=== PATIENT | female | born 1950 | race Caucasian/White ===

== ENCOUNTER 2016-10-24 20:20 | Inpatient (IN) | payer OTHER, MEDICARE ==
[~2016-10-24] VITALS: Ht 170.2 cm; Wt 69.1 kg
[~2016-10-24 20:20] MED LIST: ALPR.25 PO; DEPA500T3 PO; KEPP10002 PO; TOPA25TA8 PO
[2016-10-24 20:27] VITALS: BP 148/88; PULSE 76; RESP 16; TEMP 97.7; O2SAT 97
[2016-10-24 20:37] VITALS: BP 148/88; PULSE 76; RESP 16; TEMP 97.7; O2SAT 97
[2016-10-24] MEDS ORDERED: levETIRAcetam 1000 MG INJ 100 ML IV ONE (20:45)
[2016-10-24] MEDS ORDERED: SODIUM CHLORIDE 0.9% FLUSH 5 ML FLUSH IVF PRN (20:45)
[2016-10-24 20:54] LABS: AUTOMATED NEUTROPHIL # 4.9 TH/MM3 (1.8-7.7); BASOPHIL # 0.1 TH/MM3 (0-0.2); EOSINOPHIL % 0.1 % (0.0-4.0); HEMATOCRIT 47.7 % (35.0-46.0); HEMO FLAGS DIFF FINAL; LYMPH % 8.8 % (9.0-44.0); LYMPHOCYTE # 0.5 TH/MM3 (1.0-4.8); MEAN CELL VOLUME 91.3 FL (80.0-100.0); MEAN CORPUSCULAR HEMOGLOBIN 29.8 PG (27.0-34.0); MEAN CORPUSCULAR HGB CONC 32.7 % (32.0-36.0); MONO % 3.7 % (0.0-8.0); NEUT % 86.4 % (16.0-70.0); PLATELET COUNT 177 TH/MM3 (150-450); RED BLOOD COUNT 5.23 MIL/MM3 (4.00-5.30); RED CELL DISTRIBUTION WIDTH 13.5 % (11.6-17.2); WHITE BLOOD COUNT 5.7 TH/MM3 (4.0-11.0)
--- NOTE | 2016-10-24 20:56 | PD ---
HPI Chief Complaint: Seizure Time Seen by Provider: 20:30 Travel History International Travel<30 days: No Contact w/Intl Traveler<30days: No Traveled to known affect area: No History of Present Illness HPI 66-year-old female with history of seizure disorder, medication noncompliance, brought in by ambulance from home after being found with altered mental status and possibly postictal. Upon arrival to the emergency department, the patient is postictal and is not providing any history. I was able to contact the patient's Sami Bartholomew who is a sample wrapper and is currently out of town. He tells me that the patient is not compliant with the Depakote that she has been prescribed because she does not like the way makes her feel. She has been on several antiepileptics in the past and seems to tolerate Keppra and Tegretol. The patient has been here several times this year with similar presentation. I personally evaluated the patient on 07/21/16 and admitted her for status epilepticus. The patient's states that he calls her throughout the day. This morning and this afternoon she was normal with normal conversations. At around 7:00 PM when he called the home she did not answer, so he called a neighbor to check on her. She was found to be postictal on a recliner. PFSH Past Medical History Hx Anticoagulant Therapy: No Arthritis: No Blood Disorders: No Anxiety: Yes Depression: Yes Heart Rhythm Problems: No Cancer: No Cardiovascular Problems: Yes (HTN; ARRHYTHMIA) High Cholesterol: No Chemotherapy: No Chest Pain: No Congestive Heart Failure: No Cerebrovascular Accident: No Diabetes: No Diminished Hearing: No Endocrine: No Gastrointestinal Disorders: No Genitourinary: No Headaches: Yes Hepatitis: No Hiatal Hernia: No Hypertension: No Immune Disorder: No Implanted Vascular Access Dvce: No Medical other: Yes (SEIZURES, UNKNOWN REASON) Musculoskeletal: Yes (UNSTEADY GAIT) Neurologic: Yes ([place]) Psychiatric: Yes Reproductive: Yes (FIBROID TUMORS) Respiratory: No Immunizations Current: Yes Migraines: No Radiation Therapy: No Seizures: Yes (FROM THE AGE OF 19) Thyroid Disease: No Tetanus Vaccination: < 5 Years Influenza Vaccination: Yes PNEUMOCCOCAL Vaccine (Year): 2 ?: Not Menopausal: Yes : 2 : 2 Dilation and Curettage (D&C): Yes Past Surgical History Abdominal Surgery: No AICD: No Arteriovenous Shunt: No Cardiac Surgery: No Ear Surgery: No Endocrine Surgery: No Eye Surgery: No Genitourinary Surgery: No Gynecologic Surgery: Yes (D&C) Hysterectomy: No Insulin Pump: No Joint Replacement: No Neurologic Surgery: No Oral Surgery: No Pacemaker: No Thoracic Surgery: No Other Surgery: Yes Social History Alcohol Use: No (Quit per ) Tobacco Use: Yes (Occ. per ,most info recalled) Substance Use: No Allergies-Medications (Allergen,Severity, Reaction): Coded Allergies: Fosphenytoin (Verified Allergy, Severe, Rash, 10/24/16) Reported Meds & Prescriptions Reported Meds & Active Scripts Active Xanax (Alprazolam) 0.25 Mg Tab 0.25 Mg PO BID PRN Topamax (Topiramate) 25 Mg Tab 50 Mg PO Q12HR Reported Keppra (Levetiracetam) 1,000 Mg Tab 1,250 Mg PO BID Depakote ER (Divalproex Sodium) 500 Mg Ang 500 Mg PO BID Review of Systems ROS Limitations: Clinical Condition Physical Exam Narrative GENERAL: Well-developed, well-nourished, awake, no acute distress. SKIN: Warm and dry. No rash. No lacerations, abrasions, or ecchymosis. HEAD: Atraumatic. Normocephalic. EYES: Pupils equal, round, 3 mm, reactive to light. No scleral icterus. No injection or drainage. ENT: Mucous membranes pink and moist. NECK: Trachea midline. No JVD. CARDIOVASCULAR: Regular rate and rhythm. RESPIRATORY: No accessory muscle use. Clear to auscultation. Breath sounds equal bilaterally. GASTROINTESTINAL: Abdomen soft, non-tender, nondistended. MUSCULOSKELETAL: No obvious deformities. No clubbing. No cyanosis. No edema. NEUROLOGICAL: Awake and alert. No obvious cranial nerve deficits. Motor grossly within normal limits. Normal speech. No focal deficits. Follows commands. PSYCHIATRIC: Appropriate mood and affect; insight and judgment normal. Data Data Last Documented VS Vital Signs Date Time Temp Pulse Resp B/P Pulse Ox O2 Delivery O2 Flow Rate FiO2 10/24/16 21:37 73 18 113/66 97 Room Air 10/24/16 20:37 97.7 Orders Complete Blood Count With Diff (10/24/16 20:34) Valproic Acid (Depakene) (10/24/16 20:34) Drug Screen, Random Urine (10/24/16 20:34) Ecg Monitoring (10/24/16 20:34) Iv Access Insert/Monitor (10/24/16 20:34) Oximetry (10/24/16 20:34) Comprehensive Metabolic Panel (10/24/16 20:34) Sodium Chloride 0.9% Flush (Ns Flush) (10/24/16 20:45) Urinalysis - C+S If Indicated (10/24/16 20:34) Levetiracetam 1000 Mg Inj (Keppra 1000 M (10/24/16 20:45) Place In Observation (10/24/16 ) Vital Signs (Adult) Q4H (10/24/16 21:45) Activity Oob With Assistance (10/24/16 21:45) ^ Forest Economist / Telemetry .CONTINUOUS (10/24/16 21:45) Intake + Output JAIDEN.QSHIFT (10/24/16 21:45) Diet Regular Basic (10/25/16 Breakfast) Sodium Chlor 0.9% 1000 Ml Inj (Ns 1000 M (10/24/16 21:45) Sodium Chloride 0.9% Flush (Ns Flush) (10/24/16 21:45) Sodium Chloride 0.9% Flush (Ns Flush) (10/25/16 09:00) Ondansetron Inj (Zofran Inj) (10/24/16 21:45) Bisacodyl Supp (Dulcolax Supp) (10/24/16 21:45) Comprehensive Metabolic Panel (10/25/16 06:00) Complete Blood Count With Diff (10/25/16 06:00) Scd Bilateral/Knee High JAIDEN.BID (10/24/16 21:45) Artis Bilateral/Knee High JAIDEN.QSHIFT (10/24/16 21:45) Acetaminophen (Tylenol) (10/24/16 21:45) ^ Seizure Precautions (10/24/16 21:45) Alprazolam (Xanax) (10/24/16 21:45) Divalproex Er (Depakote Er) (10/25/16 09:00) Levetiracetam (Keppra) (10/25/16 09:00) Topiramate (Topamax) (10/25/16 09:00) Labs Laboratory Tests Test 10/24/16 20:44 White Blood Count 5.7 TH/MM3 Red Blood Count 5.23 MIL/MM3 Hemoglobin 15.6 GM/DL Hematocrit 47.7 % Mean Corpuscular Volume 91.3 FL Mean Corpuscular Hemoglobin 29.8 PG Mean Corpuscular Hemoglobin 32.7 % Concent Red Cell Distribution Width 13.5 % Platelet Count 177 TH/MM3 Mean Platelet Volume 7.8 FL Neutrophils (%) (Auto) 86.4 % Lymphocytes (%) (Auto) 8.8 % Monocytes (%) (Auto) 3.7 % Eosinophils (%) (Auto) 0.1 % Basophils (%) (Auto) 1.0 % Neutrophils # (Auto) 4.9 TH/MM3 Lymphocytes # (Auto) 0.5 TH/MM3 Monocytes # (Auto) 0.2 TH/MM3 Eosinophils # (Auto) 0.0 TH/MM3 Basophils # (Auto) 0.1 TH/MM3 CBC Comment DIFF FINAL Differential Comment Sodium Level 142 MEQ/L Potassium Level 3.9 MEQ/L Chloride Level 105 MEQ/L Carbon Dioxide Level 24.1 MEQ/L Anion Gap 13 MEQ/L Blood Urea Nitrogen 8 MG/DL Creatinine 0.79 MG/DL Estimat Glomerular Filtration 73 ML/MIN Rate Random Glucose 129 MG/DL Calcium Level 9.1 MG/DL Total Bilirubin 0.3 MG/DL Aspartate Amino Transf 7 U/L (AST/SGOT) Alanine Aminotransferase 15 U/L (ALT/SGPT) Alkaline Phosphatase 101 U/L Total Protein 7.4 GM/DL Albumin 3.8 GM/DL [facility] Medical Decision Making Medical Screen Exam Complete: Yes Emergency Medical Condition: Yes Medical Record Reviewed: Yes Differential Diagnosis Breakthrough seizure, medication noncompliance, postictal, intracranial abnormality Narrative Course Upon arrival to the emergency department patient was confused and seemed postictal. About 30 minutes after arrival to the patient is more awake. She is oriented to person and place. She admits to not taking her seizure medications. She was given a loading dose of Keppra by me. 9:29 PM: I was called to the bedside because the patient was having a generalized seizure. Seizure broke on its own after about 30 seconds. Patient was postictal after seizure. The patient did not return to her baseline mental status before the seizure occurred. Because of this she is technically an status epilepticus. She will be admitted for further treatment and evaluation. CBC shows WBC 5.7, hemoglobin 15.6, hematocrit 47.7, platelets 177 CMP is essentially unremarkable. Case discussed with hospitalist Dr. Tristan who will admit the patient to her service. Diagnosis Primary Impression: Recurrent seizures Additional Impression: Noncompliance with medications Admitting Information Admitting Physician Requests: Observation Wong Abernathy MD Oct 24, 2016 20:56
[2016-10-24 21:05] LABS: CHLORIDE 105 MEQ/L (98-107); POTASSIUM 3.9 MEQ/L (3.5-5.1); SODIUM (NA) 142 MEQ/L (136-145)
[2016-10-24 21:09] LABS: ANION GAP 13 MEQ/L (5-15); BICARBONATE 24.1 MEQ/L (21.0-32.0); BLOOD UREA NITROGEN 8 MG/DL (7-18)
[2016-10-24 21:12] LABS: ALT (GPT) 15 U/L (10-53); AST (GOT) 7 U/L (15-37); GLOMERULAR FILTRATION RATE 73 ML/MIN (>89)
[2016-10-24 21:13] LABS: TOTAL BILIRUBIN ADULT 0.3 MG/DL (0.2-1.0)
[2016-10-24 21:14] LABS: ALKALINE PHOSPHATASE 101 U/L (45-117)
[2016-10-24 21:37] VITALS: BP 113/66; PULSE 73; RESP 18; O2SAT 97
[2016-10-24] MEDS ORDERED: BISACODYL 10 MG SUPP PR PRN (21:45)
[2016-10-24] MEDS ORDERED: ONDANSETRON HCL 4 MG/2 ML VIAL IVP PRN (21:45)
[2016-10-24] MEDS ORDERED: ALPRAZolam 0.25 MG TAB PO PRN (21:45)
[2016-10-24] MEDS ORDERED: SODIUM CHLORIDE 0.9% FLUSH 5 ML FLUSH FLUSH PRN (21:45)
[2016-10-24] MEDS: SODIUM CHLOR 0.9% 1000 ML INJ 1,000 ML IV SCH (21:54)
[2016-10-24 21:59] VITALS: BP 134/88; PULSE 77; RESP 17; O2SAT 97
[2016-10-24 22:45] VITALS: BP 147/90; PULSE 79; RESP 16; O2SAT 96
[2016-10-25] VITALS (14 sets, daily range): BP systolic 109–153; BP diastolic 76–95; PULSE 68–117; RESP 12–19; TEMP 97.2–98.3; O2SAT 94–99
[2016-10-25] MEDS ORDERED: LORazepam 2 MG/ML VIAL IV PUSH PRN (05:45)
[2016-10-25 07:49] LABS: AUTOMATED NEUTROPHIL # 5.8 TH/MM3 (1.8-7.7); BASOPHIL % 0.3 % (0.0-2.0); EOSINOPHIL % 0.3 % (0.0-4.0); HEMATOCRIT 50.2 % (35.0-46.0); HEMO FLAGS DIFF FINAL; LYMPHOCYTE # 0.8 TH/MM3 (1.0-4.8); MEAN CELL VOLUME 91.6 FL (80.0-100.0); MEAN CORPUSCULAR HEMOGLOBIN 29.4 PG (27.0-34.0); MEAN CORPUSCULAR HGB CONC 32.1 % (32.0-36.0); MONO % 6.2 % (0.0-8.0); NEUT % 82.2 % (16.0-70.0); PLATELET COUNT 207 TH/MM3 (150-450); RED BLOOD COUNT 5.48 MIL/MM3 (4.00-5.30); RED CELL DISTRIBUTION WIDTH 13.7 % (11.6-17.2); WHITE BLOOD COUNT 6.9 TH/MM3 (4.0-11.0)
[2016-10-25] MEDS: SODIUM CHLOR 0.9% 1000 ML INJ 1,000 ML IV SCH ×2 (08:02→15:34)
[2016-10-25 08:10] LABS: CHLORIDE 107 MEQ/L (98-107); POTASSIUM 4.4 MEQ/L (3.5-5.1); SODIUM (NA) 142 MEQ/L (136-145)
[2016-10-25 08:17] LABS: ANION GAP 9 MEQ/L (5-15); BICARBONATE 26.1 MEQ/L (21.0-32.0); BLOOD UREA NITROGEN 9 MG/DL (7-18)
[2016-10-25 08:20] LABS: ALT (GPT) 15 U/L (10-53); AST (GOT) 9 U/L (15-37)
[2016-10-25 08:21] LABS: GLOMERULAR FILTRATION RATE 87 ML/MIN (>89)
[2016-10-25 08:22] LABS: TOTAL BILIRUBIN ADULT 0.5 MG/DL (0.2-1.0)
[2016-10-25 08:23] LABS: ALKALINE PHOSPHATASE 103 U/L (45-117)
[2016-10-25] MEDS ORDERED: levETIRAcetam 500 MG TAB PO SCH (09:00)
[2016-10-25] MEDS: levETIRAcetam 250 MG TAB PO SCH ×2 (09:00→20:24)
[2016-10-25] MEDS ORDERED: DIVALPROEX SODIUM E.R. 500 MG TAB PO SCH (09:00)
[2016-10-25] MEDS: SODIUM CHLORIDE 0.9% FLUSH 5 ML FLUSH FLUSH SCH ×2 (09:00→20:24)
[2016-10-25] MEDS: TOPIRAMATE 25 MG TAB PO SCH ×2 (09:00→21:24)
[2016-10-25] MEDS: levETIRAcetam 500 MG TAB PO SCH ×2 (09:36→20:24)
--- NOTE | 2016-10-25 13:10 | HHI.HP ---
cc: Chidi Slater MD [facility] Service [facility] Primary Care Physician Chidi Slater MD Admission Diagnosis recurrent seizures, medication non-compliance Diagnoses: (1) Encephalopathy (2) Recurrent seizures (3) Noncompliance with medications Chief Complaint: Seizure Travel History International Travel<30 Days: No Contact w/Intl Traveler <30 Da: No Traveled to Known Affected Are: No History of Present Illness The patient is a 66-year-old female with history of seizure disorder and medication noncompliance. She was found to have altered mental status, possibly postictal state. She was brought to the emergency department by ambulance. She is nonverbal. She is able to answer questions by nodding. She denies any complaints other than the seizures. She did have another witnessed seizure this morning and was given Ativan. She has been refusing some of her antiepileptic medications. Further information is gathered from review of the electronic medical record. Review of Systems ROS Limitations: Altered Mental Status Constitutional: DENIES: Fever, Chills, Night Sweats Eyes: DENIES: Blurred vision, Vision loss Ears, nose, mouth, throat: DENIES: Hearing loss Respiratory: DENIES: Cough, Wheezing, Sputum production, Shortness of breath Cardiovascular: DENIES: Chest pain, Palpitations, Dyspnea on Exertion, Lower Extremity Edema Gastrointestinal: DENIES: Abdominal pain, Constipation, Diarrhea, Nausea, Vomiting Genitourinary: DENIES: Urinary frequency, Urinary incontinence, Urgency, Hematuria, Dysuria, Nocturia Musculoskeletal: DENIES: Joint pain, Muscle aches Integumentary: DENIES: Pruritus, Rash Hematologic/lymphatic: DENIES: Bruising Neurologic: COMPLAINS OF: Seizures, DENIES: Headache, Localized weakness, Paresthesias Past Family Social History Past Medical History Seizure disorder Hypertension Anxiety/depression Past Surgical History D&C Reported Medications Xanax (Alprazolam) 0.25 Mg Tab 0.25 Mg PO BID PRN Topamax (Topiramate) 25 Mg Tab 50 Mg PO Q12HR Keppra (Levetiracetam) 1,000 Mg Tab 1,250 Mg PO BID Depakote ER (Divalproex Sodium) 500 Mg Ang 500 Mg PO BID Allergies: Coded Allergies: Fosphenytoin (Verified Allergy, Severe, Rash, 10/24/16) Family History Unobtainable Social History Per review of the electronic record, smokes cigarettes occasionally. No longer uses alcohol. Denies illicit drug use. Physical Exam Vital Signs Vital Signs Date Time Temp Pulse Resp B/P Pulse Ox O2 Delivery O2 Flow Rate FiO2 10/25/16 08:00 97.6 75 18 146/89 99 10/25/16 08:00 82 10/25/16 04:00 97.2 76 16 142/90 96 10/25/16 00:51 75 10/25/16 00:30 98.1 74 16 148/95 99 10/25/16 00:00 82 16 126/94 96 Room Air 10/24/16 22:45 79 16 147/90 96 Room Air 10/24/16 21:59 77 17 134/88 97 Room Air 10/24/16 21:37 73 18 113/66 97 Room Air 10/24/16 20:37 97.7 76 16 148/88 97 Room Air 10/24/16 20:27 97.7 76 16 148/88 97 Room Air 10/24/16 20:27 16 97 Room Air Physical Exam GENERAL: Well-nourished, well-developed female in no acute distress. Nonverbal. HEENT: Normocephalic, atraumatic. Pupils equal, round and reactive. Extraocular movements intact. No scleral icterus. No injection or drainage. Oropharynx is clear. Mucous membranes are moist. CARDIOVASCULAR: Regular rate and rhythm without murmurs, gallops, or rubs. RESPIRATORY: Clear to auscultation. No wheezes, rales, or rhonchi. Breathing is non-labored. GASTROINTESTINAL: Abdomen soft, non-tender, nondistended. EXTREMITIES: No lower extremity edema. No calf tenderness. PSYCH: Alert, nonverbal, answers questions by nodding. NEURO: Cranial nerves II through XII are grossly intact. Audio Operator strength is 5/5 bilaterally. Laboratory Laboratory Tests Test 10/24/16 10/25/16 20:44 07:03 White Blood Count 5.7 6.9 Red Blood Count 5.23 5.48 Hemoglobin 15.6 16.1 Hematocrit 47.7 50.2 Mean Corpuscular Volume 91.3 91.6 Mean Corpuscular Hemoglobin 29.8 29.4 Mean Corpuscular Hemoglobin 32.7 32.1 Concent Red Cell Distribution Width 13.5 13.7 Platelet Count 177 207 Mean Platelet Volume 7.8 8.4 Neutrophils (%) (Auto) 86.4 82.2 Lymphocytes (%) (Auto) 8.8 11.0 Monocytes (%) (Auto) 3.7 6.2 Eosinophils (%) (Auto) 0.1 0.3 Basophils (%) (Auto) 1.0 0.3 Neutrophils # (Auto) 4.9 5.8 Lymphocytes # (Auto) 0.5 0.8 Monocytes # (Auto) 0.2 0.4 Eosinophils # (Auto) 0.0 0.0 Basophils # (Auto) 0.1 0.0 CBC Comment DIFF FINAL DIFF FINAL Differential Comment Sodium Level 142 142 Potassium Level 3.9 4.4 Chloride Level 105 107 Carbon Dioxide Level 24.1 26.1 Anion Gap 13 9 Blood Urea Nitrogen 8 9 Creatinine 0.79 0.68 Estimat Glomerular Filtration 73 87 Rate Random Glucose 129 109 Calcium Level 9.1 9.0 Total Bilirubin 0.3 0.5 Aspartate Amino Transf 7 9 (AST/SGOT) Alanine Aminotransferase 15 15 (ALT/SGPT) Alkaline Phosphatase 101 103 Total Protein 7.4 7.4 Albumin 3.8 3.8 Valproic Acid (Depakene) Level LESS THAN 3 Result Diagram: 10/25/1603 10/25/16 0703 Assessment and Plan Assessment and Plan 1. Seizure disorder: Patient has had recurrent seizures. She apparently is noncompliant with her antiepileptic medication. Will admit to ICU for close monitoring. Ativan as needed for seizures. Seizure precautions. Consult neurology. 2. Encephalopathy: Likely secondary to seizure disorder. Patient is currently nonverbal, but is more alert now. Monitor mental status. 3. DVT prophylaxis: Krystyna, CALIXTO lopez. Jaydon Liriano MD Oct 25, 2016 13:09
--- NOTE | 2016-10-25 14:45 | RADHPO ---
EXAM DATE/TIME: 10/25/2016 14:25 [place] COMPARISON: CT BRAIN W/O CONTRAST, September 27, 2016, 10:58. INDICATIONS : Evaluate for encephalopathy. RADIATION DOSE: 60.32 CTDIvol (mGy) MEDICAL HISTORY : Hypertension. SURGICAL HISTORY : None. ENCOUNTER: Initial ACUITY: 1 day PAIN SCALE: Non-responsive LOCATION: Bilateral head TECHNIQUE: Multiple contiguous axial images were obtained of the head. Using automated exposure control and adj ustment of the mA and/or kV according to patient size, radiation dose was kept as low as reasonably a chievable to obtain optimal diagnostic quality images. FINDINGS: Air-fluid level in the left sinus. No fractures. No signs of acute infarct, intracranial hemorrhage, or mass. There is cerebellar atrophy again seen. CONCLUSION: 1. Stable appearance of the brain. 2. Left sphenoid sinus air-fluid level. Felton Simon MD on October 25, 2016 at 14:43 Board Certified Radiologist. This report was verified electronically.
--- NOTE | 2016-10-25 16:44 | MB ---
cc: MOLINA SANCHEZ MD DATE OF CONSULTATION: 10/25/2016. REASON FOR CONSULTATION: Breakthrough seizure and encephalopathy. HISTORY OF PRESENT ILLNESS: A 66-year-old female with past medical history of seizure disorder and seizure medication noncompliance well-known to this service. She has frequently visited the emergency room for breakthrough seizures and traumatic multiple falls and traumatic head injury. The patient states that she only takes Keppra one dose per day and according to the medical record on previous encounter with her personally, she was on Keppra and Lamictal and oxcarbazepine; however, she adamantly states that she only takes one pill of Keppra and she is not sure of the strength of this Keppra dose. The patient was brought into the emergency department by the ambulance where she was nonverbal, confused and she did have another witnessed seizure in the hospital for which she was given Ativan and she is refusing other seizure medication. Of note, according to the previous medical record, the patient was diagnosed with seizure when she was 22 years old and she denies any history of childhood seizures, febrile convulsions, meningitis, significant head trauma, TIA or stroke. She has always been noncompliant with medications. REVIEW OF SYSTEMS: A twelve-point review of systems was negative except as stated in the history of present illness. PAST MEDICAL HISTORY: 1. Seizure disorder. 2. Hypertension. 3. Anxiety / depression. PAST SURGICAL HISTORY: D&C. MEDICATIONS: 1. Xanax. 2. Topamax 0.25 at 50. 3. Keppra 1000 morning and 1250 at night. 4. Depakote ER 500 twice daily. ALLERGIES: FOSPHENYTOIN - SEVERE RASH. FAMILY HISTORY: Noncontributory. SOCIAL HISTORY: She smokes cigarettes occasionally. She no longer drinks alcohol. Denies illicit drug abuse. PHYSICAL EXAMINATION: GENERAL: The patient is awake, alert, looks lethargic and not in distress. HEAD, EYES, EARS, NOSE, THROAT: Normocephalic and atraumatic. Intact vision. CARDIOVASCULAR: Regular rate and rhythm. No murmurs. RESPIRATORY: Clear to auscultation. No wheezes. EXTREMITIES: Moving all extremities without cyanosis or edema. NEUROLOGICAL EXAMINATION: Awake, alert and oriented to person and place, not to time. She is mildly slurring her speech. Lethargic. Intact speech content. Mild dysarthria. Left facial weakness, questionable remote. Moves all extremities. Unable to accurately assess the muscle strength due to the lack of cooperation of the patient but grossly it is intact 5-/5 throughout. Intact cerebellar function with just fine action tremor in both hands. Reflexes 2+ bilateral symmetrical. Sensation is intact throughout. Gait and stance deferred at this time. LABORATORY DATA: White blood cells 6.9, hemoglobin 16.1, MCV 91.6, platelet count 207,000. Sodium 142, potassium 4.4, chloride level 107, carbon dioxide 26.1, anion gap 9, BUN 9, creatinine 0.68, random glucose 109, total bilirubin 0.5, calcium 9, AST 9, ALT 15, alkaline phosphatase 103, total protein 7.4, albumin 3.8. Valproic acid was reported as less than three. DIAGNOSTIC IMPRESSION: Breakthrough seizure with history of chronic seizure disorder. The most likely etiology is non-adherence and noncompliance to the medication. PLAN: 1. Neuro checks q. 4 hourly. 2. Keppra 1 gram twice daily and if she refuses to take oral then will switch to intravenous. 3. Head CT scan without contrast. 4. Seizure precautions. 5. DVT prophylaxis. 6. GI prophylaxis. Thank you for the opportunity to participate in the care of your patient. MD MOISES Weber/SHAYY /2:05 PM /4:31 PM KALINA
[2016-10-25] MEDS ORDERED: DILTIAZEM HCL 25 MG/5 ML VIAL IVP ONE (19:15)
[2016-10-25 19:19] LABS: BLOOD, URINE NEG (NEG); GLUCOSE,URINE NEG (NEG); KETONE, URINE TRACE mg/dL (NEG); NITRITE,URINE NEG (NEG)
--- NOTE | 2016-10-25 19:19 | HHI.PR ---
Addendum to Inpatient Note Additional Information Called by ICU nurse. Patient showing a-fib with rate in 120s on telemetry. Patient is asymptomatic. No chest pain, dyspnea. EKG shows rate 130bpm with ST depression in V3, V4. I called Dr. Telles, cardiology, and he reviewed the EKG. Recommended ischemic workup with serial cardiac enzymes and EKGs. Will transfer to main hospital if troponin elevation. Start Cardizem drip for a-fib with RVR. Jaydon Liriano MD Oct 25, 2016 19:19
[2016-10-25 19:27] LABS: COMMENT (UR) CULT NOT INDICATED; CULTURE IF INDICATED CULT NOT INDICATED; RBC, URINE 0-2 /hpf (0-3); SQUAMOUS EPITHELIAL CELL URINE 0-5 /hpf (0-5); URINE COLOR STRAW (YELLW/STRAW); WBC, URINE 0-2 /hpf (0-5)
[2016-10-25 19:37] LABS: AMPHETAMINE, URINE NEG (NEG); BARBITURATES, URINE NEG (NEG)
[2016-10-25] MEDS ORDERED: DILTIAZEM INJ 100 MG in SODIUM CHLORIDE 0.9% INJ 100 ML IV SCH (19:37)
[2016-10-25 19:55] LABS: COCAINE, URINE NEG (NEG)
[2016-10-25 20:02] LABS: CREATINE KINASE 40 U/L (26-192)
[2016-10-25] MEDS: DIVALPROEX SODIUM E.R. 250 MG TAB PO SCH (20:24)
[2016-10-25] MEDS: ACETAMINOPHEN 325 MG TAB PO PRN (20:25)
[2016-10-25] MEDS ORDERED: CHLORHEXIDINE GLUCONATE 2 % 1 PACK (2 CLOTHS)(extra cloths) TOP PRN (21:00)
[2016-10-26] VITALS (28 sets, daily range): BP systolic 93–150; BP diastolic 55–103; PULSE 62–84; RESP 12–24; TEMP 97.2–98.2; O2SAT 93–96
[2016-10-26] MEDS: SODIUM CHLOR 0.9% 1000 ML INJ 1,000 ML IV SCH ×4 (00:34→20:00)
[2016-10-26] MEDS: ACETAMINOPHEN 325 MG TAB PO PRN ×2 (01:32→19:59)
[2016-10-26 02:13] LABS: CREATINE KINASE 35 U/L (26-192)
[2016-10-26] MEDS: CHLORHEXIDINE GLUCONATE 2 % 1 PACK (2 CLOTHS)(taper/protocol) TOP SCH (04:00)
[2016-10-26 07:59] LABS: CREATINE KINASE 33 U/L (26-192)
[2016-10-26] MEDS: levETIRAcetam 500 MG TAB PO SCH ×2 (08:32→19:59)
[2016-10-26] MEDS: levETIRAcetam 250 MG TAB PO SCH ×2 (08:32→19:58)
[2016-10-26] MEDS: SODIUM CHLORIDE 0.9% FLUSH 5 ML FLUSH FLUSH SCH ×2 (08:38→20:00)
[2016-10-26] MEDS: DIVALPROEX SODIUM E.R. 250 MG TAB PO SCH ×2 (09:00→20:00)
[2016-10-26] MEDS: TOPIRAMATE 25 MG TAB PO SCH ×2 (09:00→19:58)
--- NOTE | 2016-10-26 09:58 | HHI.PR ---
Subjective Remarks Follow up seizures, a-fib. The patient states that she feels better today. She is verbal. Does report some lower abdominal pain, but states that it has been there "for years". Reports paresthesias and pain in both feet. Objective Vitals Vital Signs Date Time Temp Pulse Resp B/P Pulse Ox O2 Delivery O2 Flow Rate FiO2 10/26/16 06:00 62 10/26/16 04:00 97.2 64 19 104/63 95 10/26/16 04:00 64 10/26/16 03:00 70 18 93/72 93 10/26/16 03:00 62 10/26/16 02:00 66 10/26/16 02:00 66 18 102/74 94 10/26/16 01:00 70 16 111/77 95 10/26/16 01:00 70 10/26/16 00:00 97.9 66 18 107/70 94 10/26/16 00:00 66 10/25/16 23:00 72 19 122/76 94 10/25/16 23:00 72 10/25/16 22:00 80 10/25/16 22:00 80 17 114/83 94 10/25/16 21:00 82 10/25/16 21:00 82 14 117/84 95 10/25/16 20:00 97.5 104 12 134/87 95 10/25/16 20:00 104 10/25/16 19:00 109/83 10/25/16 19:00 108 10/25/16 18:00 117 10/25/16 16:00 70 10/25/16 16:00 68 16 150/88 96 10/25/16 15:00 82 10/25/16 14:55 98.3 82 12 153/86 97 I/O 10/25/16 10/25/16 10/25/16 10/26/16 10/26/16 10/26/16 07:00 15:00 23:00 07:00 15:00 23:00 Intake Total 820 ml 968 ml 872 ml Output Total 450 ml Balance 820 ml 968 ml 422 ml Intake Oral 180 ml 120 ml IV Total 820 ml 788 ml 752 ml Output Urine Total 450 ml # Voids 2 1 # Bowel Movements 0 Result Diagram: 10/25/16 0703 10/25/16 0703 Imaging Last Impressions Head CT 10/25/16 0000 Signed Impressions: Service Date/Time: Tuesday, October 25, 2016 14:25 - CONCLUSION: 1. Stable appearance of the brain. 2. Left sphenoid sinus air-fluid level. Felton Simon MD Objective Remarks General: No acute distress. Heart: Regular rate and rhythm. No murmur. Lungs: Clear to auscultation bilaterally. No wheezes, rales, or rhonchi. Breathing is nonlabored. Abdomen: Soft, nontender, nondistended. Extremities: No lower extremity edema. Psych: Alert, answers questions appropriately. Urinary Catheter: No Vascular Central Line Catheter: No A/P Problem List: (1) Encephalopathy ICD Code: G93.40 Status: Acute (2) Recurrent seizures ICD Code: G40.909 Status: Chronic (3) Noncompliance with medications ICD Code: Z91.14 Status: Chronic (4) Atrial fibrillation with RVR ICD Code: I48.91 Status: Acute Assessment and Plan 1. Seizure disorder: Patient has had recurrent seizures. She apparently is noncompliant with her antiepileptic medication. Continue monitoring in ICU. Ativan as needed for seizures. Seizure precautions. Appreciate neurology recommendations. 2. Encephalopathy: Likely secondary to seizure disorder. Improving. Monitor mental status. 3. DVT prophylaxis: CALIXTO [place]. 4. Atrial fibrillation with RVR: Patient was placed on Cardizem drip last night. Rate is now controlled. Appreciate cardiology recommendations. Will discontinue Cardizem drip. Start digoxin rather than calcium channel marilia due to low blood pressure. Jaydon Liriano MD Oct 26, 2016 09:58
[2016-10-26] MEDS: DIGOXIN 0.125 MG TAB PO SCH (10:00)
--- NOTE | 2016-10-26 10:34 | MB ---
cc: GEOFF FINNEGAN DATE OF CONSULTATION: 10/26/2016 INDICATION Abnormal electrocardiogram, atrial fibrillation. HISTORY OF PRESENT ILLNESS 66-year-old female with prior history of seizure disorder and noncompliance with medications, who was brought in for breakthrough seizures and traumatic multiple falls with head injury. She was on Keppra and Lamictal. She was diagnosed with seizures at a young age. Does not have any history of any major cardiac issues. She was noted to have atrial fibrillation. She developed rapid ventricular rate with some associated mild ST depression on electrocardiogram, although she is asymptomatic. We were consulted for further recommendations. PAST MEDICAL HISTORY 1. Seizure. 2. Hypertension. 3. Anxiety. MEDICATIONS 1. Xanax. 2. Topamax. 3. Keppra. 4. Depakote. ALLERGIES FOSPHENYTOIN. FAMILY HISTORY Family history is noncontributory. SOCIAL HISTORY Occasional smoking. No alcohol or drug use. REVIEW OF SYSTEMS 12-point review of systems was performed and negative unless otherwise noted in the history of present illness. PHYSICAL EXAMINATION VITAL SIGNS: Temperature 97, pulse 64, blood pressure is 104/63 mmHg. GENERAL: Alert, no acute distress. HEENT: Exam shows pupils reactive to light and accommodation. Extraocular movements are intact. NECK: No elevation in jugular venous distension. No thyromegaly or lymphadenopathy. No carotid bruits. LUNGS: Clear to auscultation bilaterally. CARDIOVASCULAR: Irregular, irregular rhythm without murmurs, rubs or gallops. ABDOMEN: Nontender, nondistended. Good bowel sounds. No hepatosplenomegaly. EXTREMITIES: No clubbing, cyanosis or edema. Good peripheral pulses. Cranial nerves intact. Motor and sensory grossly intact. LABORATORY DATA WBC 6.9, hemoglobin 16.1, platelet counts 207, sodium 142, potassium 4.4, BUN is 9, creatinine 0.68, troponin negative. ASSESSMENT 1. Abnormal electrocardiogram, atrial fibrillation, hypertension. PLAN The patient is relatively asymptomatic. I suspect that her electrocardiogram with ST depression may have been rate related. She is now well rate controlled and slightly hypotensive on low dose Cardizem drip. Will discontinue Cardizem drip. Given her hypotension, will start her on low dose of digoxin instead of calcium channel marilia. She is not a good anticoagulation candidate, although her CHADS vasc score is relatively low. Will start her on aspirin 325 mg a day. For the abnormal electrocardiogram will get a Lexiscan. 2-D echocardiogram is pending. If both are unremarkable, no further workup is necessary. MD NITESH Mims/ALBA /9:55 AM /10:18 AM
[2016-10-26] MEDS ORDERED: REGADENOSON INJ 0.4 MG/5 ML SYR IV ONE (12:16)
--- NOTE | 2016-10-26 13:35 | EKG ---
Date Performed: 10/25/2016 Time Performed: 18:23:50 PTAGE: 66 years EKG: Atrial fibrillation with rapid ventricular response. Extensive ST-T changes may be due to m yocardial ischemia Abnormal ECG Compared to PREVIOUS TRACING , the atrial fibrillation with rapid ventriuclar response is new. The di ffuse ST-T wave changes are new. Clinical correlation will be important. PREVIOUS TRACIN09/15/2016 15.28 DOCTOR: Tessa Tinajero Interpretating Date/Time 10/26/2016 13:31:24
--- NOTE | 2016-10-26 13:37 | EKG ---
Date Performed: 10/26/2016 Time Performed: 01:17:06 PTAGE: 66 years EKG: Atrial fibrillation with slow ventricular response Possible inferior infarct - age undeterm ined Ant/septal and lateral ST-T changes are nonspecific Abnormal ECG Compared to PREVIOUS TRACING , the atrial fibrillation ventricular rate is now controlled. There has been a significant overall improvement in the nonspecific ST-T wave changes which are now largely res olved. Clinical correlation remains important. PREVIOUS TRACIN10/25/2016 18.23 DOCTOR: Tessa Tinajero Interpretating Date/Time 10/26/2016 13:32:20
--- NOTE | 2016-10-26 13:54 | RADHPO ---
EXAM DATE/TIME: 10/26/2016 12:39 [facility] COMPARISON: No previous studies available for comparison. INDICATIONS : Seizure disorder. Atrial fibrillation. DOSE: 25.8 mCi Tc99m Myoview at stress. 8.4 mCi Tc99m Myoview at rest. 0.4 mg Lexiscan STRESS SYMPTOMS: Cough and stomach pain. EJECTION FRACTION: > 70% MEDICAL HISTORY : Hypertension. SURGICAL HISTORY : D&C. ENCOUNTER: Initial ACUITY: 1 day PAIN SCALE: 0/10 LOCATION: chest TECHNIQUE: The patient underwent pharmacologic stress with infusion of prescribed dose. Continuous ECG tracing was monitored during stress. Gated SPECT imaging was performed after stress and conventional SPECT i maging was performed at rest. The examination was performed on a SPECT/CT scanner, both attenuation and non-corrected datasets were reviewed. FINDINGS: DISTRIBUTION: The maximum perfused segment at stress is in the anterolateral wall. PERFUSION STUDY: There is a questionable small reversible perfusion defect of mild severity at the mid inferior wall l evel. GATED STUDY: There is intact wall motion and thickening without hypokinetic or dyskinetic segments. CONCLUSION: 1. Questionable small reversible perfusion defect mid inferior wall. 2. Normal ejection fraction. RISK CATEGORY: Low (<1% Annual Mortality Rate) Felton Simon MD on October 26, 2016 at 13:50 Board Certified Radiologist. This report was verified electronically.
[2016-10-26] MEDS: ASPIRIN EC 325 MG TABEC PO SCH (14:27)
[2016-10-27] VITALS (24 sets, daily range): BP systolic 133–163; BP diastolic 78–99; PULSE 60–86; RESP 13–26; TEMP 97.9–98.3; O2SAT 94–96
[2016-10-27] MEDS: CHLORHEXIDINE GLUCONATE 2 % 1 PACK (2 CLOTHS)(taper/protocol) TOP SCH (04:00)
[2016-10-27] MEDS: SODIUM CHLOR 0.9% 1000 ML INJ 1,000 ML IV SCH (06:29)
[2016-10-27] MEDS: DIGOXIN 0.125 MG TAB PO SCH (08:44)
[2016-10-27] MEDS: SODIUM CHLORIDE 0.9% FLUSH 5 ML FLUSH FLUSH SCH ×2 (08:44→20:34)
[2016-10-27] MEDS: TOPIRAMATE 25 MG TAB PO SCH ×2 (08:45→20:34)
[2016-10-27] MEDS: DIVALPROEX SODIUM E.R. 250 MG TAB PO SCH ×2 (08:45→20:32)
[2016-10-27] MEDS: levETIRAcetam 250 MG TAB PO SCH ×2 (08:45→20:32)
[2016-10-27] MEDS: levETIRAcetam 500 MG TAB PO SCH ×2 (08:45→20:32)
[2016-10-27] MEDS: ASPIRIN EC 325 MG TABEC PO SCH (08:45)
--- NOTE | 2016-10-27 14:26 | HHI.PR ---
Subjective Remarks Late entry. Patient seen at 11:30 AM. Patient denies complaints. She is unable to tell me who her primary care physician is only stating that it used to be Dr. Slater. The patient is alert and oriented 3 however has poor insight into her health and is making bizarre statements such as "this hospital try to inject Depakote and my head." She is able to tell me that Dr. Castellano as her neurologist. She states her is a truckload checker and is currently in [place] but will be returning home in a few days. When I ask her for permission to talk with her regarding her healthcare she is hesitant and states "don't put me in a [facility]." However she does reluctantly give me permission to talk with her . Objective Vitals Vital Signs Date Time Temp Pulse Resp B/P Pulse Ox O2 Delivery O2 Flow Rate FiO2 10/27/16 13:00 84 26 158/89 10/27/16 12:00 98.2 76 17 150/90 10/27/16 12:00 76 10/27/16 12:00 76 17 150/90 10/27/16 11:03 76 26 145/89 10/27/16 11:00 78 10/27/16 10:00 86 10/27/16 09:00 82 10/27/16 08:06 98.1 68 16 156/84 10/27/16 08:00 70 10/27/16 07:00 64 10/27/16 07:00 64 13 142/89 10/27/16 06:00 74 10/27/16 06:00 74 24 140/88 10/27/16 05:00 60 19 140/81 10/27/16 04:00 62 10/27/16 04:00 97.9 62 19 141/85 95 10/27/16 03:00 64 16 136/84 10/27/16 02:00 60 10/27/16 02:00 60 19 135/82 10/27/16 01:00 64 17 133/83 10/27/16 00:00 64 10/27/16 00:00 98.3 64 14 138/78 94 10/26/16 23:00 66 16 126/77 95 10/26/16 22:00 72 17 119/70 10/26/16 22:00 72 10/26/16 21:00 68 10/26/16 21:00 68 14 121/75 10/26/16 20:00 78 10/26/16 20:00 97.9 78 21 150/103 96 10/26/16 19:00 74 12 119/85 10/26/16 18:00 74 10/26/16 17:00 78 17 105/82 10/26/16 17:00 78 10/26/16 16:50 76 10/26/16 16:00 80 10/26/16 16:00 98.2 80 16 117/77 10/26/16 15:50 80 10/26/16 15:00 82 22 125/82 10/26/16 15:00 82 10/26/16 14:50 84 I/O 10/26/16 10/26/16 10/26/16 10/27/16 10/27/16 10/27/16 07:00 15:00 23:00 07:00 15:00 23:00 Intake Total 872 ml 840 ml 742 ml 960 ml Output Total 450 ml 1200 ml 1 ml Balance 422 ml -360 ml 742 ml 959 ml Intake Oral 120 ml 240 ml 120 ml 60 ml IV Total 752 ml 600 ml 622 ml 900 ml Output Urine Total 450 ml 1200 ml Stool Total 1 ml # Voids 0 1 1 Result Diagram: 10/25/1670210/25/16702 Objective Remarks GENERAL: Well-nourished, well-developed lean female patient. SKIN: Warm and dry. HEAD: Normocephalic. EYES: No scleral icterus. No injection or drainage. NECK: Supple, trachea midline. No JVD or lymphadenopathy. CARDIOVASCULAR: Regular rate and rhythm without murmurs, gallops, or rubs. RESPIRATORY: Breath sounds equal bilaterally. No accessory muscle use. GASTROINTESTINAL: Abdomen soft, non-tender, nondistended. EXTREMITIES: No cyanosis, or edema. NEUROLOGICAL: Awake, alert, and oriented x 3. Non-focal. However she has poor insight and mental concentration and thought organization seems to be impaired. A/P Problem List: (1) Encephalopathy ICD Code: G93.40 Status: Acute (2) Recurrent seizures ICD Code: G40.909 Status: Chronic (3) Noncompliance with medications ICD Code: Z91.14 Status: Chronic (4) Atrial fibrillation with RVR ICD Code: I48.91 Status: Acute Assessment and Plan 1. Seizure disorder: Patient has had recurrent seizures. She apparently is noncompliant with her antiepileptic medication. Cont pablo chapman. Appreciate neurology recommendations. 2. Encephalopathy: Likely secondary to seizure disorder. Improving. Monitor mental status. Will need to discuss with baseline mental status. Psych history? 3. DVT prophylaxis: Krystyna, CALIXTO lopez. 4. Atrial fibrillation with RVR:s/p Cardizem drip. Rate is now controlled. Appreciate cardiology recommendations. Cont digoxin, ASA. Stephanie Hicks MD Oct 27, 2016 14:26
--- NOTE | 2016-10-27 15:13 | EC ---
Study Study Date:10/27/2016 STUDY CONCLUSIONS SUMMARY LEFT VENTRICLE: The cavity size was normal. Wall thickness was normal. Systolic function was normal. The estimated ejection fraction was in the range of 55% to 60%. Wall motion was normal; there were no regional wall motion abnormalities. If LV function is below 40, please consider prescribing an ACEI or ARB or document rationale for non-use. PROCEDURE DATA STUDY STATUS: Elective. Procedure: Transthoracic echocardiography. Image quality was suboptimal. Scanning was performed from the parasternal, apical, and subcostal acoustic windows. Study completion: The patient tolerated the procedure well. Transthoracic echocardiography. M-mode, complete 2D, complete spectral Doppler, and color Doppler. Patient status: Inpatient. CARDIAC ANATOMY LEFT VENTRICLE: The cavity size was normal. Wall thickness was normal. Systolic function was normal. The estimated ejection fraction was in the range of 55% to 60%. Wall motion was normal; there were no regional wall motion abnormalities. AORTIC VALVE: Trileaflet; normal thickness leaflets. Doppler: Transvalvular velocity was within the normal range. There was no stenosis. No regurgitation. AORTA: Aortic root: The aortic root was normal in size. MITRAL VALVE: Structurally normal valve. Doppler: Transvalvular velocity was within the normal range. There was no evidence for stenosis. Trace to mild regurgitation. LEFT ATRIUM: The atrium was normal in size. RIGHT VENTRICLE: The cavity size was normal. Wall thickness was normal. PULMONIC VALVE: Doppler: Transvalvular velocity was within the normal range. There was no evidence for stenosis. No regurgitation. TRICUSPID VALVE: Structurally normal valve. Doppler: Transvalvular velocity was within the normal range. Trace to mild regurgitation. PULMONARY ARTERY: The main pulmonary artery was normal-sized. Systolic pressure was within the normal range. RIGHT ATRIUM: The atrium was normal in size. PERICARDIUM: There was no pericardial effusion. SYSTEMIC VEINS: Inferior vena cava: The vessel was normal in size. BASIC MEASUREMENTS ADULT NORMAL Left ventricle LV internal dimension, ED, chordal level, *31.7 mm 43-52 PLAX LV internal dimension, ES, chordal level, *22.3 mm 23-38 PLAX Fractional shortening, chordal level, PLAX 30 % >29 Right ventricle RV internal dimension, ED, PLAX *18.2 mm 19-38 DOPPLER MEASUREMENTS ADULT NORMAL Mitral valve Peak E-wave velocity 60.2 cm/s Peak A-wave velocity 71.6 cm/s Peak E/A ratio 0.8 LEGEND: Mean values are shown as u=mean value. Asterisk (*) george values outside specified normal range. Prepared and signed by Saud Telles [id number]
--- NOTE | 2016-10-27 18:21 | EKG ---
Date Performed: 10/26/2016 Time Performed: 07:22:10 PTAGE: 66 years EKG: Atrial fibrillation. Inferior and anterior ST-T changes are nonspecific Low QRS voltages in precordial leads Since previous tracing, no significant change noted Abnormal ECG PREVIOUS TRACING : 10/26/2016 01.17 DOCTOR: Lenka Jones Interpretating Date/Time 10/27/2016 18:19:30
[2016-10-28] VITALS (12 sets, daily range): BP systolic 119–159; BP diastolic 79–98; PULSE 58–76; RESP 12–29; TEMP 97.3–98.7; O2SAT 93–97
[2016-10-28] MEDS: CHLORHEXIDINE GLUCONATE 2 % 1 PACK (2 CLOTHS)(taper/protocol) TOP SCH (02:55)
[2016-10-28] MEDS: SODIUM CHLOR 0.9% 1000 ML INJ 1,000 ML IV SCH ×2 (02:55→15:45)
[2016-10-28] MEDS: DIGOXIN 0.125 MG TAB PO SCH (08:15)
[2016-10-28] MEDS: DIVALPROEX SODIUM E.R. 250 MG TAB PO SCH ×2 (08:16→21:08)
[2016-10-28] MEDS: ASPIRIN EC 325 MG TABEC PO SCH (08:16)
[2016-10-28] MEDS: TOPIRAMATE 25 MG TAB PO SCH ×2 (08:16→21:11)
[2016-10-28] MEDS: levETIRAcetam 500 MG TAB PO SCH ×2 (08:16→21:10)
[2016-10-28] MEDS: levETIRAcetam 250 MG TAB PO SCH ×2 (08:16→21:11)
[2016-10-28] MEDS: SODIUM CHLORIDE 0.9% FLUSH 5 ML FLUSH FLUSH SCH ×2 (08:16→21:08)
--- NOTE | 2016-10-28 12:27 | HHI.FF ---
Face to Face Verification Diagnosis: (1) Atrial fibrillation (2) Seizure (3) Noncompliance with medications (4) Cognitive impairment Physical Therapy Order: Evaluate and Treat Speech Therapy Order: To Improve: Speech and communication skills, Cognitive skills Home Health Nursing Order: Medical education Medication education-adverse effect Nursing assessment with vital signs I have seen patient Nette Bartholomew on 10/28/16. My clinical findings support the need for the requested home health care services because: Med compliance is questionable Limited ability to care for self Need for psychosocial assistance Impaired cognition/judgement I certify that my clinical findings support that this patient is homebound because: Unsteady gait/balance Need for psychosocial assistance Stephanie Hicks MD Oct 28, 2016 12:27
[2016-10-28] MEDS ORDERED: ALPR.25 PO (12:29)
[2016-10-28] MEDS ORDERED: DEPA500T3 PO (12:29)
[2016-10-28] MEDS ORDERED: DIGO0.12 PO (12:29)
[2016-10-28] MEDS ORDERED: KEPP10002 PO (12:29)
[2016-10-28] MEDS ORDERED: TOPA25TA8 PO (12:29)
[2016-10-28] MEDS ORDERED: ASPI81TA11 PO (12:29)
--- NOTE | 2016-10-28 15:46 | HHI.PR ---
Subjective Remarks Patient remains seizure free however continues to have delusions. Her nurse Estela patient's called up to state that the patient does not take her medications and is convinced that he is trying to divorce her although they have been for 45 years and he has no intention of pursuing a divorce. The patient today tells me that she has been taking her medications. However she firmly believes that her is trying to divorce her. She tells me that "we have both signed papers." The patient appears confused at times. She refuses to consider going to snf facility. The patient denies that she has not been taking her medications and states that her is verbally abusing her by claiming that she does not take her medications. I reminded the patient yesterday that she told me that someone had injected Depakote into her head. The patient's response to that was "I only said that because I had just had a seizure." Objective Vitals Vital Signs Date Time Temp Pulse Resp B/P Pulse Ox O2 Delivery O2 Flow Rate FiO2 10/28/16 14:00 66 10/28/16 14:00 66 10/28/16 12:00 98.2 70 19 119/86 96 10/28/16 12:00 70 10/28/16 12:00 98.3 73 20 130/89 97 10/28/16 10:00 66 12 137/90 10/28/16 10:00 66 10/28/16 09:00 66 26 157/98 10/28/16 08:00 98.7 72 15 155/89 10/28/16 08:00 72 10/28/16 06:00 58 10/28/16 04:00 97.5 58 14 139/87 96 10/28/16 04:00 58 10/28/16 02:00 60 10/28/16 00:00 60 10/28/16 00:00 97.3 60 19 146/79 93 10/27/16 22:00 64 10/27/16 20:00 97.9 68 16 146/89 96 10/27/16 20:00 70 10/27/16 19:00 78 22 163/96 10/27/16 18:00 70 18 145/98 10/27/16 18:00 70 10/27/16 17:00 72 19 140/81 10/27/16 16:00 98.2 72 18 140/81 10/27/16 16:00 72 I/O 10/27/16 10/27/16 10/27/16 10/28/16 10/28/16 10/28/16 07:00 15:00 23:00 07:00 15:00 23:00 Intake Total 960 ml 2134 ml 1113 ml Output Total 1 ml 2100 ml 1300 ml 1350 ml Balance 959 ml 34 ml -187 ml -1350 ml Intake Oral 60 ml 680 ml 360 ml IV Total 900 ml 1454 ml 753 ml Output Urine Total 2100 ml 1300 ml 1350 ml Stool Total 1 ml # Voids 1 # Bowel Movements 1 0 0 Result Diagram: 10/25/1670210/25/16 07 Objective Remarks GENERAL: Well-nourished, well-developed lean female patient. SKIN: Warm and dry. HEAD: Normocephalic. EYES: No scleral icterus. No injection or drainage. NECK: Supple, trachea midline. No JVD or lymphadenopathy. CARDIOVASCULAR: Regular rate and rhythm without murmurs, gallops, or rubs. RESPIRATORY: Breath sounds equal bilaterally. No accessory muscle use. GASTROINTESTINAL: Abdomen soft, non-tender, nondistended. EXTREMITIES: No cyanosis, or edema. NEUROLOGICAL: Awake, alert, and oriented x 3. Non-focal. However she has poor insight and mental concentration and thought organization seems to be impaired. A/P Problem List: (1) Encephalopathy ICD Code: G93.40 Status: Acute (2) Recurrent seizures ICD Code: G40.909 Status: Chronic (3) Noncompliance with medications ICD Code: Z91.14 Status: Chronic (4) Atrial fibrillation with RVR ICD Code: I48.91 Status: Acute (5) Delusions ICD Code: F22 Status: Acute Assessment and Plan 1. Seizure disorder: Patient has had recurrent seizures. She apparently is noncompliant with her antiepileptic medication. Cont pablo chapman Topamax. Appreciate neurology recommendations. 2. Post ictal Encephalopathy: Appears resolved and she is alert and oriented 3. However she has delusions. See below. 3. Delusions and paranoia. The patient believes that her is trying to divorce her and is quite paranoid and insisted she needs to go home so that she can take care of arrangements for the divorce. Apparently according to the and they have been for 45 years and this is not true. The patient also accuses the hospital of injecting Depakote into her head. I tried to discuss with patient that I am concerned if she goes home she will not take her medications and will have another seizure however the patient appears to have poor insight into her disease. I do not think she has capacity to make her own medical decisions at this time and she is also not complying with a reasonable discharge plan that would ensure that she remains compliant. I will therefore initiate a certificate of involuntary examination and will consult psychiatry for a second opinion on her. I tried to call her today but he did not answer. Apparently according to the nurse he did call earlier this morning but he is a facility worker and is currently out of town. He is often out of town. 3. DVT prophylaxis: SYLVIAs, CALIXTO lopez. 4. Atrial fibrillation with RVR:s/p Cardizem drip. Rate is now controlled. Appreciate cardiology recommendations. Cont digoxin, ASA. Discharge Planning Patient is medically stable for discharge at this time. However due to the delusions and history of noncompliance she cannot be discharged home at this time. I have initiated an involuntary examination and have consulted psychiatry. Stephanie Hicks MD Oct 28, 2016 15:46
[2016-10-29] VITALS: BP 156/87; PULSE 52; RESP 15; TEMP 98.4; O2SAT 96
[2016-10-29] MEDS: CHLORHEXIDINE GLUCONATE 2 % 1 PACK (2 CLOTHS)(taper/protocol) TOP SCH (00:25)
[2016-10-29 08:00] VITALS: BP 146/80; PULSE 60; PULSE 68; RESP 13; TEMP 97.7; O2SAT 97
[2016-10-29] MEDS: levETIRAcetam 500 MG TAB PO SCH (08:58)
[2016-10-29] MEDS: TOPIRAMATE 25 MG TAB PO SCH (08:58)
[2016-10-29] MEDS: DIGOXIN 0.125 MG TAB PO SCH (08:58)
[2016-10-29] MEDS: DIVALPROEX SODIUM E.R. 250 MG TAB PO SCH (08:59)
[2016-10-29] MEDS: levETIRAcetam 250 MG TAB PO SCH (08:59)
[2016-10-29] MEDS: ASPIRIN EC 325 MG TABEC PO SCH (08:59)
[2016-10-29] MEDS: SODIUM CHLORIDE 0.9% FLUSH 5 ML FLUSH FLUSH SCH (09:00)
[2016-10-29] MEDS ORDERED: CITALOPRAM HYDROBROMIDE 20 MG TAB PO ONE ×2 (11:30→13:15)
[2016-10-29 12:00] VITALS: BP 137/88; PULSE 58; PULSE 65; RESP 22; TEMP 97.8
[2016-10-29] MEDS ORDERED: QUEtiapine FUMARATE 25 MG TAB PO SCH (12:00)
--- NOTE | 2016-10-29 12:10 | PD.CONS ---
Provisional Diagnosis Admission Date Oct 25, 2016 at 11:42 [place]. 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 fib, seizures. Patient was hospitalized for acute seizure episodes, consulted to psychiatry due to paranoia, patient was Agarwal acted due to disorganized behavior and wanted to leave the hospital AMA. As per Dr. Garcia note: "The patient believes that her is trying to divorce her and is quite paranoid and insisted she needs to go home so that she can take care of arrangements for the divorce. Apparently according to the and they have been for 45 years and this is not true. The patient also accuses the hospital of injecting Depakote into her head. I tried to discuss with patient that I am concerned if she goes home she will not take her medications and will have another seizure however the patient appears to have poor insight into her disease. I do not think she has capacity to make her own medical decisions at this time and she is also not complying with a reasonable discharge plan that would ensure that she remains compliant. I will therefore initiate a certificate of involuntary examination and will consult psychiatry for a second opinion on her. I tried to call her today but he did not answer. Apparently according to the nurse he did call earlier this morning but he is a kennel worker and is currently out of town". Chart was reviewed, case was discussed with nurse in charge, no collateral information available at this time, patient was seen and evaluated at bedside in the ICU in [place]. On psychiatric evaluation patient was superficially cooperative, guarded, oppositional, she is states "I know what you are, you are trying to be must , you are not my ". After redirection and presentation of our service, she says that she does not psychiatrist, but later on she states "my mind is always too busy, full of thought, thoughts that I cannot control". Patient says that she is in the hospital "because something is going on in my heart I think". She describes her mood as sad, she says that she is usually depressed, crying very often, "because my family doesn't love me anymore, my is always away", she says that she also is sleeping very poorly "thinking and thinking". She denies suicidal thoughts, and homicidal ideation.. She denies visual and auditory hallucination. However, she says that "all these machines around can be connected to my brain, but that you know better than me, I know that you know what I think". Patient is disoriented in time and place, she knows that she is in [facility], she knows exactly the date, but is unable to verbalize the reason of her hospitalization, and she stated people here in this place are against her, and keep watching her at night. During significant evaluation patient and several occasions becomes disorganized, with loosening of association, frequent thought derailment, but she is easily redirectable. On Mini-Mental state, she is scored 24/30. In clock draw test, patient was unable to point the numbers in the right side, and unable to draw the time. During the evaluation also insisted in him being discharged, but she was unable to articulate a rational choice or a logical reason for disposition. She denies the use of alcohol, and illicit drugs. Review of Systems Constitutional: DENIES: Diaphoretic episodes, Fatigue, Fever, Weight gain, Weight loss, Chills, Dizziness, Change in appetite, Night Sweats Endocrine: DENIES: Abnorml menstrual pattern, Heat/cold intolerance, Polydipsia , Polyuria, Polyphagia Eyes: DENIES: Blurred vision, Diplopia, Eye inflammation, Eye pain, Vision loss , Photosensitivity, Double Vision Cardiovascular: DENIES: Chest pain, Palpitations, Syncope, Dyspnea on Exertion , PND, Lower Extremity Edema, Orthopnea, Claudication Gastrointestinal: DENIES: Abdominal pain, Black stools, Bloody stools, Constipation, Diarrhea, Nausea, Vomiting, Difficulty Swallowing, Anorexia Genitourinary: DENIES: Abnormal vaginal bleeding, Dysmenorrhea, Dyspareunia, Sexual dysfunction, Urinary frequency, Urinary incontinence, Urgency, Hematuria , Dysuria, Nocturia, Vaginal discharge Musculoskeletal: DENIES: Joint pain, Muscle aches, Stiffness, Joint Swelling, Back pain, Neck pain Integumentary: DENIES: Abnormal pigmentation, Pruritus, Rash, Nail changes, Breast masses, Breast skin changes, Nipple discharge Hematologic/lymphatic: DENIES: Bruising, Lymphadenopathy Immunologic/allergic: DENIES: Eczema, Urticaria Neurologic: COMPLAINS OF: Seizures Psychiatric: COMPLAINS OF: Confusion, Delusions Past Family Social History Coded Allergies: Fosphenytoin (Verified Allergy, Severe, Rash, 10/24/16) Active Scripts Alprazolam (Xanax)0.25 Mg Tab0.25 Mg PO BID PRN (ANXIETY) #20 TAB Prov:Stephanie Hicks MD 10/28/16 Topiramate (Topamax)25 Mg Tab50 Mg PO Q12HR #60 TAB Prov:Jose Rafael Coleman MD 09/18/16 Reported Medications Levetiracetam (Keppra)1,000 Mg Tab1,250 Mg PO BID #60 TAB Ref 0 09/15/16 Divalproex ER (Depakote ER)500 Mg Zceds779 Mg PO BID #30 TAB Ref 0 09/15/16 Discontinued Scripts Alprazolam (Xanax)0.25 Mg Tab0.25 Mg PO BID PRN (ANXIETY) #10 TAB Prov:Jose Rafael Coleman MD 09/18/16 Current Medications Medications (Trade) Dose Ordered Sig/Mag Route Start Time Stop Time Status Last Admin (NS Flush) 2 ml UNSCH PRN FLUSH 10/24/16 21:45 (NS Flush) 2 ml BID FLUSH 10/25/16 09:00 10/29/16 09:00 (Zofran Inj) 4 mg Q6H PRN IVP 10/24/16 21:45 (Dulcolax Supp) 10 mg DAILY PRN VA 10/24/16 21:45 (Tylenol) 650 mg Q6H PRN PO 10/24/16 21:45 10/26/16 19:59 (Xanax) 0.25 mg BID PRN PO 10/24/16 21:45 10/26/16 01:32 (Topamax) 50 mg Q12HR PO 10/25/16 09:00 10/29/16 08:58 (Keppra) 250 mg BID PO 10/25/16 09:00 10/29/16 08:59 (Keppra) 1,000 mg BID PO 10/25/16 09:00 10/29/16 08:58 (Ativan Inj) 1 mg Q5M PRN IV PUSH 10/25/16 05:45 10/25/16 08:02 (Depakote Er) 500 mg BID PO 10/25/16 21:00 10/29/16 08:59 Miscellaneous Information Patient in critical care unit? Ass... [id number] XX 10/25/16 21:00 10/25/16 21:00 (Chlorhexidine 2% Cloth) 3 pack DAILY@04 TOP 10/26/16 04:00 10/30/16 04:01 10/28/16 02:55 (Chlorhexidine 2% Cloth) 3 pack UNSCH PRN TOP 10/25/16 21:00 10/30/16 20:45 (Ecotrin Ec) 325 mg DAILY PO 10/26/16 10:00 10/29/16 08:59 (Lanoxin) 0.125 mg DAILY PO 10/26/16 10:00 10/29/16 08:58 (SEROquel) 25 mg BID@09,12 PO 10/29/16 12:00 UNV (Aricept) 5 mg DAILY PO 10/30/16 09:00 UNV (CeleXA) 10 mg ONCE ONCE PO 10/29/16 11:30 10/29/16 11:31 UNV Social History Patient was born and raised in [place] She lives in [place] which her , Her is frequently away because he is a winch truck operator She has no kids 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, Her highest level of education is some college credits Physical Exam Vital Signs Vital Signs Date Time Temp Pulse Resp B/P Pulse Ox O2 Delivery O2 Flow Rate FiO2 10/29/16 00:00 98.4 52 15 156/87 96 I/O 10/28/16 10/28/16 10/29/16 08:00 16:00 00:00 Intake Total 1113 ml 930 ml 420 ml Output Total 1300 ml 2350 ml 0 ml Balance -187 ml -1420 ml 420 ml Mental Status Examination Appearance woman, age appearing, good hygiene, [facility], irritable, superficially cooperative, guarded paranoid Speech: Rapid, Slow Orientation: x3 Memory: Impaired (describe) Thought Process: Loose Association, Tangential Thought Content: Bizarre thinking, Paranoid Attention and Concentration: Abnormal Suicidal Ideation: No Previous Suicide Attempts: No Homicidal Ideation: No Insight: Poor Affect: Irritable Mood: Angry Motor Activity: Normal gait Assessment & Plan Problem List: (1) Dementia with psychosis Assessment & Plan: 66-year-old woman, without any previous psychiatric history, no previous suicide attempts, no previous psychotropics, medical history of A. fib, seizures. On psychiatric evaluation patient presents with marked paranoia, delusions of persecution, disorganized thought, capgras delusion, thought controlling. She also reports sad mood, insomnia, poor appetite, good level of concentration , frequent crying spells. On cognition testing patient seems to be is confused at times, with conserved orientation, attentions and level of consciousness, but significant impairment in recent and immediate recall, working memory, concentration, executive function and abstraction. Her mini mental states was 23/30 at this time. As per testimonial family members these memory problems and paranoia have been going on for some months now. This presentation is consistent with dementia/major neurocognitive disorder, unknown etiology, with psychotic features, but more longitudinal and neuropsychological test are crucial in order to define the diagnosis. Another less probable possibilities are late onset psychosis, post ictal psychosis, medication induced psychosis, Keppra is well-known to induce and exacerbate psychosis. Due to the level of psychosis and the danger that the patient might represents to herself and others she needs psychiatric admission for stabilization after she is medically clear. She could be a good candidate for the med/psychiatric if she may continue his medical care. But if the patient is fully medically clear she can be transferred to the [facility] psychiatric unit. Seroquel 25 mg twice a day will be started for psychosis, Aricept 5 mg will be started to prolong dementia decline. Support, motivation and psychoeducation provided Consult appreciated. ICD Code: F03.91 Assessment & Plan Estimated LOS: Mikal Bae MD Oct 29, 2016 12:10
--- NOTE | 2016-10-29 12:46 | HHI.DS ---
Discharge Summary Admission Date Oct 25, 2016 at 11:42 Discharge Date: Oct 29, 2016 Admitting Diagnosis recurrent seizures, medication non-compliance (1) Encephalopathy ICD Code: G93.40 (2) Recurrent seizures ICD Code: G40.909 (3) Noncompliance with medications ICD Code: Z91.14 (4) Atrial fibrillation with RVR ICD Code: I48.91 (5) Delusions ICD Code: F22 Procedures None Brief History - From Admission The patient is a 66-year-old female with history of seizure disorder and medication noncompliance. She was found to have altered mental status, possibly postictal state. She was brought to the emergency department by ambulance. She is nonverbal. She is able to answer questions by nodding. She denies any complaints other than the seizures. She did have another witnessed seizure this morning and was given Ativan. She has been refusing some of her antiepileptic medications. Further information is gathered from review of the electronic medical record. CBC/BMP: 10/25/16 0703 10/25/16 0703 Imaging Last Impressions Myocardial Perfusion Scan Nuc Med 10/26/16 0000 Signed Impressions: Service Date/Time: Wednesday, October 26, 2016 12:39 - CONCLUSION: 1. Questionable small reversible perfusion defect mid inferior wall. 2. Normal ejection fraction. RISK CATEGORY: Low (<1%% Annual Mortality Rate) Felton Simon MD Head CT 10/25/16 0000 Signed Impressions: Service Date/Time: Tuesday, October 25, 2016 14:25 - CONCLUSION: 1. Stable appearance of the brain. 2. Left sphenoid sinus air-fluid level. Felton Simon MD PE at Discharge GENERAL: Well-nourished, well-developed lean female patient. SKIN: Warm and dry. HEAD: Normocephalic. EYES: No scleral icterus. No injection or drainage. NECK: Supple, trachea midline. No JVD or lymphadenopathy. CARDIOVASCULAR: Regular rate and rhythm without murmurs, gallops, or rubs. RESPIRATORY: Breath sounds equal bilaterally. No accessory muscle use. GASTROINTESTINAL: Abdomen soft, non-tender, nondistended. EXTREMITIES: No cyanosis, or edema. NEUROLOGICAL: Awake, alert, and oriented x 3. Non-focal. However she has poor insight and mental concentration and thought organization seems to be impaired. Hospital Course The patient was admitted. Neurology was consulted and she was placed back on her antiepileptics with no further seizures. The patient then developed atrial fibrillation with rapid ventricular rate. Cardiology was consulted. She was placed on digoxin. She converted to normal sinus rhythm. Aspirin was recommended. Stress test showed a questionable small reversible defect in mid inferior wall - I discussed with cardiology Dr. Telles, no further workup needed at this time per cardiology. While hospitalized, the patient was noted to have delusions and was paranoid regarding her claiming that her was trying to divorce her. This is not factual. The patient also accused the hospital trying to inject Depakote into her head. Psychiatry was consulted. She is at this time medically cleared and has been accepted to inpatient psychiatry for further evaluation. Of note the patient has a long history of medication noncompliance with frequent hospitalizations for this. Her travels recently for work and is unable to care for her. Additionally because of her delusions and paranoia towards him she's very suspicious of him. I did update her via phone today who is in agreement with the above plan. The patient is under Agarwal act and will be discharged to psychiatry today. Pt Condition on Discharge: Stable Discharge Disposition: Disc to Psych Care Fac Discharge Time: > 30 minutes Discharge Instructions DIET: Follow Instructions for: As Tolerated, No Restrictions Activities you can perform: Regular-No Restrictions New Medications: Aspirin DR (Aspirin EC) 81 Mg Tabdr 81 MG PO DAILY prevent stroke #30 Ref 0 TAB Digoxin (Digoxin) 0.125 Mg Tab 0.125 MG PO DAILY control heart rate #30 TAB Continued Medications: Alprazolam (Xanax) 0.25 Mg Tab 0.25 MG PO BID PRN ANXIETY #20 TAB (This prescription has been renewed) Divalproex ER (Depakote ER) 500 Mg Ang 500 MG PO BID Control Seizures #60 Ref 0 TAB (This prescription has been renewed ) Levetiracetam (Keppra) 1,000 Mg Tab 1250 MG PO BID Control Seizures #60 Ref 0 TAB (This prescription has been renewed) Topiramate (Topamax) 25 Mg Tab 50 MG PO Q12HR Control Seizures #60 TAB (This prescription has been renewed) Stephanie Hicks MD Oct 29, 2016 12:46
[2016-10-29 13:10] LABS: POTASSIUM 3.3 MEQ/L (3.5-5.1)
[2016-10-29 13:13] LABS: BICARBONATE 20.4 MEQ/L (21.0-32.0)
[2016-10-29 13:56] LABS: DIGOXIN 0.4 NG/ML (0.8-2.0)
[2016-10-29] MEDS ORDERED: POTASSIUM CHLORIDE 10 MEQ CONTROLLED RELEASE TAB PO ONE (15:00)
[2016-10-29 16:00] VITALS: BP 150/101; PULSE 66; RESP 17; TEMP 97.9
[2016-10-30] MEDS ORDERED: DONEPEZIL HCL 5 MG TAB PO SCH (09:00)
[2016-10-30] MEDS ORDERED: POTASSIUM CHLORIDE 20 MEQ CONTROLLED RELEASE TAB PO SCH (09:00)
--- NOTE | 2016-11-12 11:26 | HHI.PYPN ---
Subjective Remarks Patient seen in day room with nurse Tierra, chart review, patient remains confused and disorganized, showing no insight into behaviors at home related to her noncompliance with seizure medication and the risks believes to with her physical and mental health. Patient is reluctantly compliant with medications. She has no other behavioral problem on the unit. This time I continue to feel that this patient does not have the capacity to live independently considering the severity of her seizure disorder and her noncompliance with medication, admitted to the fact that her 's work forces him to be away from the home for extended periods of time Review of Systems Except as stated in HPI: all other systems reviewed are Neg Objective Alert: Yes [place]: Person, Place Mood: Agitated, Angry Affect: Labile Memory Intact: Comment (poor) Hallucinations: Other (eyes) Delusions: Yes Delusion Type: Paranoid Suicidal: Ideation (denies) Homicidal: Ideation (denies) Insight/Judgement Very poor Assessment & Plan Problem List: (1) Dementia with psychosis ICD Code: F03.91 Assessment & Plan Estimated LOS: days patient continues confused disoriented, with resistance to medication, no insight into disease with a significant risk noncompliance medication if return to her home situation without appropriate supervision, however this time she is no longer a danger to herself or others Justification for Cont. Inpt. At this time patient was significantly decompensate if placed in the lower level of care Discharge Planning To be determined Alber Gordon MD Nov 12, 2016 11:26
== END 2016-10-29 17:48 | DRG 100 ==
LOC: PHED 20:20 → PHEDA 21:51 → PH3B 10-25 00:32 → OBSVTOIN 10-25 11:42 → PHICU 10-25 14:40
PROVIDERS: ADMIT Family Medicine; ATTEND Family Medicine
DX: G40.909 Epilepsy, unspecified, not intractable, without status epilepticus (principal); G93.40 Encephalopathy, unspecified; I48.91 Unspecified atrial fibrillation; F03.90 Unspecified dementia, unspecified severity, without behavioral disturbance, psychotic disturbance, mood disturbance, and anxiety; I10 Essential (primary) hypertension; M21.379 Foot drop, unspecified foot; Z91.14 Patient's other noncompliance with medication regimen; G40.901 Epilepsy, unspecified, not intractable, with status epilepticus; R26.81 Unsteadiness on feet; F32.9 Major depressive disorder, single episode, unspecified; F41.9 Anxiety disorder, unspecified; F17.210 Nicotine dependence, cigarettes, uncomplicated; R29.6 Repeated falls; F29 Unspecified psychosis not due to a substance or known physiological condition; F22 Delusional disorders
CPT/HCPCS: 70450; 78452; 80048; 80053; 80162; 80164; 80301; 81001; 82550; 84443; 84484; 85025; 87641; 93005; 93017; 93306; 96365; A9502; G0378; G0479; J1953; J2060; J2785; J7030

== ENCOUNTER 2016-10-29 14:45 | Inpatient (IN) | payer OTHER, MEDICARE ==
[~2016-10-29] VITALS: Ht 172.7 cm; Wt 70.1 kg
[~2016-10-29 14:45] MED LIST changes: +ASPI81TA11 PO; +DIGO0.12 PO
[2016-10-29 18:45] VITALS: BP 167/98; PULSE 72; RESP 16; TEMP 97.5; O2SAT 98
[2016-10-29] MEDS ORDERED: MAGNESIUM HYDROXIDE SUSP 30 ML CUP PO PRN (23:30)
[2016-10-29] MEDS ORDERED: ACETAMINOPHEN 325 MG TAB PO PRN (23:30)
[2016-10-29] MEDS ORDERED: ALUMINUM/MAGNESIUM/SIMETH 30 ML CUP PO PRN (23:30)
[2016-10-29] MEDS ORDERED: LORazepam 2 MG/ML VIAL - age > 65 yrs IM PRN (23:30)
[2016-10-29] MEDS: LORazepam 0.5 MG TAB age > 65 yrs PO PRN (23:35)
[2016-10-30 05:58] VITALS: BP 157/83; PULSE 73; RESP 18; TEMP 97.9
[2016-10-30 06:25] VITALS: BP 157/83; PULSE 73; RESP 18; TEMP 97.7; O2SAT 95
[2016-10-30 08:11] LABS: ANION GAP 10 MEQ/L (5-15); BICARBONATE 21.6 MEQ/L (21.0-32.0); BLOOD UREA NITROGEN 10 MG/DL (7-18); CHLORIDE 112 MEQ/L (98-107); GLOMERULAR FILTRATION RATE 106 ML/MIN (>89); POTASSIUM 3.6 MEQ/L (3.5-5.1); SODIUM (NA) 144 MEQ/L (136-145)
[2016-10-30 08:13] LABS: HDL CHOLESTEROL 35.6 MG/DL (40.0-60.0); LDL CHOLESTEROL 108 MG/DL (0-99)
[2016-10-30] MEDS ORDERED: ALUMINUM/MAGNESIUM/SIMETH 30 ML CUP PO PRN (08:30)
[2016-10-30] MEDS ORDERED: MAGNESIUM HYDROXIDE SUSP 30 ML CUP PO PRN (08:30)
[2016-10-30] MEDS ORDERED: ACETAMINOPHEN 325 MG TAB PO PRN (08:30)
[2016-10-30] MEDS ORDERED: hydrOXYzine HCL 50 MG TAB PO PRN (08:30)
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
[2016-10-30] MEDS ORDERED: NICOTINE 21 MG/24 HR PATCH T-DERMAL SCH (09:00)
[2016-10-30] MEDS: REMOVE OLD NICOTINE PATCH T-DERMAL SCH (09:00)
[2016-10-30] MEDS: NICOTINE 21 MG/24 HR PATCH T-DERMAL SCH (09:00)
[2016-10-30] MEDS: levETIRAcetam 250 MG TAB PO SCH ×2 (10:00→21:03)
[2016-10-30] MEDS: DIGOXIN 0.125 MG TAB PO SCH (10:14)
[2016-10-30] MEDS: ALPRAZolam 0.25 MG TAB PO PRN ×2 (10:14→21:12)
[2016-10-30] MEDS: TOPIRAMATE 25 MG TAB PO SCH ×2 (10:15→21:03)
[2016-10-30] MEDS: levETIRAcetam 500 MG TAB PO SCH ×2 (10:15→21:03)
[2016-10-30] MEDS: ASPIRIN EC 81 MG TABEC PO SCH (10:15)
[2016-10-30] MEDS: DIVALPROEX SODIUM E.R. 500 MG TAB PO SCH ×2 (10:15→21:02)
--- NOTE | 2016-10-30 14:09 | PD.CONS ---
[facility] [place] [place] [facility] By [facility]iatry team Reason for Consult Medical management Primary Care Physician Unknown Diagnoses: History of Present Illness Patient is a 66 year old female with primary medical history of seizure disorder noncompliant with her medications, she was admitted to the hospital for seizures. During the course of her hospitalization, neurology was consulted and she was placed back on her antiepileptic medications with no further seizures. The patient then developed atrial fibrillation with rapid ventricular rate. Cardiology was consulted. She was placed on digoxin. She converted to normal sinus rhythm. Aspirin was recommended. Stress test showed a questionable small reversible defect in mid inferior wall. Dr. kumar was consulted, recommended no further workup at this time. During hospitalization, patient noted to have delusions and was paranoid she is placed under Agarwal act and transferred to inpatient psychiatry unit. Consulted for medical management. Patient seen today. Psych counselor at the bedside. States she is doing "so- so." Apprehensive when asked questions regarding her medical history and medications. Patient got upset and irritable. Stating she has been taking her medications at home but she suspects that her is telling another story about her. States she has been having seizures more frequently than usual, she doesn't know why. Otherwise,denies pain and discomfort. Denies SOB/ dyspnea. Denies chest pain, palpitations, headaches, dizziness. Denies fevers, chills, n/ v/d. Review of Systems Other Negative except for what is noted on history of present illness. Past Family Social History Allergies: Coded Allergies: Fosphenytoin (Verified Allergy, Severe, Rash, 10/24/16) Past Medical History Based on chart review Seizure disorder Hypertension Anxiety/depression Past Surgical History D&C Reported Medications Xanax (Alprazolam) 0.25 Mg Tab 0.25 Mg PO BID PRN Topamax (Topiramate) 25 Mg Tab 50 Mg PO Q12HR Keppra (Levetiracetam) 1,000 Mg Tab 1,250 Mg PO BID Depakote ER (Divalproex Sodium) 500 Mg Ang 500 Mg PO BID Active Ordered Medications Current Medications Medications (Trade) Dose Ordered Sig/Mag Route Start Time Stop Time Status Last Admin (Ativan) 0.5 mg Q12H PRN PO 10/29/16 23:30 10/29/16 23:35 (Ativan Inj) 0.5 mg Q12H PRN IM 10/29/16 23:30 (Tylenol) 650 mg Q4H PRN PO 10/29/16 23:30 10/30/16 08:12 (Milk Of Magnesia Liq) 30 ml DAILY PRN PO 10/29/16 23:30 (Mag-Al Plus Susp Liq) 30 ml Q6H PRN PO 10/29/16 23:30 (Habitrol 21 Mg Patch.24 Hr) 1 patch DAILY T-DERMAL 10/30/16 09:00 Miscellaneous Information 1 DAILY T-DERMAL 10/30/16 09:00 (Benadryl) 50 mg HS PRN PO 10/30/16 08:30 (Atarax) 50 mg Q6H PRN PO 10/30/16 08:30 (Xanax) 0.25 mg BID PRN PO 10/30/16 08:30 10/30/16 10:14 (Ecotrin Ec) 81 mg DAILY PO 10/30/16 09:00 10/30/16 10:15 (Lanoxin) 0.125 mg DAILY PO 10/30/16 09:00 10/30/16 10:14 (Depakote Er) 500 mg BID PO 10/30/16 09:00 10/30/16 10:15 (Keppra) 1,000 mg BID PO 10/30/16 09:00 10/30/16 10:15 (Topamax) 50 mg Q12HR PO 10/30/16 09:00 10/30/16 10:15 (Keppra) 250 mg BID PO 10/30/16 10:00 10/30/16 10:00 Family History Father have atrial fibrillation Social History Lives at home with who is a oil truck driver. Smokes 2 cigarettes a day Occasional alcohol use Denies illicit drug use Physical Exam Vital Signs Vital Signs Date Time Temp Pulse Resp B/P Pulse Ox O2 Delivery O2 Flow Rate FiO2 10/30/16 06:25 97.7 73 18 157/83 95 10/30/16 05:58 97.9 73 18 157/83 10/29/16 18:45 97.5 72 16 167/98 98 Physical Exam GENERAL: This is a well-nourished, well-developed patient, in no apparent distress. SKIN: No rashes, ecchymoses or lesions. Cool and dry. HEAD: Atraumatic. Normocephalic. No temporal or scalp tenderness. EYES: Pupils equal round and reactive. Extraocular motions intact. No scleral icterus. No injection or drainage. ENT: Nose without bleeding. Throat without erythema. Uvula midline. Airway patent. NECK: Trachea midline. No JVD or lymphadenopathy. Supple, nontender, no meningeal signs. CARDIOVASCULAR: Regular rate and rhythm without murmurs, gallops, or rubs. RESPIRATORY: Clear to auscultation. Breath sounds equal bilaterally. No wheezes , rales, or rhonchi. GASTROINTESTINAL: Abdomen soft, tender right lower quadrant, nondistended. No palpable masses. Bowel sounds active 4 MUSCULOSKELETAL: Extremities without clubbing, cyanosis, or edema. NEUROLOGICAL: Awake and alert. Irritable. Flight of ideas. Motor and sensory grossly within normal limits. Poor balance. Ambulates with walker use. Normal speech. Laboratory Laboratory Tests Test 10/30/16 06:42 Sodium Level 144 Potassium Level 3.6 Chloride Level 112 Carbon Dioxide Level 21.6 Anion Gap 10 Blood Urea Nitrogen 10 Creatinine 0.57 Estimat Glomerular Filtration 106 Rate Random Glucose 79 Calcium Level 8.5 Triglycerides Level 106 Cholesterol Level 165 LDL Cholesterol 108 HDL Cholesterol 35.6 Cholesterol/HDL Ratio 4.63 Result Diagram: 10/30/16 0642 Assessment and Plan Problem List: (1) Dementia with psychosis ICD Code: F03.91 Status: Acute (2) Seizure ICD Code: R56.9 Status: Resolved (3) Atrial fibrillation ICD Code: I48.91 Status: Chronic (4) Delusions ICD Code: F22 Status: Acute (5) Noncompliance with medications ICD Code: Z91.14 Status: Chronic Assessment and Plan Patient is a 66 year old female with primary medical history of seizure disorder noncompliant with her medications, she was admitted to the hospital for seizures. Noncompliant with medications. She was placed back on her seizure medication. During hospitalization developed delusions and paranoia. She is now admitted to inpatient psychiatry unit for further evaluation. Consulted for medical management. Delusions, paranoia, dementia with psychosis - managed by psychiatry team. Seizures - continue her antiepileptic medications Keppra, Topamax, Depakote - Seizure precaution, risk for falls HTN - continue low-dose amlodipine - Monitor BP trend A. fib - now in sinus rhythm. Continue dig and ASA. Monitor levels. Previously seen by Dr. Kumar, inpatient -Dig level 0.4 10/30/15 Tobacco use - nicotine patch DVT prop early ambulation Thank you for this consultation. We will follow patient with you. Written by Teodoro Whitfield, acting as scribe for Dr. Rosenthal on 10/30/16 at 15:50. The documentation accurately reflects the work performed [id number] by me on at 15:50. Code Status Full code Discussed Condition With Patient, nursing, and Teodoro Deleon Oct 30, 2016 14:09 Ralph Rosenthal DO Oct 30, 2016 23:28
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
[2016-10-30 16:42] LABS: HEMOGLOBIN A1a 0.8 %; HEMOGLOBIN A1b 0.8 %; HEMOGLOBIN Ao 86.2 %; HEMOGLOBIN F 0.9 %; HEMOGLOBIN LA1C 1.6 %; HEMOGLOBIN P3 3.5 %
[2016-10-30 18:35] VITALS: BP 126/76; PULSE 69; RESP 18; TEMP 98.6; O2SAT 96
[2016-10-31 05:21] VITALS: BP 116/79; PULSE 64; RESP 16; TEMP 97.9; O2SAT 96
[2016-10-31] MEDS: REMOVE OLD NICOTINE PATCH T-DERMAL SCH (09:00)
[2016-10-31] MEDS: NICOTINE 21 MG/24 HR PATCH T-DERMAL SCH (09:00)
[2016-10-31] MEDS: levETIRAcetam 500 MG TAB PO SCH ×2 (09:01→21:16)
[2016-10-31] MEDS: DIGOXIN 0.125 MG TAB PO SCH (09:02)
[2016-10-31] MEDS: DIVALPROEX SODIUM E.R. 500 MG TAB PO SCH ×2 (09:02→21:16)
[2016-10-31] MEDS: TOPIRAMATE 25 MG TAB PO SCH ×2 (09:02→21:17)
[2016-10-31] MEDS: ASPIRIN EC 81 MG TABEC PO SCH (09:02)
[2016-10-31] MEDS: levETIRAcetam 250 MG TAB PO SCH ×2 (09:03→21:16)
--- NOTE | 2016-10-31 14:53 | HHI.PYPN ---
Subjective Remarks Patient seen in dayroom with floor staff, patient calm pleasant with me though appeared somewhat confused. She did denies suicidality denies voices. Depakote level drawn today was 89 now continue treatment Review of Systems Except as stated in HPI: all other systems reviewed are Neg Objective Alert: Yes [place]: Person, Place Mood: Calm, Other (somewhat irritable) Affect: Labile, Restricted Memory Intact: Comment (poor) Hallucinations: Other (denies) Delusions: No Delusion Type: Other (vigilant) Suicidal: Ideation (denies) Homicidal: Ideation (denies) Insight/Judgement Poor Labs Test 10/31/16 07:10 Valproic Acid (Depakene) Level 89 MCG/ML Vitals/IOs Vital Signs Date Time Temp Pulse Resp B/P Pulse Ox O2 Delivery O2 Flow Rate FiO2 10/31/16 05:21 97.9 64 16 116/79 96 Intake and Output 10/30/16 10/30/16 10/31/16 08:00 16:00 00:00 Intake Total 960 ml 1170 ml Balance 960 ml 1170 ml Assessment & Plan Problem List: (1) Cognitive impairment ICD Code: R41.89 Assessment & Plan Estimated LOS: days patient continue somewhat confused and irritable, though compliant medications for now continue treatment Justification for Cont. Inpt. At this time patient was significantly decompensated if placed in the lower level of care Discharge Planning To be determined Alber Gordon MD Oct 31, 2016 14:53
[2016-10-31 20:00] VITALS: BP 138/78; PULSE 85; RESP 18; TEMP 97.6
--- NOTE | 2016-10-31 21:58 | PD.CONS ---
History of Present Illness Service Neurology Consult Requested By Psychiatry service Reason for Consult Management of seizure disorder Primary Care Physician Unknown History of Present Illness A 66-year-old female with PMH of seizure disorder and seizure medication noncompliance well-known to the service. She has frequently visited the emergency room for breakthrough seizures and traumatic multiple falls and traumatic head injury. The patient states that she only takes Keppra one dose per day at home and according to the medical record on previous encounter with her personally, she was on Keppra and Lamictal and oxcarbazepine; however, she adamantly states that she only takes one pill of Keppra and she is not sure of the strength of this Keppra dose. The patient was brought into the emergency department by the ambulance where she was nonverbal, confused and she did have another witnessed seizure in the hospital for which she was given Ativan and she is refusing other seizure medication. Of note, according to the previous medical record, the patient was diagnosed with seizure when she was 22 years old and she denies any history of childhood seizures, febrile convulsions, meningitis, significant head trauma, TIA or stroke. She has always been noncompliant with medications. The patient was noted that she was not able to take decisions, Agarwal acted in the general medical taylor and transferred to the psychiatry unit for further assessment. Review of Systems All other ROS: ROS reviewed as documented in chart, Other Past Family Social History Allergies: Coded Allergies: Fosphenytoin (Verified Allergy, Severe, Rash, 10/24/16) Past Medical History 1. Seizure disorder. 2. Hypertension. 3. Anxiety / depression. Past Surgical History D&C. Active Ordered Medications Current Medications Medications (Trade) Dose Ordered Sig/Mag Route Start Time Stop Time Status Last Admin (Ativan) 0.5 mg Q12H PRN PO 10/29/16 23:30 10/29/16 23:35 (Ativan Inj) 0.5 mg Q12H PRN IM 10/29/16 23:30 (Tylenol) 650 mg Q4H PRN PO 10/29/16 23:30 10/30/16 08:12 (Milk Of Magnesia Liq) 30 ml DAILY PRN PO 10/29/16 23:30 (Mag-Al Plus Susp Liq) 30 ml Q6H PRN PO 10/29/16 23:30 (Habitrol 21 Mg Patch.24 Hr) 1 patch DAILY T-DERMAL 10/30/16 09:00 Miscellaneous Information 1 DAILY T-DERMAL 10/30/16 09:00 (Benadryl) 50 mg HS PRN PO 10/30/16 08:30 (Atarax) 50 mg Q6H PRN PO 10/30/16 08:30 (Xanax) 0.25 mg BID PRN PO 10/30/16 08:30 10/30/16 21:12 (Ecotrin Ec) 81 mg DAILY PO 10/30/16 09:00 10/31/16 09:02 (Lanoxin) 0.125 mg DAILY PO 10/30/16 09:00 10/31/16 09:02 (Depakote Er) 500 mg BID PO 10/30/16 09:00 10/31/16 21:16 (Keppra) 1,000 mg BID PO 10/30/16 09:00 10/31/16 21:16 (Topamax) 50 mg Q12HR PO 10/30/16 09:00 10/31/16 21:17 (Keppra) 250 mg BID PO 10/30/16 10:00 10/31/16 21:16 Family History Non - contributory Social History Smokes cigarettes occasionally. She no longer drinks alcohol. Denies illicit drug abuse. Exam I&O / VS 10/30/16 10/30/16 10/31/16 15:00 23:00 07:00 Intake Total 960 ml 1170 ml 0 ml Balance 960 ml 1170 ml 0 ml Intake Oral 960 ml 1170 ml 0 ml # Voids 2 1 1 Vital Signs Date Time Temp Pulse Resp B/P Pulse Ox O2 Delivery O2 Flow Rate FiO2 10/31/16 20:00 97.6 85 18 138/78 10/31/16 05:21 97.9 64 16 116/79 96 General: No acute distress Eye: PERRL, EOMI Respiratory: Lungs CTA, Non-labored respirations Cardiology: Normal peripheral perfusion Musculoskeletal: ROM, Tenderness Neurologic: Alert, CN II-XII intact, Normal DTR's Psychiatric: Cooperative, Appropriate mood & affect Exam Comments GENERAL: The patient is awake, alert, looks lethargic and not in distress. HEAD, EYES, EARS, NOSE, THROAT: Normocephalic and atraumatic. Intact vision. CARDIOVASCULAR: Regular rate and rhythm. No murmurs. RESPIRATORY: Clear to auscultation. No wheezes. EXTREMITIES: Moving all extremities without cyanosis or edema. NEUROLOGICAL EXAMINATION: Awake, alert and oriented to person and place, not to time. She is mildly slurring her speech. Lethargic. Intact speech content. Mild dysarthria. Left facial weakness, questionable remote. Moves all extremities. Unable to accurately assess the muscle strength due to the lack of cooperation of the patient but grossly it is intact 5-/5 throughout. Intact cerebellar function with just fine action tremor in both hands. Reflexes 2+ bilateral symmetrical. Sensation is intact throughout. Gait and stance, b/l feet drop, uses a walker. Review/Management Diagnosis Breakthrough seizure with history of chronic seizure disorder. Likely etiology is non-adherence and noncompliance to the medication. Plan - Neuro checks q. 4 hourly. - Keppra 1250mg twice daily - Depakote ER 500mg bid - Topamax 50mg bid - Seizure precautions. - DVT prophylaxis. - GI prophylaxis. Diagnosis/Plan: Sona Shaw MD Oct 31, 2016 21:58
[2016-11-01 06:33] VITALS: BP 113/64; PULSE 68; RESP 17; TEMP 97.8; O2SAT 99
[2016-11-01] MEDS: DIVALPROEX SODIUM E.R. 500 MG TAB PO SCH ×2 (08:18→20:38)
[2016-11-01] MEDS: DIGOXIN 0.125 MG TAB PO SCH (08:18)
[2016-11-01] MEDS: ASPIRIN EC 81 MG TABEC PO SCH (08:18)
[2016-11-01] MEDS: levETIRAcetam 250 MG TAB PO SCH ×2 (08:18→20:38)
[2016-11-01] MEDS: levETIRAcetam 500 MG TAB PO SCH ×2 (08:19→20:37)
[2016-11-01] MEDS: TOPIRAMATE 25 MG TAB PO SCH ×2 (08:19→20:38)
[2016-11-01] MEDS: NICOTINE 21 MG/24 HR PATCH T-DERMAL SCH (08:20)
[2016-11-01] MEDS: REMOVE OLD NICOTINE PATCH T-DERMAL SCH (08:21)
--- NOTE | 2016-11-01 18:35 | HHI.PYPN ---
Subjective Remarks Pt seen and discussed with staff. She is disorganized in behaviors. No agitation and is compliant with medication. No SI/HI. Objective Alert: Yes [place]: Person, Place Mood: Calm Affect: Restricted Memory Intact: Comment (poor) Hallucinations: Other (denies) Delusions: No Delusion Type: Other (vigilant) Suicidal: Ideation (denies) Homicidal: Ideation (denies) Insight/Judgement poor Vitals/IOs Vital Signs Date Time Temp Pulse Resp B/P Pulse Ox O2 Delivery O2 Flow Rate FiO2 11/01/16 06:33 97.8 68 17 113/64 99 Intake and Output 10/31/16 10/31/16 11/01/16 08:00 16:00 00:00 Intake Total 480 ml 1000 ml 1080 ml Balance 480 ml 1000 ml 1080 ml Assessment & Plan Problem List: (1) Cognitive impairment ICD Code: R41.89 Assessment & Plan Continue current treatment plan.Estimated LOS: days Justification for Cont. Inpt. impairments in selfcare and risk of decompensating Jackie Swenson MD Nov 01, 2016 18:35
[2016-11-01 19:25] VITALS: BP 136/81; PULSE 71; RESP 16; TEMP 97.6; O2SAT 100
[2016-11-02 05:31] VITALS: BP 124/76; PULSE 64; RESP 19; TEMP 97.4; O2SAT 97
[2016-11-02] MEDS: levETIRAcetam 250 MG TAB PO SCH ×2 (08:52→20:19)
[2016-11-02] MEDS: DIVALPROEX SODIUM E.R. 500 MG TAB PO SCH ×2 (08:52→20:19)
[2016-11-02] MEDS: levETIRAcetam 500 MG TAB PO SCH ×2 (08:52→20:19)
[2016-11-02] MEDS: DIGOXIN 0.125 MG TAB PO SCH (08:52)
[2016-11-02] MEDS: ASPIRIN EC 81 MG TABEC PO SCH (08:52)
[2016-11-02] MEDS: TOPIRAMATE 25 MG TAB PO SCH ×2 (08:53→20:19)
[2016-11-02] MEDS: NICOTINE 21 MG/24 HR PATCH T-DERMAL SCH (09:00)
[2016-11-02] MEDS: REMOVE OLD NICOTINE PATCH T-DERMAL SCH (09:00)
--- NOTE | 2016-11-02 12:43 | HHI.PYPN ---
Subjective Remarks Pt seen and discussed with staff. She has been compliant with medications and is tolerating them without side effects. She remains confused and paranoid but is less agitated today. No SI/HI Objective Alert: Yes [place]: Person, Place Mood: Calm Affect: Restricted Memory Intact: Comment (poor) Hallucinations: Other (denies) Delusions: No Delusion Type: Other (vigilant) Suicidal: Ideation (denies) Homicidal: Ideation (denies) Insight/Judgement poor Vitals/IOs Vital Signs Date Time Temp Pulse Resp B/P Pulse Ox O2 Delivery O2 Flow Rate FiO2 11/02/16 05:31 97.4 64 19 124/76 97 Intake and Output 11/01/16 11/01/16 11/02/16 08:00 16:00 00:00 Intake Total 0 ml 360 ml Balance 0 ml 360 ml Assessment & Plan Problem List: (1) Cognitive impairment ICD Code: R41.89 Assessment & Plan Continue current tx plan. Estimated LOS: days Justification for Cont. Inpt. impairments in reality construction Jackie Swenson MD Nov 02, 2016 12:43
--- NOTE | 2016-11-02 14:34 | HHI.PR ---
Subjective Remarks Follow up visit seizure, afib. Pt. seen today. C/o pain coccyx area, she doesn 't know whether she has fallen from previous seizure. As per nursing, patient has been sitting in the chair almost all day, everyday and has not complained about it. No seizures since admission to the unit. Pt. otherwise denies headaches, palpitations, chest pain, dizziness, n/v/d. Objective Vitals Vital Signs Date Time Temp Pulse Resp B/P Pulse Ox O2 Delivery O2 Flow Rate FiO2 11/02/16 05:31 97.4 64 19 124/76 97 11/01/16 19:25 97.6 71 16 136/81 100 I/O 11/01/16 11/01/16 11/01/16 11/02/16 11/02/16 11/02/16 07:00 15:00 23:00 07:00 15:00 23:00 Intake Total 0 ml 360 ml 0 ml 600 ml Balance 0 ml 360 ml 0 ml 600 ml Intake Oral 0 ml 360 ml 0 ml 600 ml # Voids 1 2 1 # Bowel Movements 1 Result Diagram: 10/30/16 0642 Objective Remarks GENERAL: This is a thin, older than stated age patient, in no apparent distress. CARDIOVASCULAR: Regular rate and rhythm without murmurs, gallops, or rubs. RESPIRATORY: Clear to auscultation. Breath sounds equal bilaterally. No wheezes , rales, or rhonchi. GASTROINTESTINAL: Abdomen soft, non-tender, nondistended. Normal active bowel sounds MUSCULOSKELETAL: Extremities without clubbing, cyanosis, or edema. NEURO: Alert & Oriented x4 to person, place, time, situation. Moves all ext x4 A/P Problem List: (1) Dementia with psychosis ICD Code: F03.91 Status: Acute (2) Seizure ICD Code: R56.9 Status: Resolved (3) Atrial fibrillation ICD Code: I48.91 Status: Chronic (4) Delusions ICD Code: F22 Status: Acute (5) Noncompliance with medications ICD Code: Z91.14 Status: Chronic Assessment and Plan Patient is a 66 year old female with primary medical history of seizure disorder noncompliant with her medications, she was admitted to the hospital for seizures. Noncompliant with medications. She was placed back on her seizure medication. During hospitalization developed delusions and paranoia. She is now admitted to inpatient psychiatry unit for further evaluation. Consulted for medical management. Delusions, paranoia, dementia with psychosis - managed by psychiatry team. Seizures - continue her antiepileptic medications Keppra, Topamax, Depakote - Seizure precaution, risk for falls - No seizures since admission HTN - continue low-dose amlodipine - Monitor BP trend A. fib - now in sinus rhythm. Continue dig and ASA. Monitor levels. Previously seen by Dr. Telles, inpatient. Recommends no further workup. -Dig level 0.4 10/30/15 Tobacco use - nicotine patch Coccyx pain - x-ray of the sacrum and coccyx. Tylenol for pain - Follow-up results DVT prop early ambulation Discussed with patient, nursing Written by Teodoro Whitfield, acting as scribe for Dr. Jones on 11/02/16 at 15: 16. Attending Statement The documentation accurately reflects the work performed [id number] by me on at 15:16. Teodoro Pitts Nov 02, 2016 14:34 Emerson Thomson MD Nov 02, 2016 23:44
[2016-11-02 18:34] VITALS: BP 133/74; PULSE 71; RESP 18; TEMP 97; O2SAT 99
--- NOTE | 2016-11-02 21:41 | RADRPT ---
EXAM DATE/TIME: 11/02/2016 21:19 [facility] COMPARISON: CT ABDOMEN & PELVIS W CONTRAST, April 25, 2013, 13:01. ABDOMEN UPRIGHT ONLY, September 02, 2015, 17:40 . INDICATIONS : Sacrum and coccyx pain, fell MEDICAL HISTORY : None. SURGICAL HISTORY : None. ENCOUNTER: Initial ACUITY: 1 day PAIN SCORE: 2/10 LOCATION: Sacrum and coccyx FINDINGS: There is mild posterior displacement of the lowest sacral segment suggesting possible subtle acute fr acture. Clinical correlation is recommended. Note is again made of multiple calcifications within t he right lower quadrant which have been present since at least April 2013 and may be related to multip le calcified uterine fibroids. CONCLUSION: 1. Slight posterior displacement of the lowest sacral segment suggesting possible fracture of indete rminate age. Clinical correlation is recommended. 2. Multiple chronic calcified densities within the right lower quadrant which have been present sinc e at least April 2013 and are felt to likely represent calcified uterine fibroids. Jorge Luis Gutierrez MD on November 02, 2016 at 21:31 Board Certified Radiologist. This report was verified electronically.
[2016-11-03 06:39] VITALS: BP 143/85; PULSE 71; RESP 18; TEMP 98; O2SAT 99
[2016-11-03] MEDS: NICOTINE 21 MG/24 HR PATCH T-DERMAL SCH (08:33)
[2016-11-03] MEDS: REMOVE OLD NICOTINE PATCH T-DERMAL SCH (08:33)
[2016-11-03] MEDS: levETIRAcetam 250 MG TAB PO SCH ×2 (08:34→20:37)
[2016-11-03] MEDS: TOPIRAMATE 25 MG TAB PO SCH ×2 (08:34→20:37)
[2016-11-03] MEDS: levETIRAcetam 500 MG TAB PO SCH ×2 (08:34→20:37)
[2016-11-03] MEDS: DIVALPROEX SODIUM E.R. 500 MG TAB PO SCH ×2 (08:35→20:37)
[2016-11-03] MEDS: DIGOXIN 0.125 MG TAB PO SCH (08:35)
[2016-11-03] MEDS: ASPIRIN EC 81 MG TABEC PO SCH (08:35)
--- NOTE | 2016-11-03 13:33 | HHI.PR ---
Subjective Remarks Follow up visit seizure, afib, pain coccyx area. She is seen today. Sitting down in a chair. Continues to complain of some pain in her coccyx sacral area. Discuss results of x-ray of the sacrum and the coccyx area. Discuss plan for treatment. Denies any seizure activity. As per RN, no acute issues overnight. Denies SOB/ dyspnea. Denies chestpain, palpitations, headaches, dizziness. Denies fevers, chills, n/v/d. Objective Vitals Vital Signs Date Time Temp Pulse Resp B/P Pulse Ox O2 Delivery O2 Flow Rate FiO2 11/03/16 06:39 98.0 71 18 143/85 99 11/02/16 18:34 97.0 71 18 133/74 99 I/O 11/02/16 11/02/16 11/02/16 11/03/16 11/03/16 11/03/16 07:00 15:00 23:00 07:00 15:00 23:00 Intake Total 0 ml 600 ml 480 ml Balance 0 ml 600 ml 480 ml Intake Oral 0 ml 600 ml 480 ml # Voids 1 Result Diagram: 10/30/16 0642 Imaging Last Impressions Sacrum and Coccyx X-Ray 11/02/16 0000 Signed Impressions: Service Date/Time: Wednesday, November 02, 2016 21:19 - CONCLUSION: 1. Slight posterior displacement of the lowest sacral segment suggesting possible fracture of indeterminate age. Clinical correlation is recommended. 2. Multiple chronic calcified densities within the right lower quadrant which have been present since at least April 2013 and are felt to likely represent calcified uterine fibroids. Jorge Luis Gutierrez MD Objective Remarks GENERAL: This is a thin, older than stated age patient, in no apparent distress. CARDIOVASCULAR: Regular rate and rhythm without murmurs, gallops, or rubs. RESPIRATORY: Clear to auscultation. Breath sounds equal bilaterally. No wheezes , rales, or rhonchi. GASTROINTESTINAL: Abdomen soft, non-tender, nondistended. Normal active bowel sounds MUSCULOSKELETAL: Extremities without clubbing, cyanosis, or edema. NEURO: Alert & Oriented x4 to person, place, time, situation. Moves all ext x4 A/P Problem List: (1) Dementia with psychosis ICD Code: F03.91 Status: Acute (2) Seizure ICD Code: R56.9 Status: Resolved (3) Atrial fibrillation ICD Code: I48.91 Status: Chronic (4) Delusions ICD Code: F22 Status: Acute (5) Noncompliance with medications ICD Code: Z91.14 Status: Chronic Assessment and Plan Patient is a 66 year old female with primary medical history of seizure disorder noncompliant with her medications, she was admitted to the hospital for seizures. Noncompliant with medications. She was placed back on her seizure medication. During hospitalization developed delusions and paranoia. She is now admitted to inpatient psychiatry unit for further evaluation. Consulted for medical management. Delusions, paranoia, dementia with psychosis - managed by psychiatry team. Seizures - continue her antiepileptic medications Keppra, Topamax, Depakote - Seizure precaution, risk for falls - No seizures since admission HTN - continue low-dose amlodipine - Monitor BP trend A. fib - now in sinus rhythm. Continue dig and ASA. Monitor levels. Previously seen by Dr. Telles, inpatient. Recommends no further workup. -Dig level 0.4 10/30/15 Tobacco use - nicotine patch Coccyx pain - x-ray of the sacrum and coccyx. Tylenol for pain -X-ray showed a steer displacement of the lowest sacral segments of suggesting possible fracture of indeterminate age. Clinical correlation is recommended. Multiple chronic calcified densities within the right lower quadrant which have been present since at least April 2013 and are felt to likely represent calcified uterine fibroids. - Continue pain management. As per RN Tylenol as tolerated. May add ibuprofen intermittently. DVT prop early ambulation Discussed with patient, nursing Stable from Hospitalist standpoint. We will sign off. Reconsult as needed. Written by Teodoro Whitfield, acting as scribe for Dr. Jones on 11/03/16 at 14: 23. Attending Statement The documentation accurately reflects the work performed [id number] by me on at 14:23. Teodoro Pitts Nov 03, 2016 13:32 Emerson Thomson MD Nov 13, 2016 02:02
--- NOTE | 2016-11-03 13:59 | HHI.PYPN ---
Subjective Remarks Patient discussed with treatment team, chart review, patient seen on unit. Patient somewhat calmer though continues vigilant somewhat paranoid. Light medication Review of Systems Except as stated in HPI: all other systems reviewed are Neg Objective Alert: Yes [place]: Person, Place Mood: Calm Affect: Restricted Memory Intact: Comment (poor) Hallucinations: Other (denies) Delusions: No Delusion Type: Other (vigilant) Suicidal: Ideation (denies) Homicidal: Ideation (denies) Insight/Judgement Poor Vitals/IOs Vital Signs Date Time Temp Pulse Resp B/P Pulse Ox O2 Delivery O2 Flow Rate FiO2 11/03/16 06:39 98.0 71 18 143/85 99 Intake and Output 11/02/16 11/02/16 11/03/16 08:00 16:00 00:00 Intake Total 0 ml 600 ml Balance 0 ml 600 ml Assessment & Plan Problem List: (1) Cognitive impairment ICD Code: R41.89 Assessment & Plan Estimated LOS: days patient somewhat paranoid vigilant and irritable "calmer today. Compliant medications for now continue treatment Justification for Cont. Inpt. At this time patient will decompensate if placed in a lower level of care Discharge Planning To be determined Alber Gordon MD Nov 03, 2016 13:59
[2016-11-03] MEDS ORDERED: IBUPROFEN 400 MG TAB PO PRN (14:30)
[2016-11-03 18:35] VITALS: BP 134/86; PULSE 66; RESP 18; TEMP 98; O2SAT 100
[2016-11-03] MEDS: diphenhydrAMINE HCL 50 MG CAP PO PRN (20:37)
[2016-11-04 05:28] VITALS: BP 112/61; PULSE 58; RESP 18; TEMP 98.2; O2SAT 96
[2016-11-04] MEDS: NICOTINE 21 MG/24 HR PATCH T-DERMAL SCH (08:55)
[2016-11-04] MEDS: ASPIRIN EC 81 MG TABEC PO SCH (08:56)
[2016-11-04] MEDS: TOPIRAMATE 25 MG TAB PO SCH ×2 (08:56→21:20)
[2016-11-04] MEDS: DIVALPROEX SODIUM E.R. 500 MG TAB PO SCH ×2 (08:56→21:20)
[2016-11-04] MEDS: levETIRAcetam 250 MG TAB PO SCH ×2 (08:56→21:00)
[2016-11-04] MEDS: DIGOXIN 0.125 MG TAB PO SCH (08:56)
[2016-11-04] MEDS: levETIRAcetam 500 MG TAB PO SCH ×2 (08:57→21:20)
[2016-11-04] MEDS: REMOVE OLD NICOTINE PATCH T-DERMAL SCH (09:00)
--- NOTE | 2016-11-04 09:59 | HHI.PYPN ---
Subjective Remarks Patient seen in day room with nurse Trudi, chart review, patient continues somewhat diffusely confused though alert, at times appears returning on a rational conversation. There is a grandiosity and mild paranoia noted to it. "I've got to do it out there". Patient compliant medications. For now continue treatment Review of Systems Except as stated in HPI: all other systems reviewed are Neg Objective Alert: Yes [place]: Person, Place Mood: Calm Affect: Restricted Memory Intact: Comment (poor) Hallucinations: Other (denies) Delusions: No Delusion Type: Other (vigilant) Suicidal: Ideation (denies) Homicidal: Ideation (denies) Insight/Judgement Poor Vitals/IOs Vital Signs Date Time Temp Pulse Resp B/P Pulse Ox O2 Delivery O2 Flow Rate FiO2 11/04/16 05:28 98.2 58 18 112/61 96 Intake and Output 11/03/16 11/03/16 11/04/16 08:00 16:00 00:00 Intake Total 1440 ml 600 ml Balance 1440 ml 600 ml Assessment & Plan Problem List: (1) Cognitive impairment ICD Code: R41.89 Assessment & Plan Estimated LOS: days patient continues confused disoriented at times and some delusional. Compliant medications. Now continue treatment Justification for Cont. Inpt. At this time patient would significantly decompensate if place to the lower level of care Discharge Planning To be determined Alber Gordon MD Nov 04, 2016 09:59
[2016-11-04 19:44] VITALS: BP 123/89; PULSE 74; RESP 18; TEMP 96.9; O2SAT 97
[2016-11-04] MEDS: diphenhydrAMINE HCL 50 MG CAP PO PRN (21:20)
[2016-11-05 05:26] VITALS: BP 103/61; PULSE 67; RESP 16; TEMP 97.5; O2SAT 96
[2016-11-05] MEDS: levETIRAcetam 500 MG TAB PO SCH ×2 (08:39→20:44)
[2016-11-05] MEDS: DIVALPROEX SODIUM E.R. 500 MG TAB PO SCH ×2 (08:40→20:44)
[2016-11-05] MEDS: DIGOXIN 0.125 MG TAB PO SCH (08:40)
[2016-11-05] MEDS: levETIRAcetam 250 MG TAB PO SCH ×2 (08:40→20:44)
[2016-11-05] MEDS: ASPIRIN EC 81 MG TABEC PO SCH (08:40)
[2016-11-05] MEDS: TOPIRAMATE 25 MG TAB PO SCH ×2 (08:40→20:44)
[2016-11-05] MEDS: REMOVE OLD NICOTINE PATCH T-DERMAL SCH (08:44)
[2016-11-05] MEDS: NICOTINE 21 MG/24 HR PATCH T-DERMAL SCH (08:44)
--- NOTE | 2016-11-05 09:25 | HHI.PYPN ---
Subjective Remarks Patient seen in day room with nurse David, chart review, neurology consultation also reviewed and appreciated. Patient showing some compliance with medication. No significant behavior problems. Though continues diffusely confused disorganized somewhat vigilant and entitled with me. She is making some confusing statements also related to contact with her and her feelings for her . Patient scheduled for [facility] tomorrow Review of Systems Except as stated in HPI: all other systems reviewed are Neg Objective Alert: Yes [place]: Person, Place Mood: Calm Affect: Restricted Memory Intact: Comment (poor) Hallucinations: Other (denies) Delusions: No Delusion Type: Other (vigilant) Suicidal: Ideation (denies) Homicidal: Ideation (denies) Insight/Judgement Very poor Vitals/IOs Vital Signs Date Time Temp Pulse Resp B/P Pulse Ox O2 Delivery O2 Flow Rate FiO2 11/05/16 05:26 97.5 67 16 103/61 96 Intake and Output 11/04/16 11/04/16 11/05/16 08:00 16:00 00:00 Intake Total 360 ml Balance 360 ml Assessment & Plan Problem List: (1) Cognitive impairment ICD Code: R41.89 Assessment & Plan Estimated LOS: days patient continues somewhat confused and disorganized, and irritable. For now continue treatment, to [facility] tomorrow Justification for Cont. Inpt. At this time patient will decompensate if placed in a lower level of care Discharge Planning To be determined Alber Gordon MD Nov 05, 2016 09:25
[2016-11-05 19:34] VITALS: BP 119/79; PULSE 72; RESP 18; TEMP 98.2; O2SAT 100
[2016-11-05] MEDS: diphenhydrAMINE HCL 50 MG CAP PO PRN (21:04)
[2016-11-06 06:28] VITALS: BP 117/70; PULSE 63; RESP 16; TEMP 97.4; O2SAT 99
[2016-11-06] MEDS: TOPIRAMATE 25 MG TAB PO SCH ×2 (08:58→20:55)
[2016-11-06] MEDS: ASPIRIN EC 81 MG TABEC PO SCH (08:59)
[2016-11-06] MEDS: levETIRAcetam 500 MG TAB PO SCH ×2 (08:59→20:55)
[2016-11-06] MEDS: DIVALPROEX SODIUM E.R. 500 MG TAB PO SCH ×2 (08:59→20:55)
[2016-11-06] MEDS: DIGOXIN 0.125 MG TAB PO SCH (08:59)
[2016-11-06] MEDS: levETIRAcetam 250 MG TAB PO SCH ×2 (08:59→20:55)
[2016-11-06] MEDS: NICOTINE 21 MG/24 HR PATCH T-DERMAL SCH (09:00)
[2016-11-06] MEDS: REMOVE OLD NICOTINE PATCH T-DERMAL SCH (09:00)
--- NOTE | 2016-11-06 12:00 | HHI.PYPN ---
Subjective Remarks Patient seen in [place] [address] retained by [employer] Messi. to be guardian advocate. Patient continues markedly confused disoriented speaking in approximations with contradictory statements also. Showing little insight into her issues. Though she did state 110 that she feels her memory is not as good as it should be. Patient compliant medications for now continue treatment Review of Systems Except as stated in HPI: all other systems reviewed are Neg Objective Alert: Yes [place]: Person, Place Mood: Calm Affect: Restricted Memory Intact: Comment (poor) Hallucinations: Other (denies) Delusions: No Delusion Type: Other (vigilant) Suicidal: Ideation (denies) Homicidal: Ideation (denies) Insight/Judgement Very poor Vitals/IOs Vital Signs Date Time Temp Pulse Resp B/P Pulse Ox O2 Delivery O2 Flow Rate FiO2 11/06/16 06:28 97.4 63 16 117/70 99 Intake and Output 11/05/16 11/05/16 11/06/16 08:00 16:00 00:00 Intake Total 1560 ml 1400 ml Balance 1560 ml 1400 ml Assessment & Plan Problem List: (1) Cognitive impairment ICD Code: R41.89 Assessment & Plan Estimated LOS: days Justification for Cont. Inpt. At this time patient would decompensate if placed on a lower level of care Discharge Planning To be determined Alber Gordon MD Nov 06, 2016 12:00
[2016-11-06 19:24] VITALS: BP 130/59; PULSE 67; RESP 16; TEMP 98.1; O2SAT 98
[2016-11-06] MEDS: diphenhydrAMINE HCL 50 MG CAP PO PRN (20:55)
[2016-11-07 06:00] VITALS: BP 111/65; PULSE 64; RESP 16; TEMP 98.1; O2SAT 97
[2016-11-07] MEDS: REMOVE OLD NICOTINE PATCH T-DERMAL SCH (09:00)
[2016-11-07] MEDS: NICOTINE 21 MG/24 HR PATCH T-DERMAL SCH (09:00)
[2016-11-07] MEDS: DIGOXIN 0.125 MG TAB PO SCH (09:53)
[2016-11-07] MEDS: ASPIRIN EC 81 MG TABEC PO SCH (09:54)
[2016-11-07] MEDS: levETIRAcetam 500 MG TAB PO SCH ×2 (09:54→20:55)
[2016-11-07] MEDS: levETIRAcetam 250 MG TAB PO SCH ×2 (09:54→20:55)
[2016-11-07] MEDS: TOPIRAMATE 25 MG TAB PO SCH ×2 (09:54→20:55)
[2016-11-07] MEDS: DIVALPROEX SODIUM E.R. 500 MG TAB PO SCH ×2 (09:56→20:55)
--- NOTE | 2016-11-07 11:45 | HHI.PYPN ---
Subjective Remarks Patient seen in day room with medical student gretchen and counselor Kimberly. Continues with little insight into her disease when discussing her prior noncompliance with medication relating to significant risk for self-harm with a seizure disorder she minimizes it minimizes the fact that she has been noncompliant medications, self manipulating the dosages. We did discuss the possibility of her girlfriend coming and staying with her to help with compliance medication. The girlfriend refused to do this but also Ativan there are firearms in the home. He also discussed the possibility of home health care referral. I feel that that level of care is insufficient to keep this lady safe from harming herself or perhaps harming others. We need to further contact patient's to discuss alternatives. If he is not home for 2+ weeks remain need to look at some type of a transitional placement for this lady Review of Systems Except as stated in HPI: all other systems reviewed are Neg Objective Alert: Yes [place]: Person, Place Mood: Calm Affect: Restricted Memory Intact: Comment (poor) Hallucinations: Other (denies) Delusions: No Delusion Type: Other (vigilant) Suicidal: Ideation (denies) Homicidal: Ideation (denies) Insight/Judgement Very poor Vitals/IOs Vital Signs Date Time Temp Pulse Resp B/P Pulse Ox O2 Delivery O2 Flow Rate FiO2 11/07/16 06:00 98.1 64 16 111/65 97 Intake and Output 11/06/16 11/06/16 11/07/16 08:00 16:00 00:00 Intake Total 240 ml 720 ml Balance 240 ml 720 ml Assessment & Plan Problem List: (1) Cognitive impairment ICD Code: R41.89 Assessment & Plan Estimated LOS: days patient remains confused somewhat delusional, showing no insight into disease or need for appropriate discharge/placement provisions Justification for Cont. Inpt. At this time the patient would significantly decompensate if placed in a lower level of care Discharge Planning To be determined Alber Gordon MD Nov 07, 2016 11:45
[2016-11-07 19:30] VITALS: BP 133/80; PULSE 85; RESP 16; TEMP 98; O2SAT 98
[2016-11-07] MEDS: diphenhydrAMINE HCL 50 MG CAP PO PRN (20:55)
[2016-11-08 06:08] VITALS: BP 124/69; PULSE 64; RESP 18; TEMP 96.8; O2SAT 95
[2016-11-08] MEDS: REMOVE OLD NICOTINE PATCH T-DERMAL SCH (09:00)
[2016-11-08] MEDS: NICOTINE 21 MG/24 HR PATCH T-DERMAL SCH (09:00)
[2016-11-08] MEDS: levETIRAcetam 250 MG TAB PO SCH ×2 (09:34→20:59)
[2016-11-08] MEDS: TOPIRAMATE 25 MG TAB PO SCH ×2 (09:34→21:00)
[2016-11-08] MEDS: levETIRAcetam 500 MG TAB PO SCH ×2 (09:34→21:00)
[2016-11-08] MEDS: ASPIRIN EC 81 MG TABEC PO SCH (09:35)
[2016-11-08] MEDS: DIGOXIN 0.125 MG TAB PO SCH (09:35)
[2016-11-08] MEDS: DIVALPROEX SODIUM E.R. 500 MG TAB PO SCH ×2 (09:35→21:02)
--- NOTE | 2016-11-08 12:05 | HHI.PYPN ---
Subjective Remarks Patient was seen and case discussed with nursing. Patient is alert and oriented 3. However she continues to have poor insight into her mental health and reasons for admission. Focused on discharge. Grossly disorganized. Perseverative. Compliant with medications Objective Alert: Yes [place]: Person, Place Mood: Calm Affect: Restricted Memory Intact: Comment (poor) Hallucinations: Other (denies) Delusions: No Delusion Type: Other (vigilant) Suicidal: Ideation (denies) Homicidal: Ideation (denies) Insight/Judgement Poor Vitals/IOs Vital Signs Date Time Temp Pulse Resp B/P Pulse Ox O2 Delivery O2 Flow Rate FiO2 11/08/16 06:08 96.8 64 18 124/69 95 Intake and Output 11/07/16 11/07/16 11/08/16 08:00 16:00 00:00 Intake Total 1440 ml 360 ml Balance 1440 ml 360 ml Assessment & Plan Problem List: (1) Cognitive impairment ICD Code: R41.89 Assessment & Plan Continue current treatment plan Justification for Cont. Inpt. Patient will decompensate in a less restrictive setting Preston Pack DO Nov 08, 2016 12:05
[2016-11-08 18:00] VITALS: BP 121/84; PULSE 82; RESP 17; TEMP 99.2; O2SAT 98
[2016-11-08] MEDS: diphenhydrAMINE HCL 50 MG CAP PO PRN (21:08)
[2016-11-08] MEDS: ALPRAZolam 0.25 MG TAB PO PRN (21:08)
[2016-11-09 05:49] VITALS: BP 112/66; PULSE 60; RESP 16; TEMP 97.4; O2SAT 97
[2016-11-09] MEDS: levETIRAcetam 250 MG TAB PO SCH ×2 (08:36→20:33)
[2016-11-09] MEDS: levETIRAcetam 500 MG TAB PO SCH ×2 (08:36→20:33)
[2016-11-09] MEDS: TOPIRAMATE 25 MG TAB PO SCH ×2 (08:36→20:33)
[2016-11-09] MEDS: DIGOXIN 0.125 MG TAB PO SCH (08:36)
[2016-11-09] MEDS: ASPIRIN EC 81 MG TABEC PO SCH (08:36)
[2016-11-09] MEDS: NICOTINE 21 MG/24 HR PATCH T-DERMAL SCH (08:37)
[2016-11-09] MEDS: DIVALPROEX SODIUM E.R. 500 MG TAB PO SCH ×2 (08:37→20:33)
[2016-11-09] MEDS: REMOVE OLD NICOTINE PATCH T-DERMAL SCH (08:37)
--- NOTE | 2016-11-09 12:06 | HHI.PYPN ---
Subjective Remarks Patient was seen and case discussed with nursing. Patient is irritable and perseverative during the interview. Continues to have poor insight into the reasons for her admission. Denies a history of mental health. He is compliant with her medications. Alert and oriented 3. She is intrusive with other patients care Objective Alert: Yes [place]: Person, Place Mood: Calm Affect: Restricted Memory Intact: Comment (poor) Hallucinations: Other (denies) Delusions: No Delusion Type: Other (vigilant) Suicidal: Ideation (denies) Homicidal: Ideation (denies) Insight/Judgement Poor Vitals/IOs Vital Signs Date Time Temp Pulse Resp B/P Pulse Ox O2 Delivery O2 Flow Rate FiO2 11/09/16 05:49 97.4 60 16 112/66 97 Intake and Output 11/08/16 11/08/16 11/09/16 08:00 16:00 00:00 Intake Total 0 ml 1320 ml 360 ml Balance 0 ml 1320 ml 360 ml Assessment & Plan Problem List: (1) Cognitive impairment ICD Code: R41.89 Assessment & Plan Continue current treatment plan Justification for Cont. Inpt. Patient will decompensate in a less restrictive setting Preston Pack DO Nov 09, 2016 12:06
[2016-11-09 18:00] VITALS: BP 123/83; PULSE 71; RESP 16; TEMP 98.2; O2SAT 97
[2016-11-09] MEDS: diphenhydrAMINE HCL 50 MG CAP PO PRN (20:33)
[2016-11-10 05:41] VITALS: BP 103/66; PULSE 64; RESP 15; TEMP 97.1; O2SAT 97
[2016-11-10] MEDS: ASPIRIN EC 81 MG TABEC PO SCH (08:39)
[2016-11-10] MEDS: DIGOXIN 0.125 MG TAB PO SCH (08:39)
[2016-11-10] MEDS: levETIRAcetam 500 MG TAB PO SCH ×2 (08:39→21:57)
[2016-11-10] MEDS: levETIRAcetam 250 MG TAB PO SCH ×2 (08:39→21:57)
[2016-11-10] MEDS: DIVALPROEX SODIUM E.R. 500 MG TAB PO SCH ×2 (08:39→21:57)
[2016-11-10] MEDS: TOPIRAMATE 25 MG TAB PO SCH ×2 (08:39→21:57)
[2016-11-10] MEDS: NICOTINE 21 MG/24 HR PATCH T-DERMAL SCH (09:00)
[2016-11-10] MEDS: REMOVE OLD NICOTINE PATCH T-DERMAL SCH (09:00)
--- NOTE | 2016-11-10 15:21 | HHI.PYPN ---
Subjective Remarks Patient discussed with treatment team and medical student gretchen, and seen on unit. Patient continues intrusive irritable showing little insight into her disease. She is somewhat reluctantly compliant with medications at this time. Review of Systems Except as stated in HPI: all other systems reviewed are Neg Objective Alert: Yes [place]: Person, Place Mood: Calm Affect: Restricted Memory Intact: Comment (poor) Hallucinations: Other (denies) Delusions: No Delusion Type: Other (vigilant) Suicidal: Ideation (denies) Homicidal: Ideation (denies) Insight/Judgement Very poor Vitals/IOs Vital Signs Date Time Temp Pulse Resp B/P Pulse Ox O2 Delivery O2 Flow Rate FiO2 11/10/16 05:41 97.1 64 15 103/66 97 Intake and Output 11/09/16 11/09/16 11/10/16 08:00 16:00 00:00 Intake Total 360 ml 2040 ml 600 ml Balance 360 ml 2040 ml 600 ml Assessment & Plan Problem List: (1) Cognitive impairment ICD Code: R41.89 Assessment & Plan Estimated LOS: days patient continues somewhat irritable intrusive with little insight, reluctantly compliant medications Justification for Cont. Inpt. At this time patient would significantly decompensated if placed in a lower level of care Discharge Planning To be determined Alber Gordon MD Nov 10, 2016 15:21
[2016-11-10 18:28] VITALS: BP 144/90; PULSE 68; RESP 15; TEMP 98.2; O2SAT 98
[2016-11-11] MEDS: diphenhydrAMINE HCL 50 MG CAP PO PRN ×2 (03:42→22:06)
[2016-11-11 06:31] VITALS: BP 131/83; PULSE 61; RESP 16; TEMP 97.1; O2SAT 97
[2016-11-11] MEDS: NICOTINE 21 MG/24 HR PATCH T-DERMAL SCH (09:00)
[2016-11-11] MEDS: REMOVE OLD NICOTINE PATCH T-DERMAL SCH (09:00)
[2016-11-11] MEDS: TOPIRAMATE 25 MG TAB PO SCH ×2 (09:04→21:32)
[2016-11-11] MEDS: levETIRAcetam 250 MG TAB PO SCH ×2 (09:04→21:32)
[2016-11-11] MEDS: DIGOXIN 0.125 MG TAB PO SCH (09:04)
[2016-11-11] MEDS: levETIRAcetam 500 MG TAB PO SCH ×2 (09:04→21:32)
[2016-11-11] MEDS: ASPIRIN EC 81 MG TABEC PO SCH (09:04)
[2016-11-11] MEDS: DIVALPROEX SODIUM E.R. 500 MG TAB PO SCH ×2 (09:05→21:32)
[2016-11-11] MEDS: ALPRAZolam 0.25 MG TAB PO PRN (09:07)
--- NOTE | 2016-11-11 16:12 | HHI.PYPN ---
Subjective Remarks Patient seen in day room with nurse David and medical student she has been. Patient initially calm stating she needed to go home to pay bills. I discussed with her her past history of noncompliance medication multiple seizures status epilepticus, and multiple visits to our ED related to this she denied this questioned my honesty and veracity. Became quite indignant that I would refuse to allow her to be discharged. Patient compliant medication at this time patient would be at high risk for significant medical issues related to seizure disorder if discharged at this time Review of Systems Except as stated in HPI: all other systems reviewed are Neg Objective Alert: Yes [place]: Person, Place Mood: Calm Affect: Restricted Memory Intact: Comment (poor) Hallucinations: Other (denies) Delusions: No Delusion Type: Other (vigilant) Suicidal: Ideation (denies) Homicidal: Ideation (denies) Insight/Judgement Very poor Vitals/IOs Vital Signs Date Time Temp Pulse Resp B/P Pulse Ox O2 Delivery O2 Flow Rate FiO2 11/11/16 06:31 97.1 61 16 131/83 97 Intake and Output 11/10/16 11/10/16 11/11/16 08:00 16:00 00:00 Intake Total 360 ml 960 ml 720 ml Balance 360 ml 960 ml 720 ml Assessment & Plan Problem List: (1) Cognitive impairment ICD Code: R41.89 Assessment & Plan Estimated LOS: days patient remains paranoid psychotic with no insight into her disease. Justification for Cont. Inpt. At this time the patient would significantly decompensate if placed in the lower level of care Discharge Planning To be determined Alber Gordon MD Nov 11, 2016 16:12
[2016-11-11 19:27] VITALS: BP 132/72; PULSE 75; RESP 16; TEMP 98.7; O2SAT 97
[2016-11-12 06:01] VITALS: BP 107/74; PULSE 61; RESP 16; TEMP 97.8
[2016-11-12] MEDS: DIVALPROEX SODIUM E.R. 500 MG TAB PO SCH ×3 (09:00→20:59)
[2016-11-12] MEDS: REMOVE OLD NICOTINE PATCH T-DERMAL SCH (09:00)
[2016-11-12] MEDS: levETIRAcetam 250 MG TAB PO SCH ×2 (09:25→20:59)
[2016-11-12] MEDS: levETIRAcetam 500 MG TAB PO SCH ×2 (09:25→20:58)
[2016-11-12] MEDS: TOPIRAMATE 25 MG TAB PO SCH ×2 (09:25→20:58)
[2016-11-12] MEDS: NICOTINE 21 MG/24 HR PATCH T-DERMAL SCH (09:26)
[2016-11-12] MEDS: ASPIRIN EC 81 MG TABEC PO SCH (09:26)
[2016-11-12] MEDS: DIGOXIN 0.125 MG TAB PO SCH (09:26)
[2016-11-12 18:57] VITALS: BP 144/82; PULSE 76; RESP 16; TEMP 98.4; O2SAT 98
[2016-11-12] MEDS: diphenhydrAMINE HCL 50 MG CAP PO PRN (21:11)
[2016-11-13 06:26] VITALS: BP 132/70; PULSE 72; RESP 18; TEMP 97.9; O2SAT 97
[2016-11-13] MEDS: REMOVE OLD NICOTINE PATCH T-DERMAL SCH (09:00)
[2016-11-13] MEDS: NICOTINE 21 MG/24 HR PATCH T-DERMAL SCH (09:00)
[2016-11-13] MEDS: DIGOXIN 0.125 MG TAB PO SCH (09:00)
[2016-11-13] MEDS: ASPIRIN EC 81 MG TABEC PO SCH (09:15)
[2016-11-13] MEDS: DIVALPROEX SODIUM E.R. 500 MG TAB PO SCH ×2 (09:15→20:08)
[2016-11-13] MEDS: TOPIRAMATE 25 MG TAB PO SCH ×2 (09:16→20:41)
[2016-11-13] MEDS: levETIRAcetam 250 MG TAB PO SCH ×2 (09:16→20:08)
[2016-11-13] MEDS: levETIRAcetam 500 MG TAB PO SCH ×2 (09:16→20:09)
--- NOTE | 2016-11-13 09:28 | HHI.PYPN ---
Subjective Remarks Patient seen in day room with nurse Tessa, chart review, patient no significant behavioral problems though continues with no insight into her disease confused disorganized somewhat irritating and manipulating. It is noted that patient is both Xanax and Ativan as when necessary's, will discontinue the Xanax, continue the Ativan as a when necessary anxiety Review of Systems Except as stated in HPI: all other systems reviewed are Neg Objective Alert: Yes [place]: Person, Place Mood: Calm Affect: Restricted Memory Intact: Comment (poor) Hallucinations: Other (denies) Delusions: No Delusion Type: Other (vigilant) Suicidal: Ideation (denies) Homicidal: Ideation (denies) Insight/Judgement Poor Vitals/IOs Vital Signs Date Time Temp Pulse Resp B/P Pulse Ox O2 Delivery O2 Flow Rate FiO2 11/13/16 06:26 97.9 72 18 132/70 97 Intake and Output 11/12/16 11/12/16 11/13/16 08:00 16:00 00:00 Intake Total 600 ml 960 ml 2520 ml Balance 600 ml 960 ml 2520 ml Assessment & Plan Problem List: (1) Cognitive impairment ICD Code: R41.89 Assessment & Plan Estimated LOS: days patient continues confused irritable somewhat delusional. Both compliant medications Justification for Cont. Inpt. This time patient would significantly decompensated the placed in a lower level of care Discharge Planning To be determined Alber Gordon MD Nov 13, 2016 09:28
[2016-11-13 18:50] VITALS: BP 161/83; PULSE 75; RESP 17; TEMP 98.8; O2SAT 98
[2016-11-13 19:25] VITALS: BP 161/83; PULSE 75; RESP 17; TEMP 98.8; O2SAT 98
[2016-11-13] MEDS: diphenhydrAMINE HCL 50 MG CAP PO PRN (20:07)
[2016-11-13] MEDS: LORazepam 0.5 MG TAB age > 65 yrs PO PRN (20:11)
[2016-11-14 06:26] VITALS: BP 122/67; PULSE 63; RESP 16; TEMP 97.6; O2SAT 97
[2016-11-14] MEDS: ASPIRIN EC 81 MG TABEC PO SCH (09:00)
[2016-11-14] MEDS: REMOVE OLD NICOTINE PATCH T-DERMAL SCH (09:00)
[2016-11-14] MEDS: NICOTINE 21 MG/24 HR PATCH T-DERMAL SCH (09:00)
[2016-11-14] MEDS: DIVALPROEX SODIUM E.R. 500 MG TAB PO SCH ×2 (09:09→22:25)
[2016-11-14] MEDS: levETIRAcetam 500 MG TAB PO SCH ×2 (09:09→22:23)
[2016-11-14] MEDS: levETIRAcetam 250 MG TAB PO SCH ×2 (09:09→22:25)
[2016-11-14] MEDS: TOPIRAMATE 25 MG TAB PO SCH ×2 (09:10→22:25)
[2016-11-14] MEDS: DIGOXIN 0.125 MG TAB PO SCH (09:10)
--- NOTE | 2016-11-14 12:15 | HHI.PYPN ---
Subjective Remarks Patient seen in day room with medical student Yashira, chart review, outpatient no significant behavioral problems, she continues to show no insight into her disease focusing on being discharged and getting on with her work at home. Is vague about any communication with her . Patient does show some increased irritability and anger with me and I reiterate my position of the treatment team's position that she does not have the capacity to live independently at this time Review of Systems Except as stated in HPI: all other systems reviewed are Neg Objective Alert: Yes [place]: Person, Place Mood: Calm Affect: Restricted Memory Intact: Comment (poor) Hallucinations: Other (denies) Delusions: No Delusion Type: Other (vigilant) Suicidal: Ideation (denies) Homicidal: Ideation (denies) Insight/Judgement Very poor Vitals/IOs Vital Signs Date Time Temp Pulse Resp B/P Pulse Ox O2 Delivery O2 Flow Rate FiO2 11/14/16 06:26 97.6 63 16 122/67 97 Intake and Output 11/13/16 11/13/16 11/14/16 08:00 16:00 00:00 Intake Total 480 ml Balance 480 ml Assessment & Plan Problem List: (1) Cognitive impairment ICD Code: R41.89 Assessment & Plan Estimated LOS: days patient continues confused somewhat disoriented irritable with no insight into her disease Justification for Cont. Inpt. At this time patient would significantly decompensate if placed in a lower level of care Discharge Planning To be determined Alber Gordon MD Nov 14, 2016 12:15
--- NOTE | 2016-11-14 12:38 | HHI.PYPN ---
Subjective Remarks This is a late entry for patient visit on 11/12/15. Patient seen by me on that day with floor staff patient continue to focus on discharge showing no insight into her behaviors showing no ability to process her behaviors in the home related to compliance with his seizure medication. She focuses on going home to take care of her business. She is vague about any communication with her . Patient compliant medication Review of Systems Except as stated in HPI: all other systems reviewed are Neg Objective Alert: Yes [place]: Person, Place Mood: Calm Affect: Restricted Memory Intact: Comment (poor) Hallucinations: Other (denies) Delusions: No Delusion Type: Other (vigilant) Suicidal: Ideation (denies) Homicidal: Ideation (denies) Insight/Judgement Poor Vitals/IOs Vital Signs Date Time Temp Pulse Resp B/P Pulse Ox O2 Delivery O2 Flow Rate FiO2 11/14/16 06:26 97.6 63 16 122/67 97 Intake and Output 11/13/16 11/13/16 11/14/16 08:00 16:00 00:00 Intake Total 480 ml Balance 480 ml Assessment & Plan Problem List: (1) Cognitive impairment ICD Code: R41.89 Assessment & Plan Estimated LOS: days patient continues confused irritable with little insight into her issues, compliant medication Justification for Cont. Inpt. At this time patient would significantly decompensate if placed in a lower level of care Discharge Planning To be determined Alber Gordon MD Nov 14, 2016 12:37
[2016-11-14 18:00] VITALS: BP 156/92; PULSE 83; RESP 17; TEMP 97.8; O2SAT 99
[2016-11-14] MEDS: diphenhydrAMINE HCL 50 MG CAP PO PRN (22:23)
[2016-11-15 05:29] VITALS: BP 124/70; PULSE 60; RESP 16; TEMP 97.9; O2SAT 95
[2016-11-15] MEDS: DIVALPROEX SODIUM E.R. 500 MG TAB PO SCH ×2 (08:36→21:26)
[2016-11-15] MEDS: ASPIRIN EC 81 MG TABEC PO SCH (08:36)
[2016-11-15] MEDS: TOPIRAMATE 25 MG TAB PO SCH ×3 (08:36→21:00)
[2016-11-15] MEDS: levETIRAcetam 500 MG TAB PO SCH ×2 (08:36→21:26)
[2016-11-15] MEDS: levETIRAcetam 250 MG TAB PO SCH ×2 (08:36→21:25)
[2016-11-15] MEDS: DIGOXIN 0.125 MG TAB PO SCH (08:40)
--- NOTE | 2016-11-15 14:35 | HHI.PYPN ---
Subjective Remarks Pt seen and discussed with staff. She remains confused with poor insight but behavioral control has been a bit better today. She reports feeling "better. just better" today but cannot elaborate. No SI/HI. She is compliant with treatment. No medication side effects. Objective Alert: Yes [place]: Person, Place Mood: Calm Affect: Restricted Memory Intact: Comment (poor) Hallucinations: Other (denies) Delusions: No Delusion Type: Other (vigilant) Suicidal: Ideation (denies) Homicidal: Ideation (denies) Insight/Judgement limited Vitals/IOs Vital Signs Date Time Temp Pulse Resp B/P Pulse Ox O2 Delivery O2 Flow Rate FiO2 11/15/16 05:29 97.9 60 16 124/70 95 Intake and Output 11/14/16 11/14/16 11/15/16 08:00 16:00 00:00 Intake Total 480 ml 1440 ml 840 ml Balance 480 ml 1440 ml 840 ml Assessment & Plan Problem List: (1) Cognitive impairment ICD Code: R41.89 Assessment & Plan Continue current tx plan. Estimated LOS: days Justification for Cont. Inpt. risk of decompensation at lower level of care. Jackie Swenson MD Nov 15, 2016 14:35
[2016-11-15 19:57] VITALS: BP 153/88; PULSE 76; RESP 18; TEMP 98.1
[2016-11-15] MEDS: diphenhydrAMINE HCL 50 MG CAP PO PRN (21:38)
[2016-11-16 05:34] VITALS: BP 132/83; PULSE 57; RESP 16; TEMP 98; O2SAT 98
[2016-11-16] MEDS: levETIRAcetam 250 MG TAB PO SCH ×2 (08:31→21:06)
[2016-11-16] MEDS: levETIRAcetam 500 MG TAB PO SCH ×2 (08:31→21:06)
[2016-11-16] MEDS: ASPIRIN EC 81 MG TABEC PO SCH (08:31)
[2016-11-16] MEDS: DIVALPROEX SODIUM E.R. 500 MG TAB PO SCH ×2 (08:31→21:05)
[2016-11-16] MEDS: TOPIRAMATE 25 MG TAB PO SCH ×2 (08:34→21:05)
[2016-11-16] MEDS: DIGOXIN 0.125 MG TAB PO SCH (08:34)
--- NOTE | 2016-11-16 15:01 | HHI.PYPN ---
Subjective Remarks Pt seen and discussed with staff. Pt was compliant with all of medications today. She has been in better behavior control today. No SI/HI. She reports that she is feeling happy today. Objective Alert: Yes [place]: Person, Place Mood: Calm Affect: Restricted Memory Intact: Comment (poor) Hallucinations: Other (denies) Delusions: No Delusion Type: Other (vigilant) Suicidal: Ideation (denies) Homicidal: Ideation (denies) Insight/Judgement poor Vitals/IOs Vital Signs Date Time Temp Pulse Resp B/P Pulse Ox O2 Delivery O2 Flow Rate FiO2 11/16/16 05:34 98.0 57 16 132/83 98 Intake and Output 11/15/16 11/15/16 11/16/16 08:00 16:00 00:00 Intake Total 480 ml 960 ml 1200 ml Balance 480 ml 960 ml 1200 ml Assessment & Plan Problem List: (1) Cognitive impairment ICD Code: R41.89 Assessment & Plan Continue current tx plan. Estimated LOS: days Justification for Cont. Inpt. risk of decompensation Jackie Swenson MD Nov 16, 2016 15:01
[2016-11-16 19:56] VITALS: BP 140/67; PULSE 83; RESP 17; TEMP 97.7; O2SAT 99
[2016-11-16] MEDS: diphenhydrAMINE HCL 50 MG CAP PO PRN (21:06)
[2016-11-17 05:12] VITALS: BP 113/69; PULSE 69; RESP 18; TEMP 97.7; O2SAT 97
[2016-11-17] MEDS: DIGOXIN 0.125 MG TAB PO SCH (08:38)
[2016-11-17] MEDS: ASPIRIN EC 81 MG TABEC PO SCH (08:38)
[2016-11-17] MEDS: levETIRAcetam 500 MG TAB PO SCH ×2 (08:38→21:04)
[2016-11-17] MEDS: TOPIRAMATE 25 MG TAB PO SCH ×2 (08:38→21:05)
[2016-11-17] MEDS: DIVALPROEX SODIUM E.R. 500 MG TAB PO SCH ×2 (08:38→21:04)
[2016-11-17] MEDS: levETIRAcetam 250 MG TAB PO SCH ×2 (08:38→21:04)
--- NOTE | 2016-11-17 14:15 | HHI.PYPN ---
Subjective Remarks Patient discussed with treatment team, chart reviewed, patient seen on unit. Patient showing no significant behavioral problems, though also showing no insight into her disease of the need for compliance with medication in the community. It is open her will be returning to the home soon from his over the road [employer] job. Review of Systems Except as stated in HPI: all other systems reviewed are Neg Objective Alert: Yes [place]: Person, Place Mood: Calm Affect: Restricted Memory Intact: Comment (poor) Hallucinations: Other (denies) Delusions: No Delusion Type: Other (vigilant) Suicidal: Ideation (denies) Homicidal: Ideation (denies) Insight/Judgement Very poor Vitals/IOs Vital Signs Date Time Temp Pulse Resp B/P Pulse Ox O2 Delivery O2 Flow Rate FiO2 11/17/16 05:12 97.7 69 18 113/69 97 Intake and Output 11/16/16 11/16/16 11/17/16 08:00 16:00 00:00 Intake Total 0 ml 820 ml 480 ml Balance 0 ml 820 ml 480 ml Assessment & Plan Problem List: (1) Cognitive impairment ICD Code: R41.89 Assessment & Plan Estimated LOS: days patient continue somewhat confused disoriented, no her vigilance and paranoia are softening, will increase compliance medication. Continue to await contact with patient's Justification for Cont. Inpt. At this time the patient would seriously decompensate if placed in a lower level of care Discharge Planning To be determined Alber Gordon MD Nov 17, 2016 14:15
[2016-11-17 18:00] VITALS: BP 142/88; PULSE 82; RESP 18; TEMP 97.7; O2SAT 96
[2016-11-17] MEDS: diphenhydrAMINE HCL 50 MG CAP PO PRN (21:05)
[2016-11-18 05:01] VITALS: BP 120/74; PULSE 79; RESP 16; TEMP 98; O2SAT 96
[2016-11-18] MEDS: DIVALPROEX SODIUM E.R. 500 MG TAB PO SCH ×2 (08:31→21:59)
[2016-11-18] MEDS: levETIRAcetam 250 MG TAB PO SCH ×2 (08:32→21:59)
[2016-11-18] MEDS: DIGOXIN 0.125 MG TAB PO SCH (08:32)
[2016-11-18] MEDS: levETIRAcetam 500 MG TAB PO SCH ×2 (08:32→21:59)
[2016-11-18] MEDS: ASPIRIN EC 81 MG TABEC PO SCH (08:32)
[2016-11-18] MEDS: TOPIRAMATE 25 MG TAB PO SCH ×2 (08:33→21:59)
--- NOTE | 2016-11-18 10:44 | HHI.PYPN ---
Subjective Remarks Patient seen in day room with nurse Sindhu and counselor Kimberly, chart reviewed. Patient compliant medications. Patient continues without insight into her disease states she is ready to go home but she has bills to pay. Attempted to discuss patient's past behaviors with compliance medication leads to more increased anger irritation and denial of problems. We continue to await return of patient's to discuss placement issues Review of Systems Except as stated in HPI: all other systems reviewed are Neg Objective Alert: Yes [place]: Person, Place Mood: Calm Affect: Restricted Memory Intact: Comment (poor) Hallucinations: Other (denies) Delusions: No Delusion Type: Other (vigilant) Suicidal: Ideation (denies) Homicidal: Ideation (denies) Insight/Judgement Very poor Vitals/IOs Vital Signs Date Time Temp Pulse Resp B/P Pulse Ox O2 Delivery O2 Flow Rate FiO2 11/18/16 05:01 98.0 79 16 120/74 96 Intake and Output 11/17/16 11/17/16 11/18/16 08:00 16:00 00:00 Intake Total 0 ml 1800 ml Balance 0 ml 1800 ml Assessment & Plan Problem List: (1) Cognitive impairment ICD Code: R41.89 Assessment & Plan Estimated LOS: days patient continue somewhat confused irritable little insight. His compliant medications. Will recheck Depakote level in a.m. Justification for Cont. Inpt. At this time patient would decompensate if placed in a lower level of care Discharge Planning To be determined Alber Gordon MD Nov 18, 2016 10:43
[2016-11-18 20:08] VITALS: BP 138/85; PULSE 75; RESP 16; TEMP 97.9; O2SAT 97
[2016-11-18] MEDS: diphenhydrAMINE HCL 50 MG CAP PO PRN (21:59)
[2016-11-19 06:06] VITALS: BP 128/62; PULSE 67; RESP 16; TEMP 97.6; O2SAT 96
[2016-11-19] MEDS: levETIRAcetam 500 MG TAB PO SCH ×2 (08:57→21:55)
[2016-11-19] MEDS: levETIRAcetam 250 MG TAB PO SCH ×2 (08:57→22:38)
[2016-11-19] MEDS: DIVALPROEX SODIUM E.R. 500 MG TAB PO SCH ×2 (08:57→21:55)
[2016-11-19] MEDS: TOPIRAMATE 25 MG TAB PO SCH ×2 (08:58→21:55)
[2016-11-19] MEDS: ASPIRIN EC 81 MG TABEC PO SCH (08:58)
[2016-11-19] MEDS: DIGOXIN 0.125 MG TAB PO SCH (08:58)
[2016-11-19] MEDS: LORazepam 0.5 MG TAB age > 65 yrs PO PRN (09:54)
--- NOTE | 2016-11-19 12:14 | HHI.PYPN ---
Subjective Remarks Patient seen in day room with nurse Debra, patient's repeat Depakote is 81 drawn this a.m. Patient continues to show little insight into her behaviors leading to his hospitalization, though she is compliant with medications at this time I question her sincerity with agreeing to compliance with medications once she returns to her home. Patient is scheduled for repeat hearing [address] [facility] tomorrow. For now continue treatment Review of Systems Except as stated in HPI: all other systems reviewed are Neg Objective Alert: Yes [place]: Person, Place Mood: Calm Affect: Restricted Memory Intact: Comment (poor) Hallucinations: Other (denies) Delusions: No Delusion Type: Other (vigilant) Suicidal: Ideation (denies) Homicidal: Ideation (denies) Insight/Judgement Very poor Labs Test 11/19/16 06:30 Valproic Acid (Depakene) Level 81 MCG/ML Vitals/IOs Vital Signs Date Time Temp Pulse Resp B/P Pulse Ox O2 Delivery O2 Flow Rate FiO2 11/19/16 06:06 97.6 67 16 128/62 96 Intake and Output 11/18/16 11/18/16 11/19/16 08:00 16:00 00:00 Intake Total 0 ml 2160 ml 1080 ml Balance 0 ml 2160 ml 1080 ml Assessment & Plan Problem List: (1) Cognitive impairment ICD Code: R41.89 Assessment & Plan Estimated LOS: days patient continues very little insight into her issues, continues diffusely confused, patient scheduled for [place] [facility] hearing tomorrow Justification for Cont. Inpt. At this time patient would decompensate if placed in the lower level of care Discharge Planning To be determined Alber Gordon MD Nov 19, 2016 12:14
[2016-11-19] MEDS: diphenhydrAMINE HCL 50 MG CAP PO PRN (22:12)
[2016-11-19 22:46] VITALS: BP 137/83; PULSE 75; RESP 16; TEMP 97.8; O2SAT 97
[2016-11-20 06:38] VITALS: BP 112/59; PULSE 70; RESP 18; TEMP 98.3; O2SAT 98
[2016-11-20] MEDS: levETIRAcetam 500 MG TAB PO SCH (09:09)
[2016-11-20] MEDS: levETIRAcetam 250 MG TAB PO SCH (09:09)
[2016-11-20] MEDS: ASPIRIN EC 81 MG TABEC PO SCH (09:09)
[2016-11-20] MEDS: DIVALPROEX SODIUM E.R. 500 MG TAB PO SCH (09:09)
[2016-11-20] MEDS: DIGOXIN 0.125 MG TAB PO SCH (09:09)
[2016-11-20] MEDS: TOPIRAMATE 25 MG TAB PO SCH (09:10)
[2016-11-20] MEDS ORDERED: ASPI81TA11 PO (09:30)
[2016-11-20] MEDS ORDERED: KEPP10002 PO (09:30)
[2016-11-20] MEDS ORDERED: DIGO0.12 PO (09:30)
[2016-11-20] MEDS ORDERED: DEPA500T3 PO (09:30)
[2016-11-20] MEDS ORDERED: LEVE250 PO (09:30)
[2016-11-20] MEDS ORDERED: TOPA25TA8 PO (09:30)
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
== END 2016-11-20 14:15 | disposition home or self-care (01) | DRG 884 ==
LOC: H250 14:45
PROVIDERS: ADMIT Psychiatry & Neurology Psychiatry; ATTEND Psychiatry & Neurology Psychiatry
DX: F03.91 Unspecified dementia, unspecified severity, with behavioral disturbance (principal); I48.91 Unspecified atrial fibrillation; G40.909 Epilepsy, unspecified, not intractable, without status epilepticus; I10 Essential (primary) hypertension; D25.9 Leiomyoma of uterus, unspecified; F22 Delusional disorders; M53.3 Sacrococcygeal disorders, not elsewhere classified; F17.210 Nicotine dependence, cigarettes, uncomplicated; Z91.14 Patient's other noncompliance with medication regimen
CPT/HCPCS: 72220; 80048; 80061; 80164; 83036; Q0163

== ENCOUNTER 2018-03-09 17:14 | Inpatient (IN) | payer OTHER, MEDICARE ==
[~2018-03-09] VITALS: Ht 177.8 cm; Wt 70.4 kg
[~2018-03-09 17:14] MED LIST changes: -ASPI81TA11 PO; +ASPI81TA23 PO; +LEVE250 PO; -TOPA25TA8 PO; +TOPI25 PO
[2018-03-09 17:27] VITALS: BP 157/97; PULSE 78; RESP 17; O2SAT 100
[2018-03-09] MEDS ORDERED: SODIUM CHLOR 0.9% 1000 ML INJ 1,000 ML IV ONE ×4 (17:34→19:00)
[2018-03-09] MEDS ORDERED: SODIUM CHLORIDE 0.9% FLUSH 10 ML FLUSH IVF PRN (17:45)
[2018-03-09] MEDS ORDERED: levETIRAcetam INJ 500 MG in SODIUM CHLORIDE 0.9% INJ 100 ML IV ONE (17:45)
[2018-03-09 17:49] VITALS: O2SAT 99
--- NOTE | 2018-03-09 17:54 | PD ---
HPI Chief Complaint: Altered Mental Status Time Seen by Provider: 17:21 Travel History International Travel<30 days: No Contact w/Intl Traveler<30days: No Traveled to known affect area: No History of Present Illness HPI The patient is a 67-year-old female who presents to the emergency department via EMS after she was found at home with an altered mental status. 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 The neighbors went to the house and found the patient on the ground with altered mental status. EMS states that the patient was unable to ambulate on scene and was altered. Upon arrival the patient would open her eyes and respond her name, otherwise, would not provide any information. The patient then had a tonic-clonic seizure that lasted for approximately 30 seconds and self resolved prior to the administration of Ativan. No further information was obtainable from the patient. PFSH Past Medical History Hx Anticoagulant Therapy: No Arthritis: No Blood Disorders: No Anxiety: Yes Depression: Yes Heart Rhythm Problems: Yes (A-FIB) Cancer: No Cardiovascular Problems: Yes (A Fib) High Cholesterol: No Chemotherapy: No Chest Pain: No Congestive Heart Failure: No Cerebrovascular Accident: No Diabetes: No Diminished Hearing: No Endocrine: No Gastrointestinal Disorders: No Genitourinary: No Headaches: No Hepatitis: No Hiatal Hernia: No Hypertension: No Immune Disorder: No Implanted Vascular Access Dvce: No Musculoskeletal: No Neurologic: Yes Psychiatric: No Reproductive: No Respiratory: No Immunizations Current: Yes Migraines: No Radiation Therapy: No Seizures: Yes (per pt since age 22) Thyroid Disease: No PNEUMOCCOCAL Vaccine (Year): 2 ?: Unknown Menopausal: Yes : 2 : 2 Dilation and Curettage (D&C): Yes Past Surgical History Abdominal Surgery: No AICD: No Arteriovenous Shunt: No Cardiac Surgery: No Ear Surgery: No Endocrine Surgery: No Eye Surgery: No Genitourinary Surgery: No Gynecologic Surgery: Yes (D&C) Hysterectomy: No Insulin Pump: No Joint Replacement: No Neurologic Surgery: No Oral Surgery: No Pacemaker: No Thoracic Surgery: No Other Surgery: Yes Social History Alcohol Use: No (Quit per ) Tobacco Use: Yes (Occ. per ,most info recalled) Substance Use: No Allergies-Medications (Allergen,Severity, Reaction): Coded Allergies: fosphenytoin (Unverified Allergy, Severe, Rash, 06/09/17) Reported Meds & Prescriptions Reported Meds & Active Scripts Active Digoxin 0.125 Mg Tab 0.125 Mg PO DAILY Aspirin EC (Aspirin) 81 Mg Tabdr 81 Mg PO DAILY Xanax (Alprazolam) 0.25 Mg Tab 0.25 Mg PO BID PRN Topamax (Topiramate) 25 Mg Tab 50 Mg PO Q12HR Keppra (Levetiracetam) 1,000 Mg Tab 1,250 Mg PO BID Depakote ER (Divalproex Sodium) 500 Mg Ang 500 Mg PO BID Review of Systems ROS Limitations: Clinical Condition, Altered Mental Status Except as stated in HPI: all other systems reviewed are Neg Neurologic: Positive: Seizures Physical Exam Narrative GENERAL: Lethargic, postictal 67-year-old female who appears her stated age and is in no acute respiratory distress. SKIN: Right periorbital ecchymosis noted. HEAD: Right periorbital ecchymosis noted. EYES: Pupils equal and round. 3 mm bilateral and reactive. ENT: Small amount of dried blood on the tip of the tongue. NECK: Trachea midline. No JVD. Superficial abrasions noted over the lateral aspect of the left neck. CARDIOVASCULAR: Regular rate and rhythm. No murmur appreciated. Heart rate in the 80s. RESPIRATORY: No accessory muscle use. Clear to auscultation. Breath sounds equal bilaterally. GASTROINTESTINAL: Abdomen soft, non-tender, nondistended. No rebound tenderness. MUSCULOSKELETAL: No obvious deformities. No clubbing. No cyanosis. No edema. NEUROLOGICAL: Lethargic, postictal 67-year-old female. She does withdraw the pain. Positive gag reflex. Does not follow commands. Back: No obvious injuries or deformities. No evidence of ecchymosis. No obvious step-off of the thoracic or lumbar vertebrae. PSYCHIATRIC: Unable to assess. Data Data Last Documented VS Vital Signs Date Time Temp Pulse Resp B/P (MAP) Pulse Ox O2 Delivery O2 Flow Rate FiO2 03/09/18 17:49 99 Room Air 03/09/18 17:27 78 17 157/97 (117) Orders Orders Complete Blood Count With Diff (03/09/18 17:34) Alcohol (Ethanol) (03/09/18 17:34) Valproic Acid (Depakene) (03/09/18 17:34) Drug Screen, Random Urine (03/09/18 17:34) Electrocardiogram (03/09/18 ) Ct Brain W/O Iv Contrast(Rout) (03/09/18 ) Blood Glucose (03/09/18 17:34) Ecg Monitoring (03/09/18 17:34) Iv Access Insert/Monitor (03/09/18 17:34) Oximetry (03/09/18 17:34) Comprehensive Metabolic Panel (03/09/18 17:34) Sodium Chlor 0.9% 1000 Ml Inj (Ns 1000 M (03/09/18 17:34) Sodium Chloride 0.9% Flush (Ns Flush) (03/09/18 17:45) Digoxin (03/09/18 17:34) Ct Cerv Spine W/O Contrast (03/09/18 ) Chest, Single Ap (03/09/18 ) Lactic Acid (03/09/18 17:34) Ct Facial Bones W/O Iv Cont (03/09/18 ) Levetiracetam Inj (Keppra Inj) (03/09/18 17:45) Sodium Chlor 0.9% 1000 Ml Inj (Ns 1000 M (03/09/18 18:45) Admit Order (Ed Use Only) (03/09/18 18:55) Labs Laboratory Tests Test 03/09/18 17:30 03/09/18 17:40 White Blood Count 10.4 TH/MM3 Red Blood Count 5.23 MIL/MM3 Hemoglobin 16.1 GM/DL Hematocrit 48.8 % Mean Corpuscular Volume 93.2 FL Mean Corpuscular Hemoglobin 30.8 PG Mean Corpuscular Hemoglobin Concent 33.1 % Red Cell Distribution Width 14.8 % Platelet Count 197 TH/MM3 Mean Platelet Volume 8.8 FL Neutrophils (%) (Auto) 87.2 % Lymphocytes (%) (Auto) 9.9 % Monocytes (%) (Auto) 2.7 % Eosinophils (%) (Auto) 0.0 % Basophils (%) (Auto) 0.2 % Neutrophils # (Auto) 9.1 TH/MM3 Lymphocytes # (Auto) 1.0 TH/MM3 Monocytes # (Auto) 0.3 TH/MM3 Eosinophils # (Auto) 0.0 TH/MM3 Basophils # (Auto) 0.0 TH/MM3 CBC Comment DIFF FINAL Differential Comment Blood Urea Nitrogen 12 MG/DL Creatinine 1.05 MG/DL Random Glucose 147 MG/DL Total Protein 7.3 GM/DL Albumin 4.1 GM/DL Calcium Level 9.0 MG/DL Alkaline Phosphatase 77 U/L Aspartate Amino Transf (AST/SGOT) 12 U/L Alanine Aminotransferase (ALT/SGPT) 15 U/L Total Bilirubin 0.3 MG/DL Sodium Level 139 MEQ/L Potassium Level 3.1 MEQ/L Chloride Level 101 MEQ/L Carbon Dioxide Level 20.7 MEQ/L Anion Gap 17 MEQ/L Estimat Glomerular Filtration Rate 52 ML/MIN Digoxin Level LESS THAN 0.1 NG/ML Valproic Acid (Depakene) Level 24 MCG/ML Ethyl Alcohol Level LESS THAN 3 MG/DL Lactic Acid Level 10.1 mmol/L Urine Opiates Screen NEG Urine Barbiturates Screen NEG Urine Amphetamines Screen NEG Urine Benzodiazepines Screen NEG Urine Cocaine Screen NEG Urine Cannabinoids Screen NEG MDM Medical Decision Making Medical Screen Exam Complete: Yes Emergency Medical Condition: Yes Medical Record Reviewed: Yes Interpretation(s) EKG reveals normal sinus rhythm with a rate 86. Q-wave noted in lead III with inverted T-wave. Laboratory Tests Test 03/09/18 17:30 03/09/18 17:40 White Blood Count 10.4 TH/MM3 Red Blood Count 5.23 MIL/MM3 Hemoglobin 16.1 GM/DL Hematocrit 48.8 % Mean Corpuscular Volume 93.2 FL Mean Corpuscular Hemoglobin 30.8 PG Mean Corpuscular Hemoglobin Concent 33.1 % Red Cell Distribution Width 14.8 % Platelet Count 197 TH/MM3 Mean Platelet Volume 8.8 FL Neutrophils (%) (Auto) 87.2 % Lymphocytes (%) (Auto) 9.9 % Monocytes (%) (Auto) 2.7 % Eosinophils (%) (Auto) 0.0 % Basophils (%) (Auto) 0.2 % Neutrophils # (Auto) 9.1 TH/MM3 Lymphocytes # (Auto) 1.0 TH/MM3 Monocytes # (Auto) 0.3 TH/MM3 Eosinophils # (Auto) 0.0 TH/MM3 Basophils # (Auto) 0.0 TH/MM3 CBC Comment DIFF FINAL Differential Comment Blood Urea Nitrogen 12 MG/DL Creatinine 1.05 MG/DL Random Glucose 147 MG/DL Total Protein 7.3 GM/DL Albumin 4.1 GM/DL Calcium Level 9.0 MG/DL Alkaline Phosphatase 77 U/L Aspartate Amino Transf (AST/SGOT) 12 U/L Alanine Aminotransferase (ALT/SGPT) 15 U/L Total Bilirubin 0.3 MG/DL Sodium Level 139 MEQ/L Potassium Level 3.1 MEQ/L Chloride Level 101 MEQ/L Carbon Dioxide Level 20.7 MEQ/L Anion Gap 17 MEQ/L Estimat Glomerular Filtration Rate 52 ML/MIN Digoxin Level LESS THAN 0.1 NG/ML Valproic Acid (Depakene) Level 24 MCG/ML Ethyl Alcohol Level LESS THAN 3 MG/DL Lactic Acid Level 10.1 mmol/L Urine Opiates Screen NEG Urine Barbiturates Screen NEG Urine Amphetamines Screen NEG Urine Benzodiazepines Screen NEG Urine Cocaine Screen NEG Urine Cannabinoids Screen NEG Last Impressions Head CT 03/09/18 0000 Signed Impressions: Service Date/Time: Friday, March 09, 2018 18:23 - CONCLUSION: Normal examination. Alber Mcneill MD Chest X-Ray 03/09/18 0000 Signed Impressions: Service Date/Time: Friday, March 09, 2018 17:48 - CONCLUSION: No acute disease. Felton Simon MD CT of the cervical spine reveals no evidence of acute bony injury in the cervical spine CT facial bones reveals minimally angulated nasal bone fracture Differential Diagnosis Differential diagnosis includes breakthrough seizure, status epilepticus, subtherapeutic Keppra level, subtherapeutic Depakote level, dementia with psychosis, hyponatremia, hypoglycemia, hypocalcemia, dehydration, intracranial hemorrhage, cervical fracture, facial fracture. Narrative Course IV was established, labs are drawn and sent, and the patient was placed on cardiac telemetry monitoring and continuous pulse oximetry monitoring. The patient had a witnessed tonoclonic seizure that lasted 30 seconds prior to the administration of Ativan. The patient was placed under seizure precautions. The patient had a positive gag reflex, therefore, the patient was not immediately intubated. CT of the brain, cervical spine, facial bones was ordered. The patient was unable to provide any information, nursing staff to discuss the patient with her via phone, however, he does not know her current medications. He did state the patient had a history of seizures but has not had a seizure in 2 years. EMR reveals the patient was previously on Depakote, Topamax, and Keppra. Therefore, the patient received Keppra 500 mg intravenously. Depakote level was sent to lab. Depakote level was subtherapeutic. The patient's lactic acid was greater than 10, most likely secondary to seizure. The patient did become more arousable, had her eyes open , which shake her head yes or no, but was still nonverbal. As the patient has not returned to complete baseline and has elevated lactic acid, most likely from seizure, patient will be placed in intensive care unit overnight. Therefore, the on-call image editor was paged for admission. Physician Communication Physician Communication The on-call medical service was paged for admission. I discussed the patient with Dr. Danielson who agrees with admission. Diagnosis Primary Impression: Status epilepticus Additional Impression: Lactic acidosis Admitting Information Admitting Physician Requests: Admit Condition: Stable Malik Albrecht MD March 09, 2018 17:54
[2018-03-09 17:55] LABS: AUTOMATED NEUTROPHIL # 9.1 TH/MM3 (1.8-7.7); BASOPHIL % 0.2 % (0.0-2.0); HEMATOCRIT 48.8 % (35.0-46.0); HEMOGLOBIN 16.1 GM/DL (11.6-15.3); LYMPH % 9.9 % (9.0-44.0); MEAN CELL VOLUME 93.2 FL (80.0-100.0); MEAN CORPUSCULAR HEMOGLOBIN 30.8 PG (27.0-34.0); MEAN CORPUSCULAR HGB CONC 33.1 % (32.0-36.0); MEAN PLATELET VOLUME 8.8 FL (7.0-11.0); MONO % 2.7 % (0.0-8.0); MONOCYTE # 0.3 TH/MM3 (0-0.9); NEUT % 87.2 % (16.0-70.0); PLATELET COUNT 197 TH/MM3 (150-450); RED BLOOD COUNT 5.23 MIL/MM3 (4.00-5.30); RED CELL DISTRIBUTION WIDTH 14.8 % (11.6-17.2); WHITE BLOOD COUNT 10.4 TH/MM3 (4.0-11.0)
--- NOTE | 2018-03-09 18:00 | RADRPT ---
EXAM DATE/TIME: 03/09/2018 17:48 [facility] COMPARISON: CHEST SINGLE AP, March 28, 2016, 21:28. INDICATIONS : Short of breath. MEDICAL HISTORY : None. SURGICAL HISTORY : None. ENCOUNTER: Initial ACUITY: 1 day PAIN SCORE: 0/10 LOCATION: Bilateral chest FINDINGS: A single view of the chest demonstrates the lungs to be symmetrically aerated without evidence of mas s, infiltrate or effusion. The cardiomediastinal contours are unremarkable. Osseous structures are intact. CONCLUSION: No acute disease. Felton Simon MD on March 09, 2018 at 17:57 Board Certified Radiologist. This report was verified electronically.
[2018-03-09 18:16] LABS: ALBUMIN 4.1 GM/DL (3.4-5.0); AST (GOT) 12 U/L (15-37); BICARBONATE 20.7 MEQ/L (21.0-32.0); BLOOD UREA NITROGEN 12 MG/DL (7-18); CHLORIDE 101 MEQ/L (98-107); CREATININE 1.05 MG/DL (0.50-1.00); GLOMERULAR FILTRATION RATE 52 ML/MIN (>89); GLUCOSE,RANDOM 147 MG/DL (74-106); SODIUM (NA) 139 MEQ/L (136-145)
[2018-03-09 18:33] LABS: ALKALINE PHOSPHATASE 77 U/L (45-117); ALT (GPT) 15 U/L (10-53); DIGOXIN LESS THAN 0.1 NG/ML (0.8-2.0); TOTAL BILIRUBIN ADULT 0.3 MG/DL (0.2-1.0); TOTAL PROTEIN 7.3 GM/DL (6.4-8.2)
--- NOTE | 2018-03-09 18:49 | RADRPT ---
EXAM DATE/TIME: 03/09/2018 18:23 [facility] COMPARISON: No previous studies available for comparison. INDICATIONS : Fall, altered mental status RADIATION DOSE: 32.92 CTDIvol (mGy) MEDICAL HISTORY : Seizures. Cardiovascular disease Hypertension. SURGICAL HISTORY : None. ENCOUNTER: Initial ACUITY: 1 day PAIN SCALE: 3/10 LOCATION: Bilateral cranial TECHNIQUE: Multiple contiguous axial images were obtained of the head. Using automated exposure control and adj ustment of the mA and/or kV according to patient size, radiation dose was kept as low as reasonably a chievable to obtain optimal diagnostic quality images. DICOM format image data is available electro nically for review and comparison. FINDINGS: CEREBRUM: The ventricles are normal for age. No evidence of midline shift, mass lesion, hemorrhage or acute in farction. No extra-axial fluid collections are seen. POSTERIOR FOSSA: The cerebellum and brainstem are intact. The 4th ventricle is midline. The cerebellopontine angle i s unremarkable. EXTRACRANIAL: The visualized portion of the orbits is intact. SKULL: The calvaria is intact. No evidence of skull fracture. CONCLUSION: Normal examination. Alber Mcneill MD on March 09, 2018 at 18:45 Board Certified Radiologist. This report was verified electronically.
--- NOTE | 2018-03-09 18:52 | RADRPT ---
EXAM DATE/TIME: 03/09/2018 18:23 [facility] COMPARISON: No previous studies available for comparison. INDICATIONS : Fall RADIATION DOSE: 17.47 CTDIvol (mGy) MEDICAL HISTORY : Seizures. Hypertension. Cardiovascular disease SURGICAL HISTORY : None. ENCOUNTER: Initial ACUITY: 1 day PAIN SCALE: 3/10 LOCATION: neck TECHNIQUE: Volumetric scanning of the cervical spine was performed. Multiplanar reconstructions in the sagittal, coronal and oblique axial planes were performed. Using automated exposure control and adjustment o f the mA and/or kV according to patient size, radiation dose was kept as low as reasonably achievable to obtain optimal diagnostic quality images. DICOM format image data is available electronically f or review and comparison. FINDINGS: There is minimal anterolisthesis of C3 relative to C4 and slight focal lordotic angulation through th e disc space at this level. A broad mild dorsal protrusion is present. There is no evidence of fractu re. The cervical spine is elsewhere in intact with normal alignment and no fracture. No bony canal or foraminal compromise identified. There is disc space narrowing most significantly at C5-6 with tiny endplate osteophytes present and mild disc space narrowing also present at C6-7. There is moderate po sterior facet arthropathy at multiple levels bilaterally. Significant arthritic change is present at the atlantoaxial interface area in There is no evidence of paraspinal hematoma. CONCLUSION: No evidence of acute bony injury in the cervical spine Alber Mcneill MD on March 09, 2018 at 18:47 Board Certified Radiologist. This report was verified electronically.
--- NOTE | 2018-03-09 18:55 | RADRPT ---
EXAM DATE/TIME: 03/09/2018 18:23 [facility] COMPARISON: No previous studies available for comparison. INDICATIONS : Fall RADIATION DOSE: 58.86 CTDIvol (mGy) MEDICAL HISTORY : Seizures. Cardiovascular disease Hypertension. SURGICAL HISTORY : None. ENCOUNTER: Initial ACUITY: 1 day PAIN SCORE: 4/10 LOCATION: Bilateral facial TECHNIQUE: Volumetric scanning of the facial bones was performed. Using automated exposure control and adjustme nt of the mA and/or kV according to patient size, radiation dose was kept as low as reasonably achiev able to obtain optimal diagnostic quality images. DICOM format image data is available electronicall y for review and comparison. FINDINGS: ORBITS: The orbital and infraorbital osseous structures are intact. The retroconal structures have a normal configuration. No radiopaque foreign bodies are seen. NASAL BONE: There is a minimally angulated fracture of the nasal bone. ZYGOMATIC ARCHES: Symmetric without evidence of fracture. SINUSES: Minimal fluid in the sphenoid sinus. NASAL CAVITY: Leftward nasal septal deviation. No evidence of nasal cavity mass or obstruction. SOFT TISSUES: Soft tissue swelling in the right periorbital region. INTRACRANIAL: No intracranial air seen. CRIBIFORM PLATE: Grossly intact. CONCLUSION: Minimally angulated nasal bone fracture Alber Mcneill MD on March 09, 2018 at 18:50 Board Certified Radiologist. This report was verified electronically.
[2018-03-09] MEDS ORDERED: TEMAZEPAM 15 MG CAP PO PRN (19:00)
[2018-03-09] MEDS ORDERED: RESP: ALBUTEROL 2.5 MG/IPRATROPIUM 0.5 MG NEB (PRN) INH (19:00)
[2018-03-09] MEDS ORDERED: POTASSIUM CHLORIDE 25 MEQ EFFERVESCENT TAB PO ONE (19:00)
[2018-03-09] MEDS ORDERED: SODIUM CHLORIDE 0.9% FLUSH 10 ML FLUSH IV FLUSH PRN (19:00)
[2018-03-09] MEDS ORDERED: ALPRAZolam 0.25 MG TAB PO PRN (19:00)
[2018-03-09] MEDS ORDERED: MAGNESIUM HYDROXIDE SUSP 30 ML CUP PO PRN (19:00)
[2018-03-09] MEDS ORDERED: ONDANSETRON ODT 4 MG TAB PO PRN (19:00)
[2018-03-09] MEDS ORDERED: CHLORHEXIDINE GLUCONATE 2 % 1 PACK (2 CLOTHS) TOP PRN (19:00)
[2018-03-09] MEDS ORDERED: SENNOSIDES 8.6 MG TAB PO PRN (19:00)
[2018-03-09] MEDS ORDERED: LORazepam 2 MG/ML VIAL IV PUSH PRN (19:00)
[2018-03-09] MEDS ORDERED: BISACODYL 10 MG SUPP RECTAL PRN (19:00)
[2018-03-09] MEDS ORDERED: NURSING INFORMATION XX SCH (19:00)
[2018-03-09] MEDS ORDERED: LACTULOSE SYRUP 20 GM/30 ML CUP PO PRN (19:00)
--- NOTE | 2018-03-09 19:11 | HHI.HP ---
HPI Service Critical Care Medicine Primary Care Physician Chidi Slater MD Admission Diagnosis Status epilepticus, subtherapeutic Depakote level, lactic acidosis Diagnosis: Travel History International Travel<30 Days: No Contact w/Intl Traveler <30 Da: No Traveled to Known Affected Are: No History of Present Illness 67-year-old female with history of seizure disorder presents to the emergency department via EMS after she was found at home with an altered mental status. 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 The neighbors went to the house and found the patient on the ground with altered mental status. EMS states that the patient was unable to ambulate on scene and was altered. Upon arrival the patient would open her eyes and respond her name, otherwise, would not provide any information. The patient then had a tonic-clonic seizure that lasted for approximately 30 seconds and self resolved prior to the administration of Ativan. No further information is obtainable from the patient since she is postictal now. Review of Systems ROS Unobtainable due to altered mental status Past Family Social History Allergies: Coded Allergies: fosphenytoin (Unverified Allergy, Severe, Rash, 06/09/17) Past Medical History Seizure disorder Hypertension Anxiety/depression Past Surgical History D&C Reported Medications Reported Meds & Active Scripts Active Digoxin 0.125 Mg Tab 0.125 Mg PO DAILY Aspirin EC (Aspirin) 81 Mg Tabdr 81 Mg PO DAILY Xanax (Alprazolam) 0.25 Mg Tab 0.25 Mg PO BID PRN Topamax (Topiramate) 25 Mg Tab 50 Mg PO Q12HR Keppra (Levetiracetam) 1,000 Mg Tab 1,250 Mg PO BID Depakote ER (Divalproex Sodium) 500 Mg Ang 500 Mg PO BID Active Ordered Medications Current Medications Sodium Chloride 1,000 ml @ 1,000 mls/hr Q1H ONCE IV Last administered on at 17:34; Start 03/09/18 at 17:34; Stop 03/09/18 at 18:33; Status DC Sodium Chloride (NS Flush) 2 ml UNSCH PRN IVF FLUSH AFTER USING IV ACCESS; Start 03/09/18 at 17:45 Levetriacetam 500 mg/Sodium Chloride 105 ml @ 420 mls/hr BOLUS ONCE IV Last administered on 03/09/18at 18:09; Start 03/09/18 at 17:45; Stop 03/09/18 at 17:59 ; Status DC Sodium Chloride 1,000 ml @ 999 mls/hr BOLUS ONCE IV ; Start 03/09/18 at 18:45 ; Stop 03/09/18 at 19:45 Alprazolam (Xanax) 0.25 mg BID PRN PO ANXIETY; Start 03/09/18 at 19:00; Status UNV Aspirin (Ecotrin Ec) 81 mg DAILY PO ; Start 03/10/18 at 09:00; Status UNV Digoxin (Lanoxin) 0.125 mg DAILY PO ; Start 03/10/18 at 09:00; Status UNV Divalproex Sodium (Depakote Er) 500 mg BID PO ; Start 03/09/18 at 21:00; Status UNV Levetriacetam (Keppra) 1,250 mg BID PO ; Start 03/09/18 at 21:00; Status UNV Topiramate (Topamax) 50 mg Q12HR PO ; Start 03/09/18 at 21:00; Status UNV Potassium Bicarb/ Potassium Chloride (K-Lyte Cl Eff) 50 meq ONCE ONCE PO ; Start 03/09/18 at 19:00; Stop 03/09/18 at 19:01 Family History Unobtainable Social History Per review of the electronic record, smokes cigarettes occasionally. No longer uses alcohol. Denies illicit drug use. Physical Exam Vital Signs Vital Signs Date Time Temp Pulse Resp B/P (MAP) Pulse Ox O2 Delivery O2 Flow Rate FiO2 03/09/18 17:49 99 Room Air 03/09/18 17:27 78 17 157/97 (117) 100 Physical Exam GENERAL: Well-nourished, well-developed patient. Lethargic but arousable SKIN: Warm and dry. HEAD: Normocephalic. EYES: No scleral icterus. No injection or drainage. NECK: Supple, trachea midline. No JVD or lymphadenopathy. CARDIOVASCULAR: Regular rate and rhythm without murmurs, gallops, or rubs. RESPIRATORY: Breath sounds equal bilaterally. No accessory muscle use. GASTROINTESTINAL: Abdomen soft, non-tender, nondistended. MUSCULOSKELETAL: No cyanosis, or edema. BACK: Nontender without obvious deformity. NEURO EXAM: Mental Status: The patient is obtunded but arousable, responds to voice Reflexes: Biceps, patellar, and Achilles are 2/4 bilaterally. No clonus. Laboratory Laboratory Tests Test 03/09/18 17:30 03/09/18 17:40 White Blood Count 10.4 Red Blood Count 5.23 Hemoglobin 16.1 Hematocrit 48.8 Mean Corpuscular Volume 93.2 Mean Corpuscular Hemoglobin 30.8 Mean Corpuscular Hemoglobin Concent 33.1 Red Cell Distribution Width 14.8 Platelet Count 197 Mean Platelet Volume 8.8 Neutrophils (%) (Auto) 87.2 Lymphocytes (%) (Auto) 9.9 Monocytes (%) (Auto) 2.7 Eosinophils (%) (Auto) 0.0 Basophils (%) (Auto) 0.2 Neutrophils # (Auto) 9.1 Lymphocytes # (Auto) 1.0 Monocytes # (Auto) 0.3 Eosinophils # (Auto) 0.0 Basophils # (Auto) 0.0 CBC Comment DIFF FINAL Differential Comment Blood Urea Nitrogen 12 Creatinine 1.05 Random Glucose 147 Total Protein 7.3 Albumin 4.1 Calcium Level 9.0 Alkaline Phosphatase 77 Aspartate Amino Transf (AST/SGOT) 12 Alanine Aminotransferase (ALT/SGPT) 15 Total Bilirubin 0.3 Sodium Level 139 Potassium Level 3.1 Chloride Level 101 Carbon Dioxide Level 20.7 Anion Gap 17 Estimat Glomerular Filtration Rate 52 Digoxin Level LESS THAN 0.1 Valproic Acid (Depakene) Level 24 Ethyl Alcohol Level LESS THAN 3 Lactic Acid Level 10.1 Urine Opiates Screen NEG Urine Barbiturates Screen NEG Urine Amphetamines Screen NEG Urine Benzodiazepines Screen NEG Urine Cocaine Screen NEG Urine Cannabinoids Screen NEG Result Diagram: 03/09/18 1730 03/09/18 1730 Imaging Last [address] 03/09/18 0000 Signed Impressions: Service Date/Time: Friday, March 09, 2018 18:23 - CONCLUSION: Normal examination. Alber Mcneill MD Chest X-Ray 03/09/18 0000 Signed Impressions: Service Date/Time: Friday, March 09, 2018 17:48 - CONCLUSION: No acute disease. Felton Simon MD Cervical Spine CT 03/09/18 0000 Signed Impressions: Service Date/Time: Friday, March 09, 2018 18:23 - CONCLUSION: No evidence of acute bony injury in the cervical spine MD Peg Simon VTE Risk Assessment Caprini VTE Risk Assessment: Mod/High Risk (score >= 2) Caprini Risk Assessment Model Point Value = 1 Point Value = 2 Point Value = 3 Point Value = 5 Age 41-60 Minor surgery BMI > 25 kg/m2 Swollen legs Varicose veins or History of unexplained or recurrent spontaneous Oral contraceptives or hormone replacement Sepsis (< 1 month) Serious lung disease, including pneumonia (< 1 month) Abnormal pulmonary function Acute myocardial infarction Congestive heart failure (< 1 month) History of inflammatory bowel disease Medical patient at bed rest Age 61-74 Arthroscopic surgery Major open surgery (> 45 min) Laparoscopic surgery (> 45 min) Malignancy Confined to bed (> 72 hours) Immobilizing plaster cast Central venous access Age >= 75 History of VTE Family history of VTE Factor V Leiden Prothrombin [id number] Lupus anticoagulant Anticardiolipin antibodies Elevated serum homocysteine Heparin-induced thrombocytopenia Other congenital or acquired thrombophilia Stroke (< 1 month) Elective arthroplasty Hip, pelvis, or leg fracture Acute spinal cord injury (< 1 month) Prophylaxis Regimen Total Risk Factor Score Risk Level Prophylaxis Regimen 0-1 Low Early ambulation 2 Moderate Order ONE of the following: *Sequential Compression Device (SCD) *Heparin 5000 units SQ BID 3-4 Higher Order ONE of the following medications: *Heparin 5000 units SQ TID *Enoxaparin/Lovenox 40 mg SQ daily (WT < 150 kg, CrCl > 30 mL/min) *Enoxaparin/Lovenox 30 mg SQ daily (WT < 150 kg, CrCl > 10-29 mL/min) *Enoxaparin/Lovenox 30 mg SQ BID (WT < 150 kg, CrCl > 30 mL/min) AND/OR *Sequential Compression Device (SCD) 5 or more Highest Order ONE of the following medications: *Heparin 5000 units SQ TID (Preferred with Epidurals) *Enoxaparin/Lovenox 40 mg SQ daily (WT < 150 kg, CrCl > 30 mL/min) *Enoxaparin/Lovenox 30 mg SQ daily (WT < 150 kg, CrCl > 10-29 mL/min) *Enoxaparin/Lovenox 30 mg SQ BID (WT < 150 kg, CrCl > 30 mL/min) AND *Sequential Compression Device (SCD) Assessment and Plan Assessment and Plan 1. Seizure disorder -History of noncompliance with antiseizure medications -Loaded with Keppra in the ED -Continue home meds Depakote to Topamax and Keppra -Neurological consultation -Ativan as needed for seizures -Seizure precautions Encephalopathy -Likely secondary to seizure disorder -Patient is currently nonverbal, but is more alert now -Neuro checks per unit routine -CT head negative Hypokalemia -IV replacement -Electrolyte replacement per ICU protocol Lactic acidosis -Due to seizure -Aggressive IV fluid hydration -No signs of infection or sepsis -Repeat the level a.m. DVT GI prophylaxis -Artis's and SCDs -Lovenox -Heart healthy diet Critical Care: The total critical care time was 35 minutes. Time to perform other separately billable procedures was not included in the critical care time. Johnathan Danielson MD March 09, 2018 7:11 pm
[2018-03-09] MEDS ORDERED: POTASSIUM PHOSPHATE MONOBASIC 500 MG TAB PO PRN (19:15)
[2018-03-09] MEDS ORDERED: MAGNESIUM SULFATE INJ 2 GM in SODIUM CHLORIDE 0.9% INJ 96 ML IV PRN (19:15)
[2018-03-09] MEDS ORDERED: POTASSIUM CHLORIDE 25 MEQ EFFERVESCENT TAB PO PRN (19:15)
[2018-03-09] MEDS ORDERED: POTASSIUM PHOSPHATE INJ 30 MMOL in SODIUM CHLOR 0.9% 250 ML INJ 250 ML IV PRN (19:15)
[2018-03-09] MEDS ORDERED: MAGNESIUM OXIDE 400 MG TAB PO PRN (19:15)
[2018-03-09] MEDS ORDERED: MAGNESIUM SULFATE INJ 4 GM in SODIUM CHLORIDE 0.9% INJ 92 ML IV PRN (19:15)
[2018-03-09] MEDS ORDERED: POTASSIUM CHLOR 20 MEQ PREMIX 100 ML IV PRN (19:15)
[2018-03-09] MEDS ORDERED: POTASSIUM CHLOR 40 MEQ PREMIX 100 ML IV PRN ×2 (19:15)
[2018-03-09] MEDS ORDERED: POTASSIUM PHOSPHATE MONOBASIC 500 MG TAB PO/TUBE PRN (19:15)
[2018-03-09] MEDS ORDERED: SODIUM PHOSPHATE INJ 30 MMOL in SODIUM CHLOR 0.9% 250 ML INJ 240 ML IV PRN (19:15)
[2018-03-09 21:00] VITALS: BP 171/88; PULSE 84; RESP 19; TEMP 97.7; O2SAT 96
[2018-03-09] MEDS ORDERED: levETIRAcetam 250 MG TAB PO SCH (21:00)
[2018-03-09] MEDS: SODIUM CHLORIDE 0.9% FLUSH 10 ML FLUSH IV FLUSH SCH (21:00)
[2018-03-09] MEDS: SODIUM CHLOR 0.9% 1000 ML INJ 1,000 ML IV SCH (21:42)
[2018-03-09] MEDS: DOCUSATE SODIUM 50 MG/SENNA 8.6 MG TAB PO SCH (21:49)
[2018-03-09] MEDS: DIVALPROEX SODIUM E.R. 500 MG TAB PO SCH (21:49)
[2018-03-09] MEDS: TOPIRAMATE 25 MG TAB PO SCH (21:49)
[2018-03-09 22:00] VITALS: PULSE 90
[2018-03-09 23:05] LABS: MAGNESIUM 2.3 MG/DL (1.5-2.5); PHOSPHORUS 3.4 MG/DL (2.5-4.9)
[2018-03-10] VITALS (12 sets, daily range): BP systolic 131–167; BP diastolic 78–89; PULSE 60–87; RESP 14–25; TEMP 97.9–99.3; O2SAT 96–99
[2018-03-10] MEDS: SODIUM CHLOR 0.9% 1000 ML INJ 1,000 ML IV SCH ×2 (00:23→05:50)
[2018-03-10] MEDS: CHLORHEXIDINE GLUCONATE 2 % 1 PACK (2 CLOTHS) TOP SCH (04:00)
[2018-03-10 04:07] LABS: AUTOMATED NEUTROPHIL # 6.8 TH/MM3 (1.8-7.7); BASOPHIL % 0.3 % (0.0-2.0); HEMATOCRIT 47.5 % (35.0-46.0); HEMOGLOBIN 15.8 GM/DL (11.6-15.3); LYMPH % 9.5 % (9.0-44.0); LYMPHOCYTE # 0.8 TH/MM3 (1.0-4.8); MEAN CELL VOLUME 91.1 FL (80.0-100.0); MEAN CORPUSCULAR HEMOGLOBIN 30.4 PG (27.0-34.0); MEAN CORPUSCULAR HGB CONC 33.4 % (32.0-36.0); MEAN PLATELET VOLUME 8.1 FL (7.0-11.0); MONO % 5.8 % (0.0-8.0); MONOCYTE # 0.5 TH/MM3 (0-0.9); NEUT % 84.4 % (16.0-70.0); PLATELET COUNT 174 TH/MM3 (150-450); RED BLOOD COUNT 5.21 MIL/MM3 (4.00-5.30); RED CELL DISTRIBUTION WIDTH 14.3 % (11.6-17.2); WHITE BLOOD COUNT 8.1 TH/MM3 (4.0-11.0)
[2018-03-10 04:23] LABS: PROTHROMBIN TIME - PATIENT 10.4 SEC (9.8-11.6)
[2018-03-10 04:38] LABS: ALBUMIN 3.8 GM/DL (3.4-5.0); ALKALINE PHOSPHATASE 78 U/L (45-117); ALT (GPT) 16 U/L (10-53); AST (GOT) 15 U/L (15-37); BICARBONATE 26.2 MEQ/L (21.0-32.0); BLOOD UREA NITROGEN 6 MG/DL (7-18); CALCIUM 9.1 MG/DL (8.5-10.1); CHLORIDE 106 MEQ/L (98-107); CREATININE 0.67 MG/DL (0.50-1.00); GLOMERULAR FILTRATION RATE 88 ML/MIN (>89); GLUCOSE,RANDOM 123 MG/DL (74-106); MAGNESIUM 2.2 MG/DL (1.5-2.5); PHOSPHORUS 3.5 MG/DL (2.5-4.9); SODIUM (NA) 142 MEQ/L (136-145); TOTAL BILIRUBIN ADULT 0.4 MG/DL (0.2-1.0); TOTAL PROTEIN 7.4 GM/DL (6.4-8.2)
[2018-03-10] MEDS ORDERED: PILL SPLITTER OTHER PRN (07:30)
[2018-03-10] MEDS: DIVALPROEX SODIUM E.R. 500 MG TAB PO SCH ×2 (08:49→20:18)
[2018-03-10] MEDS: TOPIRAMATE 25 MG TAB PO SCH ×2 (08:49→20:19)
[2018-03-10] MEDS: levETIRAcetam 500 MG TAB PO SCH ×2 (08:49→20:19)
[2018-03-10] MEDS: ASPIRIN EC 81 MG TABEC PO SCH (08:50)
[2018-03-10] MEDS: DIGOXIN 0.125 MG TAB PO SCH (08:50)
[2018-03-10] MEDS: DOCUSATE SODIUM 50 MG/SENNA 8.6 MG TAB PO SCH ×2 (08:50→20:19)
[2018-03-10] MEDS: SODIUM CHLORIDE 0.9% FLUSH 10 ML FLUSH IV FLUSH SCH ×2 (08:51→20:19)
--- NOTE | 2018-03-10 14:38 | HHI.PR ---
Subjective Remarks Patient consistently states [place] when asked where she is; what day of the week it is what month and why she is in the hospital. She follows simple commands but confused and repetitively states [place]. Objective Vitals Vital Signs Date Time Temp Pulse Resp B/P (MAP) Pulse Ox O2 Delivery O2 Flow Rate FiO2 03/10/18 10:00 65 03/10/18 08:00 70 03/10/18 08:00 97.9 70 25 159/89 (112) 99 03/10/18 06:00 66 03/10/18 04:00 98.0 69 15 156/81 (106) 99 03/10/18 04:00 69 03/10/18 02:00 72 03/10/18 00:00 99.3 87 19 167/86 (113) 97 03/10/18 00:00 87 03/09/18 22:00 90 03/09/18 21:00 84 03/09/18 21:00 97.7 84 19 171/88 (115) 96 03/09/18 17:49 99 Room Air 03/09/18 17:27 78 17 157/97 (117) 100 I/O 03/09/18 03/09/18 03/09/18 03/10/18 03/10/18 03/10/18 07:00 15:00 23:00 07:00 15:00 23:00 Intake Total 1105 ml 2100 ml 1000 ml Balance 1105 ml 2100 ml 1000 ml Intake Oral 100 ml IV Total 1105 ml 2000 ml 1000 ml # Voids 2 # Bowel Movements 0 Result Diagram: 03/10/18 0355 03/10/18 0355 Objective Remarks GENERAL: This is a well-nourished, well-developed patient, in no apparent distress. CARDIOVASCULAR: Regular rate and rhythm RESPIRATORY: Clear to auscultation. Breath sounds equal bilaterally. No wheezes , rales, or rhonchi. GASTROINTESTINAL: Abdomen soft, non-tender, nondistended. Normal active bowel sounds MUSCULOSKELETAL: Extremities without clubbing, cyanosis, or edema. NEURO: Confused and mildly agitated with bilateral upper extremity restraints and repeating [place] multiple times. A/P Assessment and Plan Acute encephalopathy -Likely secondary to seizure disorder and breakthrough seizure CT of the head negative. Continue with neurological checks. Patient continues to be confused and I know this is more behavioral versus from postseizure. Obtain PT evaluation Seizure disorder -History of noncompliance with antiseizure medications -Loaded with Keppra in the ED -Continue home meds Depakote to Topamax and Keppra -Neurological consultation pending -Ativan as needed for seizures -Seizure precautions EEG pending Hypokalemia -resolved -IV replacement -Electrolyte replacement per ICU protocol Lactic acidosis -Due to seizure -Aggressive IV fluid hydration -No signs of infection or sepsis -Repeat the level today to show trending down and within normal limits DVT prophylaxis -Artis's and SCDs -Lovenox Discharge Planning Likely home when medically stable and likely will need home health care. Claudia Geronimo MD March 10, 2018 14:38
[2018-03-10] MEDS ORDERED: LORazepam 2 MG/ML VIAL IV PUSH PRN (18:00)
[2018-03-10] MEDS ORDERED: VALPROATE INJ 500 MG in SODIUM CHLORIDE 0.9% INJ 100 ML IV ONE (18:00)
--- NOTE | 2018-03-10 18:20 | MB ---
cc: Indio Cabrera MD, PhD DATE: 03/10/2018 REASON FOR CONSULTATION: Seizure. HISTORY OF PRESENT ILLNESS: Ms. Bartholomew is a 67-year-old woman who has a history of seizure disorder since 1970, which she describes as grand mal seizures. She normally takes Dilantin, she states. She came to the ER via EMS with alteration in mental status. She states she had a seizure 2 days ago. She had alteration in mental status. Her was trying to reach her, could not reach her by phone. He summoned the neighbors who came to her house and found that she was confused. She then had a seizure. EMS was called. She apparently was unable to ambulate on the scene. When she came to the ER, she had a tonic-clonic seizure lasting about 30 seconds, which resolved on its own. She tells me that she normally takes Dilantin for seizures; however, according to her medication list, the patient was on Keppra 1000 mg tablets ____ mg b.i.d., topamax 25 mg b.i.d., Xanax 0.25 mg b.i.d. as needed, aspirin 81 mg daily, digoxin 0.125 mg daily, and Depakote ER 500 mg b.i.d. Her valproic acid level was 24. NEUROLOGICAL EXAMINATION: VITAL SIGNS: Blood pressure is 131/78, pulse is 68, respirations 14, temperature 98 degrees. HIGHER CORTICAL FUNCTION: She is alert. She is disoriented to date and place. She is moderately confused at the present time. She has difficulty reciting her history. She is able to follow commands. CRANIAL NERVES: Intact. MOTOR EXAM: Shows her to have 5/5 strength of all groups. There is no drift. Reflexes are symmetric. DIAGNOSTIC STUDIES: CT of the brain is unremarkable. CT cervical spine: No sign of fracture. Maxillofacial CT: Minimally angulated nasal bone fracture. LABORATORY DATA: The white count is 10,400; hemoglobin 16.1; hematocrit 48%; platelet count 197,000. Sodium is 142, potassium 4.1, chloride 106, CO2 is 26.2. The BUN is 6, creatinine 0.67, GFR is 88, glucose is 123, calcium 9.8, AST 15, ALT 16. Valproic acid level 24 yesterday. PT 10.4, INR 1, aPTT 24.7. IMPRESSION AND RECOMMENDATIONS: Recurrent seizure. The patient states she was on Dilantin; however, she is very confused, unreliable in her history. Based on her history, she is on Depakote and Keppra. She was subtherapeutic with her Depakote level. Would recommend giving additional IV Depacon to increase the level to therapeutic range. I would like to get an MRI of the brain, as well as EEG for further evaluation. Indio Cabrera MD, PhD ELVIRA/THOMAS , 05:55 PM , 06:19 PM
[2018-03-10] MEDS: ENOXAPARIN SODIUM 40 MG/0.4 ML SYRINGE SQ SCH ×2 (19:00→20:18)
[2018-03-10] MEDS: GADODIAMIDE PF 287 MG/ML 20 ML VIAL (for RAD MRI) IVCONTRAST ONE (21:32)
[2018-03-10] MEDS ORDERED: GADODIAMIDE PF 287 MG/ML 20 ML VIAL (for RAD MRI) IVCONTRAST ONE (21:58)
--- NOTE | 2018-03-10 22:10 | RADRPT ---
EXAM DATE/TIME: 03/10/2018 21:09 [facility] COMPARISON: CT BRAIN W/O CONTRAST, March 09, 2018, 18:23. MRI BRAIN W & W/O CONTRAST, June 21, 2016, 14:18. INDICATIONS : Seizures. CONTRAST: 15 cc Omniscan (gadodiamide) IV MEDICAL HISTORY : Seizures. Anxiety. Depression. Hypertension. Cardiovascular disease, A- Fib SURGICAL HISTORY : D & C ENCOUNTER: Subsequent ACUITY: 2 day PAIN SCORE: 0/10 LOCATION: Brain TECHNIQUE: Multiplanar, multisequence MRI of the brain was performed both prior to and following the administrat ion of paramagnetic contrast. FINDINGS: CEREBRUM: The ventricles are normal for age. No evidence of midline shift, mass lesion, hemorrhage or acute in farction. No extraaxial fluid collections are seen. The pituitary gland and suprasellar cistern are normal in configuration. WHITE MATTER: No significant signal abnormalities are seen in the white matter. POSTERIOR FOSSA: The cerebellum appears diffusely small. This appearance is unchanged from the prior exam. The 4th ve ntricle is midline. The cerebellopontine angle is unremarkable. The cerebellar tonsils are normal in position. DIFFUSION IMAGING: No focal areas of restricted diffusion are seen. No evidence of acute infarction. EXTRACRANIAL: The visualized portions of the orbits and paranasal sinuses are unremarkable. POST-CONTRAST: No abnormal areas of parenchymal or dural enhancement. No evidence of blood-brain barrier breakdown. CONCLUSION: 1. No acute abnormality seen. 2. Stable cerebellar atrophy. Alber Dias MD on March 10, 2018 at 22:05 Board Certified Radiologist. This report was verified electronically.
--- NOTE | 2018-03-10 22:29 | EKG ---
Date Performed: 03/09/2018 Time Performed: 18:14:01 PTAGE: 67 years EKG: Sinus rhythm NORMAL ECG PREVIOUS TRACING : 10/26/2016 07.22 Compared to previous tracing, AFIB no longer present DOCTOR: Mehdi Kate Interpretating Date/Time 03/10/2018 22:27:46
[2018-03-11] VITALS (18 sets, daily range): BP systolic 120–161; BP diastolic 71–95; PULSE 56–77; RESP 13–33; TEMP 98–98.8; O2SAT 90–99
[2018-03-11] MEDS: CHLORHEXIDINE GLUCONATE 2 % 1 PACK (2 CLOTHS) TOP SCH (04:00)
[2018-03-11] MEDS: SODIUM CHLORIDE 0.9% FLUSH 10 ML FLUSH IV FLUSH SCH ×2 (09:00→21:18)
[2018-03-11] MEDS: DIVALPROEX SODIUM E.R. 500 MG TAB PO SCH ×2 (09:46→21:16)
[2018-03-11] MEDS: TOPIRAMATE 25 MG TAB PO SCH ×3 (09:47→21:17)
[2018-03-11] MEDS: DOCUSATE SODIUM 50 MG/SENNA 8.6 MG TAB PO SCH ×2 (09:47→21:00)
[2018-03-11] MEDS: levETIRAcetam 500 MG TAB PO SCH ×2 (09:47→21:17)
[2018-03-11] MEDS: DIGOXIN 0.125 MG TAB PO SCH (09:47)
[2018-03-11] MEDS: ASPIRIN EC 81 MG TABEC PO SCH (09:47)
--- NOTE | 2018-03-11 17:46 | HHI.PR ---
Subjective Remarks Patient says she is feeling all right. She denies any chest pain or shortness of breath. Denies nausea or vomiting. She has word finding difficulty, is unable to tell me what year it is. This appears to be stable per nursing. Family bedside Objective Vital Signs Date Time Temp Pulse Resp B/P (MAP) Pulse Ox O2 Delivery O2 Flow Rate FiO2 03/11/18 15:00 70 18 120/71 (87) 98 03/11/18 15:00 70 03/11/18 14:00 72 03/11/18 14:00 72 15 133/87 (102) 90 03/11/18 13:00 76 03/11/18 13:00 76 33 126/87 (100) 96 03/11/18 12:00 71 03/11/18 12:00 71 13 133/83 (100) 99 03/11/18 11:00 68 03/11/18 11:00 68 14 155/95 (115) 98 03/11/18 10:00 69 03/11/18 10:00 69 21 126/81 (96) 97 03/11/18 09:46 77 22 132/81 (98) 99 03/11/18 09:46 77 03/11/18 09:00 98.4 73 30 147/84 (105) 97 03/11/18 09:00 73 03/11/18 08:00 66 17 147/84 (105) 98 03/11/18 08:00 66 03/11/18 06:00 58 03/11/18 04:00 98.6 67 17 161/85 (110) 99 03/11/18 04:00 67 03/11/18 02:00 56 03/11/18 00:00 98.0 62 15 153/87 (109) 99 03/11/18 00:00 62 03/10/18 22:00 60 03/10/18 20:00 99.0 64 20 144/86 (105) 99 03/10/18 20:00 64 03/10/18 18:00 61 I/O 03/10/18 03/10/18 03/10/18 03/11/18 03/11/18 03/11/18 06:59 14:59 22:59 06:59 14:59 22:59 Intake Total 2100 ml 1000 ml 360 ml 240 ml Balance 2100 ml 1000 ml 360 ml 240 ml Intake Oral 100 ml 360 ml 240 ml IV Total 2000 ml 1000 ml # Voids 2 3 3 # Bowel Movements 0 0 0 Result Diagram: 03/10/18 0355 03/10/18 0355 Objective Remarks GENERAL: Patient sitting up in bed. Alert. Disoriented but pleasant. SKIN: Warm and dry. HEAD: Normocephalic. EYES: No scleral icterus. No injection or drainage. NECK: Supple, trachea midline. No JVD. CARDIOVASCULAR: Regular rate and rhythm without murmurs, gallops, or rubs. RESPIRATORY: Breath sounds equal bilaterally. No accessory muscle use. GASTROINTESTINAL: Abdomen soft, non-tender, nondistended. MUSCULOSKELETAL: No cyanosis, or edema. BACK: Nontender without obvious deformity. No CVA tenderness. A/P Assessment and Plan //Acute encephalopathy -Likely secondary to seizure disorder and breakthrough seizure CT of the head negative. Continue with neurological checks. Patient continues to be confused and I know this is more behavioral versus from postseizure. Obtain PT evaluation = PT recommends inpatient rehab. //Seizure disorder -History of noncompliance with antiseizure medications -Loaded with Keppra in the ED -Continue home meds Depakote to Topamax and Keppra -Neurological consultation pending -Ativan as needed for seizures -Seizure precautions EEG pending = EEG pending. Appreciate neuro assistance. //Hypokalemia -resolved -IV replacement -Electrolyte replacement per ICU protocol //Lactic acidosis -Due to seizure -Aggressive IV fluid hydration -No signs of infection or sepsis -Repeat the level today to show trending down and within normal limits = Resolved //DVT prophylaxis -Artis's and SCDs -Lovenox Discharge Planning PT recommends rehab Mazin Barnes MD March 11, 2018 17:46
--- NOTE | 2018-03-11 20:44 | MG ---
cc: Todd Duron MD, Mandeep MD EEG RECORD [id number] Increased fast frequencies noted with polyfrequency EEG. Theta alpha rhythms 20-50 microvolts. Paroxysmal bursts of theta and delta runs. Progressive delta activity suggestive of sleep state occurring back to awake state. Good EEG variability reactivity. Reduced driving with photic stimulation. Sharp transients noted left temporal region epoch 112. Single lead EKG showing sinus rhythm. Limited driving with photic stimulation. INTERPRETATION: Mild encephalopathy in sleep state polyfrequencies, likely psychotropic effect. No active seizure activity noted. Todd Duron MD MG/SA , 08:31 PM , 08:43 PM
[2018-03-11] MEDS: ENOXAPARIN SODIUM 40 MG/0.4 ML SYRINGE SQ SCH (21:55)
[2018-03-12] VITALS (20 sets, daily range): BP systolic 101–158; BP diastolic 66–99; PULSE 70–147; RESP 15–32; TEMP 98.6–98.7; O2SAT 91–98
[2018-03-12] MEDS: ACETAMINOPHEN 325 MG TAB PO PRN (00:55)
[2018-03-12] MEDS: CHLORHEXIDINE GLUCONATE 2 % 1 PACK (2 CLOTHS) TOP SCH (04:00)
[2018-03-12] MEDS: DOCUSATE SODIUM 50 MG/SENNA 8.6 MG TAB PO SCH ×2 (08:09→21:00)
[2018-03-12] MEDS: DIVALPROEX SODIUM E.R. 500 MG TAB PO SCH ×2 (08:09→22:08)
[2018-03-12] MEDS: ASPIRIN EC 81 MG TABEC PO SCH (08:09)
[2018-03-12] MEDS: DIGOXIN 0.125 MG TAB PO SCH (08:09)
[2018-03-12] MEDS: SODIUM CHLORIDE 0.9% FLUSH 10 ML FLUSH IV FLUSH SCH ×2 (08:10→22:09)
[2018-03-12] MEDS: TOPIRAMATE 25 MG TAB PO SCH ×2 (08:10→22:08)
[2018-03-12] MEDS: levETIRAcetam 500 MG TAB PO SCH ×2 (08:10→22:08)
[2018-03-12] MEDS ORDERED: METOPROLOL TARTRATE 5 MG/5 ML VIAL IV PUSH PRN (09:15)
--- NOTE | 2018-03-12 09:17 | HHI.PR ---
Subjective Remarks Patient says she is feeling all right. Denies any chest pain shortness of breath. Denies nausea or vomiting. Had a bowel movement. Later called by nurse to report that patient heart rate in the 130s-160s. Has a history of A. fib. Subtherapeutic digoxin on admission Objective Vital Signs Date Time Temp Pulse Resp B/P (MAP) Pulse Ox O2 Delivery O2 Flow Rate FiO2 03/12/18 06:00 76 03/12/18 04:00 98.6 71 19 134/86 (102) 96 03/12/18 04:00 71 03/12/18 02:00 73 03/12/18 00:00 70 03/12/18 00:00 98.7 70 15 158/99 (118) 98 03/11/18 22:00 70 03/11/18 20:00 71 03/11/18 20:00 98.5 71 17 147/93 (111) 95 03/11/18 18:00 75 03/11/18 17:00 69 03/11/18 17:00 69 21 120/73 (89) 99 03/11/18 16:00 98.8 69 22 129/82 (98) 95 03/11/18 16:00 69 03/11/18 15:00 70 18 120/71 (87) 98 03/11/18 15:00 70 03/11/18 14:00 72 03/11/18 14:00 72 15 133/87 (102) 90 03/11/18 13:00 76 03/11/18 13:00 76 33 126/87 (100) 96 03/11/18 12:00 71 03/11/18 12:00 71 13 133/83 (100) 99 03/11/18 11:00 68 03/11/18 11:00 68 14 155/95 (115) 98 03/11/18 10:00 69 03/11/18 10:00 69 21 126/81 (96) 97 03/11/18 09:46 77 22 132/81 (98) 99 03/11/18 09:46 77 I/O 03/11/18 03/11/18 03/11/18 03/12/18 03/12/18 03/12/18 07:00 15:00 23:00 07:00 15:00 23:00 Intake Total 240 ml 960 ml Output Total 750 ml 400 ml Balance 240 ml 210 ml -400 ml Intake Oral 240 ml 960 ml Output Urine Total 750 ml 400 ml # Voids 3 1 4 # Bowel Movements 0 0 2 Result Diagram: 03/10/18 0355 03/10/18 0355 Objective Remarks GENERAL: Patient sitting up in bed. Alert. Tells me that she is in [place], that it is 2012. SKIN: Warm and dry. HEAD: Normocephalic. EYES: No scleral icterus. No injection or drainage. NECK: Supple, trachea midline. No JVD. CARDIOVASCULAR: Regular rate and rhythm without murmurs, gallops, or rubs. RESPIRATORY: Breath sounds equal bilaterally. No accessory muscle use. GASTROINTESTINAL: Abdomen soft, non-tender, nondistended. MUSCULOSKELETAL: No cyanosis, or edema. BACK: Nontender without obvious deformity. No CVA tenderness. A/P Assessment and Plan //Acute encephalopathy -Likely secondary to seizure disorder and breakthrough seizure CT of the head negative. Continue with neurological checks. Patient continues to be confused and I know this is more behavioral versus from postseizure. Obtain PT evaluation = PT recommends inpatient rehab. //Seizure disorder -History of noncompliance with antiseizure medications -Loaded with Keppra in the ED -Continue home meds Depakote to Topamax and Keppra -Neurological consultation pending -Ativan as needed for seizures -Seizure precautions EEG pending = EEG without seizure activity. Appreciate neuro assistance. //A. fib, RVR. -Likely secondary to subtherapeutic digoxin, medication noncompliance. Will order digoxin 0.5 mg IV 1. Metoprolol as needed for rapid heart rate. -Previously evaluated by cardiology, Dr. Barragan in 2016, and found to be a fall risk due to seizures, dementia. = We will continue to monitor. Check electrolytes. //Hypokalemia -resolved -IV replacement -Electrolyte replacement as needed. //Lactic acidosis -Due to seizure -Aggressive IV fluid hydration -No signs of infection or sepsis -Repeat the level today to show trending down and within normal limits = Resolved //DVT prophylaxis -Artis's and SCDs -Lovenox Discharge Planning PT recommends rehab Mazin Barnes MD March 12, 2018 09:17
[2018-03-12] MEDS ORDERED: DIGOXIN 0.5 MG/2 ML VIAL IV PUSH ONE (10:00)
[2018-03-12 10:11] LABS: ALBUMIN 3.7 GM/DL (3.4-5.0); AST (GOT) 23 U/L (15-37); BICARBONATE 20.5 MEQ/L (21.0-32.0); BLOOD UREA NITROGEN 8 MG/DL (7-18); CALCIUM 9.3 MG/DL (8.5-10.1); CHLORIDE 106 MEQ/L (98-107); CREATININE 0.59 MG/DL (0.50-1.00); GLOMERULAR FILTRATION RATE 102 ML/MIN (>89); GLUCOSE,RANDOM 102 MG/DL (74-106); SODIUM (NA) 138 MEQ/L (136-145)
[2018-03-12 10:14] LABS: ALKALINE PHOSPHATASE 76 U/L (45-117); ALT (GPT) 20 U/L (10-53); TOTAL BILIRUBIN ADULT 0.7 MG/DL (0.2-1.0); TOTAL PROTEIN 7.3 GM/DL (6.4-8.2)
--- NOTE | 2018-03-12 12:15 | EKG ---
Date Performed: 03/12/2018 Time Performed: 09:07:08 PTAGE: 67 years EKG: Atrial fibrillation with rapid ventricular response. Extensive ST-T changes may be due to m yocardial ischemia Abnormal ECG PREVIOUS TRACING : 03/09/2018 18.14 Compared to the prior study, atrial fibrillation with rapid ventricular response has replaced Sinus rhythm . DOCTOR: Vito Ramires Interpretating Date/Time 03/12/2018 12:12:15
--- NOTE | 2018-03-12 17:03 | HHI.PR ---
Review/Management Diagnosis seizure---stable. confusion--encephaloapthy, probable post ictal. No sign of active subclinical sz on eeg Plan continue current dose depakote and keppra, vpa level is now therapeutic. Diagnosis/Plan: Subjective Subjective Comments No acute events reported No headache No recurrent seizures Active Medications Current Medications Medications (Trade) Dose Ordered Sig/Mag Route Start Time Stop Time Status Last Admin (NS Flush) 2 ml UNSCH PRN IVF 03/09/18 17:45 03/09/18 19:33 (Xanax) 0.25 mg BID PRN PO 03/09/18 19:00 (Ecotrin Ec) 81 mg DAILY PO 03/10/18 09:00 03/12/18 08:09 (Lanoxin) 0.125 mg DAILY PO 03/10/18 09:00 03/12/18 08:09 (Depakote Er) 500 mg BID PO 03/09/18 21:00 03/12/18 08:09 (Topamax) 50 mg Q12HR PO 03/09/18 21:00 03/12/18 08:10 (NS Flush) 2 ml UNSCH PRN IV FLUSH 03/09/18 19:00 (NS Flush) 2 ml BID IV FLUSH 03/09/18 21:00 03/12/18 08:10 (Tylenol) 650 mg Q6H PRN PO 03/09/18 19:00 03/12/18 00:55 (Ativan Inj) 1 mg Q1H PRN IV PUSH 03/09/18 19:00 (Zofran Odt) 4 mg Q6H PRN PO 03/09/18 19:00 (Restoril) 15 mg HS PRN PO 03/09/18 19:00 (Duoneb Neb) 1 ampule Q2HR NEB PRN INH 03/09/18 19:00 (Lovenox Inj) 40 mg Q24H SQ 03/09/18 19:00 03/11/18 21:55 ([facility] [place] Nursing Information) 1 Q361D XX 03/09/18 19:00 03/09/18 20:00 (Chlorhexidine 2% Cloth) 3 pack Taper DAILY@04 TOP 03/10/18 04:00 03/06/19 03:59 03/11/18 04:00 (Chlorhexidine 2% Cloth) 3 pack UNSCH PRN TOP 03/09/18 19:00 (Paula-Colace) 1 tab BID PO 03/09/18 21:00 03/12/18 08:09 (Milk Of Magnesia Liq) 30 ml Q12H PRN PO 03/09/18 19:00 (Senokot) 17.2 mg Q12H PRN PO 03/09/18 19:00 (Dulcolax Supp) 10 mg DAILY PRN RECTAL 03/09/18 19:00 (Lactulose Liq) 30 ml DAILY PRN PO 03/09/18 19:00 03/11/18 17:34 Potassium Chloride 100 ml @ 50 mls/hr Q2H PRN IV 03/09/18 19:15 Potassium Chloride 100 ml @ 50 mls/hr Q2H PRN IV 03/09/18 19:15 (K-Lyte Cl Eff) 50 meq UNSCH PRN PO 03/09/18 19:15 Potassium Chloride 100 ml @ 25 mls/hr UNSCH PRN IV 03/09/18 19:15 Potassium Chloride 100 ml @ 50 mls/hr Q2H PRN IV 03/09/18 19:15 Magnesium Sulfate 4 gm/Sodium Chloride 100 ml @ 50 mls/hr UNSCH PRN IV 03/09/18 19:15 (Mag-Ox) 800 mg UNSCH PRN PO 03/09/18 19:15 Magnesium Sulfate 2 gm/Sodium Chloride 100 ml @ 50 mls/hr UNSCH PRN IV 03/09/18 19:15 (K-Phos) 2,000 mg Q4H PRN PO 03/09/18 19:15 Sodium Phosphate 30 mmol/Sodium Chloride 250 ml @ 42 mls/hr UNSCH PRN IV 03/09/18 19:15 (K-Phos) 2,000 mg UNSCH PRN PO/TUBE 03/09/18 19:15 Potassium Phosphate 30 mmol/ Sodium Chloride 260 ml @ 42 mls/hr UNSCH PRN IV 03/09/18 19:15 (Keppra) 1,250 mg BID PO 03/10/18 09:00 03/12/18 08:10 (Pill Splitter) 1 ea UNSCH PRN OTHER 03/10/18 07:30 (Ativan Inj) 1 mg Q4H PRN IV PUSH 03/10/18 18:00 (Lopressor Inj) 5 mg Q5M PRN IV PUSH 03/12/18 09:15 03/12/18 09:57 Allergies Allergies Coded Allergies fosphenytoin (Unverified Allergy, Severe, Rash, 06/09/17) Review of Systems All other ROS: ROS reviewed as documented in chart, Other Exam I&O / VS Vital Signs Date Time Temp Pulse Resp B/P (MAP) Pulse Ox O2 Delivery O2 Flow Rate FiO2 03/12/18 16:00 86 03/12/18 16:00 86 03/12/18 15:00 93 03/12/18 15:00 93 03/12/18 14:00 120 03/12/18 14:00 120 03/12/18 13:00 110 03/12/18 13:00 110 03/12/18 12:00 95 03/12/18 12:00 95 03/12/18 11:20 92 19 105/68 (80) 94 03/12/18 11:20 92 03/12/18 11:00 107 03/12/18 11:00 107 31 95 03/12/18 10:00 119 19 108/74 (85) 95 03/12/18 10:00 119 03/12/18 09:02 147 03/12/18 09:02 147 18 121/70 (87) 98 03/12/18 09:00 132 03/12/18 09:00 132 22 139/94 (109) 97 03/12/18 08:00 98.6 74 18 139/94 (109) 98 03/12/18 08:00 74 03/12/18 06:00 76 03/12/18 04:00 98.6 71 19 134/86 (102) 96 03/12/18 04:00 71 03/12/18 02:00 73 03/12/18 00:00 70 03/12/18 00:00 98.7 70 15 158/99 (118) 98 03/11/18 22:00 70 03/11/18 20:00 71 03/11/18 20:00 98.5 71 17 147/93 (111) 95 03/11/18 18:00 75 General: No acute distress Eye: PERRL, EOMI Respiratory: Lungs CTA, Non-labored respirations Cardiology: Normal peripheral perfusion Musculoskeletal: ROM, Tenderness Neurologic: Alert, CN II-XII intact, Normal DTR's Psychiatric: Cooperative, Appropriate mood & affect Exam Comments alert, disoriented, confused. follows commands CN intact MOTOR 02/27 BUE Objective Radiology Results MRI brain is normal Micro and Labs Laboratory Tests Test 03/12/18 09:35 Blood Urea Nitrogen 8 Creatinine 0.59 Random Glucose 102 Total Protein 7.3 Albumin 3.7 Calcium Level 9.3 Alkaline Phosphatase 76 Aspartate Amino Transf (AST/SGOT) 23 Alanine Aminotransferase (ALT/SGPT) 20 Total Bilirubin 0.7 Sodium Level 138 Potassium Level 3.3 Chloride Level 106 Carbon Dioxide Level 20.5 Anion Gap 12 Estimat Glomerular Filtration Rate 102 Diagnostic Tests EEG---moderate slowing. No epileptiform discharges Indio Cabrera MD PhD March 12, 2018 17:03
[2018-03-12] MEDS: ENOXAPARIN SODIUM 40 MG/0.4 ML SYRINGE SQ SCH (19:11)
[2018-03-13] VITALS (21 sets, daily range): BP systolic 99–134; BP diastolic 62–84; PULSE 63–78; RESP 12–24; TEMP 98–98.9; O2SAT 93–98
[2018-03-13] MEDS: CHLORHEXIDINE GLUCONATE 2 % 1 PACK (2 CLOTHS) TOP SCH (04:00)
[2018-03-13 05:33] LABS: AUTOMATED NEUTROPHIL # 4.8 TH/MM3 (1.8-7.7); BASOPHIL % 0.4 % (0.0-2.0); EOSINOPHIL % 0.5 % (0.0-4.0); HEMATOCRIT 45.1 % (35.0-46.0); HEMOGLOBIN 15.1 GM/DL (11.6-15.3); LYMPH % 18.6 % (9.0-44.0); LYMPHOCYTE # 1.3 TH/MM3 (1.0-4.8); MEAN CELL VOLUME 90.9 FL (80.0-100.0); MEAN CORPUSCULAR HEMOGLOBIN 30.5 PG (27.0-34.0); MEAN CORPUSCULAR HGB CONC 33.5 % (32.0-36.0); MEAN PLATELET VOLUME 9.2 FL (7.0-11.0); MONO % 11.6 % (0.0-8.0); MONOCYTE # 0.8 TH/MM3 (0-0.9); NEUT % 68.9 % (16.0-70.0); PLATELET COUNT 154 TH/MM3 (150-450); RED BLOOD COUNT 4.97 MIL/MM3 (4.00-5.30); RED CELL DISTRIBUTION WIDTH 14.2 % (11.6-17.2)
[2018-03-13 05:53] LABS: ALBUMIN 3.2 GM/DL (3.4-5.0); BICARBONATE 22.6 MEQ/L (21.0-32.0); CALCIUM 8.5 MG/DL (8.5-10.1); CREATININE 0.67 MG/DL (0.50-1.00); MAGNESIUM 2.2 MG/DL (1.5-2.5); PHOSPHORUS 3.7 MG/DL (2.5-4.9)
[2018-03-13] MEDS: POTASSIUM CHLOR 20 MEQ PREMIX 100 ML IV PRN ×2 (06:20→10:16)
--- NOTE | 2018-03-13 06:44 | HHI.PR ---
Subjective Remarks Patient seen and examined this morning, their vitals are stable and the patient is afebrile. The patient's heart rate has been stable. Patient wants to go home today. States is always out of state. She states a neighboor will help care for her. She thinks her medications make her weak. Objective Vital Signs Date Time Temp Pulse Resp B/P (MAP) Pulse Ox O2 Delivery O2 Flow Rate FiO2 03/13/18 06:00 70 16 114/75 (88) 95 03/13/18 06:00 71 03/13/18 05:00 73 15 112/66 (81) 96 03/13/18 04:00 72 16 109/68 (82) 94 03/13/18 04:00 66 03/13/18 03:00 77 20 109/64 (79) 94 03/13/18 02:00 70 03/13/18 02:00 73 21 99/63 (75) 93 03/13/18 01:00 78 24 109/66 (80) 93 03/13/18 00:00 78 03/13/18 00:00 98.0 72 22 112/70 (84) 95 03/12/18 23:00 74 18 103/66 (78) 97 03/12/18 22:14 75 32 109/73 (85) 96 03/12/18 22:00 73 03/12/18 20:00 77 03/12/18 18:00 90 03/12/18 16:00 86 03/12/18 16:00 86 19 101/68 (79) 94 03/12/18 16:00 86 03/12/18 15:00 93 03/12/18 15:00 93 25 101/68 (79) 94 03/12/18 15:00 93 03/12/18 14:00 120 03/12/18 14:00 120 03/12/18 14:00 120 22 91 03/12/18 13:00 110 25 94 03/12/18 13:00 110 03/12/18 13:00 110 03/12/18 12:00 95 03/12/18 12:00 95 22 105/68 (80) 94 03/12/18 12:00 95 03/12/18 11:20 92 19 105/68 (80) 94 03/12/18 11:20 92 03/12/18 11:00 107 03/12/18 11:00 107 31 95 03/12/18 10:00 119 19 108/74 (85) 95 03/12/18 10:00 119 03/12/18 09:02 147 03/12/18 09:02 147 18 121/70 (87) 98 03/12/18 09:00 132 03/12/18 09:00 132 22 139/94 (109) 97 03/12/18 08:00 98.6 74 18 139/94 (109) 98 03/12/18 08:00 74 I/O 03/12/18 03/12/18 03/12/18 03/13/18 03/13/18 03/13/18 07:00 15:00 23:00 07:00 15:00 23:00 Intake Total 960 ml 480 ml Output Total 400 ml Balance -400 ml 960 ml 480 ml Intake Oral 960 ml 480 ml Output Urine Total 400 ml # Voids 4 2 2 # Bowel Movements 2 1 1 Result Diagram: 03/13/18 0358 03/13/18 0358 Imaging Last Impressions Brain MRI 03/10/18 0000 Signed Impressions: Service Date/Time: Saturday, March 10, 2018 21:09 - CONCLUSION: 1. No acute abnormality seen. 2. Stable cerebellar atrophy. Alber Dias MD Maxillofacial CT 03/09/18 0000 Signed Impressions: Service Date/Time: Friday, March 09, 2018 18:23 - CONCLUSION: Minimally angulated nasal bone fracture Alber Mcneill MD Head CT 03/09/18 0000 Signed Impressions: Service Date/Time: Friday, March 09, 2018 18:23 - CONCLUSION: Normal examination. Alber Mcneill MD Chest X-Ray 03/09/18 0000 Signed Impressions: Service Date/Time: Friday, March 09, 2018 17:48 - CONCLUSION: No acute disease. Felton Simon MD Cervical Spine CT 03/09/18 0000 Signed Impressions: Service Date/Time: Friday, March 09, 2018 18:23 - CONCLUSION: No evidence of acute bony injury in the cervical spine Alber Mcneill MD Objective Remarks GENERAL: Elderly appearing, no acute distress SKIN: Warm and dry. HEAD: Normocephalic. EYES: No scleral icterus. No injection or drainage. NECK: Supple, trachea midline. No JVD or lymphadenopathy. CARDIOVASCULAR: Regular rate and rhythm without murmurs, gallops, or rubs. RESPIRATORY: Breath sounds equal bilaterally. No accessory muscle use. GASTROINTESTINAL: Abdomen soft, and nondistended. RLQ is slightly tender with palpation. MUSCULOSKELETAL: No cyanosis, or edema. NEURO: she responds appropriately to questions. A/P Problem List: (1) Physical deconditioning ICD Code: R53.81 - Disuse syndrome Status: Acute (2) Noncompliance ICD Code: Z91.19 - Noncompliance Status: Acute (3) Breakthrough seizure ICD Code: G40.919 - Epilepsy, unspecified, intractable, without status epilepticus Status: Acute (4) Encephalopathy ICD Code: G93.40 - Encephalopathy Status: Acute (5) Atrial fibrillation ICD Code: I48.91 - Unspecified atrial fibrillation Status: Chronic (6) Tobacco abuse ICD Code: Z72.0 - Tobacco abuse Status: Chronic (7) Lactic acidosis ICD Code: E87.2 - Acidosis Status: Acute Assessment and Plan In summary this is a 67-year-old female who presented to the ER after being found by her neighbors for altered mental status, patient has a history of seizure disorder and was noted to be noncompliant with her medications. Her mental status resolved. The patient had been seen and evaluated by neurology. Seizure disorder Seen and evaluated by Dr. Cabrera. EEG shows moderate slowing, no epileptiform discharges. Brain MRI shows no acute abnormality On admission to hospital patient was sub-therapeutic on her Depakote. Currently on keppra 1250 mg BID & depakote 500 mg BID Acute encephalopathy Resolved, likely related to postictal state Atrial fibrillation Heart rate was up into the 160s during her hospitalization. Was previously seen by Dr. Rosales in 2016, and because of her seizure disorder and dementia she was considered a fall risk. Continue digoxin 0.125 mg, express importance of compliance. Hypokalemia We will replace Lactic acidosis Resolved PT recommend SNF DVT prophy with lovenox Discharge Planning Patient to be transferred out of the ICU Encourage out of bed and to chair PT suggested SNF Solange Peña MD March 13, 2018 06:44
[2018-03-13] MEDS: SODIUM CHLORIDE 0.9% FLUSH 10 ML FLUSH IV FLUSH SCH ×2 (08:24→21:41)
[2018-03-13] MEDS: DIVALPROEX SODIUM E.R. 500 MG TAB PO SCH ×2 (08:25→21:42)
[2018-03-13] MEDS: DIGOXIN 0.125 MG TAB PO SCH (08:25)
[2018-03-13] MEDS: ASPIRIN EC 81 MG TABEC PO SCH (08:25)
[2018-03-13] MEDS: levETIRAcetam 500 MG TAB PO SCH ×2 (08:26→21:42)
[2018-03-13] MEDS: TOPIRAMATE 25 MG TAB PO SCH ×2 (08:26→21:42)
[2018-03-13] MEDS: DOCUSATE SODIUM 50 MG/SENNA 8.6 MG TAB PO SCH ×2 (08:26→21:41)
[2018-03-13] MEDS ORDERED: POTASSIUM CHLORIDE 10 MEQ CONTROLLED RELEASE TAB PO ONE (15:30)
[2018-03-13] MEDS: ACETAMINOPHEN 325 MG TAB PO PRN (17:21)
[2018-03-13] MEDS: ENOXAPARIN SODIUM 40 MG/0.4 ML SYRINGE SQ SCH (17:22)
[2018-03-14] VITALS (8 sets, daily range): BP systolic 102–139; BP diastolic 51–86; PULSE 60–79; RESP 16–19; TEMP 97.9–98.7; O2SAT 95–98
[2018-03-14] MEDS: CHLORHEXIDINE GLUCONATE 2 % 1 PACK (2 CLOTHS) TOP SCH ×2 (04:00→19:34)
[2018-03-14 06:00] LABS: BICARBONATE 26.1 MEQ/L (21.0-32.0); CALCIUM 8.8 MG/DL (8.5-10.1); CREATININE 0.62 MG/DL (0.50-1.00)
--- NOTE | 2018-03-14 06:28 | HHI.PR ---
Subjective Remarks Patient seen and examined this morning, their vitals are stable and the patient is afebrile. Patient states her head hurts from hitting it on the ground during seizure. Again state her neighboor will be caring for her. I asked patient if I could speak with her , she was hesitant and then became a bit suspicious asking what I told him and what did he tell me about her. She is asking to get out of bed. Objective Vital Signs Date Time Temp Pulse Resp B/P (MAP) Pulse Ox O2 Delivery O2 Flow Rate FiO2 03/14/18 02:00 63 03/14/18 00:00 98.2 60 17 102/51 (68) 95 03/14/18 00:00 60 03/13/18 22:00 63 03/13/18 20:00 98.0 71 16 134/84 (101) 94 03/13/18 20:00 71 03/13/18 19:00 78 03/13/18 18:00 75 03/13/18 17:00 75 03/13/18 17:00 75 17 108/69 (82) 97 03/13/18 16:00 74 03/13/18 16:00 98.9 74 12 115/74 (88) 98 03/13/18 15:00 71 03/13/18 14:00 76 03/13/18 14:00 76 15 108/67 (81) 97 03/13/18 13:00 73 22 105/66 (79) 94 03/13/18 13:00 73 03/13/18 12:00 72 22 110/71 (84) 98 03/13/18 12:00 72 03/13/18 11:00 70 03/13/18 11:00 70 15 124/79 (94) 97 03/13/18 10:00 72 13 111/62 (78) 96 03/13/18 10:00 72 03/13/18 09:00 75 17 129/84 (99) 97 03/13/18 09:00 75 03/13/18 08:00 98.9 74 14 119/81 (94) 94 03/13/18 08:00 74 I/O 03/13/18 03/13/18 03/13/18 03/14/18 03/14/18 03/14/18 07:00 15:00 23:00 07:00 15:00 23:00 Intake Total 480 ml 100 ml 1540 ml Balance 480 ml 100 ml 1540 ml Intake Oral 480 ml 1440 ml IV Total 100 ml 100 ml # Voids 2 2 # Bowel Movements 1 2 Result Diagram: 03/13/18 0358 03/14/18 0325 Imaging Last Impressions Brain MRI 03/10/18 0000 Signed Impressions: Service Date/Time: Saturday, March 10, 2018 21:09 - CONCLUSION: 1. No acute abnormality seen. 2. Stable cerebellar atrophy. Alber Dias MD Maxillofacial CT 03/09/18 0000 Signed Impressions: Service Date/Time: Friday, March 09, 2018 18:23 - CONCLUSION: Minimally angulated nasal bone fracture Alber Mcneill MD Head CT 03/09/18 0000 Signed Impressions: Service Date/Time: Friday, March 09, 2018 18:23 - CONCLUSION: Normal examination. Alber Mcneill MD Chest X-Ray 03/09/18 0000 Signed Impressions: Service Date/Time: Friday, March 09, 2018 17:48 - CONCLUSION: No acute disease. Felton Simon MD Cervical Spine CT 03/09/18 0000 Signed Impressions: Service Date/Time: Friday, March 09, 2018 18:23 - CONCLUSION: No evidence of acute bony injury in the cervical spine Alber Mcneill MD Objective Remarks GENERAL: Elderly appearing, no acute distress SKIN: Warm and dry. Bruising noted right orbit. HEAD: Normocephalic. EYES: No scleral icterus. No injection or drainage. NECK: Supple, trachea midline. No JVD or lymphadenopathy. CARDIOVASCULAR: Regular rate and rhythm without murmurs, gallops, or rubs. RESPIRATORY: Breath sounds equal bilaterally. No accessory muscle use. GASTROINTESTINAL: Abdomen soft, and nondistended. MUSCULOSKELETAL: No cyanosis, or edema. NEURO: she responds appropriately to questions. moves all 4 extremities spontaneously. A/P Problem List: (1) Physical deconditioning ICD Code: R53.81 - Disuse syndrome Status: Acute (2) Noncompliance ICD Code: Z91.19 - Noncompliance Status: Acute (3) Breakthrough seizure ICD Code: G40.919 - Epilepsy, unspecified, intractable, without status epilepticus Status: Acute (4) Encephalopathy ICD Code: G93.40 - Encephalopathy Status: Acute (5) Atrial fibrillation ICD Code: I48.91 - Unspecified atrial fibrillation Status: Chronic (6) Tobacco abuse ICD Code: Z72.0 - Tobacco abuse Status: Chronic (7) Lactic acidosis ICD Code: E87.2 - Acidosis Status: Acute Assessment and Plan In summary this is a 67-year-old female who presented to the ER after being found by her neighbors for altered mental status, patient has a history of seizure disorder and was noted to be noncompliant with her medications. Her mental status resolved. The patient had been seen and evaluated by neurology. Seizure disorder Seen and evaluated by Dr. Cabrera. EEG shows moderate slowing, no epileptiform discharges. Brain MRI shows no acute abnormality On admission to hospital patient was sub-therapeutic on her Depakote. Currently on keppra 1250 mg BID & depakote 500 mg BID Acute encephalopathy Resolved, likely related to postictal state Atrial fibrillation Heart rate was up into the 160s during her hospitalization. Was previously seen by Dr. Rosales in 2016, and because of her seizure disorder and dementia she was considered a fall risk. Continue digoxin 0.125 mg, express importance of compliance. Hypokalemia Resolved Lactic acidosis Resolved PT recommend SNF DVT prophy with lovenox Discharge Planning Patient to be transferred out of the ICU Encourage out of bed and to chair Will call to give update. Anticipate she will go to SNF on Thursday. I have discussed the case with the patients nurse. Solange Peña MD March 14, 2018 06:28
[2018-03-14 07:14] LABS: BASOPHIL % 0.7 % (0.0-2.0); EOSINOPHIL # 0.1 TH/MM3 (0-0.4); EOSINOPHIL % 1.9 % (0.0-4.0); HEMATOCRIT 44.4 % (35.0-46.0); HEMOGLOBIN 15.1 GM/DL (11.6-15.3); LYMPHOCYTE # 1.3 TH/MM3 (1.0-4.8); MEAN CELL VOLUME 90.8 FL (80.0-100.0); MEAN CORPUSCULAR HEMOGLOBIN 30.8 PG (27.0-34.0); MEAN CORPUSCULAR HGB CONC 33.9 % (32.0-36.0); MEAN PLATELET VOLUME 9.2 FL (7.0-11.0); MONO % 9.6 % (0.0-8.0); MONOCYTE # 0.5 TH/MM3 (0-0.9); NEUT % 60.8 % (16.0-70.0); PLATELET COUNT 144 TH/MM3 (150-450); RED BLOOD COUNT 4.89 MIL/MM3 (4.00-5.30); WHITE BLOOD COUNT 4.9 TH/MM3 (4.0-11.0)
[2018-03-14] MEDS: DIGOXIN 0.125 MG TAB PO SCH (07:49)
[2018-03-14] MEDS: DIVALPROEX SODIUM E.R. 500 MG TAB PO SCH ×2 (07:49→20:48)
[2018-03-14] MEDS: ASPIRIN EC 81 MG TABEC PO SCH (07:49)
[2018-03-14] MEDS: DOCUSATE SODIUM 50 MG/SENNA 8.6 MG TAB PO SCH ×2 (07:50→20:48)
[2018-03-14] MEDS: TOPIRAMATE 25 MG TAB PO SCH ×2 (07:50→20:49)
[2018-03-14] MEDS: levETIRAcetam 500 MG TAB PO SCH ×2 (07:50→20:47)
[2018-03-14] MEDS: SODIUM CHLORIDE 0.9% FLUSH 10 ML FLUSH IV FLUSH SCH ×2 (07:50→20:49)
--- NOTE | 2018-03-14 11:27 | HHI.FPPN ---
Addendum to progress note ADDENDUM Reason for addendum: Additonal documentation Additional information Spoke with patients Josh Bartholomew at [phone] to update on her care. Informed patients that our physical therapist recommended that the patient go to rehab. states she has foot drop and has been to inpatient rehab at least 4 times. He reports mentally and emotionally she does very poor their and they have not seen any progress in her physical ability after completing an inpatient program. reports being at home is best for the patient, and although he travels they have several neighbors who assist in her care. State patient did well with home health previously. They are in the process of getting a new PCP for the patient. states that the patient attempts to wean herself off of her medications without telling anyone and this is why she has breakthrough seizures. All patients spouse questions were answered. Solange Peña MD March 14, 2018 11:27
--- NOTE | 2018-03-14 12:00 | HHI.FF ---
Face to Face Verification Diagnosis: (1) Breakthrough seizure (2) Physical deconditioning (3) Atrial fibrillation Physical Therapy Order: Evaluate and Treat, Improve ambulation, Strength and gait training Occupational Therapy Order: Evaluate and Treat, Gross motor coordination, Fine motor coordination Home Health Nursing Order: Medical education Signs/symptoms of disease process Medication education-adverse effect Nursing assessment with vital signs Counter Tacker Order: To Evaluate: Living conditions/environment, Support services I have seen patient Nette Bartholomew on 03/14/18. My clinical findings support the need for the requested home health care services because: Ltd mobility - disease progression Deconditioned w/ increased weakness Med compliance is questionable High risk of falls I certify that my clinical findings support that this patient is homebound because: Impaired cognitive ability/safety Unsteady gait/balance Need for psychosocial assistance Solange Peña MD March 14, 2018 12:00
[2018-03-14] MEDS: ENOXAPARIN SODIUM 40 MG/0.4 ML SYRINGE SQ SCH (18:17)
[2018-03-15] VITALS: BP 106/63; PULSE 62; RESP 19; TEMP 98; O2SAT 95
[2018-03-15 04:00] VITALS: BP 108/68; PULSE 64; RESP 19; TEMP 98.1; O2SAT 95
[2018-03-15 08:00] VITALS: BP 130/78; PULSE 67; RESP 18; TEMP 97.5; O2SAT 95
[2018-03-15] MEDS: TOPIRAMATE 25 MG TAB PO SCH (08:21)
[2018-03-15] MEDS: ASPIRIN EC 81 MG TABEC PO SCH (08:22)
[2018-03-15] MEDS: DIVALPROEX SODIUM E.R. 500 MG TAB PO SCH (08:22)
[2018-03-15] MEDS: DOCUSATE SODIUM 50 MG/SENNA 8.6 MG TAB PO SCH (08:22)
[2018-03-15] MEDS: DIGOXIN 0.125 MG TAB PO SCH (08:22)
[2018-03-15] MEDS: levETIRAcetam 500 MG TAB PO SCH (08:23)
[2018-03-15] MEDS: SODIUM CHLORIDE 0.9% FLUSH 10 ML FLUSH IV FLUSH SCH (08:24)
[2018-03-15 08:26] LABS: AUTOMATED NEUTROPHIL # 2.5 TH/MM3 (1.8-7.7); BASOPHIL % 0.9 % (0.0-2.0); EOSINOPHIL # 0.1 TH/MM3 (0-0.4); EOSINOPHIL % 2.4 % (0.0-4.0); HEMATOCRIT 42.8 % (35.0-46.0); HEMOGLOBIN 14.7 GM/DL (11.6-15.3); LYMPH % 22.6 % (9.0-44.0); LYMPHOCYTE # 0.9 TH/MM3 (1.0-4.8); MEAN CELL VOLUME 91.7 FL (80.0-100.0); MEAN CORPUSCULAR HEMOGLOBIN 31.6 PG (27.0-34.0); MEAN CORPUSCULAR HGB CONC 34.4 % (32.0-36.0); MEAN PLATELET VOLUME 9.7 FL (7.0-11.0); MONO % 9.9 % (0.0-8.0); MONOCYTE # 0.4 TH/MM3 (0-0.9); NEUT % 64.2 % (16.0-70.0); PLATELET COUNT 150 TH/MM3 (150-450); RED BLOOD COUNT 4.66 MIL/MM3 (4.00-5.30); RED CELL DISTRIBUTION WIDTH 14.1 % (11.6-17.2); WHITE BLOOD COUNT 3.9 TH/MM3 (4.0-11.0)
[2018-03-15 08:52] LABS: BICARBONATE 24.4 MEQ/L (21.0-32.0); CALCIUM 9.1 MG/DL (8.5-10.1); CREATININE 0.63 MG/DL (0.50-1.00)
[2018-03-15] MEDS: ACETAMINOPHEN 325 MG TAB PO PRN (10:48)
--- NOTE | 2018-03-15 10:53 | HHI.PR ---
Subjective Remarks Patient has no complaints. She is now open to home health care. Objective Vitals Vital Signs Date Time Temp Pulse Resp B/P (MAP) Pulse Ox O2 Delivery O2 Flow Rate FiO2 03/15/18 08:00 97.5 67 18 130/78 (95) 95 03/15/18 04:00 98.1 64 19 108/68 (81) 95 03/15/18 00:00 98.0 62 19 106/63 (77) 95 03/14/18 20:00 98.6 79 19 95 03/14/18 20:00 98.6 79 19 123/78 (93) 95 03/14/18 16:17 98.3 74 18 139/82 (101) 97 03/14/18 12:07 97.9 71 18 120/68 (85) 97 I/O 03/14/18 03/14/18 03/14/18 03/15/18 03/15/18 03/15/18 07:00 15:00 23:00 07:00 15:00 23:00 Intake Total 120 ml 120 ml 60 ml Output Total 400 ml Balance 120 ml -400 ml 120 ml 60 ml Intake Oral 120 ml 120 ml 60 ml Output Urine Total 400 ml # Voids 2 2 # Bowel Movements 1 1 Result Diagram: 03/15/1862003/15/18620 Objective Remarks GENERAL: This is a well-nourished, well-developed patient, in no apparent distress. CARDIOVASCULAR: Regular rate and rhythm RESPIRATORY: Clear to auscultation. Breath sounds equal bilaterally. No wheezes , rales, or rhonchi. GASTROINTESTINAL: Abdomen soft, non-tender, nondistended. Normal active bowel sounds MUSCULOSKELETAL: Extremities without clubbing, cyanosis, or edema. NEURO: Alert and oriented to person and place and time, moves all 4 extremities without difficulty A/P Assessment and Plan In summary this is a 67-year-old female who presented to the ER after being found by her neighbors for altered mental status, patient has a history of seizure disorder and was noted to be noncompliant with her medications. Her mental status resolved. The patient had been seen and evaluated by neurology. Seizure disorder Seen and evaluated by Dr. Cabrera. EEG shows moderate slowing, no epileptiform discharges. Cleared by neurology for discharge to home. No driving. Brain MRI shows no acute abnormality On admission to hospital patient was sub-therapeutic on her Depakote. Currently on keppra 1250 mg BID & depakote 500 mg BID Acute encephalopathy Resolved, likely related to postictal state from active seizure Atrial fibrillation -currently rate controlled Heart rate was up into the 160s during her hospitalization. Was previously seen by Dr. Rosales in 2016, and because of her seizure disorder and dementia she was considered a fall risk. Continue digoxin 0.125 mg, Hypokalemia Resolved Lactic acidosis Resolved PT recommend SNF however patient declines. Dr. Peña previously discussed with who is open to home health care. DVT prophy with lovenox Discharge Planning Discharge patient home with home health care today Claudia Geronimo MD March 15, 2018 10:53
[2018-03-15] MEDS ORDERED: KEPP10002 PO (10:55)
--- NOTE | 2018-03-15 10:59 | HHI.DS ---
Discharge Summary Admission Date March 09, 2018 at 18:57 Discharge Date: March 15, 2018 Admitting Diagnosis Status epilepticus, subtherapeutic Depakote level, lactic acidosis (1) Breakthrough seizure ICD Code: G40.919 - Epilepsy, unspecified, intractable, without status epilepticus Status: Resolved (2) Seizure ICD Code: R56.9 - Convulsions Status: Chronic (3) Encephalopathy ICD Code: G93.40 - Encephalopathy Status: Resolved Procedures none Brief History - From Admission 67-year-old female with history of seizure disorder presents to the emergency department via EMS after she was found at home with an altered mental status. 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 The neighbors went to the house and found the patient on the ground with altered mental status. EMS states that the patient was unable to ambulate on scene and was altered. Upon arrival the patient would open her eyes and respond her name, otherwise, would not provide any information. The patient then had a tonic-clonic seizure that lasted for approximately 30 seconds and self resolved prior to the administration of Ativan. No further information is obtainable from the patient since she is postictal now. CBC/BMP: 03/15/18 0621 03/15/18 0621 Significant Findings Laboratory Tests Test 03/13/18 03:58 03/14/18 03:25 03/15/18 06:21 Monocytes (%) (Auto) 11.6 % (0.0-8.0) 9.6 % (0.0-8.0) 9.9 % (0.0-8.0) Albumin 3.2 GM/DL (3.4-5.0) Potassium Level 3.1 MEQ/L (3.5-5.1) Estimat Glomerular Filtration Rate 88 ML/MIN (>89) Platelet Count 144 TH/MM3 (150-450) White Blood Count 3.9 TH/MM3 (4.0-11.0) Lymphocytes # (Auto) 0.9 TH/MM3 (1.0-4.8) Imaging Last Impressions Brain MRI 03/10/18 0000 Signed Impressions: Service Date/Time: Saturday, March 10, 2018 21:09 - CONCLUSION: 1. No acute abnormality seen. 2. Stable cerebellar atrophy. Alber Dias MD Maxillofacial CT 03/09/18 0000 Signed Impressions: Service Date/Time: Friday, March 09, 2018 18:23 - CONCLUSION: Minimally angulated nasal bone fracture Alber Mcneill MD Head CT 03/09/18 0000 Signed Impressions: Service Date/Time: Friday, March 09, 2018 18:23 - CONCLUSION: Normal examination. Alber Mcneill MD Chest X-Ray 03/09/18 Signed Impressions: Service Date/Time: Friday, March 09, 2018 17:48 - CONCLUSION: No acute disease. Felton Simon MD Cervical Spine CT 03/09/18 0000 Signed Impressions: Service Date/Time: Friday, March 09, 2018 18:23 - CONCLUSION: No evidence of acute bony injury in the cervical spine Alber Mcneill MD PE at Discharge GENERAL: This is a well-nourished, well-developed patient, in no apparent distress. CARDIOVASCULAR: Regular rate and rhythm RESPIRATORY: Clear to auscultation. Breath sounds equal bilaterally. No wheezes , rales, or rhonchi. GASTROINTESTINAL: Abdomen soft, non-tender, nondistended. Normal active bowel sounds MUSCULOSKELETAL: Extremities without clubbing, cyanosis, or edema. NEURO: Alert and oriented to person and place and time, moves all 4 extremities without difficulty Hospital Course Obtained from the Admission physician's history and physical 67-year-old white female was admitted for breakthrough seizures and had postictal state and acute encephalopathy due to breakthrough seizure and postictal state. Patient was admitted to intensive care unit and later transferred to the medical surgical unit. She was seen by neurology, Dr. Cabrera and EEG was performed. It was recommended that she increase her Keppra to 1050 mg p.o. twice daily. There was also suspected medication nonadherence. It was recommended that she be discharged with home health care with follow- up with neurology. At this time, patient has gained maximum benefit from hospitalization is ready for discharge to home with home health care Pt Condition on Discharge: Good Discharge Disposition: Disch w/ Home Health Serv Discharge Time: <= 30 minutes Discharge Instructions DIET: Follow Instructions for: Heart Healthy Diet Activities you can perform: Regular-No Restrictions, See Additionl Instruction Activities to Avoid: Driving Follow up Referrals: Appointment for Follow Up Neurology - 3 Weeks @ [facility] with Indio Cabrera MD PhD PCP Follow-up - 1 Week PCP Follow-up Continued Medications: Alprazolam (Xanax) 0.25 Mg Tab 0.25 MG PO BID PRN for ANXIETY, #[address] (Aspirin EC) 81 Mg Tabdr 81 MG PO DAILY for health, #30 TAB 0 Refills Digoxin (Digoxin) 0.125 Mg Tab 0.125 MG PO DAILY for health, #30 TAB 0 Refills Divalproex ER (Depakote ER) 500 Mg Ang 500 MG PO BID for Control Seizures, #60 TAB 0 Refills Levetiracetam (Keppra) 1,000 Mg Tab 1250 MG PO BID for Control Seizures, #60 TAB 0 Refills (This prescription has been renewed) Topiramate (Topamax) 25 Mg Tab 50 MG PO Q12HR for Control Seizures, #60 TAB Claudia Geronimo MD March 15, 2018 10:59
[2018-03-15 11:47] VITALS: BP 116/73; PULSE 73; RESP 16; TEMP 98.2; O2SAT 98
== END 2018-03-15 13:08 | disposition home health service (06) | DRG 100 ==
LOC: NEPC 17:14 → NEDA 18:57 → HIMW 20:50 → N05A 03-14 09:26
PROVIDERS: ADMIT Family Medicine; ATTEND Family Medicine
DX: G40.411 Other generalized epilepsy and epileptic syndromes, intractable, with status epilepticus (principal); G93.40 Encephalopathy, unspecified; E87.2 Acidosis; I48.91 Unspecified atrial fibrillation; S05.11XA Contusion of eyeball and orbital tissues, right eye, initial encounter; S02.2XXA Fracture of nasal bones, initial encounter for closed fracture; F03.90 Unspecified dementia, unspecified severity, without behavioral disturbance, psychotic disturbance, mood disturbance, and anxiety; I10 Essential (primary) hypertension; S10.91XA Abrasion of unspecified part of neck, initial encounter; E87.6 Hypokalemia; M21.379 Foot drop, unspecified foot; F17.210 Nicotine dependence, cigarettes, uncomplicated; F32.9 Major depressive disorder, single episode, unspecified; F41.9 Anxiety disorder, unspecified; Z78.1 Physical restraint status; Z91.14 Patient's other noncompliance with medication regimen
CPT/HCPCS: 70450; 70486; 70553; 71045; 72125; 80048; 80053; 80069; 80162; 80164; 80307; 82550; 83605; 83735; 84100; 85025; 85610; 85730; 87641; 93005; 95819; 96361; 96365; A9579; J1160; J1650; J1953; J3480; J7030

== ENCOUNTER 2018-06-08 19:35 | Inpatient (IN) ==
--- NOTE | 2018-06-08 20:11 | ED ---
HPI General Chief complaint: Altered Mental Status Stated complaint: Seizures Time Seen by Provider: 06/08/18 19:51 History of Present Illness HPI narrative: Pt arrived via [facility] for eval of AMS and possible seizures, according to paramedics, one of her neighbors call 911 as they found the patient lying on the lawn unresponsive, unknown when was last seen normal, pt is not giving any information about her condition. pt knows her name, but not the year or who is the president. pt had one episode of seizure here in the ER that lasted for 20sec, went down on it's own. pt was here on 02/2018 for seizures, according to the notes: pt has a history of seizure disorder since 1970, She normally takes Dilantin, according to her medication list, the patient was on Keppra 1000 mg tablets, topamax 25 mg b.i.d. , Xanax 0.25 mg b.i.d. as needed, aspirin 81 mg daily, digoxin 0.125 mg daily, and Depakote ER 500 mg b.i.d. patients Josh Bartholomew at [phone], he says pt is not compliant with her meds because she thinks she feels better and weans herself off, he is unsure of the medications list. Related Data Previous Rx's Medication Instructions Recorded quetiapine 25 mg PO HS 30 Days #30 tab 06/13/18 Allergies Allergy/AdvReac Type Severity Reaction Status Date / Time fosphenytoin Allergy Severe Rash Verified 06/08/18 22:55 Review of Systems ROS Unobtainable ROS Unobtainable: unobtainable due to mental condition [facility] Family History Family History Other Hypertension Social History Social History Substance History: Unable to Obtain Smoking Status: Unknown if ever smoked How Often Do You Have a Drink Containing Alcohol: Unable to Obtain Recent Travel in [facility] within the Last 8 Weeks: No Recent Out of Country Travel within the Last 8 Weeks: No Immunization History Tetanus Immunization: Unable to Assess Hx Influenza Vaccine This Season: Unable to Assess Exam Narrative Exam Narrative: GENERAL: Awake but not oriented to time or place, follows command, postictal. SKIN: Focused skin assessment warm/dry. HEAD: Atraumatic. Normocephalic. EYES: Pupils equal and round. No scleral icterus. No injection or drainage. ENT: No nasal bleeding or discharge. Mucous membranes pink and moist. NECK: Trachea midline. No JVD. CARDIOVASCULAR: Regular rate and rhythm. No murmur appreciated. RESPIRATORY: No accessory muscle use. Clear to auscultation. Breath sounds equal bilaterally. GASTROINTESTINAL: Abdomen soft, non-tender, nondistended. Hepatic and splenic margins not palpable. MUSCULOSKELETAL: No obvious deformities. No clubbing. No cyanosis. No edema. NEUROLOGICAL: Awake and alert. No obvious cranial nerve deficits. Motor grossly within normal limits. Normal speech. PSYCHIATRIC: Appropriate mood and affect; insight and judgment normal. Course Initial Documented Vital Signs Temperature 98.2 F 06/08/18 19:41 Pulse Rate 86 06/08/18 19:41 Respiratory Rate 18 06/08/18 19:41 Blood Pressure 176/99 H 06/08/18 19:41 Pulse Oximetry 90 L 06/08/18 19:41 Last Documented Vital Signs Temperature 97.1 F L 06/14/18 08:00 Pulse Rate 68 06/14/18 08:00 Respiratory Rate 18 06/14/18 08:00 Blood Pressure 141/84 H 06/14/18 08:00 Pulse Oximetry 95 06/14/18 08:[address] Medical Decision Making [facility] Narrative Medical decision making narrative: Pt is here for AMS, history of seizures, had one seizure here in the ER, she is unable to give any history, loaded with polo, will admit for AMS and uncontrolled seizures, spoke with dr. Beebe and he accepted the patient. Medical Screen Exam Complete: Yes Emergency Medical Condition: Yes Lab Data Result diagrams: 06/09/18 04:40 06/09/18 04:40 Lab Results 06/08/18 06/08/18 06/08/18 Range/Units 20:09 20:09 20:09 CBC w Diff Auto diff final WBC 8.5 (4.0-11.0) th/mm3 RBC 5.29 (4.00-5.30) mil/mm3 Hgb 16.0 H (11.6-15.3) gm/dL Hct 47.3 H (35.0-46.0) % MCV 89.3 (80.0-100.0) fL MCH 30.2 (27.0-34.0) pg MCHC 33.8 (32.0-36.0) % RDW 13.0 (11.6-17.2) % Plt Count 185 (150-450) th/mm3 MPV 8.9 (7.0-11.0) fL Neut % (Auto) 90.4 H (16.0-70.0) % Lymph % (Auto) 4.9 L (9.0-44.0) % Yell % (Auto) 4.4 (0.0-8.0) % Eos % (Auto) 0.0 (0.0-4.0) % Baso % (Auto) 0.3 (0.0-2.0) % Neut # (Auto) 7.7 (1.8-7.7) th/mm3 Lymph # (Auto) 0.4 L (1.0-4.8) th/mm3 Yell # (Auto) 0.4 (0.0-0.9) th/mm3 Eos # (Auto) 0.0 (0.0-0.4) th/mm3 Baso # (Auto) 0.0 (0.0-0.2) th/mm3 WBC Differential . Differential Comment . PT 10.0 (9.8-11.6) sec INR 1.0 Ratio APTT 24.3 (24.3-30.1) sec Sodium 138 (136-145) meq/L Potassium 3.7 (3.5-5.1) meq/L Chloride 105 (98-107) meq/L Carbon Dioxide 24.1 (21.0-32.0) meq/L Anion Gap 9 (5-15) meq/L BUN 10 (7-18) mg/dL Creatinine 0.81 (0.50-1.00) mg/dL Estimated GFR 70 L (>89) mL/min Random Glucose 134 H (74-106) mg/dL Calcium 8.9 (8.5-10.1) mg/dL Total Bilirubin 0.3 (0.2-1.0) mg/dL AST 15 (15-37) U/L ALT 19 (10-53) U/L Alkaline Phosphatase 100 (45-117) U/L Ammonia (11-32) mcmol/L Troponin I Less than 0.02 L (0.02-0.05) ng/mL Total Protein 7.4 (6.4-8.2) g/dL Albumin 3.9 (3.4-5.0) g/dL TSH 2.320 (0.358-3.740) uIU/mL Urine Color (Yellw/Straw) Urine Clarity (Clear) Urine pH (5.0-8.5) Ur Specific [place] (1.002-1.035) Urine Protein (Neg-Trace) mg/dL Urine Glucose (UA) (Negative) mg/dL Urine Ketones (Negative) mg/dL Urine Occult Blood (Negative) Urine Nitrate (Negative) Urine Bilirubin (Negative) Urine Urobilinogen (Less than 2) mg/dL Ur Leukocyte Esterase (Negative) Urine RBC (0-3) /hpf Urine WBC (0-5) /hpf Ur Squamous Epith Cells (0-5) /hpf Micro UA Comment Urine Culture Comments Urine Opiates Screen (Neg) Ur Barbiturates Screen (Neg) Phenytoin Less than 0.4 L (10.0-20.0) mcg/mL Valproic Acid (50-100) mcg/mL Levetiracetam (12.0 - 46.0) mcg/mL Ur Amphetamines Screen (Neg) U Benzodiazepines Scrn (Neg) Urine Cocaine Screen (Neg) U Cannabinoids Screen (Neg) Serum Alcohol Less than 3 (0-5) mg/dL 06/08/18 06/08/18 06/08/18 Range/Units 20:09 20:09 20:25 CBC w Diff WBC (4.0-11.0) th/mm3 RBC (4.00-5.30) mil/mm3 Hgb (11.6-15.3) gm/dL Hct (35.0-46.0) % MCV (80.0-100.0) fL MCH (27.0-34.0) pg MCHC (32.0-36.0) % RDW (11.6-17.2) % Plt Count (150-450) th/mm3 MPV (7.0-11.0) fL Neut % (Auto) (16.0-70.0) % Lymph % (Auto) (9.0-44.0) % Yell % (Auto) (0.0-8.0) % Eos % (Auto) (0.0-4.0) % Baso % (Auto) (0.0-2.0) % Neut # (Auto) (1.8-7.7) th/mm3 Lymph # (Auto) (1.0-4.8) th/mm3 Yell # (Auto) (0.0-0.9) th/mm3 Eos # (Auto) (0.0-0.4) th/mm3 Baso # (Auto) (0.0-0.2) th/mm3 WBC Differential Differential Comment PT (9.8-11.6) sec INR Ratio APTT (24.3-30.1) sec Sodium (136-145) meq/L Potassium (3.5-5.1) meq/L Chloride (98-107) meq/L Carbon Dioxide (21.0-32.0) meq/L Anion Gap (5-15) meq/L BUN (7-18) mg/dL Creatinine (0.50-1.00) mg/dL Estimated GFR (>89) mL/min Random Glucose (74-106) mg/dL Calcium (8.5-10.1) mg/dL Total Bilirubin (0.2-1.0) mg/dL AST (15-37) U/L ALT (10-53) U/L Alkaline Phosphatase (45-117) U/L Ammonia Less than 10 L (11-32) mcmol/L Troponin I (0.02-0.05) ng/mL Total Protein (6.4-8.2) g/dL Albumin (3.4-5.0) g/dL TSH (0.358-3.740) uIU/mL Urine Color (Yellw/Straw) Urine Clarity (Clear) Urine pH (5.0-8.5) Ur Specific [place] (1.002-1.035) Urine Protein (Neg-Trace) mg/dL Urine Glucose (UA) (Negative) mg/dL Urine Ketones (Negative) mg/dL Urine Occult Blood (Negative) Urine Nitrate (Negative) Urine Bilirubin (Negative) Urine Urobilinogen (Less than 2) mg/dL Ur Leukocyte Esterase (Negative) Urine RBC (0-3) /hpf Urine WBC (0-5) /hpf Ur Squamous Epith Cells (0-5) /hpf Micro UA Comment Urine Culture Comments Urine Opiates Screen (Neg) Ur Barbiturates Screen (Neg) Phenytoin (10.0-20.0) mcg/mL Valproic Acid Less than 3 L (50-100) mcg/mL Levetiracetam 12.2 (12.0 - 46.0) mcg/mL Ur Amphetamines Screen (Neg) U Benzodiazepines Scrn (Neg) Urine Cocaine Screen (Neg) U Cannabinoids Screen (Neg) Serum Alcohol (0-5) mg/dL 06/08/18 06/08/18 06/09/18 Range/Units 21:59 21:59 04:40 CBC w Diff Auto diff final WBC 7.6 (4.0-11.0) th/mm3 RBC 5.11 (4.00-5.30) mil/mm3 Hgb 15.5 H (11.6-15.3) gm/dL Hct 46.6 H (35.0-46.0) % MCV 91.2 (80.0-100.0) fL MCH 30.3 (27.0-34.0) pg MCHC 33.2 (32.0-36.0) % RDW 12.8 (11.6-17.2) % Plt Count 159 (150-450) th/mm3 MPV 9.0 (7.0-11.0) fL Neut % (Auto) 73.2 H (16.0-70.0) % Lymph % (Auto) 17.6 (9.0-44.0) % Yell % (Auto) 8.4 H (0.0-8.0) % Eos % (Auto) 0.3 (0.0-4.0) % Baso % (Auto) 0.5 (0.0-2.0) % Neut # (Auto) 5.7 (1.8-7.7) th/mm3 Lymph # (Auto) 1.3 (1.0-4.8) th/mm3 Yell # (Auto) 0.6 (0.0-0.9) th/mm3 Eos # (Auto) 0.0 (0.0-0.4) th/mm3 Baso # (Auto) 0.0 (0.0-0.2) th/mm3 WBC Differential . Differential Comment . PT (9.8-11.6) sec INR Ratio APTT (24.3-30.1) sec Sodium (136-145) meq/L Potassium (3.5-5.1) meq/L Chloride (98-107) meq/L Carbon Dioxide (21.0-32.0) meq/L Anion Gap (5-15) meq/L BUN (7-18) mg/dL Creatinine (0.50-1.00) mg/dL Estimated GFR (>89) mL/min Random Glucose (74-106) mg/dL Calcium (8.5-10.1) mg/dL Total Bilirubin (0.2-1.0) mg/dL AST (15-37) U/L ALT (10-53) U/L Alkaline Phosphatase (45-117) U/L Ammonia (11-32) mcmol/L Troponin I (0.02-0.05) ng/mL Total Protein (6.4-8.2) g/dL Albumin (3.4-5.0) g/dL TSH (0.358-3.740) uIU/mL Urine Color Yellow (Yellw/Straw) Urine Clarity Clear (Clear) Urine pH 6.0 (5.0-8.5) Ur Specific [place] 1.020 (1.002-1.035) Urine Protein Trace (Neg-Trace) mg/dL Urine Glucose (UA) Negative (Negative) mg/dL Urine Ketones Negative (Negative) mg/dL Urine Occult Blood Negative (Negative) Urine Nitrate Negative (Negative) Urine Bilirubin Negative (Negative) Urine Urobilinogen 0.2 (Less than 2) mg/dL Ur Leukocyte Esterase Negative (Negative) Urine RBC 0-3 (0-3) /hpf Urine WBC 0-5 (0-5) /hpf Ur Squamous Epith Cells 0-5 (0-5) /hpf Micro UA Comment Culture not ind Urine Culture Comments Culture not ind Urine Opiates Screen Neg (Neg) Ur Barbiturates Screen Neg (Neg) Phenytoin (10.0-20.0) mcg/mL Valproic Acid (50-100) mcg/mL Levetiracetam (12.0 - 46.0) mcg/mL Ur Amphetamines Screen Neg (Neg) U Benzodiazepines Scrn Neg (Neg) Urine Cocaine Screen Neg (Neg) U Cannabinoids Screen Neg (Neg) Serum Alcohol (0-5) mg/dL 06/09/18 Range/Units 04:40 CBC w Diff WBC (4.0-11.0) th/mm3 RBC (4.00-5.30) mil/mm3 Hgb (11.6-15.3) gm/dL Hct (35.0-46.0) % MCV (80.0-100.0) fL MCH (27.0-34.0) pg MCHC (32.0-36.0) % RDW (11.6-17.2) % Plt Count (150-450) th/mm3 MPV (7.0-11.0) fL Neut % (Auto) (16.0-70.0) % Lymph % (Auto) (9.0-44.0) % Yell % (Auto) (0.0-8.0) % Eos % (Auto) (0.0-4.0) % Baso % (Auto) (0.0-2.0) % Neut # (Auto) (1.8-7.7) th/mm3 Lymph # (Auto) (1.0-4.8) th/mm3 Yell # (Auto) (0.0-0.9) th/mm3 Eos # (Auto) (0.0-0.4) th/mm3 Baso # (Auto) (0.0-0.2) th/mm3 WBC Differential Differential Comment PT (9.8-11.6) sec INR Ratio APTT (24.3-30.1) sec Sodium 139 (136-145) meq/L Potassium 3.8 (3.5-5.1) meq/L Chloride 105 (98-107) meq/L Carbon Dioxide 29.1 (21.0-32.0) meq/L Anion Gap 5 (5-15) meq/L BUN 9 (7-18) mg/dL Creatinine 0.63 (0.50-1.00) mg/dL Estimated GFR Greater than 89 (>89) mL/min Random Glucose 99 (74-106) mg/dL Calcium 8.8 (8.5-10.1) mg/dL Total Bilirubin 0.5 (0.2-1.0) mg/dL AST 16 (15-37) U/L ALT 19 (10-53) U/L Alkaline Phosphatase 96 (45-117) U/L Ammonia (11-32) mcmol/L Troponin I (0.02-0.05) ng/mL Total Protein 7.1 (6.4-8.2) g/dL Albumin 3.8 (3.4-5.0) g/dL TSH (0.358-3.740) uIU/mL Urine Color (Yellw/Straw) Urine Clarity (Clear) Urine pH (5.0-8.5) Ur Specific [place] (1.002-1.035) Urine Protein (Neg-Trace) mg/dL Urine Glucose (UA) (Negative) mg/dL Urine Ketones (Negative) mg/dL Urine Occult Blood (Negative) Urine Nitrate (Negative) Urine Bilirubin (Negative) Urine Urobilinogen (Less than 2) mg/dL Ur Leukocyte Esterase (Negative) Urine RBC (0-3) /hpf Urine WBC (0-5) /hpf Ur Squamous Epith Cells (0-5) /hpf Micro UA Comment Urine Culture Comments Urine Opiates Screen (Neg) Ur Barbiturates Screen (Neg) Phenytoin (10.0-20.0) mcg/mL Valproic Acid (50-100) mcg/mL Levetiracetam (12.0 - 46.0) mcg/mL Ur Amphetamines Screen (Neg) U Benzodiazepines Scrn (Neg) Urine Cocaine Screen (Neg) U Cannabinoids Screen (Neg) Serum Alcohol (0-5) mg/dL Imaging Data Radiologist's impression: Cervical Spine CT 06/08/18 20:00 CONCLUSION: 1. No acute fracture. 2. Mild grade 1 anterior spondylolisthesis of C3 on C4. This is stable in appearance. Head CT 06/08/18 20:00 CONCLUSION: 1. Negative noncontrast head CT. . Abdomen/Pelvis CT 06/08/18 20:16 CONCLUSION: 1. Mildly enlarged myomatous uterus again noted with large pedunculated fibroid in the right-sided the abdomen with calcifications in degeneration centrally. 2. Nonspecific bowel gas pattern most characteristic of an ileus. This is similar in appearance to the 2013 study. Chest X-Ray 06/08/18 20:16 CONCLUSION: Mild scarring and atelectasis with no acute cardiopulmonary disease. Discharge Plan Discharge Disposition Patient Disposition: 30 Still Patient Discharge Condition Condition: Stable Discharge Order Discharge Orders: Discharge Order (Routine); Ordered 06/14/18 Ordered By: Son Beebe Discharge Details Discharge Comment: May discharge to care of her Physicians Team ED Provider: Samir Spence Primary Care Provider: Chidi Slater Attending Provider: Lewis Castillo Other Providers: Alexandra Anne ; Benita Joy ; Mikal Shepard ; Joan, [facility] ; [facility] Status ED Status: Left Department Discharge Information Discharge Date/Time: 06/08/18 23:16
[2018-06-08 20:21] LABS: Baso % (Auto) 0.3 % (0.0-2.0); Hematocrit 47.3 % (35.0-46.0); Lymph # (Auto) 0.4 th/mm3 (1.0-4.8); Lymph % (Auto) 4.9 % (9.0-44.0); Mean Corpuscular HGB Conc 33.8 % (32.0-36.0); Mean Corpuscular Hemoglobin 30.2 pg (27.0-34.0); Mean Corpuscular Volume 89.3 fL (80.0-100.0); Mean Platelet Volume 8.9 fL (7.0-11.0); Mono # (Auto) 0.4 th/mm3 (0.0-0.9); Mono % (Auto) 4.4 % (0.0-8.0); Neut # (Auto) 7.7 th/mm3 (1.8-7.7); Neut % (Auto) 90.4 % (16.0-70.0); Platelet Count 185 th/mm3 (150-450); Red Blood Count 5.29 mil/mm3 (4.00-5.30); White Blood Count 8.5 th/mm3 (4.0-11.0)
[2018-06-08 20:27] LABS: Chloride 105 meq/L (98-107); Potassium 3.7 meq/L (3.5-5.1); Sodium 138 meq/L (136-145)
[2018-06-08 20:31] LABS: Albumin 3.9 g/dL (3.4-5.0); Anion Gap 9 meq/L (5-15); Blood Urea Nitrogen 10 mg/dL (7-18); Calcium 8.9 mg/dL (8.5-10.1); Carbon Dioxide 24.1 meq/L (21.0-32.0); Glucose,Random 134 mg/dL (74-106)
[2018-06-08 20:32] LABS: Activated Partial Thrombo Time 24.3 sec (24.3-30.1)
[2018-06-08 20:34] LABS: Alanine Aminotransferase 19 U/L (10-53); Aspartate Aminotransferase 15 U/L (15-37); Glomerular Filtration Rate 70 mL/min (>89)
[2018-06-08 20:36] LABS: Total Protein 7.4 g/dL (6.4-8.2)
[2018-06-08 20:37] LABS: Alkaline Phosphatase 100 U/L (45-117)
--- NOTE | 2018-06-08 20:39 | XR ---
EXAM DATE: 06/08/2018 8:34 PM EDT AGE/SEX: 68 years / Female INDICATIONS: Short of breath. Post seizure. CLINICAL DATA: This is the patient's initial encounter. Patient reports that signs and symptoms have been present for 1 day and indicates a pain score of Nonresponsive. MEDICAL/SURGICAL HISTORY: Seizures. Non-responsive. [place] [facility] [place]. . FINDINGS: A single AP portable semierect view of the chest was obtained and demonstrates mild scarring. There i s mild atelectasis at the left lung base. The bony thorax is intact. The heart size remains at the up per limits of normal with atherosclerotic changes in the aorta. There are no new infiltrates or effus ions. CONCLUSION: Mild scarring and atelectasis with no acute cardiopulmonary disease. Electronically signed by: Milton Lindsey MD 06/08/2018 8:37 PM EDT
--- NOTE | 2018-06-08 21:56 | CT ---
EXAM DATE: 06/08/2018 9:48 PM EDT AGE/SEX: 68 years / Female INDICATIONS: Abdomen pain. Patient has a known markedly enlarged fibroid uterus. CLINICAL DATA: This is the patient's initial encounter. Patient reports that signs and symptoms have been present for 1 day and indicates a pain score of 0/10. MEDICAL/SURGICAL HISTORY: Cardiovascular disease. Hypertension. Seizures None. ORAL CONTRAST: No oral contrast ingested. RADIATION DOSE: 7,54 CTDI (mGy) COMPARISON: [facility] – [place], CT ABDOMEN & PELVIS W CONTRAST, 04/25/2013. . TECHNIQUE: Multiple contiguous axial images were obtained through the abdomen and pelvis following b olus infusion of 95 ml Omnipaque 350 (iohexol) nonionic water-soluble contrast as a single exam dos e. No oral contrast ingested. Using automated exposure control and adjustment of the mA and/or kV ac cording to patient size, radiation dose was kept as low as reasonably achievable to obtain optimal di agnostic quality images. DICOM format image data is available electronically for review and comparis on. FINDINGS: Lower Lungs: Mild consolidation is present in the posterior lung bases. A pectus excavatum deformity is again noted. Deformity is again noted. Liver: The liver has a homogeneous density without space-occupying lesion. There is no dilation of th e biliary tree. The gallbladder is unremarkable in appearance. Spleen: Homogeneous density without enlargement. Pancreas: Unremarkable without mass or calcification. Kidneys: Normal in size and shape. No evidence of a solid mass or hydronephrosis. A cyst is noted in the right kidney. Adrenal Glands: Unremarkable. Aorta: The aorta and proximal iliac vessels are grossly unremarkable without aneurysmal dilation. Bowel/Mesentery: No oral contrast was given limiting the sensitivity of the exam. This there are mul tiple loops of air-containing bowel in the upper and midabdomen. There is mild to moderate distention of the transverse colon with moderate amount of stool in the colon. There are multiple loops of nond ilated air-containing small bowel as well. There is no definite free air or fluid. Abdominal Wall: Intact. Retroperitoneum: No evidence of adenopathy in the retrocrural, para-aortic, or deep pelvic regions. Bladder: Contours are smooth. Reproductive Organs: Uterus remains markedly enlarged and heterogeneous with a large complex mass in the right side of the pelvis with multiple calcifications consistent with a large pedunculated fibro id. There is a larger cystic area now noted centrally consistent with degeneration. This mass measure s up to at least 14 cm in diameter. Inguinal: The inguinal region is unremarkable without evidence of adenopathy. Bony Structures: Osteopenia, degenerative change and mild scoliosis are present. A pectus excavatum deformity is present. CONCLUSION: 1. Mildly enlarged myomatous uterus again noted with large pedunculated fibroid in the right-sided [facility] abdomen with calcifications in degeneration centrally. 2. Nonspecific bowel gas pattern most characteristic of an ileus. This is similar in appearance to [facility] 2013 study. Electronically signed by: Milton Lindsey MD 06/08/2018 9:54 PM EDT
--- NOTE | 2018-06-08 21:57 | CT ---
EXAM DATE: 06/08/2018 9:49 PM EDT AGE/SEX: 68 years / Female INDICATIONS: Seizure. CLINICAL DATA: This is the patient's initial encounter. Patient reports that signs and symptoms have been present for 1 day and indicates a pain score of 0/10. MEDICAL/SURGICAL HISTORY: Cardiovascular disease. Hypertension. Seizures Angioplasty. RADIATION DOSE: 46.31 CTDI (mGy) COMPARISON: [facility] – [place], [place] BRAIN W/O CONTRAST, 03/09/2018. . TECHNIQUE: CT of the head without contrast. Using automated exposure control and adjustment of the mA and/or kV according to patient size, radiation dose was kept as low as reasonably achievable to ob tain optimal diagnostic quality images. DICOM format image data is available electronically for revi ew and comparison. FINDINGS: Cerebrum: The ventricles are normal for age. No evidence of midline shift, mass lesion, hemorrhage or acute infarction. No extraaxial fluid collections are seen. Posterior Fossa: The cerebellum and brainstem are intact. The 4th ventricle is midline. The cerebe llopontine angle is unremarkable. Extracranial: The visualized portion of the orbits is intact. Skull: The calvaria is intact. No evidence of skull fracture. CONCLUSION: 1. Negative noncontrast head CT. . Electronically signed by: Milton Lindsey MD 06/08/2018 9:56 PM EDT
--- NOTE | 2018-06-08 22:01 | CT ---
EXAM DATE: 06/08/2018 9:57 PM EDT AGE/SEX: 68 years / Female INDICATIONS: Seizure. CLINICAL DATA: This is the patient's initial encounter. Patient reports that signs and symptoms have been present for 1 day and indicates a pain score of 0/10. MEDICAL/SURGICAL HISTORY: Cardiovascular disease. Hypertension. None. RADIATION DOSE: 22.45 CTDI (mGy) COMPARISON: [facility] [place], CT CERVICAL SPINE W/O CONTRAST, 03/09/2018. . TECHNIQUE: Contiguous axial images were obtained using helical multirow detector technique. The vol umetric data was post-processed with multiplanar reconstruction in oblique axial, sagittal, and coron al planes. Using automated exposure control and adjustment of the mA and/or kV according to patient s ize, radiation dose was kept as low as reasonably achievable to obtain optimal diagnostic quality kuldeep ges. DICOM format image data is available electronically for review and comparison. FINDINGS: Vertebrae: Normal vertebral body height. Discs: There mild degenerative disc changes at C5-6 level with disc space narrowing and mild hypertrophic change. Alignment: Minimal grade 1 anterior spondylolisthesis of C3 on C4 approximately 2 to 3 mm. Degenerat coy changes are noted involving the atlantoaxial joint. The axial images demonstrate that the vertebral bodies and posterior elements are intact. The prevert ebral soft tissues are within normal limits. There are mild degenerative changes involving the facet joints. CONCLUSION: 1. No acute fracture. 2. Mild grade 1 anterior spondylolisthesis of C3 on C4. This is stable in appearance. Electronically signed by: Milton Lindsey MD 06/08/2018 10:00 PM EDT
[2018-06-08 22:06] LABS: Bilirubin,Urine Negative (Negative); Clarity,Urine Clear (Clear); Color,Urine Yellow (Yellw/Straw); Glucose,Urine (UA) Negative (Negative); Leukocyte Esterase,Urine Negative (Negative); Nitrite,Urine Negative (Negative); Urobilinogen,Urine 0.2 mg/dL (Less than 2)
[2018-06-08 22:14] LABS: Amphetamine Screen,Urine Neg (Neg); RBC,Urine 0-3 /hpf (0-3); Squamous Epithelial Cell,Urine 0-5 /hpf (0-5); WBC,Urine 0-5 /hpf (0-5)
[2018-06-08] MEDS ORDERED: levETIRAcetam 1000mg/100mL Inj 100 ML IV.SIG ONE (22:14)
[2018-06-08 22:15] LABS: Barbiturate Screen,Urine Neg (Neg); Cannabinoid Screen,Urine Neg (Neg); Cocaine Screen,Urine Neg (Neg)
[2018-06-08 22:29] LABS: Opiate Screen,Urine Neg (Neg)
[2018-06-09] MEDS: Sod Chloride 0.9% Inj 1,000 ML IV.CONT SCH ×3 (02:09→18:30)
[2018-06-09 06:08] LABS: Baso % (Auto) 0.5 % (0.0-2.0); Eos % (Auto) 0.3 % (0.0-4.0); Hematocrit 46.6 % (35.0-46.0); Hemoglobin 15.5 gm/dL (11.6-15.3); Lymph # (Auto) 1.3 th/mm3 (1.0-4.8); Lymph % (Auto) 17.6 % (9.0-44.0); Mean Corpuscular HGB Conc 33.2 % (32.0-36.0); Mean Corpuscular Hemoglobin 30.3 pg (27.0-34.0); Mean Corpuscular Volume 91.2 fL (80.0-100.0); Mono # (Auto) 0.6 th/mm3 (0.0-0.9); Mono % (Auto) 8.4 % (0.0-8.0); Neut # (Auto) 5.7 th/mm3 (1.8-7.7); Neut % (Auto) 73.2 % (16.0-70.0); Platelet Count 159 th/mm3 (150-450); Red Blood Count 5.11 mil/mm3 (4.00-5.30); Red Cell Distribution Width 12.8 % (11.6-17.2); White Blood Count 7.6 th/mm3 (4.0-11.0)
[2018-06-09 06:13] LABS: Chloride 105 meq/L (98-107); Potassium 3.8 meq/L (3.5-5.1); Sodium 139 meq/L (136-145)
[2018-06-09 06:21] LABS: Calcium 8.8 mg/dL (8.5-10.1)
[2018-06-09 06:22] LABS: Albumin 3.8 g/dL (3.4-5.0); Anion Gap 5 meq/L (5-15); Blood Urea Nitrogen 9 mg/dL (7-18); Carbon Dioxide 29.1 meq/L (21.0-32.0); Glucose,Random 99 mg/dL (74-106)
[2018-06-09 06:25] LABS: Aspartate Aminotransferase 16 U/L (15-37); Glomerular Filtration Rate Greater Than 89 mL/min (>89)
[2018-06-09 06:26] LABS: Alanine Aminotransferase 19 U/L (10-53); Total Protein 7.1 g/dL (6.4-8.2)
[2018-06-09 06:28] LABS: Alkaline Phosphatase 96 U/L (45-117)
--- NOTE | 2018-06-09 10:43 | MB ---
cc: Alexandra Anne MD DATE: 06/09/2018 REASON FOR CONSULTATION: Breakthrough seizures. HISTORY OF PRESENT ILLNESS: This is a 68-year-old woman with a history of epilepsy, came in with a possible seizure and change in mental status. Apparently, a neighbor of hers called 911, found her lying on the lawn unresponsive. She had what looked like a seizure in the ER, lasting for about 20 seconds. Apparently, in 02/2018 she came in with a seizure. She was admitted to the ICU. There is a history of epilepsy since the 70s. Apparently, she is supposed to be on Dilantin from her medication list, Keppra, low-dose topiramate, Xanax, and Depakote ER as well as baby aspirin and digoxin. She is apparently . Apparently, per her 's statement to the ER, she is not compliant, thinks she feels better, and weans herself off. He was not sure of her medications. PAST MEDICAL HISTORY: Epilepsy, possible psych disorder. Apparently, she was Agarwal Acted back in 02/2018. Other than that, unclear. There is some type of heart disease. ALLERGIES: CEREBYX, WHICH IS A DERIVATIVE DILANTIN, SO I AM NOT SURE WHAT THE ALLERGY IS. SOCIAL HISTORY: Apparently, lives with her . FAMILY HISTORY: Unknown. PHYSICAL EXAMINATION: VITAL SIGNS: Temperature is 97.4, pulse 76, respiratory rate 18, blood pressure 157/88. GENERAL: She is sleepy, awakens with name. I asked her name, she confirmed her last name was Puma. She knows she is at [place], but not forthcoming with any of my questioning. She states she does not want to tell me who gives her the medications. HEENT: Her pupils react. Face is symmetrical. NEUROLOGIC: She has normal speech, motor-dorado she moves everything antigravity, but does not participate for strength testing; will not participate in cerebellar testing. Reflexes are 2+. Gait is deferred. LABORATORY DATA: Reviewed. Her hemoglobin 15.5. White count is normal at 7.6, platelets 159,000. Coag panel normal. Chemistries are normal today. Urinalysis is unremarkable. Her tox screen was negative. Her Dilantin level was less than 0.4. Depakote less than 3. Keppra level is pending. Alcohol less than 3. Benzos, cocaine, cannabinoids, barbiturates, and opiates were negative. IMAGING: Head CT was done and did not show anything acute. ASSESSMENT AND PLAN: Epilepsy in a 68-year-old woman, looks like noncompliance of medications. Recommend continuing her Keppra. It looks like she may have been loaded in the ER, continue it at 500 mg twice a day. Restart her Depakote ER 500 mg twice a day. Put her back on the topiramate 25 mg b.i.d. Maintain seizure precautions, Ativan if she has a witnessed prolonged seizure. Certainly, we can get an EEG. I would recommend psychiatry evaluate her as well, since the issue of noncompliance. Apparently, her will have to probably take over her medications. She will need to follow up with a neurologist as an outpatient. She needs a primary care doctor; if she does not have one, she will need to obtain one. Maintain current care as outlined. MD REGAN Adams/tisha , 09:17 AM , 09:26 AM
--- NOTE | 2018-06-09 15:44 | P.HP ---
History of Present Illness Primary Care Physician: Chidi Slater MD History of Present Illness: 68-year-old female who is an uncooperative historian. She answers basic questions with yes or no, mostly no. The story is that she was found on the ground at her home with seemingly altered mental status following an unwitnessed event. She has a history of seizure disorder and takes Keppra, when asked if she is currently taking her Keppra she says yes. She is on Dilantin as well for uncertain reasons. Overall she has been refusing care, but when a Agarwal act was offered she agreed to receive an IV instead. Inpatient Certification: I certify that the inpatient services were ordered in accordance with Medicare regulations governing the order. This includes certification that hospital inpatient services are reasonable and necessary and in the case of services not specified as inpatient-only under 42 CFR 419.22(n), that they are appropriately provided as inpatient services in accordance to with the 2-midnight benchmark under 43 CFR 412.3(e) Estimated Total Length of Stay (Days): 3 Plans for Post Hospital Care: SNF Review of Systems unobtainable due to mental status PMFSH - History History Provided By: Cable Driller / EMT - Medical History Medical History: Medical History (Last Updated 06/08/18 @ 19:42 by Pablo Ureña RN) Medical history unknown Surgical history unknown - Family History Family History: Family History (Last Updated 06/09/18 @ 15:36 by Son Beebe MD) Other Hypertension - Tobacco History Smoking Status: Unknown if ever smoked - Alcohol History How Often Do You Have a Drink Containing Alcohol: Unable to Obtain - Substance Use History Substance History: Unable to Obtain - Travel History Recent Travel in the [place] Within the Last 8 Weeks: No Recent Travel Out of the Country Within the Last 8 Weeks: No - Immunization History Tetanus Immunization: Unable to Assess Hx Influenza Vaccine This Season: Unable to Assess Medications and Allergies Active Medications: Active Medications Al Hydroxide/Mg Hydroxide (Milk Of Magnmaykel Liq) 30 ml PO Q12H PRN PRN Reason: Mild Constipation Aspirin (Aspirin Chew) 162 mg PO DAILY [facility] Last Admin: 06/09/18 14:08 Dose: 162 mg Sodium Chloride (Ns Inj) 1,000 mls @ 100 mls/hr IV.CONT .Q10H [facility] Last Admin: 06/09/18 08:30 Dose: 100 mls/hr Levetiracetam 500 mg/ Sodium (Chloride) 105 mls @ 400 mls/hr IV.SIG Q12H [facility] Last Infusion: 06/09/18 09:08 Dose: Infused Lorazepam (Ativan Inj) 2 mg IV.PUSH Q2H PRN PRN Reason: SEIZURES Ondansetron HCl (Zofran Inj) 4 mg IV.PUSH Q6H PRN PRN Reason: NAUSEA OR VOMITING Allergies Allergy/AdvReac Type Severity Reaction Status Date / Time fosphenytoin Allergy Severe Rash Verified 06/08/18 22:55 Home Medications Medication Instructions Recorded Confirmed Type Unable to Obtain Home Meds 06/08/18 06/08/18 History Exam Vital signs: Vital Signs 06/08/18 19:41 06/08/18 19:51 06/08/18 20:21 Temperature 98.2 F 98.2 F Pulse Rate 86 86 87 Respiratory Rate 18 18 18 Blood Pressure 176/99 H 176/99 H 129/78 Pulse Oximetry 90 L 96 98 06/08/18 21:41 06/08/18 23:10 06/08/18 23:42 Temperature Pulse Rate 90 82 Respiratory Rate 16 16 18 Blood Pressure 159/96 H 138/84 Pulse Oximetry 94 L 97 06/09/18 00:00 06/09/18 04:00 06/09/18 08:00 Temperature 97.8 F 97.4 F L Pulse Rate 80 76 Respiratory Rate 20 18 Blood Pressure 167/92 H 169/94 H 157/88 H Pulse Oximetry 99 98 06/09/18 12:00 Temperature 98.7 F Pulse Rate 77 Respiratory Rate 18 Blood Pressure 132/67 Pulse Oximetry 97 Intake & Output 06/08/18 06/09/18 06/09/18 18:59 06:59 18:59 Intake Total 100 / 100 1105 / 1105 Output Total 650 / 650 Balance -550 / -550 1105 / 1105 Weight 73.8 kg Intake: IV 100 / 100 1105 / 1105 NS Inj 1,000 ML @ 100 mls/hr IV 1000 / 1000 .CONT .Q10H [facility] Rx#:[id number] Keppra 1000 mg/100 mL Premix 100 / 100 100 ML @ 400 mls/hr IV.SIG ONCE ONE Rx#:[id number] Keppra Inj 500 MG In NS Inj 100 105 / 105 ML @ 400 mls/hr IV.SIG Q12H [facility] Rx#:[id number] Oral 0 / 0 Output: Urine 650 / 650 Other: Weight On Admission 73.8 kg Narrative: GENERAL: Awake, not oriented, no acute distress, weak appearing SKIN: Warm and dry, no rashes. HEAD: Atraumatic. Normocephalic. EYES: Pupils equal, round, reactive to light. No scleral icterus. No injection or drainage. ENT: No nasal bleeding or discharge. Moist mucous membranes. Nonerythematous oropharynx. CARDIOVASCULAR: Regular rate and rhythm. No murmur, no gallops, no rubs. RESPIRATORY: Clear and equal to auscultation bilaterally. No crackles, no wheezes. No accessory muscle use. GASTROINTESTINAL: Abdomen soft, lower fullness, non-tender, nondistended, normal active bowel sounds. Hepatic and splenic margins not palpable. MUSCULOSKELETAL: Extremities without clubbing or cyanosis. No obvious deformities. No edema. NEUROLOGICAL: Awake and alert. No obvious cranial nerve deficits. Motor grossly within normal limits. No focal deficits. Five out of 5 muscle strength in the arms and legs. Normal speech. PSYCHIATRIC: Appropriate mood and affect; insight and judgment normal. Results - Labs CBC & Chem 7: 06/09/18 04:40 06/09/18 04:40 Labs: Laboratory Results - last 24 hr 06/08/18 06/08/18 06/08/18 20:09 20:09 20:09 CBC w Diff Auto diff final WBC 8.5 RBC 5.29 Hgb 16.0 H Hct 47.3 H MCV 89.3 MCH 30.2 MCHC 33.8 RDW 13.0 Plt Count 185 MPV 8.9 Neut % (Auto) 90.4 H Lymph % (Auto) 4.9 L Emanuel % (Auto) 4.4 Eos % (Auto) 0.0 Baso % (Auto) 0.3 Neut # (Auto) 7.7 Lymph # (Auto) 0.4 L Emanuel # (Auto) 0.4 Eos # (Auto) 0.0 Baso # (Auto) 0.0 WBC Differential . Differential Comment . PT 10.0 INR 1.0 APTT 24.3 Sodium 138 Potassium 3.7 Chloride 105 Carbon Dioxide 24.1 Anion Gap 9 BUN 10 Creatinine 0.81 Estimated GFR 70 L Random Glucose 134 H Calcium 8.9 Total Bilirubin 0.3 AST 15 ALT 19 Alkaline Phosphatase 100 Ammonia Troponin I Less than 0.02 L Total Protein 7.4 Albumin 3.9 TSH 2.320 Urine Color Urine Clarity Urine pH Ur Specific [place] Urine Protein Urine Glucose (UA) Urine Ketones Urine Occult Blood Urine Nitrate Urine Bilirubin Urine Urobilinogen Ur Leukocyte Esterase Urine RBC Urine WBC Ur Squamous Epith Cells Micro UA Comment Urine Culture Comments Urine Opiates Screen Ur Barbiturates Screen Phenytoin Less than 0.4 L Valproic Acid Ur Amphetamines Screen U Benzodiazepines Scrn Urine Cocaine Screen U Cannabinoids Screen Serum Alcohol Less than 3 06/08/18 06/08/18 06/08/18 20:09 20:09 21:59 CBC w Diff WBC RBC Hgb Hct MCV MCH MCHC RDW Plt Count MPV Neut % (Auto) Lymph % (Auto) Emanuel % (Auto) Eos % (Auto) Baso % (Auto) Neut # (Auto) Lymph # (Auto) Emanuel # (Auto) Eos # (Auto) Baso # (Auto) WBC Differential Differential Comment PT INR APTT Sodium Potassium Chloride Carbon Dioxide Anion Gap BUN Creatinine Estimated GFR Random Glucose Calcium Total Bilirubin AST ALT Alkaline Phosphatase Ammonia Less than 10 L Troponin I Total Protein Albumin TSH Urine Color Urine Clarity Urine pH Ur Specific [place] Urine Protein Urine Glucose (UA) Urine Ketones Urine Occult Blood Urine Nitrate Urine Bilirubin Urine Urobilinogen Ur Leukocyte Esterase Urine RBC Urine WBC Ur Squamous Epith Cells Micro UA Comment Urine Culture Comments Urine Opiates Screen Neg Ur Barbiturates Screen Neg Phenytoin Valproic Acid Less than 3 L Ur Amphetamines Screen Neg U Benzodiazepines Scrn Neg Urine Cocaine Screen Neg U Cannabinoids Screen Neg Serum Alcohol 06/08/18 06/09/18 06/09/18 21:59 04:40 04:40 CBC w Diff Auto diff final WBC 7.6 RBC 5.11 Hgb 15.5 H Hct 46.6 H MCV 91.2 MCH 30.3 MCHC 33.2 RDW 12.8 Plt Count 159 MPV 9.0 Neut % (Auto) 73.2 H Lymph % (Auto) 17.6 Emanuel % (Auto) 8.4 H Eos % (Auto) 0.3 Baso % (Auto) 0.5 Neut # (Auto) 5.7 Lymph # (Auto) 1.3 Emanuel # (Auto) 0.6 Eos # (Auto) 0.0 Baso # (Auto) 0.0 WBC Differential . Differential Comment . PT INR APTT Sodium 139 Potassium 3.8 Chloride 105 Carbon Dioxide 29.1 Anion Gap 5 BUN 9 Creatinine 0.63 Estimated GFR Greater than 89 Random Glucose 99 Calcium 8.8 Total Bilirubin 0.5 AST 16 ALT 19 Alkaline Phosphatase 96 Ammonia Troponin I Total Protein 7.1 Albumin 3.8 TSH Urine Color Yellow Urine Clarity Clear Urine pH 6.0 Ur Specific [place] 1.020 Urine Protein Trace Urine Glucose (UA) Negative Urine Ketones Negative Urine Occult Blood Negative Urine Nitrate Negative Urine Bilirubin Negative Urine Urobilinogen 0.2 Ur Leukocyte Esterase Negative Urine RBC 0-3 Urine WBC 0-5 Ur Squamous Epith Cells 0-5 Micro UA Comment Culture not ind Urine Culture Comments Culture not ind Urine Opiates Screen Ur Barbiturates Screen Phenytoin Valproic Acid Ur Amphetamines Screen U Benzodiazepines Scrn Urine Cocaine Screen U Cannabinoids Screen Serum Alcohol - Imaging Impressions Cervical Spine CT 06/08/18 20:00 CONCLUSION: 1. No acute fracture. 2. Mild grade 1 anterior spondylolisthesis of C3 on C4. This is stable in appearance. Head CT 06/08/18 20:00 CONCLUSION: 1. Negative noncontrast head CT. . Abdomen/Pelvis CT 06/08/18 20:16 CONCLUSION: 1. Mildly enlarged myomatous uterus again noted with large pedunculated fibroid in the right-sided the abdomen with calcifications in degeneration centrally. 2. Nonspecific bowel gas pattern most characteristic of an ileus. This is similar in appearance to the 2013 study. Chest X-Ray 06/08/18 20:16 CONCLUSION: Mild scarring and atelectasis with no acute cardiopulmonary disease. Caprini VTE Risk Assessment Caprini VTE Risk Assessment: Moderate/High Risk (score >= 2) Caprini Risk Assessment Model: Point Value = 1 Point Value = 2 Point Value = 3 Point Value = 5 Age 41-60 Minor surgery BMI > 25 kg/m2 Swollen legs Varicose veins or History of unexplained or recurrent spontaneous Oral contraceptives or hormone replacement Sepsis (< 1 month) Serious lung disease, including pneumonia (< 1 month) Abnormal pulmonary function Acute myocardial infarction Congestive heart failure (< 1 month) History of inflammatory bowel disease Medical patient at bed rest Age 61-74 Arthroscopic surgery Major open surgery (> 45 min) Laparoscopic surgery (> 45 min) Malignancy Confined to bed (> 72 hours) Immobilizing plaster cast Central venous access Age >= 75 History of VTE Family history of VTE Factor V Leiden Prothrombin [id number] Lupus anticoagulant Anticardiolipin antibodies Elevated serum homocysteine Heparin-induced thrombocytopenia Other congenital or acquired thrombophilia Stroke (< 1 month) Elective arthroplasty Hip, pelvis, or leg fracture Acute spinal cord injury (< 1 month) Prophylaxis Regimen: Total Risk Factor Score Risk Level Prophylaxis Regimen 0-1 Low Early ambulation 2 Moderate Order ONE of the following: *Sequential Compression Device (SCD) *Heparin 5000 units SQ BID 3-4 Higher Order ONE of the following medications: *Heparin 5000 units SQ TID *Enoxaparin/Lovenox 40 mg SQ daily (WT < 150 kg, CrCl > 30 mL/min) *Enoxaparin/Lovenox 30 mg SQ daily (WT < 150 kg, CrCl > 10-29 mL/min) *Enoxaparin/Lovenox 30 mg SQ BID (WT < 150 kg, CrCl > 30 mL/min) AND/OR *Sequential Compression Device (SCD) 5 or more Highest Order ONE of the following medications: *Heparin 5000 units SQ TID (Preferred with Epidurals) *Enoxaparin/Lovenox 40 mg SQ daily (WT < 150 kg, CrCl > 30 mL/min) *Enoxaparin/Lovenox 30 mg SQ daily (WT < 150 kg, CrCl > 10-29 mL/min) *Enoxaparin/Lovenox 30 mg SQ BID (WT < 150 kg, CrCl > 30 mL/min) AND *Sequential Compression Device (SCD) Assessment and Plan - Plan Found on floor Unwitnessed event versus abnormal psychiatric state She has a history of seizure disorder, is supposed to be taking Keppra, levels pending Appreciate neurology consult Abnormal psych affect Uncertain of diagnosis but she does take Dilantin Dilantin and Depakote levels were below therapeutic Continue IV Depakote and Dilantin Psych consult Headache Patient requested aspirin, declined Tylenol or ibuprofen DVT prophylaxis Patient had a fall and has current abnormal mental status, no chemoprophylaxis at this time due to risk
[2018-06-10] MEDS: Sod Chloride 0.9% Inj 1,000 ML IV.CONT SCH (05:32)
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
--- NOTE | 2018-06-10 16:36 | P.PNIM ---
Subjective Interval history: Patient is much more appropriate today, she is conversive but not fully appropriate. She has no new complaints Physical Exam Vital signs: Vital Signs 06/09/18 20:00 06/10/18 00:00 06/10/18 08:00 Temperature 99.4 F 97.9 F 97.0 F L Pulse Rate 76 61 71 Respiratory Rate 18 21 Blood Pressure 139/83 150/92 H 146/80 H Pulse Oximetry 99 98 97 06/10/18 12:00 Temperature 97.6 F Pulse Rate 68 Respiratory Rate 19 Blood Pressure 141/78 H Pulse Oximetry 95 Intake & Output 06/09/18 06/10/18 06/10/18 18:59 06:59 18:59 Intake Total 2305 / 2305 1585 / 1585 480 / 480 Output Total 1000 / 1000 Balance 2305 / 2305 585 / 585 480 / 480 Weight 85.2 kg Intake: IV 2105 / 2105 1105 / 1105 NS Inj 1,000 ML @ 100 mls/hr IV 2000 / 2000 1000 / 1000 .CONT .Q10H [facility] Rx#:[id number] Keppra Inj 500 MG In NS Inj 100 105 / 105 105 / 105 ML @ 400 mls/hr IV.SIG Q12H [facility] Rx#:[id number] Oral 200 / 200 480 / 480 480 / 480 Output: Urine 1000 / 1000 Narrative: GENERAL: AAOx2, no acute distress SKIN: Warm and dry. No rashes HEAD: Atruamtic, normocephalic. EYES: No scleral icterus. No injection or drainage. ENT: Moist mucous membranes, patent nares, no erythema of oropharynx. NECK: Supple, trachea midline. No JVD or lymphadenopathy. Normal thyroid. CARDIOVASCULAR: Regular rate and rhythm. No murmurs, gallops, or rubs. RESPIRATORY: Breath sounds clear equal bilaterally. No crackles or wheezes. No accessory muscle use. GASTROINTESTINAL: Abdomen soft, non-tender, nondistended, normal active bowel sounds, large mass in right lower abdomen MUSCULOSKELETAL: No cyanosis, or edema. NEURO: CN II-XII grossly intact, no focal deficits, no slurring of speech - Urinary Catheter Management Indwelling Urethral Catheter Cath placed during this visit: yes Reason for continuing: Not indwelling catheter Insertion date: 06/08/18 Results - Labs CBC & Chem 7: 06/09/18 04:40 08/15/18 04:40 Assessment and Plan - Plan Found on floor Unwitnessed event versus abnormal psychiatric state She has a history of seizure disorder, is supposed to be taking Keppra, levels pending Patient suspects she had a fever, though she does not remember the event, the scenarios happened before Appreciate neurology consult Abnormal psych affect Patient admits to a history of bipolar, she takes Depakote for this Dilantin and Depakote levels were below therapeutic Continue IV Depakote and Dilantin Appreciate psych consult Fibroid masses Easily palpable on exam, evident on CT scan No specific treatment at this time DVT prophylaxis Patient had a fall and has current abnormal mental status, no chemoprophylaxis at this time due to risk
--- NOTE | 2018-06-10 18:06 | MG ---
cc: Indio Cabrera MD, PhD EEG: [id number] TECHNIQUE: A 17-channel EEG. DESCRIPTION: The background rhythm reveals slowing in the theta range, roughly 6 Hz. There is some muscle artifact present. Occasional eye movement artifact is identified. No lateralizing features are identified. No epileptiform features are seen. INTERPRETATION: Normal awake and sleep electroencephalogram. Indio Cabrera MD, PhD ELVIRA/tisha , 05:52 PM , 05:56 PM
--- NOTE | 2018-06-11 12:57 | P.PNPSY ---
Subjective Remarks: The patient was seen today for psychiatric reevaluation. The patient is calm, cooperative, more engageable in conversation, visibly better. She reports good mood, she said that she has been feeling much better, she was able to tell me that the reason she is in the hospital is because she had seizures. She is oriented 3, denies depression, denies anxiety, denies benjy and psychosis. She denies suicidal and homicidal ideation, she denies visual and auditory hallucinations. The patient does present episodic disconnection from reality, with disorganized speech and confusion, but she is definitely better than yesterday Mental Status Examination Appearance: Appropriate Consciousness: Alert Orientation: Person, Place Motor Activity: Normal gait Speech: Hesitant Language: Adequate Fund of Knowledge: Inadequate Attention and Concentration: Adequate Memory: Impaired Mood: Appropriate Affect: Appropriate Thought Process & Associations: Disorganized Thought Content: Appropriate Hallucination Type: None Delusion Type: None Suicidal Ideation: No Suicidal Plan: No Suicidal Intention: No Homicidal Ideation: No Homicidal Plan: No Homicidal Intention: No Insight: Fair Judgment: Impulsive Assessment and Plan - Assessment (1) Unspecified psychosis Code(s): F29 - Unspecified psychosis not due to a substance or known physiological condition Status: Acute (2) Unspecified psychosis Code(s): F29 - Unspecified psychosis not due to a substance or known physiological condition Status: Acute - Plan Plan: Patient shows significant improvement in thought process, affect, mood memory today. Still have some episodic disorganization, but completely oriented 3, denies depression, denies anxiety, denies benjy, psychosis, denies suicidal and homicidal ideation, denies visual and auditory hallucinations. No admission is indicated at this moment. Recent psychotic behavior and thought process was more short of the result of postictal state. She is psychiatrically cleared to be discharged back home. Extensive psychoeducation and support provided Justification for Continued Inpatient Stay: No admission is indicated.
--- NOTE | 2018-06-11 16:40 | P.PNIM ---
Subjective Interval history: Patient is about 50% improved compared to yesterday but still exhibits signs of confusion. Psychiatry is starting her on Seroquel to see if that improves her mental state. Physical Exam Vital signs: Vital Signs 06/10/18 20:00 06/11/18 00:00 06/11/18 08:00 Temperature 98.9 F 97.8 F 97.5 F L Pulse Rate 69 60 82 Respiratory Rate 20 20 18 Blood Pressure 163/77 H 133/86 156/112 H Pulse Oximetry 93 L 96 95 06/11/18 12:00 Temperature 98.5 F Pulse Rate 62 Respiratory Rate 18 Blood Pressure 139/88 Pulse Oximetry 97 Intake & Output 06/10/18 06/11/18 06/11/18 18:59 06:59 18:59 Intake Total 960 / 960 1450 / 1450 105 / 105 Output Total 400 / 400 Balance 560 / 560 1450 / 1450 105 / 105 Weight 73.9 kg Intake: IV 1210 / 1210 105 / 105 NS Inj 1,000 ML @ 100 mls/hr IV 1000 / 1000 .CONT .Q10H [facility] Rx#:[id number] Keppra Inj 500 MG In NS Inj 100 210 / 210 105 / 105 ML @ 400 mls/hr IV.SIG Q12H [facility] Rx#:[id number] Oral 960 / 960 240 / 240 Output: Urine 400 / 400 Other: # Voids 2 Narrative: GENERAL: AAOx2, no acute distress SKIN: Warm and dry. No rashes HEAD: Atruamtic, normocephalic. EYES: No scleral icterus. No injection or drainage. ENT: Moist mucous membranes, patent nares, no erythema of oropharynx. NECK: Supple, trachea midline. No JVD or lymphadenopathy. Normal thyroid. CARDIOVASCULAR: Regular rate and rhythm. No murmurs, gallops, or rubs. RESPIRATORY: Breath sounds clear equal bilaterally. No crackles or wheezes. No accessory muscle use. GASTROINTESTINAL: Abdomen soft, non-tender, nondistended, normal active bowel sounds, large mass in right lower abdomen MUSCULOSKELETAL: No cyanosis, or edema. NEURO: CN II-XII grossly intact, no focal deficits, no slurring of speech - Urinary Catheter Management Indwelling Urethral Catheter Cath placed during this visit: yes Reason for continuing: Not indwelling catheter Insertion date: 06/08/18 Results - Labs CBC & Chem 7: 06/09/18 04:40 06/09/18 04:40 Laboratory Results - last 24 hr 06/08/18 20:25 Levetiracetam 12.2 Assessment and Plan - Plan Found on floor Unwitnessed event versus abnormal psychiatric state She has a history of seizure disorder, is supposed to be taking Keppra, levels pending Patient suspects she had a seizure, though she does not remember the event, the scenarios happened before Appreciate neurology consult Abnormal psych affect Patient admits to a history of bipolar, she takes Depakote for this Dilantin and Depakote levels were below therapeutic Continue IV Depakote and Dilantin Cleared for discharge by psychiatry Appreciate psych consult Fibroid masses Easily palpable on exam, evident on CT scan No specific treatment at this time DVT prophylaxis Patient had a fall and has current abnormal mental status, no chemoprophylaxis at this time due to risk Discharge planning We will plan for discharge tomorrow with home health
--- NOTE | 2018-06-11 16:41 | P.DCO ---
- Physical Therapy Order: Evaluate and treat - Home Health Nursing Order: Medical education, Signs/symptoms of disease process, Nursing assessment with vital signs - Certification I have seen patient Nette Bartholomew on 06/11/18. My clinical findings support the need for the requested home health care services because: Limited mobility due to disease progression, Deconditioned with increased weakness, Medication compliance is questionable I certify that my clinical findings support that this patient is homebound because: Unsteady gait/balance, Unsafe to leave home unassisted, Unable to use public transportation
--- NOTE | 2018-06-12 14:53 | P.PNIM ---
Subjective Interval history: Patient is more lucid each day. She remains confused about some minor details, forgetful about names of friends. When asked about her independence she seems very positive. When practical tasks are offered such as her arranging her own ride to her house, she is unable to figure out how to get a name or number to get their. She is also unable to provide the number of her . Physical Exam Vital signs: Vital Signs 06/11/18 16:00 06/11/18 20:00 06/12/18 00:00 Temperature 99.0 F 99.4 F 98.6 F Pulse Rate 73 68 61 Respiratory Rate 18 Blood Pressure 135/85 166/92 H 136/68 Pulse Oximetry 95 95 95 06/12/18 08:00 06/12/18 09:57 06/12/18 12:00 Temperature 98.8 F 97.2 F L Pulse Rate 88 83 Respiratory Rate 18 Blood Pressure 171/94 H 114/74 Pulse Oximetry 96 96 Intake & Output 06/11/18 06/12/18 06/12/18 18:59 06:59 18:59 Intake Total 825 / 825 585 / 585 105 / 105 Balance 825 / 825 585 / 585 105 / 105 Weight 73.4 kg Intake: IV 105 / 105 105 / 105 105 / 105 Keppra Inj 500 MG In NS Inj 100 105 / 105 105 / 105 105 / 105 ML @ 400 mls/hr IV.SIG Q12H [facility] Rx#:[id number] Oral 720 / 720 480 / 480 Other: # Voids 5 2 # Bowel Movements 3 Narrative: GENERAL: AAOx3, no acute distress SKIN: Warm and dry. No rashes HEAD: Atruamtic, normocephalic. EYES: No scleral icterus. No injection or drainage. ENT: Moist mucous membranes, patent nares, no erythema of oropharynx. NECK: Supple, trachea midline. No JVD or lymphadenopathy. Normal thyroid. CARDIOVASCULAR: Regular rate and rhythm. No murmurs, gallops, or rubs. RESPIRATORY: Breath sounds clear equal bilaterally. No crackles or wheezes. No accessory muscle use. GASTROINTESTINAL: Abdomen soft, non-tender, nondistended, normal active bowel sounds, large mass in right lower abdomen MUSCULOSKELETAL: No cyanosis, or edema. NEURO: CN II-XII grossly intact, no focal deficits, no slurring of speech - Urinary Catheter Management Indwelling Urethral Catheter Cath placed during this visit: yes Reason for continuing: Not indwelling catheter Insertion date: 06/08/18 Results - Labs CBC & Chem 7: 06/09/18 04:40 06/09/18 04:40 Assessment and Plan - Plan Found on floor Unwitnessed event versus abnormal psychiatric state She has a history of seizure disorder, is supposed to be taking Keppra Patient suspects she had a seizure, though she does not remember the event, the scenarios happened before Appreciate neurology consult Abnormal psych affect Patient admits to a history of bipolar Dilantin and Depakote levels were below therapeutic Cleared for discharge by psychiatry Appreciate psych consult Fibroid masses Easily palpable on exam, evident on CT scan No specific treatment at this time DVT prophylaxis Patient had a fall and has current abnormal mental status, no chemoprophylaxis at this time due to risk Discharge planning Patient has an inability of resourcefulness, I doubt she is able to care for herself at home We will attempt to contact her
--- NOTE | 2018-06-13 16:10 | P.DCO ---
- Physical Therapy Order: Evaluate and treat - Home Health Nursing Order: Medical education, Signs/symptoms of disease process, Nursing assessment with vital signs - Certification I have seen patient Nette Bartholomew on 06/13/18. My clinical findings support the need for the requested home health care services because: Limited mobility due to disease progression, Limited ability to care for self, Need for psychosocial assistance, Impaired cognition/judgement I certify that my clinical findings support that this patient is homebound because: Impaired cognitive ability/safety, Unsteady gait/balance, Unsafe to leave home unassisted, Unable to use public transportation
--- NOTE | 2018-06-13 16:39 | P.DS ---
Date of admission: 06/08/18 22:14 Primary care physician: Chidi Slater MD Brief History from admission: 68-year-old female who is an uncooperative historian. She answers basic questions with yes or no, mostly no. The story is that she was found on the ground at her home with seemingly altered mental status following an unwitnessed event. She has a history of seizure disorder and takes Keppra, when asked if she is currently taking her Keppra she says yes. She is on Dilantin as well for uncertain reasons. Overall she has been refusing care, but when a Agarwal act was offered she agreed to receive an IV instead. DS: Medications - Discharge Medications Prescriptions: levetiracetam [Keppra] 500 mg PO Q12H 30 Days #60 tab quetiapine 25 mg PO HS 30 Days #30 tab DS: Summary Hospital Course: 68-year-old female admitted for altered mental status. She has a history of seizure disorder and by medication seems to have a history of some sort of psychosis, likely bipolar. She was found on the floor, confused prior to arrival to the emergency room. She was thought to have an unwitnessed seizure. She remained confused for 2 days but gradually has become more mentally clear. Her baseline is unclear. She is much more appropriate currently. Her ability to care for herself in a reliable fashion is questionable. She is however capable of making her own medical decisions. She is unwilling to go to a rehab center. I gave her different options and the one that seems to be most favorable for her would be for her to go home with her , she arrives on Thursday. At that point he can arrange for supportive care from neighbors or other family members. I do not recommend that she stay at home by herself for more than a day without supervision. - Time Spent with Patient Total time spent providing and/or coordinating discharge services: Less than 30 minutes Exam Vital signs: Vital Signs 06/12/18 20:00 06/13/18 00:00 06/13/18 08:00 Temperature 99.6 F 99.3 F 97.8 F Pulse Rate 70 66 68 Respiratory Rate 18 18 Blood Pressure 140/84 137/79 169/85 H Pulse Oximetry 95 98 96 06/13/18 09:00 06/13/18 12:00 08/19/18 16:00 Temperature 98.8 F 97.9 F Pulse Rate 66 73 Respiratory Rate 18 18 18 Blood Pressure 146/90 H 172/98 H Pulse Oximetry 96 97 Intake & Output 06/12/18 06/13/18 06/13/18 18:59 06:59 18:59 Intake Total 845 / 845 345 / 345 105 / 105 Balance 845 / 845 345 / 345 105 / 105 Weight 73.6 kg Intake: IV 105 / 105 105 / 105 105 / 105 Keppra Inj 500 MG In NS Inj 100 105 / 105 105 / 105 105 / 105 ML @ 400 mls/hr IV.SIG Q12H [facility] Rx#:[id number] Oral 740 / 740 240 / 240 Other: # Voids 2 2 # Bowel Movements 0 Results Procedures completed during hospitalization: None - Impressions ITS Impressions Cervical Spine CT 06/08/18 20:00 CONCLUSION: 1. No acute fracture. 2. Mild grade 1 anterior spondylolisthesis of C3 on C4. This is stable in appearance. Head CT 06/08/18 20:00 CONCLUSION: 1. Negative noncontrast head CT. . Abdomen/Pelvis CT 06/08/18 20:16 CONCLUSION: 1. Mildly enlarged myomatous uterus again noted with large pedunculated fibroid in the right-sided the abdomen with calcifications in degeneration centrally. 2. Nonspecific bowel gas pattern most characteristic of an ileus. This is similar in appearance to the 2013 study. Chest X-Ray 06/08/18 20:16 CONCLUSION: Mild scarring and atelectasis with no acute cardiopulmonary disease. Discharge Plan - Discharge Disposition Patient Disposition: /Home Health Service - Discharge Condition Condition: Stable - Discharge Order Discharge Orders: Discharge Order (Routine); Ordered 06/14/18 Ordered By: Son Beebe - Discharge Details Discharge Comment: May discharge to care of her - Physicians Team Primary Care Provider: Chidi Slater Attending Provider: Son Beebe Other Providers: Alexandra Anne MD ; Benita Joy Fernando B, MD
[2018-06-13] MEDS ORDERED: QUEtiapine 25 MG Tablet PO SCH (21:00)
[2018-06-14 08:28] VITALS: BP 141/84; PULSE 68; RESP 18; TEMP 97.1; O2SAT 95
--- NOTE | 2018-06-14 11:44 | P.PN ---
Subjective Interval history: Follow-up encephalopathy. She is alert and oriented 3. States she does not need Keppra prescription. She got the medicine at home RN to verify dose. Physical Exam Vital signs: Vital Signs 06/13/18 12:00 06/13/18 16:00 06/13/18 20:00 Temperature 98.8 F 97.9 F 98.2 F Pulse Rate 66 73 75 Respiratory Rate 18 18 20 Blood Pressure 146/90 H 172/98 H 132/88 Pulse Oximetry 96 97 95 06/14/18 00:00 06/14/18 08:00 Temperature 96.9 F L 97.1 F L Pulse Rate 63 68 Respiratory Rate 20 18 Blood Pressure 129/89 141/84 H Pulse Oximetry 97 95 Intake & Output 06/13/18 06/14/18 06/14/18 18:59 06:59 18:59 Intake Total 825 / 825 105 / 105 Balance 825 / 825 105 / 105 Weight 67.2 kg Intake: IV 105 / 105 105 / 105 Keppra Inj 500 MG In NS Inj 100 105 / 105 105 / 105 ML @ 400 mls/hr IV.SIG Q12H [facility] Rx#:[id number] Oral 720 / 720 Other: # Voids 2 1 Date of Last Bowel Movement 06/13/18 06/13/18 # Bowel Movements 1 Narrative: GENERAL: AAOx3, no acute distress SKIN: Warm and dry. No rashes CARDIOVASCULAR: Regular rate and rhythm. No murmurs, gallops, or rubs. RESPIRATORY: Breath sounds clear equal bilaterally. No crackles or wheezes. No accessory muscle use. GASTROINTESTINAL: Abdomen soft, non-tender, nondistended, normal active bowel sounds, large mass in right lower abdomen MUSCULOSKELETAL: No cyanosis, or edema. NEURO: CN II-XII grossly intact, no focal deficits, no slurring of speech - Urinary Catheter Management Indwelling Urethral Catheter Cath placed during this visit: yes Reason for continuing: Not indwelling catheter Insertion date: 06/08/18 Results - Labs CBC & Chem 7: 06/09/18 04:40 06/09/18 04:40 - Imaging ITS Impressions Cervical Spine CT 06/08/18 20:00 CONCLUSION: 1. No acute fracture. 2. Mild grade 1 anterior spondylolisthesis of C3 on C4. This is stable in appearance. Head CT 06/08/18 20:00 CONCLUSION: 1. Negative noncontrast head CT. . Abdomen/Pelvis CT 06/08/18 20:16 CONCLUSION: 1. Mildly enlarged myomatous uterus again noted with large pedunculated fibroid in the right-sided the abdomen with calcifications in degeneration centrally. 2. Nonspecific bowel gas pattern most characteristic of an ileus. This is similar in appearance to the 2013 study. Chest X-Ray 06/08/18 20:16 CONCLUSION: Mild scarring and atelectasis with no acute cardiopulmonary disease. - Procedures None Assessment and Plan - Plan Found on floor Unwitnessed event versus abnormal psychiatric state She has a history of seizure disorder, is supposed to be taking Keppra Patient suspects she had a seizure, though she does not remember the event, the scenarios happened before. EEG without seizure. Continue Keppra Appreciate neurology consult Abnormal psych affect Patient admits to a history of bipolar Dilantin and Depakote levels were below therapeutic Cleared for discharge by psychiatry continue Seroquel Fibroid masses Easily palpable on exam, evident on CT scan No specific treatment at this time DVT prophylaxis Patient ambulatory Discharge Planning: Stable for discharge no driving for 6 months, carrying young children, climbing heights and swimming alone. Patient and understand she needs 24-hour supervision
[2018-06-14] MEDS ORDERED: levETIRAcetam 500 MG Tablet PO SCH (21:00)
== END 2018-06-14 13:24 | disposition home health service (06) ==
LOC: PHED 19:35 → PHEDA 22:14 → PH3 23:24
PROVIDERS: ADMIT Internal Medicine; ATTEND Internal Medicine

== ENCOUNTER 2018-07-20 20:06 | Inpatient (IN) ==
[2018-07-20] MEDS ORDERED: Sod Chloride 0.9% Inj 1,000 ML IV.SIG SCH ×2 (20:15→21:15)
--- NOTE | 2018-07-20 20:20 | ED ---
HPI General Chief Complaint: Seizure Stated Complaint: Seizures Time Seen by Provider: 07/20/18 20:08 Source: EMS Mode of arrival: EMS Limitations: altered mental status History of Present Illness HPI Narrative: 68-year-old female with known history of seizure disorder presents to the emergency department by EMS transport from home. Patient was reportedly found on the carpeted floor inside her home floor in urine by neighbors. Patient was identified to have urine saturated chair next to her. Patient is identified to have contusion abrasion to the left forehead and to the heel of the left foot. Patient reportedly has known seizure disorder and history of noncompliance based on review of medical records. Patient reportedly has been on Depakote for mental health issues as well as Keppra for seizure disorder and has rash allergy to fosphenytoin. Patient here presents postictal and unable to provide history. According to the paramedics they found her on the floor she appeared postictal but was developing increasing level of consciousness and was able to ambulate to the stretcher with minimal assistance and cervical collar in place and then once placed in the EMS unit was witnessed to have a 45 seconds generalized tonic-clonic seizure. As patient was found on floor and appeared postictal and had a witnessed seizure in the EMS unit is concerned that she has had at least 2 seizures and due to saturation of chair next to her with urine possibly more than this unwitnessed. 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 was not contacted regarding this event by neighbors or paramedics prior to arrival to the emergency department. complaint: seizure Onset (ago): minute(s) (en route to the ED by EMS personnel) Description of Episode: tonic-clonic movement -: second(s) (45) Witnessed: yes - by EMS Trauma: Yes Seizure History: known seizure disorder and history of non-compliance with treatment Place: home Possible Precipitating Event: other (unknown) Associated symptoms: other (unavailable based upon altered mntation --post ictal ) Treatments prior to arrival: cervical collar and other (iv access) Related Data Allergies Allergy/AdvReac Type Severity Reaction Status Date / Time fosphenytoin Allergy Severe Rash Verified 06/08/18 22:55 Review of Systems ROS Unobtainable ROS Unobtainable: unobtainable due to mental status PMFSH History History Provided By: Medical Record (Seizure disorder noncompliant psychosis bipolar) 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 Medical History Medical History Anxiety (Acute) Aspiration pneumonia (Acute) Atrial fibrillation (Acute) Dementia with psychosis (Acute) Depression (Acute) Epilepsy (Acute) HTN (hypertension) (Acute) History of (Acute) Noncompliance (Acute) Numbness and tingling of both feet (Acute) Polycythemia (Acute) Seizure (Acute) Surgical History Surgical History History of dilatation and curettage (Acute) Family History Family History Other Hypertension Social History Social History Substance History: No History of Abuse Smoking Status: Current some day smoker Tobacco Type: Cigarettes How Often Do You Have a Drink Containing Alcohol: Monthly or less Recent Out of Country Travel within the Last 8 Weeks: No Exam Narrative Exam Narrative: GENERAL: Disheveled adult female in no acute distress no respiratory distress, appears postictal E: 4, V: 1, M: 4. SKIN: Focused skin assessment warm/dry. HEAD: Atraumatic. Normocephalic. Left forehead abrasion and hematoma EYES: Pupils equal and round and reactive to light. No scleral icterus. No injection or drainage. ENT: No nasal bleeding or discharge. Mucous membranes pink and moist. NECK: Trachea midline. No JVD. Cervical collar in place. No bony step-off to palpation. CARDIOVASCULAR: Increased Regular rate and rhythm. No murmur appreciated. RESPIRATORY: No accessory muscle use. Clear to auscultation. Breath sounds equal bilaterally. GASTROINTESTINAL: Abdomen soft, non-tender, nondistended. Hepatic and splenic margins not palpable. MUSCULOSKELETAL: No obvious deformities. No clubbing. No cyanosis. No edema. Significant abrasion with controlled bleeding to left heel. Bilateral radial and dorsalis pedis pulses 2+ to palpation. NEUROLOGICAL: Somnolent, GCS 9. No obvious cranial nerve deficits. Motor grossly within normal limits. Non-verbal, speech. Course Initial Documented Vital Signs Temperature 99.1 F 07/20/18 20:10 Pulse Rate 84 07/20/18 20:10 Respiratory Rate 16 07/20/18 20:10 Blood Pressure 147/88 H 07/20/18 20:10 Pulse Oximetry 94 L 07/20/18 20:10 Last Documented Vital Signs Temperature 99.1 F 07/20/18 20:10 Pulse Rate 90 07/20/18 23:46 Respiratory Rate 16 07/21/18 00:17 Blood Pressure 166/95 H 07/20/18 23:46 Pulse Oximetry 95 07/20/18 23:46 Critical Care Time Critical Care Time: Yes Total Critical Care Time: 30 Attestation: Aggregate critical care time was 30 minutes. Time to perform other separately billable procedures was not included in the critical care time. My time did not include minutes spent treating any other patients simultaneously or on activities that did not directly contribute to the patient's treatment. The services I provided to this patient were to treat and/or prevent clinically significant deterioration that could result in: Sepsis, respiratory arrest, I provided critical care services requiring my management, as noted below: Chart data review, documentation time, medication orders and management, vital sign assessments/reviewing monitor data, ordering and reviewing lab tests, ordering and interpreting/reviewing x-rays and diagnostic studies, care of the patient and discussion of the patient with the admitting physicians. Medical Decision Making MDM Narrative Medical decision making narrative: Seizure, precautions initiated patient placed on quality assurance monitor body with continuous pulse oximetry IV access obtained by EMS and additional IV access ordered patient given bolus of normal saline cervical collar kept in place bedside blood sugar ordered CT brain noncontrast CT facial bones noncontrast and CT cervical spine noncontrast ordered chest x- ray as well has been ordered along with EKG ammonia level lactic acid and basic lab work. Patient by review of medical records indicates is prescribed Depakote for medical health issues as well as Keppra for seizure disorder with report of noncompliance. At 11 PM cervical collar removed by me after reading radiologist identifies no acute abnormality on imaging study Patient clinically improved remains nonverbal however but is tracking and smiling at nursing staff. Patient's case discussed with on-call business continuity management director due to unknown number of seizures at home and at least 2 witnessed seizures and presumptively a third seizure at home prior to arrival. Elevated lactic acid most likely reflects seizure. Patient with some hemoconcentration. Patient administered fluids and Keppra review of medical records indicates patient should be continued on Keppra and optimized on her Depakote per neurology note during last hospitalization 05/2018 and EEG done at that time was unremarkable. Patient was evaluated by psychiatry during that admission as well. Patient's case discussed with business continuity management director for admission. Patient graciously accepted for ICU admission by Dr. Edmondson. Medical Screen Exam Complete: Yes Emergency Medical Condition: Yes Differential Diagnosis Differential Diagnosis: Seizure, status epilepticus, noncompliance, arrhythmia, syncope, CVA, TIA, electrode disturbance, sepsis Medical Records Medical records reviewed: Yes I reviewed the patient's medical records. Lab Data Result diagrams: 07/20/18 20:10 07/20/18 20:10 Lab Results 07/20/18 07/20/18 07/20/18 Range/Units 20:10 20:10 20:10 CBC w Diff Slide review pending WBC 7.8 (4.0-11.0) th/mm3 RBC 5.34 H (4.00-5.30) mil/mm3 Hgb 16.5 H (11.6-15.3) gm/dL Hct 49.1 H (35.0-46.0) % MCV 92.0 (80.0-100.0) fL MCH 30.8 (27.0-34.0) pg MCHC 33.5 (32.0-36.0) % RDW 12.8 (11.6-17.2) % Plt Count 73 L (150-450) th/mm3 MPV 8.5 (7.0-11.0) fL Neut % (Auto) 90.1 H (16.0-70.0) % Lymph % (Auto) 5.2 L (9.0-44.0) % [place] % (Auto) 2.2 (0.0-8.0) % Eos % (Auto) 0.0 (0.0-4.0) % Baso % (Auto) 2.5 H (0.0-2.0) % Neut # (Auto) 7.0 (1.8-7.7) th/mm3 Lymph # (Auto) 0.4 L (1.0-4.8) th/mm3 [place] # (Auto) 0.2 (0.0-0.9) th/mm3 Eos # (Auto) 0.0 (0.0-0.4) th/mm3 Baso # (Auto) 0.2 (0.0-0.2) th/mm3 WBC Differential Manual diff final Seg Neuts % (Manual) 86 H (16-70) % Band Neuts % (Manual) 5 (0-6) % Lymphocytes % (Manual) 6 L (9-44) % Monocytes % (Manual) 3 (0-8) % Abs Neuts (Manual) 7.1 (1.8-7.7) th/mm3 Differential Comment . Platelet Estimate Low L (Normal) Platelet Morphology Enlarged H (Normal) RBC Morphology Normal (Normal) Puncture Site Patient Temperature O2 Saturation (90-100) % ABG pH (7.380-7.420) ABG pCO2 (38-42) mmHg ABG pO2 (61-120) mmHg ABG HCO3 (22-26) mmol/L ABG O2 Content (12.0-20.0) Vol % ABG Base Excess (-2-2) mmol/L ABG Methemoglobin (0-2) % Brodie Test Hemoglobin (12.0-16.0) G/DL Carboxyhemoglobin (0-4) % Inspired O2 % Critical Value Sodium 140 (136-145) meq/L Potassium 3.7 (3.5-5.1) meq/L Chloride 105 (98-107) meq/L Carbon Dioxide 19.2 L (21.0-32.0) meq/L Anion Gap 16 H (5-15) meq/L BUN 10 (7-18) mg/dL Creatinine 1.00 (0.50-1.00) mg/dL Estimated GFR 55 L (>89) mL/min POC Glucose 166 H (68-110) mg/dl Random Glucose 158 H (74-106) mg/dL Lactic Acid (0.4-2.0) mmol/L Calcium 8.9 (8.5-10.1) mg/dL Magnesium 2.6 H (1.5-2.5) mg/dL Total Bilirubin 0.3 (0.2-1.0) mg/dL AST 11 L (15-37) U/L ALT 14 (10-53) U/L Alkaline Phosphatase 107 (45-117) U/L Ammonia (11-32) mcmol/L Total Protein 7.5 (6.4-8.2) g/dL Albumin 4.1 (3.4-5.0) g/dL Urine Color (Yellw/Straw) Urine Clarity (Clear) Urine pH (5.0-8.5) Ur Specific [place] (1.002-1.035) Urine Protein (Neg-Trace) mg/dL Urine Glucose (UA) (Negative) mg/dL Urine Ketones (Negative) mg/dL Urine Occult Blood (Negative) Urine Nitrate (Negative) Urine Bilirubin (Negative) Urine Urobilinogen (Less than 2) mg/dL Ur Leukocyte Esterase (Negative) Urine RBC (0-3) /hpf Urine WBC (0-5) /hpf Ur Squamous Epith Cells (0-5) /hpf Ur Microscopic Review Digoxin (0.8-2.0) ng/mL Urine Opiates Screen (Neg) Ur Barbiturates Screen (Neg) Phenytoin (10.0-20.0) mcg/mL Valproic Acid (50-100) mcg/mL Ur Amphetamines Screen (Neg) U Benzodiazepines Scrn (Neg) Urine Cocaine Screen (Neg) U Cannabinoids Screen (Neg) Serum Alcohol Less than 3 (0-5) mg/dL 07/20/18 07/20/18 07/20/18 Range/Units 20:10 20:10 20:10 CBC w Diff WBC (4.0-11.0) th/mm3 RBC (4.00-5.30) mil/mm3 Hgb (11.6-15.3) gm/dL Hct (35.0-46.0) % MCV (80.0-100.0) fL MCH (27.0-34.0) pg MCHC (32.0-36.0) % RDW (11.6-17.2) % Plt Count (150-450) th/mm3 MPV (7.0-11.0) fL Neut % (Auto) (16.0-70.0) % Lymph % (Auto) (9.0-44.0) % [place] % (Auto) (0.0-8.0) % Eos % (Auto) (0.0-4.0) % Baso % (Auto) (0.0-2.0) % Neut # (Auto) (1.8-7.7) th/mm3 Lymph # (Auto) (1.0-4.8) th/mm3 [place] # (Auto) (0.0-0.9) th/mm3 Eos # (Auto) (0.0-0.4) th/mm3 Baso # (Auto) (0.0-0.2) th/mm3 WBC Differential Seg Neuts % (Manual) (16-70) % Band Neuts % (Manual) (0-6) % Lymphocytes % (Manual) (9-44) % Monocytes % (Manual) (0-8) % Abs Neuts (Manual) (1.8-7.7) th/mm3 Differential Comment Platelet Estimate (Normal) Platelet Morphology (Normal) RBC Morphology (Normal) Puncture Site Patient Temperature O2 Saturation (90-100) % ABG pH (7.380-7.420) ABG pCO2 (38-42) mmHg ABG pO2 (61-120) mmHg ABG HCO3 (22-26) mmol/L ABG O2 Content (12.0-20.0) Vol % ABG Base Excess (-2-2) mmol/L ABG Methemoglobin (0-2) % Brodie Test Hemoglobin (12.0-16.0) G/DL Carboxyhemoglobin (0-4) % Inspired O2 % Critical Value Sodium (136-145) meq/L Potassium (3.5-5.1) meq/L Chloride (98-107) meq/L Carbon Dioxide (21.0-32.0) meq/L Anion Gap (5-15) meq/L BUN (7-18) mg/dL Creatinine (0.50-1.00) mg/dL Estimated GFR (>89) mL/min POC Glucose (68-110) mg/dl Random Glucose (74-106) mg/dL Lactic Acid 8.9 H* (0.4-2.0) mmol/L Calcium (8.5-10.1) mg/dL Magnesium (1.5-2.5) mg/dL Total Bilirubin (0.2-1.0) mg/dL AST (15-37) U/L ALT (10-53) U/L Alkaline Phosphatase (45-117) U/L Ammonia (11-32) mcmol/L Total Protein (6.4-8.2) g/dL Albumin (3.4-5.0) g/dL Urine Color (Yellw/Straw) Urine Clarity (Clear) Urine pH (5.0-8.5) Ur Specific [place] (1.002-1.035) Urine Protein (Neg-Trace) mg/dL Urine Glucose (UA) (Negative) mg/dL Urine Ketones (Negative) mg/dL Urine Occult Blood (Negative) Urine Nitrate (Negative) Urine Bilirubin (Negative) Urine Urobilinogen (Less than 2) mg/dL Ur Leukocyte Esterase (Negative) Urine RBC (0-3) /hpf Urine WBC (0-5) /hpf Ur Squamous Epith Cells (0-5) /hpf Ur Microscopic Review Digoxin 0.1 L (0.8-2.0) ng/mL Urine Opiates Screen (Neg) Ur Barbiturates Screen (Neg) Phenytoin Less than 0.4 L (10.0-20.0) mcg/mL Valproic Acid Less than 3 L (50-100) mcg/mL Ur Amphetamines Screen (Neg) U Benzodiazepines Scrn (Neg) Urine Cocaine Screen (Neg) U Cannabinoids Screen (Neg) Serum Alcohol (0-5) mg/dL 07/20/18 07/20/18 07/20/18 Range/Units 20:10 21:18 21:18 CBC w Diff WBC (4.0-11.0) th/mm3 RBC (4.00-5.30) mil/mm3 Hgb (11.6-15.3) gm/dL Hct (35.0-46.0) % MCV (80.0-100.0) fL MCH (27.0-34.0) pg MCHC (32.0-36.0) % RDW (11.6-17.2) % Plt Count (150-450) th/mm3 MPV (7.0-11.0) fL Neut % (Auto) (16.0-70.0) % Lymph % (Auto) (9.0-44.0) % [place] % (Auto) (0.0-8.0) % Eos % (Auto) (0.0-4.0) % Baso % (Auto) (0.0-2.0) % Neut # (Auto) (1.8-7.7) th/mm3 Lymph # (Auto) (1.0-4.8) th/mm3 [place] # (Auto) (0.0-0.9) th/mm3 Eos # (Auto) (0.0-0.4) th/mm3 Baso # (Auto) (0.0-0.2) th/mm3 WBC Differential Seg Neuts % (Manual) (16-70) % Band Neuts % (Manual) (0-6) % Lymphocytes % (Manual) (9-44) % Monocytes % (Manual) (0-8) % Abs Neuts (Manual) (1.8-7.7) th/mm3 Differential Comment Platelet Estimate (Normal) Platelet Morphology (Normal) RBC Morphology (Normal) Puncture Site Patient Temperature O2 Saturation (90-100) % ABG pH (7.380-7.420) ABG pCO2 (38-42) mmHg ABG pO2 (61-120) mmHg ABG HCO3 (22-26) mmol/L ABG O2 Content (12.0-20.0) Vol % ABG Base Excess (-2-2) mmol/L ABG Methemoglobin (0-2) % Brodie Test Hemoglobin (12.0-16.0) G/DL Carboxyhemoglobin (0-4) % Inspired O2 % Critical Value Sodium (136-145) meq/L Potassium (3.5-5.1) meq/L Chloride (98-107) meq/L Carbon Dioxide (21.0-32.0) meq/L Anion Gap (5-15) meq/L BUN (7-18) mg/dL Creatinine (0.50-1.00) mg/dL Estimated GFR (>89) mL/min POC Glucose (68-110) mg/dl Random Glucose (74-106) mg/dL Lactic Acid (0.4-2.0) mmol/L Calcium (8.5-10.1) mg/dL Magnesium (1.5-2.5) mg/dL Total Bilirubin (0.2-1.0) mg/dL AST (15-37) U/L ALT (10-53) U/L Alkaline Phosphatase (45-117) U/L Ammonia 16 (11-32) mcmol/L Total Protein (6.4-8.2) g/dL Albumin (3.4-5.0) g/dL Urine Color Yellow (Yellw/Straw) Urine Clarity Clear (Clear) Urine pH 6.0 (5.0-8.5) Ur Specific [place] 1.025 (1.002-1.035) Urine Protein Trace (Neg-Trace) mg/dL Urine Glucose (UA) Negative (Negative) mg/dL Urine Ketones Negative (Negative) mg/dL Urine Occult Blood Trace (Negative) Urine Nitrate Negative (Negative) Urine Bilirubin Negative (Negative) Urine Urobilinogen 0.2 (Less than 2) mg/dL Ur Leukocyte Esterase Negative (Negative) Urine RBC 0-3 (0-3) /hpf Urine WBC 0-5 (0-5) /hpf Ur Squamous Epith Cells 0-5 (0-5) /hpf Ur Microscopic Review Microscopic reviewed Digoxin (0.8-2.0) ng/mL Urine Opiates Screen Neg (Neg) Ur Barbiturates Screen Neg (Neg) Phenytoin (10.0-20.0) mcg/mL Valproic Acid (50-100) mcg/mL Ur Amphetamines Screen Neg (Neg) U Benzodiazepines Scrn Neg (Neg) Urine Cocaine Screen Neg (Neg) U Cannabinoids Screen Neg (Neg) Serum Alcohol (0-5) mg/dL 07/20/18 07/20/18 Range/Units 23:20 23:28 CBC w Diff WBC (4.0-11.0) th/mm3 RBC (4.00-5.30) mil/mm3 Hgb (11.6-15.3) gm/dL Hct (35.0-46.0) % MCV (80.0-100.0) fL MCH (27.0-34.0) pg MCHC (32.0-36.0) % RDW (11.6-17.2) % Plt Count (150-450) th/mm3 MPV (7.0-11.0) fL Neut % (Auto) (16.0-70.0) % Lymph % (Auto) (9.0-44.0) % [place] % (Auto) (0.0-8.0) % Eos % (Auto) (0.0-4.0) % Baso % (Auto) (0.0-2.0) % Neut # (Auto) (1.8-7.7) th/mm3 Lymph # (Auto) (1.0-4.8) th/mm3 [place] # (Auto) (0.0-0.9) th/mm3 Eos # (Auto) (0.0-0.4) th/mm3 Baso # (Auto) (0.0-0.2) th/mm3 WBC Differential Seg Neuts % (Manual) (16-70) % Band Neuts % (Manual) (0-6) % Lymphocytes % (Manual) (9-44) % Monocytes % (Manual) (0-8) % Abs Neuts (Manual) (1.8-7.7) th/mm3 Differential Comment Platelet Estimate (Normal) Platelet Morphology (Normal) RBC Morphology (Normal) Puncture Site Right radial Patient Temperature 98.6 O2 Saturation 92 (90-100) % ABG pH 7.41 (7.380-7.420) ABG pCO2 35 L (38-42) mmHg ABG pO2 71 (61-120) mmHg ABG HCO3 22 (22-26) mmol/L ABG O2 Content 19.5 (12.0-20.0) Vol % ABG Base Excess -1.8 (-2-2) mmol/L ABG Methemoglobin 1.5 (0-2) % Brodie Test Y Hemoglobin 15.0 (12.0-16.0) G/DL Carboxyhemoglobin 1.0 (0-4) % Inspired O2 21 % Critical Value No Sodium (136-145) meq/L Potassium (3.5-5.1) meq/L Chloride (98-107) meq/L Carbon Dioxide (21.0-32.0) meq/L Anion Gap (5-15) meq/L BUN (7-18) mg/dL Creatinine (0.50-1.00) mg/dL Estimated GFR (>89) mL/min POC Glucose (68-110) mg/dl Random Glucose (74-106) mg/dL Lactic Acid 2.5 H (0.4-2.0) mmol/L Calcium (8.5-10.1) mg/dL Magnesium (1.5-2.5) mg/dL Total Bilirubin (0.2-1.0) mg/dL AST (15-37) U/L ALT (10-53) U/L Alkaline Phosphatase (45-117) U/L Ammonia (11-32) mcmol/L Total Protein (6.4-8.2) g/dL Albumin (3.4-5.0) g/dL Urine Color (Yellw/Straw) Urine Clarity (Clear) Urine pH (5.0-8.5) Ur Specific [place] (1.002-1.035) Urine Protein (Neg-Trace) mg/dL Urine Glucose (UA) (Negative) mg/dL Urine Ketones (Negative) mg/dL Urine Occult Blood (Negative) Urine Nitrate (Negative) Urine Bilirubin (Negative) Urine Urobilinogen (Less than 2) mg/dL Ur Leukocyte Esterase (Negative) Urine RBC (0-3) /hpf Urine WBC (0-5) /hpf Ur Squamous Epith Cells (0-5) /hpf Ur Microscopic Review Digoxin (0.8-2.0) ng/mL Urine Opiates Screen (Neg) Ur Barbiturates Screen (Neg) Phenytoin (10.0-20.0) mcg/mL Valproic Acid (50-100) mcg/mL Ur Amphetamines Screen (Neg) U Benzodiazepines Scrn (Neg) Urine Cocaine Screen (Neg) U Cannabinoids Screen (Neg) Serum Alcohol (0-5) mg/dL Imaging Data Radiologist's impression: Cervical Spine CT 07/20/18 20:12 CONCLUSION: 1. Grade 1 anterolisthesis at C3-4, stable from prior. 2. No acute findings. Face CT 07/20/18 20:12 CONCLUSION: 1. No facial bone fracture seen. 2. Left sphenoid sinus disease, stable from February 2018. New mild right maxillary sinus disease. Head CT 07/20/18 21:50 CONCLUSION: 1. No acute findings in the brain. . Discharge Plan Discharge Disposition Patient Disposition: 30 Still Patient Discharge Condition Condition: Stable Discharge Details Diagnosis: Generalized seizure, Elevated lactic acid level Physicians Team ED Provider: Deepti Douglas Primary Care Provider: Chidi Slater Attending Provider: Neha Edmondson Other Providers: Todd Duron Status ED Status: Admitted Patient
[2018-07-20 20:38] LABS: Baso # (Auto) 0.2 th/mm3 (0.0-0.2); Baso % (Auto) 2.5 % (0.0-2.0); Hematocrit 49.1 % (35.0-46.0); Hemoglobin 16.5 gm/dL (11.6-15.3); Lymph # (Auto) 0.4 th/mm3 (1.0-4.8); Lymph % (Auto) 5.2 % (9.0-44.0); Mean Corpuscular HGB Conc 33.5 % (32.0-36.0); Mean Corpuscular Hemoglobin 30.8 pg (27.0-34.0); Mean Platelet Volume 8.5 fL (7.0-11.0); Mono # (Auto) 0.2 th/mm3 (0.0-0.9); Mono % (Auto) 2.2 % (0.0-8.0); Neut % (Auto) 90.1 % (16.0-70.0); Platelet Count 73 th/mm3 (150-450); Red Blood Count 5.34 mil/mm3 (4.00-5.30); Red Cell Distribution Width 12.8 % (11.6-17.2); White Blood Count 7.8 th/mm3 (4.0-11.0)
[2018-07-20 20:48] LABS: Chloride 105 meq/L (98-107); Potassium 3.7 meq/L (3.5-5.1); Sodium 140 meq/L (136-145)
[2018-07-20 20:51] LABS: Calcium 8.9 mg/dL (8.5-10.1)
[2018-07-20 20:52] LABS: Albumin 4.1 g/dL (3.4-5.0); Anion Gap 16 meq/L (5-15); Blood Urea Nitrogen 10 mg/dL (7-18); Carbon Dioxide 19.2 meq/L (21.0-32.0); Glucose,Random 158 mg/dL (74-106); Magnesium 2.6 mg/dL (1.5-2.5)
[2018-07-20 20:55] LABS: Alanine Aminotransferase 14 U/L (10-53); Aspartate Aminotransferase 11 U/L (15-37); Glomerular Filtration Rate 55 mL/min (>89)
[2018-07-20 20:57] LABS: Total Protein 7.5 g/dL (6.4-8.2)
[2018-07-20 20:58] LABS: Alkaline Phosphatase 107 U/L (45-117)
[2018-07-20 21:14] LABS: Lymphocytes 6 % (9-44); Monocytes 3 % (0-8); RBC Morphology Normal (Normal)
[2018-07-20 21:22] LABS: Bilirubin,Urine Negative (Negative); Clarity,Urine Clear (Clear); Color,Urine Yellow (Yellw/Straw); Glucose,Urine (UA) Negative (Negative); Leukocyte Esterase,Urine Negative (Negative); Nitrite,Urine Negative (Negative); Specific Gravity,Urine 1.025 (1.002-1.035); Urobilinogen,Urine 0.2 mg/dL (Less than 2)
[2018-07-20 21:28] LABS: RBC,Urine 0-3 /hpf (0-3); Squamous Epithelial Cell,Urine 0-5 /hpf (0-5); WBC,Urine 0-5 /hpf (0-5)
[2018-07-20 21:36] LABS: Amphetamine Screen,Urine Neg (Neg); Barbiturate Screen,Urine Neg (Neg); Cannabinoid Screen,Urine Neg (Neg); Cocaine Screen,Urine Neg (Neg)
[2018-07-20 21:40] LABS: Opiate Screen,Urine Neg (Neg)
--- NOTE | 2018-07-20 22:22 | ECG ---
Date Performed: 07/20/2018 Time Performed: 20:24:55 PTAGE: 68 years EKG: Sinus rhythm NONSPECIFIC T-WAVE ABNORMALITY BORDERLINE ECG PREVIOUS TRACING : 03/12/2018 09.07 Compared to previous tracing, a fib no longer present DOCTOR: Romi Emanuel Interpretating Date/Time 07/20/2018 22:20:40
--- NOTE | 2018-07-20 22:44 | CT ---
EXAM DATE: 07/20/2018 8:52 PM EDT AGE/SEX: 68 years / Female INDICATIONS: Trauma. Fall. Possible seizure. CLINICAL DATA: This is the patient's initial encounter. Patient reports that signs and symptoms have been present for 1 day and indicates a pain score of Nonresponsive. MEDICAL/SURGICAL HISTORY: Non-responsive. Non-responsive. RADIATION DOSE: 26.54 CTDI (mGy) COMPARISON: [facility], CT CERVICAL SPINE W/O CONTRAST, 06/08/2018. . TECHNIQUE: Contiguous axial images were obtained using helical multirow detector technique. The vol umetric data was post-processed with multiplanar reconstruction in oblique axial, sagittal, and coron al planes. Using automated exposure control and adjustment of the mA and/or kV according to patient s ize, radiation dose was kept as low as reasonably achievable to obtain optimal diagnostic quality kuldeep ges. DICOM format image data is available electronically for review and comparison. FINDINGS: There is minimal anterolisthesis of C3 with respect to C4. Vertebral body height is maintained. Bridg ing anterior vertebral ossification is present at the C3-4 level. There is advanced arthropathy of th e atlantoaxial articulation with partial fusion and cystic change. Moderate severity facet joint hype rtrophy is present from C3 through C7. Prevertebral soft tissues are normal in thickness.. C2-3: No fracture seen. The neural foramina are patent. C3-4: No fracture seen. The neural foramina are patent. C4-5: No fracture seen. The neural foramina are patent. C5-6: No fracture seen. Moderate severity bilateral bony neural foraminal stenosis. C6-7: No fracture seen. The neural foramina are patent.. C7-T1: No fracture seen. The neural foramina are patent. CONCLUSION: 1. Grade 1 anterolisthesis at C3-4, stable from prior. 2. No acute findings. Electronically signed by: Nam Malcolm MD 07/20/2018 10:42 PM EDT
--- NOTE | 2018-07-20 22:47 | CT ---
EXAM DATE: 07/20/2018 8:52 PM EDT AGE/SEX: 68 years / Female INDICATIONS: Trauma. Fall. Possible seizure. CLINICAL DATA: This is the patient's initial encounter. Patient reports that signs and symptoms have been present for 1 day and indicates a pain score of Nonresponsive. MEDICAL/SURGICAL HISTORY: Non-responsive. Non-responsive. RADIATION DOSE: 25.49 CTDI (mGy) [place] [facility] [place], [place]/09/2018. . TECHNIQUE: Contiguous images in the axial and coronal planes were obtained using helical multirow de tector technique. Using automated exposure control and adjustment of the mA and/or kV according to p atient size, radiation dose was kept as low as reasonably achievable to obtain optimal diagnostic anatoly lity images. DICOM format image data is available electronically for review and comparison. FINDINGS: There is mild callosal thickening in the inferior right maxillary sinus. Small air-fluid level in the left sphenoid sinus. Moderate nasal septal deviation towards the left. The left maxillary, ethmoid, and frontal sinuses are clear. Moderate severity degenerative changes in the left TMJ with sclerosis and subchondral cysts. No fracture seen in the mandible, zygomatic arches, bony orbit, nasal bones, or pterygoid plates.. CONCLUSION: 1. No facial bone fracture seen. 2. Left sphenoid sinus disease, stable from February 2018. New mild right maxillary sinus disease. Electronically signed by: Nam Malcolm MD 07/20/2018 10:46 PM EDT
--- NOTE | 2018-07-20 22:58 | CT ---
EXAM DATE: 07/20/2018 10:13 PM EDT AGE/SEX: 68 years / Female INDICATIONS: Possible seizure. Fall. CLINICAL DATA: This is the patient's initial encounter. Patient reports that signs and symptoms have been present for 1 day and indicates a pain score of Nonresponsive. MEDICAL/SURGICAL HISTORY: Non-responsive. Non-responsive. RADIATION DOSE: 59.65 CTDI (mGy) ; Patient motion COMPARISON: [facility], CT HEAD W/O CONTRAST, 06/08/2018. . TECHNIQUE: CT of the head without contrast. Using automated exposure control and adjustment of the mA and/or kV according to patient size, radiation dose was kept as low as reasonably achievable to ob tain optimal diagnostic quality images. DICOM format image data is available electronically for revi ew and comparison. FINDINGS: Cerebrum: The ventricles are normal for age. No evidence of midline shift, mass lesion, hemorrhage or acute infarction. No extraaxial fluid collections are seen. Posterior Fossa: The cerebellum and brainstem are intact. The 4th ventricle is midline. The cerebe llopontine angle is unremarkable. Extracranial: The visualized portion of the orbits is intact. Stable callosal thickening in the left sphenoid sinus. Skull: The calvaria is intact. No evidence of skull fracture. CONCLUSION: 1. No acute findings in the brain. . Electronically signed by: Nam Malcolm MD 07/20/2018 10:57 PM EDT
[2018-07-20] MEDS ORDERED: Tetanus/Diphtheria Toxoid Adult Vaccine Inj 0.5 ML Vial IM ONE (23:02)
[2018-07-20] MEDS ORDERED: Bisacodyl 10 MG Supp RECTAL PRN (23:37)
[2018-07-20] MEDS ORDERED: Acetaminophen 325 MG Tablet PO PRN (23:37)
[2018-07-20 23:39] LABS: ABG Base Excess -1.8 mmol/L (-2-2); ABG PCO2 35 mmHg (38-42); ABG PO2 71 mmHg (61-120)
[2018-07-20] MEDS: Sod Chloride 0.9% Inj 1,000 ML IV.CONT SCH (23:39)
[2018-07-20] MEDS: Divalproex 500 MG DR Tablet PO SCH (23:44)
[2018-07-20] MEDS ORDERED: Sodium Chlor 0.9% Inj 500 ML IV.SIG SCH (23:45)
[2018-07-20] MEDS: Enoxaparin Inj 40 MG/0.4 ML Syringe SQ SCH (23:50)
[2018-07-21] MEDS: Sod Chloride 0.9% Inj 1,000 ML IV.CONT SCH ×5 (00:15→23:01)
[2018-07-21] MEDS ORDERED: Chlorhexidine Gluconate 2% 1 Pack (2 Cloths) TOPICAL PRN (04:00)
[2018-07-21] MEDS: Chlorhexidine Gluconate 2% 1 Pack (2 Cloths) TOPICAL SCH (04:29)
[2018-07-21 05:16] LABS: Chloride 107 meq/L (98-107); Potassium 3.3 meq/L (3.5-5.1); Sodium 140 meq/L (136-145)
[2018-07-21 05:18] LABS: Baso # (Auto) 0.2 th/mm3 (0.0-0.2); Baso % (Auto) 2.7 % (0.0-2.0); Eos % (Auto) 0.1 % (0.0-4.0); Hematocrit 45.5 % (35.0-46.0); Hemoglobin 15.3 gm/dL (11.6-15.3); Lymph # (Auto) 0.9 th/mm3 (1.0-4.8); Lymph % (Auto) 11.5 % (9.0-44.0); Mean Corpuscular HGB Conc 33.7 % (32.0-36.0); Mean Corpuscular Hemoglobin 30.5 pg (27.0-34.0); Mean Corpuscular Volume 90.6 fL (80.0-100.0); Mean Platelet Volume 8.4 fL (7.0-11.0); Mono # (Auto) 0.3 th/mm3 (0.0-0.9); Mono % (Auto) 3.8 % (0.0-8.0); Neut # (Auto) 6.7 th/mm3 (1.8-7.7); Neut % (Auto) 81.9 % (16.0-70.0); Platelet Count 172 th/mm3 (150-450); Red Blood Count 5.02 mil/mm3 (4.00-5.30); Red Cell Distribution Width 12.9 % (11.6-17.2); White Blood Count 8.1 th/mm3 (4.0-11.0)
[2018-07-21 05:25] LABS: Anion Gap 9 meq/L (5-15); Blood Urea Nitrogen 7 mg/dL (7-18); Calcium 8.1 mg/dL (8.5-10.1); Carbon Dioxide 23.6 meq/L (21.0-32.0); Glomerular Filtration Rate Greater Than 89 mL/min (>89); Glucose,Random 119 mg/dL (74-106); Magnesium 2.2 mg/dL (1.5-2.5); Phosphorus 2.6 mg/dL (2.5-4.9)
--- NOTE | 2018-07-21 08:43 | P.CONNEU ---
History of Present Illness Service: Neurology neurology Primary Care Provider: Chidi Slater MD Family Provider: Chidi Slater MD Chief Complaint: Seizure History of Present Illness: 68-year-old female with a history of intractable seizures, noncompliance admitted for recurrent seizure. Found down apparently by neighbors confused. Brought in by [facility] limited history from patient at present the intensive care unit stabilized. 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 - Medical History Medical History: Medical History (Last Reviewed 07/21/18 @ 07:24 by Chidi Benítez) Anxiety Aspiration pneumonia Atrial fibrillation Dementia with psychosis Depression Epilepsy HTN (hypertension) History of Noncompliance Numbness and tingling of both feet Polycythemia Seizure - Surgical History Surgical History: Surgical History (Last Reviewed 07/21/18 @ 07:24 by Chidi Benítez) History of dilatation and curettage - Family History Family History: Family History (Last Updated 06/09/18 @ 15:36 by Son Beebe MD) Other Hypertension - Tobacco History Tobacco Use In Past 30 Days: Yes Smoking Status: Unknown if ever smoked Tobacco Type: Cigarettes - Alcohol History How Often Do You Have a Drink Containing Alcohol: Unable to Obtain - Substance Use History Substance History: No History of Abuse - Travel History Recent Travel Out of the Country Within the Last 8 Weeks: No - Immunization History Tetanus Immunization: <5 Years Tetanus Immunization Year if Known: 2015 Hx Influenza Vaccine This Season: No Medications and Allergies Active Medications: Active Medications Acetaminophen (Tylenol) 650 mg PO Q6H PRN PRN Reason: PAIN 1-10 AND/OR FEVER >101F Al Hydroxide/Mg Hydroxide (Milk Of Arpit Liq) 30 ml PO Q12H PRN PRN Reason: Mild Constipation Albuterol (Albuterol Neb (Prn)) 2.5 mg NEB Q2HR NEB PRN PRN Reason: SHORTNESS OF BREATH/WHEEZING Bisacodyl (Dulcolax Supp) 10 mg RECTAL DAILY PRN PRN Reason: SEVERE CONSITIPATION Chlorhexidine Gluconate (Chlorhexidine 2% Cloth) 3 pack TOPICAL DAILY@0400 [facility] Stop: 07/26/18 03:59 Last Admin: 07/21/18 04:29 Dose: 3 pack Chlorhexidine Gluconate (Chlorhexidine 2% Cloth) 3 pack TOPICAL DAILY@0400 PRN PRN Reason: Extra cloth needed Stop: 07/26/18 03:59 Divalproex Sodium (Depakote Dr) 500 mg PO BID [facility] Last Admin: 07/20/18 23:44 Dose: Not Given Enoxaparin Sodium (Lovenox Inj) 40 mg SQ Q24H [facility] Last Admin: 07/20/18 23:50 Dose: 40 mg Famotidine (Pepcid Pf Inj) 20 mg IV.PUSH Q12HR [facility] Sodium Chloride (Ns Inj) 1,000 mls @ 125 mls/hr IV.CONT .Q8H [facility] Last Infusion: 07/21/18 05:48 Dose: Infused Sodium Chloride (Ns Inj) 1,000 mls @ 0 mls/hr IV.SIG BOLUS [facility] Last Infusion: 07/20/18 22:28 Dose: Infused Sodium Chloride (Ns Inj) 1,000 mls @ 0 mls/hr IV.SIG BOLUS [facility] Last Infusion: 07/20/18 23:37 Dose: Infused Sodium Chloride (Ns Inj) 500 mls @ 0 mls/hr IV.SIG BOLUS [facility] Last Infusion: 07/21/18 01:14 Dose: Infused Levetiracetam 500 mg/ Sodium (Chloride) 105 mls @ 400 mls/hr IV.SIG Q12H [facility] Sodium Chloride (Ns Inj) 1,000 mls @ 84 mls/hr IV.CONT .[id number] [facility] Last Infusion: 07/21/18 00:43 Dose: 84 mls/hr Lactulose (Lactulose Liq) 30 ml PO DAILY PRN PRN Reason: SEVERE CONSITIPATION Ondansetron HCl (Zofran Inj) 4 mg IV.PUSH Q6H PRN PRN Reason: NAUSEA OR VOMITING Senna/Docusate Sodium (Paula-Colace) 1 tab PO BID [facility] Sennosides (Senokot) 17.2 mg PO Q12H PRN PRN Reason: Moderate Constipation Sodium Chloride (Ns Flush) 2 ml IV.FLUSH PRN PRN PRN Reason: FLUSH AFTER USING IV ACCESS Last Admin: 07/20/18 21:06 Dose: 2 ml Sodium Chloride (Ns Flush) 2 ml IV.FLUSH BID [facility] Sodium Chloride (Ns Flush) 2 ml IV.FLUSH PRN PRN PRN Reason: FLUSH AFTER USING IV ACCESS Topiramate (Topamax) 25 mg PO BID [facility] Allergies Allergy/AdvReac Type Severity Reaction Status Date / Time fosphenytoin Allergy Severe Rash Verified 06/08/18 22:55 Exam Vital signs: Vital Signs 07/20/18 20:10 07/20/18 21:03 07/20/18 21:45 Temperature 99.1 F Pulse Rate 84 94 H Respiratory Rate 16 22 20 Blood Pressure 147/88 H 186/94 H Pulse Oximetry 94 L 95 07/20/18 22:26 07/20/18 23:46 07/21/18 00:17 Temperature Pulse Rate 89 90 Respiratory Rate 20 18 16 Blood Pressure 169/96 H 166/95 H Pulse Oximetry 98 95 07/21/18 00:59 07/21/18 01:33 07/21/18 01:34 Temperature 99.7 F H Pulse Rate 88 86 86 Respiratory Rate 23 22 22 Blood Pressure 165/86 H 165/91 H Pulse Oximetry 95 95 07/21/18 01:35 07/21/18 01:36 07/21/18 02:00 Temperature Pulse Rate 86 86 84 Respiratory Rate 21 22 20 Blood Pressure 163/88 H 161/87 H 168/91 H Pulse Oximetry 94 L 95 96 07/21/18 03:00 07/21/18 04:00 07/21/18 05:00 Temperature Pulse Rate 88 90 80 Respiratory Rate 18 17 22 Blood Pressure 166/85 H 165/86 H 158/83 H Pulse Oximetry 94 L 95 95 07/21/18 06:00 Temperature Pulse Rate 76 Respiratory Rate 21 Blood Pressure 154/87 H Pulse Oximetry 94 L Intake & Output 07/20/18 07/21/18 07/21/18 18:59 06:59 18:59 Intake Total 2905 / 2905 Output Total 650 / 650 Balance 2255 / 2255 Weight 71.3 kg Intake: IV 2905 / 2905 NS Inj 1,000 ML @ 125 mls/hr IV 300 / 300 .CONT .Q8H [facility] Rx#:[id number] NS Inj 1,000 ML @ Wide Open IV. 1999 / 1999 SIG BOLUS [facility] Rx#:[id number] NS Inj 500 ML @ Wide Open IV. 500 / 500 SIG BOLUS [facility]USA Rx#:[id number] Keppra Inj 500 MG In NS Inj 100 105 / 105 ML @ 400 mls/hr IV.SIG ONCE ONE Rx#:[id number] Output: Urine Amount (Catheter) 650 / 650 Straight 650 / 650 Other: Weight On Admission 71.3 kg Narrative: GENERAL: in NAD, SKIN: Warm and dry. HEAD: Atraumatic. Normocephalic. EYES: Pupils equal and round. No scleral icterus. ENT: No nasal bleeding or discharge. Mucous membranes pink and moist. NECK: Trachea midline. No JVD. CARDIOVASCULAR: Regular rate and rhythm. RESPIRATORY: No accessory muscle use. GASTROINTESTINAL: Abdomen soft, non-tender, nondistended. MUSCULOSKELETAL: Extremities without clubbing, cyanosis, or edema. No obvious deformities. NEUROLOGICAL: Somnolent limited following no focal weakness PSYCHIATRIC: Calm - Constitutional no acute distress - Routine HEENT Exam Head: Present: normocephalic Results - Labs CBC & Chem 7: 07/21/18 04:40 07/21/18 04:40 Labs: Laboratory Results - last 24 hr 07/20/18 07/20/18 07/20/18 20:10 20:10 20:10 CBC w Diff Slide review pending WBC 7.8 RBC 5.34 H Hgb 16.5 H Hct 49.1 H MCV 92.0 MCH 30.8 MCHC 33.5 RDW 12.8 Plt Count 73 L MPV 8.5 Neut % (Auto) 90.1 H Lymph % (Auto) 5.2 L Wilkin % (Auto) 2.2 Eos % (Auto) 0.0 Baso % (Auto) 2.5 H Neut # (Auto) 7.0 Lymph # (Auto) 0.4 L Wilkin # (Auto) 0.2 Eos # (Auto) 0.0 Baso # (Auto) 0.2 WBC Differential Manual diff final Seg Neuts % (Manual) 86 H Band Neuts % (Manual) 5 Lymphocytes % (Manual) 6 L Monocytes % (Manual) 3 Abs Neuts (Manual) 7.1 Differential Comment . Platelet Estimate Low L Platelet Morphology Enlarged H RBC Morphology Normal Puncture Site Patient Temperature O2 Saturation ABG pH ABG pCO2 ABG pO2 ABG HCO3 ABG O2 Content ABG Base Excess ABG Methemoglobin Brodie Test Hemoglobin Carboxyhemoglobin Inspired O2 Critical Value Sodium 140 Potassium 3.7 Chloride 105 Carbon Dioxide 19.2 L Anion Gap 16 H BUN 10 Creatinine 1.00 Estimated GFR 55 L POC Glucose 166 H Random Glucose 158 H Lactic Acid Calcium 8.9 Phosphorus Magnesium 2.6 H Total Bilirubin 0.3 AST 11 L ALT 14 Alkaline Phosphatase 107 Ammonia Total Protein 7.5 Albumin 4.1 Urine Color Urine Clarity Urine pH Ur Specific [place] Urine Protein Urine Glucose (UA) Urine Ketones Urine Occult Blood Urine Nitrate Urine Bilirubin Urine Urobilinogen Ur Leukocyte Esterase Urine RBC Urine WBC Ur Squamous Epith Cells Ur Microscopic Review Nasal Screen MRSA (PCR) Digoxin Urine Opiates Screen Ur Barbiturates Screen Phenytoin Valproic Acid Ur Amphetamines Screen U Benzodiazepines Scrn Urine Cocaine Screen U Cannabinoids Screen Serum Alcohol Less than 3 07/20/18 07/20/18 07/20/18 20:10 20:10 20:10 CBC w Diff WBC RBC Hgb Hct MCV MCH MCHC RDW Plt Count MPV Neut % (Auto) Lymph % (Auto) Wilkin % (Auto) Eos % (Auto) Baso % (Auto) Neut # (Auto) Lymph # (Auto) Wilkin # (Auto) Eos # (Auto) Baso # (Auto) WBC Differential Seg Neuts % (Manual) Band Neuts % (Manual) Lymphocytes % (Manual) Monocytes % (Manual) Abs Neuts (Manual) Differential Comment Platelet Estimate Platelet Morphology RBC Morphology Puncture Site Patient Temperature O2 Saturation ABG pH ABG pCO2 ABG pO2 ABG HCO3 ABG O2 Content ABG Base Excess ABG Methemoglobin Brodie Test Hemoglobin Carboxyhemoglobin Inspired O2 Critical Value Sodium Potassium Chloride Carbon Dioxide Anion Gap BUN Creatinine Estimated GFR POC Glucose Random Glucose Lactic Acid 8.9 H* Calcium Phosphorus Magnesium Total Bilirubin AST ALT Alkaline Phosphatase Ammonia Total Protein Albumin Urine Color Urine Clarity Urine pH Ur Specific [place] Urine Protein Urine Glucose (UA) Urine Ketones Urine Occult Blood Urine Nitrate Urine Bilirubin Urine Urobilinogen Ur Leukocyte Esterase Urine RBC Urine WBC Ur Squamous Epith Cells Ur Microscopic Review Nasal Screen MRSA (PCR) Digoxin 0.1 L Urine Opiates Screen Ur Barbiturates Screen Phenytoin Less than 0.4 L Valproic Acid Less than 3 L Ur Amphetamines Screen U Benzodiazepines Scrn Urine Cocaine Screen U Cannabinoids Screen Serum Alcohol 07/20/18 07/20/18 07/20/18 20:10 21:18 21:18 CBC w Diff WBC RBC Hgb Hct MCV MCH MCHC RDW Plt Count MPV Neut % (Auto) Lymph % (Auto) Wilkin % (Auto) Eos % (Auto) Baso % (Auto) Neut # (Auto) Lymph # (Auto) Wilkin # (Auto) Eos # (Auto) Baso # (Auto) WBC Differential Seg Neuts % (Manual) Band Neuts % (Manual) Lymphocytes % (Manual) Monocytes % (Manual) Abs Neuts (Manual) Differential Comment Platelet Estimate Platelet Morphology RBC Morphology Puncture Site Patient Temperature O2 Saturation ABG pH ABG pCO2 ABG pO2 ABG HCO3 ABG O2 Content ABG Base Excess ABG Methemoglobin Brodie Test Hemoglobin Carboxyhemoglobin Inspired O2 Critical Value Sodium Potassium Chloride Carbon Dioxide Anion Gap BUN Creatinine Estimated GFR POC Glucose Random Glucose Lactic Acid Calcium Phosphorus Magnesium Total Bilirubin AST ALT Alkaline Phosphatase Ammonia 16 Total Protein Albumin Urine Color Yellow Urine Clarity Clear Urine pH 6.0 Ur Specific [place] 1.025 Urine Protein Trace Urine Glucose (UA) Negative Urine Ketones Negative Urine Occult Blood Trace Urine Nitrate Negative Urine Bilirubin Negative Urine Urobilinogen 0.2 Ur Leukocyte Esterase Negative Urine RBC 0-3 Urine WBC 0-5 Ur Squamous Epith Cells 0-5 Ur Microscopic Review Microscopic reviewed Nasal Screen MRSA (PCR) Digoxin Urine Opiates Screen Neg Ur Barbiturates Screen Neg Phenytoin Valproic Acid Ur Amphetamines Screen Neg U Benzodiazepines Scrn Neg Urine Cocaine Screen Neg U Cannabinoids Screen Neg Serum Alcohol 07/20/18 07/20/18 07/21/18 23:20 23:28 01:49 CBC w Diff WBC RBC Hgb Hct MCV MCH MCHC RDW Plt Count MPV Neut % (Auto) Lymph % (Auto) Wilkin % (Auto) Eos % (Auto) Baso % (Auto) Neut # (Auto) Lymph # (Auto) Wilkin # (Auto) Eos # (Auto) Baso # (Auto) WBC Differential Seg Neuts % (Manual) Band Neuts % (Manual) Lymphocytes % (Manual) Monocytes % (Manual) Abs Neuts (Manual) Differential Comment Platelet Estimate Platelet Morphology RBC Morphology Puncture Site Right radial Patient Temperature 98.6 O2 Saturation 92 ABG pH 7.41 ABG pCO2 35 L ABG pO2 71 ABG HCO3 22 ABG O2 Content 19.5 ABG Base Excess -1.8 ABG Methemoglobin 1.5 Brodie Test Y Hemoglobin 15.0 Carboxyhemoglobin 1.0 Inspired O2 21 Critical Value No Sodium Potassium Chloride Carbon Dioxide Anion Gap BUN Creatinine Estimated GFR POC Glucose Random Glucose Lactic Acid 2.5 H Calcium Phosphorus Magnesium Total Bilirubin AST ALT Alkaline Phosphatase Ammonia Total Protein Albumin Urine Color Urine Clarity Urine pH Ur Specific [place] Urine Protein Urine Glucose (UA) Urine Ketones Urine Occult Blood Urine Nitrate Urine Bilirubin Urine Urobilinogen Ur Leukocyte Esterase Urine RBC Urine WBC Ur Squamous Epith Cells Ur Microscopic Review Nasal Screen MRSA (PCR) Not detected Digoxin Urine Opiates Screen Ur Barbiturates Screen Phenytoin Valproic Acid Ur Amphetamines Screen U Benzodiazepines Scrn Urine Cocaine Screen U Cannabinoids Screen Serum Alcohol 07/21/18 07/21/18 07/21/18 04:40 04:40 04:40 CBC w Diff Auto diff final WBC 8.1 RBC 5.02 Hgb 15.3 Hct 45.5 MCV 90.6 MCH 30.5 MCHC 33.7 RDW 12.9 Plt Count 172 D MPV 8.4 Neut % (Auto) 81.9 H Lymph % (Auto) 11.5 Wilkin % (Auto) 3.8 Eos % (Auto) 0.1 Baso % (Auto) 2.7 H Neut # (Auto) 6.7 Lymph # (Auto) 0.9 L Wilkin # (Auto) 0.3 Eos # (Auto) 0.0 Baso # (Auto) 0.2 WBC Differential . Seg Neuts % (Manual) Band Neuts % (Manual) Lymphocytes % (Manual) Monocytes % (Manual) Abs Neuts (Manual) Differential Comment . Platelet Estimate Platelet Morphology RBC Morphology Puncture Site Patient Temperature O2 Saturation ABG pH ABG pCO2 ABG pO2 ABG HCO3 ABG O2 Content ABG Base Excess ABG Methemoglobin Brodie Test Hemoglobin Carboxyhemoglobin Inspired O2 Critical Value Sodium 140 Potassium 3.3 L Chloride 107 Carbon Dioxide 23.6 Anion Gap 9 BUN 7 Creatinine 0.63 Estimated GFR Greater than 89 POC Glucose Random Glucose 119 H Lactic Acid 1.6 Calcium 8.1 L D Phosphorus 2.6 Magnesium 2.2 Total Bilirubin AST ALT Alkaline Phosphatase Ammonia Total Protein Albumin Urine Color Urine Clarity Urine pH Ur Specific [place] Urine Protein Urine Glucose (UA) Urine Ketones Urine Occult Blood Urine Nitrate Urine Bilirubin Urine Urobilinogen Ur Leukocyte Esterase Urine RBC Urine WBC Ur Squamous Epith Cells Ur Microscopic Review Nasal Screen MRSA (PCR) Digoxin Urine Opiates Screen Ur Barbiturates Screen Phenytoin Valproic Acid Ur Amphetamines Screen U Benzodiazepines Scrn Urine Cocaine Screen U Cannabinoids Screen Serum Alcohol - Imaging Impressions Cervical Spine CT 07/20/18 20:12 CONCLUSION: 1. Grade 1 anterolisthesis at C3-4, stable from prior. 2. No acute findings. Face CT 07/20/18 20:12 CONCLUSION: 1. No facial bone fracture seen. 2. Left sphenoid sinus disease, stable from February 2018. New mild right maxillary sinus disease. Head CT 07/20/18 21:50 CONCLUSION: 1. No acute findings in the brain. . Review/Management - Diagnosis (1) Generalized seizure Code(s): R56.9 - Unspecified convulsions Status: Acute Current Visit: Yes (2) Recurrent seizures Code(s): G40.909 - Epilepsy, unspecified, not intractable, without status epilepticus Status: Acute Current Visit: Yes - Review/Management Plan: Intractable seizure Noncompliance Recommendations EEG IV seizure medications Compliance of medications Seizure precautions
--- NOTE | 2018-07-21 08:45 | P.HPCC ---
History of Present Illness Primary Care Physician: Chidi Slater MD Chief Complaint: Recurrent seizures, altered mental status History of Present Illness: Patient is a 68-year-old female with known history of seizure disorder, history of recurrent seizures due to noncompliance, who was brought to the [facility] emergency department by EMS after she was found unresponsive on the floor at her home. Patient had contusion to the forehead, CT of the head in the ED was negative for acute injury. Patient is supposed to be on Depakote for psychiatric illness, and Keppra for seizure disorder. Allergic to fosphenytoin. Clinical history was consistent with recurrent seizures and postictal state. EMS witnessed generalized tonic-clonic seizures at her home while picking her up, and she apparently had seizures in the ED which responded to IV Ativan. Patient received loading dose of Keppra IV in the ED I evaluated the patient in the ICU. Patient remains lethargic but wakes up easily. She is a very poor historian. She tells her her name but she is unable to answer questions regarding compliance. She had been restarted on Keppra and Depakote. Her lactic acid was initially 8.9 most likely from seizures. Patient is getting IV fluid hydration. - Diagnosis (1) Recurrent seizures (2) Lactic acidemia (3) Hypokalemia (4) Post-ictal state (5) Noncompliance (6) Seizure disorder Inpatient Certification: I certify that the inpatient services were ordered in accordance with Medicare regulations governing the order. 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 - Medical History Medical History: Medical History (Last Reviewed 07/21/18 @ 07:24 by Chidi Benítez) Anxiety Aspiration pneumonia Atrial fibrillation Dementia with psychosis Depression Epilepsy HTN (hypertension) History of Noncompliance Numbness and tingling of both feet Polycythemia Seizure - Surgical History Surgical History: Surgical History (Last Reviewed 07/21/18 @ 07:24 by Chidi Benítez) History of dilatation and curettage - Family History Family History: Family History (Last Updated 06/09/18 @ 15:36 by Son Beebe MD) Other Hypertension - Tobacco History Tobacco Use In Past 30 Days: Yes Smoking Status: Unknown if ever smoked Tobacco Type: Cigarettes - Alcohol History How Often Do You Have a Drink Containing Alcohol: Unable to Obtain - Substance Use History Substance History: No History of Abuse - Travel History Recent Travel Out of the Country Within the Last 8 Weeks: No - Immunization History Tetanus Immunization: <5 Years Tetanus Immunization Year if Known: 2015 Hx Influenza Vaccine This Season: No Medications and Allergies Active Medications: Active Medications Acetaminophen (Tylenol) 650 mg PO Q6H PRN PRN Reason: PAIN 1-10 AND/OR FEVER >101F Al Hydroxide/Mg Hydroxide (Milk Of Magnmaykel Liq) 30 ml PO Q12H PRN PRN Reason: Mild Constipation Albuterol (Albuterol Neb (Prn)) 2.5 mg NEB Q2HR NEB PRN PRN Reason: SHORTNESS OF BREATH/WHEEZING Bisacodyl (Dulcolax Supp) 10 mg RECTAL DAILY PRN PRN Reason: SEVERE CONSITIPATION Chlorhexidine Gluconate (Chlorhexidine 2% Cloth) 3 pack TOPICAL DAILY@0400 [facility] Stop: 07/26/18 03:59 Last Admin: 07/21/18 04:29 Dose: 3 pack Chlorhexidine Gluconate (Chlorhexidine 2% Cloth) 3 pack TOPICAL DAILY@0400 PRN PRN Reason: Extra cloth needed Stop: 07/26/18 03:59 Divalproex Sodium (Depakote Dr) 500 mg PO BID [facility] Last Admin: 07/20/18 23:44 Dose: Not Given Enoxaparin Sodium (Lovenox Inj) 40 mg SQ Q24H [facility] Last Admin: 07/20/18 23:50 Dose: 40 mg Famotidine (Pepcid Pf Inj) 20 mg IV.PUSH Q12HR [facility] Sodium Chloride (Ns Inj) 1,000 mls @ 125 mls/hr IV.CONT .Q8H [facility] Last Infusion: 07/21/18 05:48 Dose: Infused Sodium Chloride (Ns Inj) 1,000 mls @ 0 mls/hr IV.SIG BOLUS [facility] Last Infusion: 07/20/18 22:28 Dose: Infused Sodium Chloride (Ns Inj) 1,000 mls @ 0 mls/hr IV.SIG BOLUS [facility] Last Infusion: 07/20/18 23:37 Dose: Infused Sodium Chloride (Ns Inj) 500 mls @ 0 mls/hr IV.SIG BOLUS [facility] Last Infusion: 07/21/18 01:14 Dose: Infused Levetiracetam 500 mg/ Sodium (Chloride) 105 mls @ 400 mls/hr IV.SIG Q12H [facility] Sodium Chloride (Ns Inj) 1,000 mls @ 84 mls/hr IV.CONT .[id number] [facility] Last Infusion: 07/21/18 00:43 Dose: 84 mls/hr Lactulose (Lactulose Liq) 30 ml PO DAILY PRN PRN Reason: SEVERE CONSITIPATION Ondansetron HCl (Zofran Inj) 4 mg IV.PUSH Q6H PRN PRN Reason: NAUSEA OR VOMITING Senna/Docusate Sodium (Paula-Colace) 1 tab PO BID [facility] Sennosides (Senokot) 17.2 mg PO Q12H PRN PRN Reason: Moderate Constipation Sodium Chloride (Ns Flush) 2 ml IV.FLUSH PRN PRN PRN Reason: FLUSH AFTER USING IV ACCESS Last Admin: 07/20/18 21:06 Dose: 2 ml Sodium Chloride (Ns Flush) 2 ml IV.FLUSH BID [facility] Sodium Chloride (Ns Flush) 2 ml IV.FLUSH PRN PRN PRN Reason: FLUSH AFTER USING IV ACCESS Topiramate (Topamax) 25 mg PO BID [facility] Allergies Allergy/AdvReac Type Severity Reaction Status Date / Time fosphenytoin Allergy Severe Rash Verified 06/08/18 22:55 Results - Labs CBC & Chem 7: 07/21/18 04:40 07/21/18 04:40 Labs: Short CBC 07/20/18 07/21/18 Range/Units 20:10 04:40 WBC 7.8 8.1 (4.0-11.0) th/mm3 Hgb 16.5 H 15.3 (11.6-15.3) gm/dL Hct 49.1 H 45.5 (35.0-46.0) % Plt Count 73 L 172 D (150-450) th/mm3 [facility] 07/20/18 07/21/18 20:10 04:40 Sodium 140 140 Potassium 3.7 3.3 L Chloride 105 107 Carbon Dioxide 19.2 L 23.6 BUN 10 7 Creatinine 1.00 0.63 Calcium 8.9 8.1 L D Liver Function 07/20/18 Range/Units 20:10 Total Bilirubin 0.3 (0.2-1.0) mg/dL AST 11 L (15-37) U/L ALT 14 (10-53) U/L Alkaline Phosphatase 107 (45-117) U/L Albumin 4.1 (3.4-5.0) g/dL Urine 07/20/18 Range/Units 21:18 Urine Color Yellow (Yellw/Straw) Urine Clarity Clear (Clear) Urine pH 6.0 (5.0-8.5) Ur Specific [place] 1.025 (1.002-1.035) Urine Protein Trace (Neg-Trace) mg/dL Urine Glucose (UA) Negative (Negative) mg/dL - Imaging Impressions Cervical Spine CT 07/20/18 20:12 CONCLUSION: 1. Grade 1 anterolisthesis at C3-4, stable from prior. 2. No acute findings. Face CT 07/20/18 20:12 CONCLUSION: 1. No facial bone fracture seen. 2. Left sphenoid sinus disease, stable from February 2018. New mild right maxillary sinus disease. Head CT 07/20/18 21:50 CONCLUSION: 1. No acute findings in the brain. . Exam Vital signs: Vital Signs 07/20/18 20:10 07/20/18 21:03 07/20/18 21:45 Temperature 99.1 F Pulse Rate 84 94 H Respiratory Rate 16 22 20 Blood Pressure 147/88 H 186/94 H Pulse Oximetry 94 L 95 07/20/18 22:26 07/20/18 23:46 07/21/18 00:17 Temperature Pulse Rate 89 90 Respiratory Rate 20 18 16 Blood Pressure 169/96 H 166/95 H Pulse Oximetry 98 95 07/21/18 00:59 07/21/18 01:33 07/21/18 01:34 Temperature 99.7 F H Pulse Rate 88 86 86 Respiratory Rate 23 22 22 Blood Pressure 165/86 H 165/91 H Pulse Oximetry 95 95 07/21/18 01:35 07/21/18 01:36 07/21/18 02:00 Temperature Pulse Rate 86 86 84 Respiratory Rate 21 22 20 Blood Pressure 163/88 H 161/87 H 168/91 H Pulse Oximetry 94 L 95 96 07/21/18 03:00 07/21/18 04:00 07/21/18 05:00 Temperature Pulse Rate 88 90 80 Respiratory Rate 18 17 22 Blood Pressure 166/85 H 165/86 H 158/83 H Pulse Oximetry 94 L 95 95 07/21/18 06:00 Temperature Pulse Rate 76 Respiratory Rate 21 Blood Pressure 154/87 H Pulse Oximetry 94 L Intake & Output 07/20/18 07/21/18 07/21/18 18:59 06:59 18:59 Intake Total 2905 / 2905 Output Total 650 / 650 Balance 2255 / 2255 Weight 71.3 kg Intake: IV 2905 / 2905 NS Inj 1,000 ML @ 125 mls/hr IV 300 / 300 .CONT .Q8H [facility] Rx#:[id number] NS Inj 1,000 ML @ Wide Open IV. 1999 / 1999 SIG BOLUS [facility] Rx#:[id number] NS Inj 500 ML @ Wide Open IV. 500 / 500 SIG BOLUS [facility] Rx#:[id number] Keppra Inj 500 MG In NS Inj 100 105 / 105 ML @ 400 mls/hr IV.SIG ONCE ONE Rx#:[id number] Output: Urine Amount (Catheter) 650 / 650 Straight 650 / 650 Other: Weight On Admission 71.3 kg Narrative: GENERAL: Elderly female who is disheveled, lethargic wakes up easily SKIN: warm/dry. HEAD: Normocephalic. Forehead abrasion EYES: Pupils equal and round and reactive to light. No scleral icterus. No injection or drainage. ENT: No nasal bleeding or discharge. Mucous membranes dry. NECK: Trachea midline. No JVD. CARDIOVASCULAR: Regular rate and rhythm. No murmur appreciated. RESPIRATORY: No accessory muscle use. Clear to auscultation. Breath sounds equal bilaterally. GASTROINTESTINAL: Abdomen soft, non-tender, nondistended. Hepatic and splenic margins not palpable. MUSCULOSKELETAL: No obvious deformities. No clubbing. No cyanosis. No edema. Abrasion left heel. Bilateral radial and dorsalis pedis pulses 2+ to palpation. NEUROLOGICAL: Somnolent, but wakes up easily. No obvious cranial nerve deficits. Motor grossly within normal limits. States her name but did not give any other history. Affect is flat Septic Shock Reassessment Septic shock perfusion: reassessment completed Caprini VTE Risk Assessment Caprini VTE Risk Assessment: No/Low Risk (score <= 1) Caprini Risk Assessment Model: Point Value = 1 Point Value = 2 Point Value = 3 Point Value = 5 Age 41-60 Minor surgery BMI > 25 kg/m2 Swollen legs Varicose veins or History of unexplained or recurrent spontaneous Oral contraceptives or hormone replacement Sepsis (< 1 month) Serious lung disease, including pneumonia (< 1 month) Abnormal pulmonary function Acute myocardial infarction Congestive heart failure (< 1 month) History of inflammatory bowel disease Medical patient at bed rest Age 61-74 Arthroscopic surgery Major open surgery (> 45 min) Laparoscopic surgery (> 45 min) Malignancy Confined to bed (> 72 hours) Immobilizing plaster cast Central venous access Age >= 75 History of VTE Family history of VTE Factor V Leiden Prothrombin [id number] Lupus anticoagulant Anticardiolipin antibodies Elevated serum homocysteine Heparin-induced thrombocytopenia Other congenital or acquired thrombophilia Stroke (< 1 month) Elective arthroplasty Hip, pelvis, or leg fracture Acute spinal cord injury (< 1 month) Prophylaxis Regimen: Total Risk Factor Score Risk Level Prophylaxis Regimen 0-1 Low Early ambulation 2 Moderate Order ONE of the following: *Sequential Compression Device (SCD) *Heparin 5000 units SQ BID 3-4 Higher Order ONE of the following medications: *Heparin 5000 units SQ TID *Enoxaparin/Lovenox 40 mg SQ daily (WT < 150 kg, CrCl > 30 mL/min) *Enoxaparin/Lovenox 30 mg SQ daily (WT < 150 kg, CrCl > 10-29 mL/min) *Enoxaparin/Lovenox 30 mg SQ BID (WT < 150 kg, CrCl > 30 mL/min) AND/OR *Sequential Compression Device (SCD) 5 or more Highest Order ONE of the following medications: *Heparin 5000 units SQ TID (Preferred with Epidurals) *Enoxaparin/Lovenox 40 mg SQ daily (WT < 150 kg, CrCl > 30 mL/min) *Enoxaparin/Lovenox 30 mg SQ daily (WT < 150 kg, CrCl > 10-29 mL/min) *Enoxaparin/Lovenox 30 mg SQ BID (WT < 150 kg, CrCl > 30 mL/min) AND *Sequential Compression Device (SCD) Assessment and Plan - Problem List (1) Recurrent seizures Code(s): G40.909 - Epilepsy, unspecified, not intractable, without status epilepticus Status: Acute (2) Lactic acidemia Code(s): E87.2 - Acidosis Status: Acute (3) Hypokalemia Code(s): E87.6 - Hypokalemia Status: Acute (4) Post-ictal state Code(s): R56.9 - Unspecified convulsions Status: Acute (5) Noncompliance Code(s): Z91.19 - Patient's noncompliance with other medical treatment and regimen Status: Acute (6) Seizure disorder Code(s): G40.909 - Epilepsy, unspecified, not intractable, without status epilepticus Status: Acute - Assessment and Plan Plan: NEURO: Recurrent seizures History of seizure disorder Nonspecified psychiatric illness Depression Noncompliance to medication -Use Ativan as needed for seizures IV, seizure precautions -Received loading dose of Keppra, continue Keppra and Depakote p.o. -Keppra and Depakote are home medications -Check EEG, neurology consult -Once encephalopathy improves may need psychiatric consult regarding compliance and psychiatric issues RESP: -DuoNeb every 2 hours as needed -Aggressive pulmonary toilet CV: Lactic acidosis History of atrial fibrillation -Normal saline IV fluids 84 ml per hour -Lactic acidosis most likely secondary to seizures improving GI: -N.p.o., IV famotidine -Start regular diet if patient passes bedside swallow eval : -Monitor renal function closely. -No indication for Kong's catheter ID: -No indication for antibiotics -Monitor closely for infection HEME: -Monitor CBC, coags -Apparently has history of polycythemia, hemoglobin is 15.3 currently no indication for treatment with phlebotomy ENDO: Hypokalemia -Electrolyte replacement per protocol -Sliding scale insulin if needed PROPH: -Bilateral lower extremity SCDs. Lovenox/famotidine LINES: -Utilize peripheral IVs, central line if needed Level 3 new admit Code Status: Full H&P: Quality - VTE Deep Vein Thrombosis/Pulmonary Embolism Present on Admission: No
[2018-07-21] MEDS: Valproate Inj 750 MG in Sodium Chlor 0.9% Inj 100 ML IV.SIG SCH ×2 (09:35→18:45)
[2018-07-21] MEDS: Famotidine PF Inj 20 MG/2 ML Vial IV.PUSH SCH ×2 (09:43→21:33)
[2018-07-21] MEDS: Divalproex 500 MG DR Tablet PO SCH (09:44)
[2018-07-21] MEDS: Senna/Docusate Sodium 8.6/50 MG Tablet PO SCH ×2 (09:59→21:34)
[2018-07-21] MEDS: Topiramate 25 MG Tablet PO SCH ×2 (10:02→21:34)
[2018-07-21] MEDS: Lacosamide Inj 50 MG in Sodium Chlor 0.9% Inj 100 ML IV.SIG SCH ×2 (11:14→22:54)
[2018-07-21] MEDS ORDERED: Potassium Chloride 25 MEQ Effervescent Tablet PO ONE (12:45)
--- NOTE | 2018-07-21 12:45 | MG ---
cc: Vito Anderson MD Hyperventilation not performed. Breakthrough seizures. History of seizure. Wade Isbell. Recording does show bifrontal sharp waves and at times, a spike wave was seen such as at EPOC of 15. Appears to be a primary generalized seizure disorder more than likely with frequent, high-amplitude, diffuse sharp waves and this is fairly continuous throughout the recording. Photic stimulation was not performed. IMPRESSION: The patient appears to be in status epilepticus. Dr. Duron has been notified of this EEG. MD ZAHIDA Wilson/devyn , 12:28 PM , 12:35 PM
[2018-07-21] MEDS ORDERED: Morphine Inj 4 MG/ML Vial IV.PUSH ONE (16:18)
[2018-07-21] MEDS: Enoxaparin Inj 40 MG/0.4 ML Syringe SQ SCH (23:38)
[2018-07-22] MEDS: Valproate Inj 750 MG in Sodium Chlor 0.9% Inj 100 ML IV.SIG SCH ×2 (02:02→09:35)
[2018-07-22] MEDS: Chlorhexidine Gluconate 2% 1 Pack (2 Cloths) TOPICAL SCH (03:56)
[2018-07-22] MEDS: Senna/Docusate Sodium 8.6/50 MG Tablet PO SCH ×2 (09:35→22:45)
[2018-07-22] MEDS: Topiramate 25 MG Tablet PO SCH (09:35)
[2018-07-22] MEDS: Famotidine PF Inj 20 MG/2 ML Vial IV.PUSH SCH ×2 (09:35→22:44)
--- NOTE | 2018-07-22 10:10 | P.PNNEU ---
Subjective Subjective Comments: No cp, no dyspnea, no cruz, no focal weakness, no vision loss, no seizures States she has been taking Depakote only Keppra Active Medications: Active Medications Acetaminophen (Tylenol) 650 mg PO Q6H PRN PRN Reason: PAIN 1-10 AND/OR FEVER >101F Al Hydroxide/Mg Hydroxide (Milk Of Arpit Liq) 30 ml PO Q12H PRN PRN Reason: Mild Constipation Albuterol (Duoneb Neb (Prn)) 1 ampul NEB Q2HR NEB PRN PRN Reason: SHORTNESS OF BREATH Bisacodyl (Dulcolax Supp) 10 mg RECTAL DAILY PRN PRN Reason: SEVERE CONSITIPATION Chlorhexidine Gluconate (Chlorhexidine 2% Cloth) 3 pack TOPICAL DAILY@0400 [facility] Stop: 07/26/18 03:59 Last Admin: 07/22/18 03:56 Dose: 3 pack Chlorhexidine Gluconate (Chlorhexidine 2% Cloth) 3 pack TOPICAL DAILY@0400 PRN PRN Reason: Extra cloth needed Stop: 07/26/18 03:59 Enoxaparin Sodium (Lovenox Inj) 40 mg SQ Q24H [facility] Last Admin: 07/21/18 23:38 Dose: 40 mg Famotidine (Pepcid Pf Inj) 20 mg IV.PUSH Q12HR [facility] Last Admin: 07/22/18 09:35 Dose: 20 mg Sodium Chloride (Ns Inj) 1,000 mls @ 0 mls/hr IV.SIG BOLUS [facility] Last Infusion: 07/20/18 22:28 Dose: Infused Sodium Chloride (Ns Inj) 1,000 mls @ 0 mls/hr IV.SIG BOLUS [facility] Last Infusion: 07/20/18 23:37 Dose: Infused Sodium Chloride (Ns Inj) 500 mls @ 0 mls/hr IV.SIG BOLUS [facility] Last Infusion: 07/21/18 01:14 Dose: Infused Sodium Chloride (Ns Inj) 1,000 mls @ 84 mls/hr IV.CONT .[id number] [facility] Last Admin: 07/21/18 23:01 Dose: 84 mls/hr Valproate Sodium 750 mg/ (Sodium Chloride) 107.5 mls @ 105 mls/hr IV.SIG Q8H [facility] Last Admin: 07/22/18 09:35 Dose: 105 mls/hr Lacosamide 50 mg/ Sodium (Chloride) 105 mls @ 105 mls/hr IV.SIG Q12H [facility] Last Infusion: 07/21/18 23:54 Dose: Infused Levetiracetam 500 mg/ Sodium (Chloride) 105 mls @ 400 mls/hr IV.SIG Q12H [facility] Last Infusion: 07/22/18 06:00 Dose: Infused Lactulose (Lactulose Liq) 30 ml PO DAILY PRN PRN Reason: SEVERE CONSITIPATION Lorazepam (Ativan Inj) 2 mg IV.PUSH Q2H PRN PRN Reason: SEIZURES Lorazepam (Ativan Inj) 1 mg IV.PUSH Q4H PRN PRN Reason: SEIZURES Ondansetron HCl (Zofran Inj) 4 mg IV.PUSH Q6H PRN PRN Reason: NAUSEA OR VOMITING Phenobarbital Sodium (Luminal Inj) 60 mg IV.PUSH Q8H [facility] Last Admin: 07/22/18 09:34 Dose: 60 mg Senna/Docusate Sodium (Paula-Colace) 1 tab PO BID [facility] Last Admin: 07/22/18 09:35 Dose: 1 tab Sennosides (Senokot) 17.2 mg PO Q12H PRN PRN Reason: Moderate Constipation Sodium Chloride (Ns Flush) 2 ml IV.FLUSH PRN PRN PRN Reason: FLUSH AFTER USING IV ACCESS Last Admin: 07/20/18 21:06 Dose: 2 ml Sodium Chloride (Ns Flush) 2 ml IV.FLUSH BID [facility] Last Admin: 07/22/18 09:37 Dose: 2 ml Sodium Chloride (Ns Flush) 2 ml IV.FLUSH PRN PRN PRN Reason: FLUSH AFTER USING IV ACCESS Topiramate (Topamax) 25 mg PO BID [facility] Last Admin: 07/22/18 09:35 Dose: 25 mg Allergies/Adverse Reactions: Allergies Allergy/AdvReac Type Severity Reaction Status Date / Time fosphenytoin Allergy Severe Rash Verified 06/08/18 22:55 Review of Systems All other systems reviewed negative except as stated in HPI Physical Exam Vital signs: Vital Signs 07/21/18 11:00 07/21/18 12:00 07/21/18 13:00 Temperature 98.3 F Pulse Rate 64 68 70 Respiratory Rate 20 21 19 Blood Pressure 159/92 H 158/91 H 166/93 H Pulse Oximetry 96 97 95 07/21/18 14:00 07/21/18 15:00 07/21/18 16:00 Temperature 99.3 F Pulse Rate 70 70 96 H Respiratory Rate 20 22 24 Blood Pressure 158/92 H 162/98 H 164/97 H Pulse Oximetry 95 95 96 07/21/18 17:00 07/21/18 18:09 07/21/18 19:00 Temperature 97.9 F Pulse Rate 74 74 60 Respiratory Rate 23 18 18 Blood Pressure 166/98 H 165/96 H 119/69 Pulse Oximetry 95 98 97 07/21/18 19:08 07/21/18 19:09 07/21/18 19:38 Temperature Pulse Rate 62 64 Respiratory Rate 18 18 Blood Pressure 152/92 H 154/89 H Pulse Oximetry 98 07/21/18 20:00 07/21/18 20:09 07/21/18 21:00 Temperature 97.9 F Pulse Rate 72 64 60 Respiratory Rate 36 H 35 H 17 Blood Pressure 139/75 139/75 139/75 Pulse Oximetry 96 95 94 L 07/21/18 21:10 07/21/18 22:00 07/21/18 22:10 Temperature Pulse Rate 60 64 60 Respiratory Rate 19 16 27 H Blood Pressure 137/81 148/88 H 148/88 H Pulse Oximetry 91 L 92 L 07/21/18 23:00 07/21/18 23:10 07/22/18 00:00 Temperature 97.7 F Pulse Rate 68 58 L 58 L Respiratory Rate 31 H 32 H 18 Blood Pressure 153/83 H 153/83 H 127/76 Pulse Oximetry 94 L 97 07/22/18 00:10 07/22/18 01:00 07/22/18 01:10 Temperature Pulse Rate 58 L 58 L 56 L Respiratory Rate 19 16 13 Blood Pressure 127/76 140/78 140/78 Pulse Oximetry 97 07/22/18 02:00 07/22/18 02:10 07/22/18 03:00 Temperature Pulse Rate 56 L 66 60 Respiratory Rate 16 16 19 Blood Pressure 151/78 H 151/78 H 147/87 H Pulse Oximetry 96 94 L 07/22/18 03:10 07/22/18 04:00 07/22/18 04:10 Temperature 98 F Pulse Rate 54 L 66 60 Respiratory Rate 21 19 16 Blood Pressure 147/87 H 143/87 H 143/87 H Pulse Oximetry 94 L 07/22/18 05:00 07/22/18 05:10 07/22/18 06:00 Temperature Pulse Rate 54 L 58 L 62 Respiratory Rate 15 15 19 Blood Pressure 134/74 134/74 153/91 H Pulse Oximetry 94 L 94 L 07/22/18 06:10 07/22/18 07:00 07/22/18 07:10 Temperature Pulse Rate 76 64 68 Respiratory Rate 32 H 15 26 H Blood Pressure 153/91 H 140/80 Pulse Oximetry 07/22/18 08:00 07/22/18 08:10 07/22/18 09:00 Temperature Pulse Rate 70 68 76 Respiratory Rate 25 H 15 17 Blood Pressure 142/88 H Pulse Oximetry 07/22/18 09:10 Temperature Pulse Rate 68 Respiratory Rate 20 Blood Pressure 153/93 H Pulse Oximetry Intake & Output 07/21/18 07/22/18 07/22/18 18:59 06:59 18:59 Intake Total 1557.5 / 1557.5 1425.0 / 1425.0 Output Total 1700 / 1700 500 / 500 Balance -142.5 / -142.5 925.0 / 925.0 Weight 71.6 kg Intake: IV 1317.5 / 1317.5 1425.0 / 1425.0 NS Inj 1,000 ML @ 84 mls/hr IV. 1000 / 1000 1000 / 1000 CONT .[id number] [facility] Rx#: [id number] Vimpat Inj 50 MG In NS Inj 100 105 / 105 105 / 105 ML @ 105 mls/hr IV.SIG Q12H [facility] Rx#:[id number] Depacon Inj 750 MG In NS Inj 107.5 / 107.5 215.0 / 215.0 100 ML @ 105 mls/hr IV.SIG Q8H [facility] Rx#:[id number] Keppra Inj 500 MG In NS Inj 100 105 / 105 105 / 105 ML @ 400 mls/hr IV.SIG Q12H [facility] Rx#:[id number] Oral 240 / 240 0 / 0 Output: Urine 1700 / 1700 500 / 500 Narrative: GENERAL: in NAD, SKIN: Warm and dry. HEAD: Atraumatic. Normocephalic. EYES: Pupils equal and round. No scleral icterus. ENT: No nasal bleeding or discharge. Mucous membranes pink and moist. NECK: Trachea midline. No JVD. CARDIOVASCULAR: Regular rate and rhythm. RESPIRATORY: No accessory muscle use. GASTROINTESTINAL: Abdomen soft, non-tender, nondistended. MUSCULOSKELETAL: Extremities without clubbing, cyanosis, or edema. No obvious deformities. NEUROLOGICAL: Awake and alert. Oriented x2 not to month new the year, no aphasia, fluent articulate, No facial asymmetry, OU 3-2mm, eomi, VFF, No drift, Motor grossly within normal limits. Five out of 5 muscle strength in the arms and legs. Tone normal in all 4 limbs, Sensory normal in all 4 extremities to pin, msr 1-2+ sym, no clonus, planterflexor, PSYCHIATRIC: Appropriate mood and affect - Constitutional no acute distress - Routine HEENT Exam Head: Present: normocephalic - Urinary Catheter Management Straight Cath placed during this visit: yes, but has since been removed by the nurse Reason for continuing: Not indwelling catheter Insertion date: 07/20/18 Insertion time: 21:00 Removal date: 07/20/18 Removal time: 21:01 Objective Laboratory Results - last 24 hr 07/21/18 20:46 Valproic Acid 91 Phenobarbital 2.7 L Microbiology 07/20/18 23:30 Aerobic Blood Culture - Preliminary Blood - Peripheral No growth in 1 day Anaerobic Blood Culture - Preliminary No growth in 1 day 07/20/18 23:15 Aerobic Blood Culture - Preliminary Blood - Peripheral No growth in 1 day Anaerobic Blood Culture - Preliminary No growth in 1 day Review/Management - Diagnosis (1) Generalized seizure Code(s): R56.9 - Unspecified convulsions Status: Acute Current Visit: Yes (2) Recurrent seizures Code(s): G40.909 - Epilepsy, unspecified, not intractable, without status epilepticus Status: Acute Current Visit: Yes - Review/Management Plan: Intractable seizure Noncompliance EEG showing discharges Depakote level 91 Recommendations Can be changed to p.o. Depakote Keppra and Vimpat tolerating p.o. which should be able to Will DC phenobarbital Therapy Discharge planning Would benefit from regular home health visits Compliance of medications Seizure precautions exam discussed with medical
[2018-07-22] MEDS: Lacosamide Inj 50 MG in Sodium Chlor 0.9% Inj 100 ML IV.SIG SCH ×2 (10:38→23:01)
--- NOTE | 2018-07-22 12:57 | P.PNIM ---
Subjective Interval history: No further seizure activity at this point, when patient seen. She has no complaints. She does have fatigue but is trending back towards her prior baseline. Physical Exam Vital signs: Vital Signs 07/21/18 13:00 07/21/18 14:00 07/21/18 15:00 Temperature Pulse Rate 70 70 70 Respiratory Rate 19 20 22 Blood Pressure 166/93 H 158/92 H 162/98 H Pulse Oximetry 95 95 95 07/21/18 16:00 07/21/18 17:00 07/21/18 18:09 Temperature 99.3 F Pulse Rate 96 H 74 74 Respiratory Rate 24 23 18 Blood Pressure 164/97 H 166/98 H 165/96 H Pulse Oximetry 96 95 98 07/21/18 19:00 07/21/18 19:08 07/21/18 19:09 Temperature 97.9 F Pulse Rate 60 62 64 Respiratory Rate 18 18 18 Blood Pressure 119/69 152/92 H 154/89 H Pulse Oximetry 97 07/21/18 19:38 07/21/18 20:00 07/21/18 20:09 Temperature 97.9 F Pulse Rate 72 64 Respiratory Rate 36 H 35 H Blood Pressure 139/75 139/75 Pulse Oximetry 98 96 95 07/21/18 21:00 07/21/18 21:10 07/21/18 22:00 Temperature Pulse Rate 60 60 64 Respiratory Rate 17 19 16 Blood Pressure 139/75 137/81 148/88 H Pulse Oximetry 94 L 91 L 92 L 07/21/18 22:10 07/21/18 23:00 07/21/18 23:10 Temperature Pulse Rate 60 68 58 L Respiratory Rate 27 H 31 H 32 H Blood Pressure 148/88 H 153/83 H 153/83 H Pulse Oximetry 94 L 07/22/18 00:00 07/22/18 00:10 07/22/18 01:00 Temperature 97.7 F Pulse Rate 58 L 58 L 58 L Respiratory Rate 18 19 16 Blood Pressure 127/76 127/76 140/78 Pulse Oximetry 97 97 07/22/18 01:10 07/22/18 02:00 07/22/18 02:10 Temperature Pulse Rate 56 L 56 L 66 Respiratory Rate 13 16 16 Blood Pressure 140/78 151/78 H 151/78 H Pulse Oximetry 96 07/22/18 03:00 07/22/18 03:10 07/22/18 04:00 Temperature 98 F Pulse Rate 60 54 L 66 Respiratory Rate 19 21 19 Blood Pressure 147/87 H 147/87 H 143/87 H Pulse Oximetry 94 L 94 L 07/22/18 04:10 07/22/18 05:00 07/22/18 05:10 Temperature Pulse Rate 60 54 L 58 L Respiratory Rate 16 15 15 Blood Pressure 143/87 H 134/74 134/74 Pulse Oximetry 94 L 07/22/18 06:00 07/22/18 06:10 07/22/18 07:00 Temperature Pulse Rate 62 76 64 Respiratory Rate 19 32 H 15 Blood Pressure 153/91 H 153/91 H Pulse Oximetry 94 L 07/22/18 07:10 07/22/18 08:00 07/22/18 08:10 Temperature Pulse Rate 68 70 68 Respiratory Rate 26 H 25 H 15 Blood Pressure 140/80 142/88 H Pulse Oximetry 07/22/18 09:00 07/22/18 09:10 07/22/18 10:00 Temperature Pulse Rate 72 68 78 Respiratory Rate 17 20 27 H Blood Pressure 153/93 H Pulse Oximetry 07/22/18 10:10 07/22/18 11:00 07/22/18 11:10 Temperature Pulse Rate 74 74 76 Respiratory Rate 23 12 23 Blood Pressure 143/87 H 137/85 Pulse Oximetry 07/22/18 12:00 Temperature 98.8 F Pulse Rate 86 Respiratory Rate 18 Blood Pressure 127/76 Pulse Oximetry Intake & Output 07/21/18 07/22/18 07/22/18 18:59 06:59 18:59 Intake Total 1557.5 / 1557.5 1425.0 / 1425.0 1212.5 / 1212.5 Output Total 1700 / 1700 500 / 500 Balance -142.5 / -142.5 925.0 / 925.0 1212.5 / 1212.5 Weight 71.6 kg Intake: IV 1317.5 / 1317.5 1425.0 / 1425.0 1212.5 / 1212.5 NS Inj 1,000 ML @ 84 mls/hr IV. 1000 / 1000 1000 / 1000 1000 / 1000 CONT .[id number] [facility] Rx#: [id number] Vimpat Inj 50 MG In NS Inj 100 105 / 105 105 / 105 105 / 105 ML @ 105 mls/hr IV.SIG Q12H [facility] Rx#:[id number] Depacon Inj 750 MG In NS Inj 107.5 / 107.5 215.0 / 215.0 107.5 / 107.5 100 ML @ 105 mls/hr IV.SIG Q8H [facility] Rx#:[id number] Keppra Inj 500 MG In NS Inj 100 105 / 105 105 / 105 ML @ 400 mls/hr IV.SIG Q12H [facility] Rx#:[id number] Oral 240 / 240 0 / 0 Output: Urine 1700 / 1700 500 / 500 Narrative: GENERAL: NAD, A&Ox3 HEAD: Normocephalic. NECK: Supple, trachea midline. No lymphadenopathy. EYES: No scleral icterus. No injection or drainage. CARDIOVASCULAR: Regular rate and rhythm without murmurs, gallops, or rubs. RESPIRATORY: Breath sounds equal bilaterally. No accessory muscle use. GASTROINTESTINAL: Abdomen soft, non-tender, nondistended. MUSCULOSKELETAL: No cyanosis, or edema. SKIN: Warm and dry. NEURO: No focal neurological deficits. - Urinary Catheter Management Straight Cath placed during this visit: yes, but has since been removed by the nurse Reason for continuing: Not indwelling catheter Insertion date: 07/20/18 Insertion time: 21:00 Removal date: 07/20/18 Removal time: 21:01 Results - Labs CBC & Chem 7: 07/21/18 04:40 07/21/18 04:40 Laboratory Results - last 24 hr 07/21/18 20:46 Valproic Acid 91 Phenobarbital 2.7 L Microbiology 07/20/18 23:30 Blood - Peripheral Aerobic Blood Culture - Preliminary No growth in 2 days 07/20/18 23:30 Blood - Peripheral Anaerobic Blood Culture - Preliminary No growth in 2 days 07/20/18 23:15 Blood - Peripheral Aerobic Blood Culture - Preliminary No growth in 2 days 07/20/18 23:15 Blood - Peripheral Anaerobic Blood Culture - Preliminary No growth in 2 days Assessment and Plan - Assessment (1) Status epilepticus Code(s): G40.901 - Epilepsy, unspecified, not intractable, with status epilepticus Status: Acute (2) Generalized seizure Code(s): R56.9 - Unspecified convulsions Status: Acute (3) Seizure disorder Code(s): G40.909 - Epilepsy, unspecified, not intractable, without status epilepticus Status: Acute - Plan 88-year-old female admitted secondary to breakthrough seizures and status epilepticus Recurrent seizures Status epilepticus History of seizure disorder Neurology following Continue Ativan as needed for seizures Continue Keppra Continue Depakote Positive EEG Nonspecified psychiatric illness Depression Noncompliance to medication Continue baseline treatments Compliance encouraged Lactic acidosis History of atrial fibrillation LA related to seizure Follow on telemetry Hypokalemia Monitor and replace as needed DVT prophylaxis Lovenox Discharge planning Possible discharge tomorrow if no further seizure activity is present
[2018-07-22] MEDS ORDERED: Valproate Inj 500 MG in Sodium Chlor 0.9% Inj 100 ML IV.SIG SCH (14:05)
[2018-07-22] MEDS: Sod Chloride 0.9% Inj 1,000 ML IV.CONT SCH (16:57)
[2018-07-22] MEDS: Divalproex 500 MG DR Tablet PO SCH (22:43)
[2018-07-22] MEDS: Enoxaparin Inj 40 MG/0.4 ML Syringe SQ SCH (22:45)
[2018-07-23] MEDS: Sod Chloride 0.9% Inj 1,000 ML IV.CONT SCH ×3 (03:17→23:24)
[2018-07-23 04:52] LABS: Baso # (Auto) 0.1 th/mm3 (0.0-0.2); Baso % (Auto) 2.5 % (0.0-2.0); Eos % (Auto) 0.2 % (0.0-4.0); Hematocrit 49.1 % (35.0-46.0); Hemoglobin 15.9 gm/dL (11.6-15.3); Lymph # (Auto) 1.4 th/mm3 (1.0-4.8); Lymph % (Auto) 29.5 % (9.0-44.0); Mean Corpuscular HGB Conc 32.4 % (32.0-36.0); Mean Corpuscular Hemoglobin 29.7 pg (27.0-34.0); Mean Corpuscular Volume 91.6 fL (80.0-100.0); Mean Platelet Volume 8.3 fL (7.0-11.0); Mono # (Auto) 0.3 th/mm3 (0.0-0.9); Mono % (Auto) 6.3 % (0.0-8.0); Neut # (Auto) 2.9 th/mm3 (1.8-7.7); Neut % (Auto) 61.5 % (16.0-70.0); Platelet Count 141 th/mm3 (150-450); Red Blood Count 5.36 mil/mm3 (4.00-5.30); Red Cell Distribution Width 12.6 % (11.6-17.2); White Blood Count 4.7 th/mm3 (4.0-11.0)
[2018-07-23] MEDS: Chlorhexidine Gluconate 2% 1 Pack (2 Cloths) TOPICAL SCH (05:24)
[2018-07-23 05:42] LABS: Alanine Aminotransferase 14 U/L (10-53); Albumin 3.5 g/dL (3.4-5.0); Alkaline Phosphatase 90 U/L (45-117); Anion Gap 11 meq/L (5-15); Aspartate Aminotransferase 11 U/L (15-37); Blood Urea Nitrogen 7 mg/dL (7-18); Calcium 8.5 mg/dL (8.5-10.1); Carbon Dioxide 22.5 meq/L (21.0-32.0); Chloride 111 meq/L (98-107); Glomerular Filtration Rate Greater Than 89 mL/min (>89); Glucose,Random 86 mg/dL (74-106); Sodium 144 meq/L (136-145); Total Protein 6.7 g/dL (6.4-8.2)
[2018-07-23 05:45] LABS: Potassium 2.9 meq/L (3.5-5.1)
[2018-07-23] MEDS ORDERED: Potassium Chlor 20 mEq Premix 20 MEQ/100 ML PIGGYBACK IV.SIG ONE (05:56)
[2018-07-23] MEDS: Famotidine PF Inj 20 MG/2 ML Vial IV.PUSH SCH ×2 (08:36→21:16)
[2018-07-23] MEDS: Senna/Docusate Sodium 8.6/50 MG Tablet PO SCH ×2 (08:36→21:25)
[2018-07-23] MEDS: Divalproex 500 MG DR Tablet PO SCH ×2 (08:36→21:15)
--- NOTE | 2018-07-23 09:20 | P.PNIM ---
Subjective Interval history: No distress. However, she has A-fib RVR this morning. She has a history of A- fib, but can not recall RVR in the past. No chest pain. No seizure activity overnight. Physical Exam Vital signs: Vital Signs 07/22/18 10:00 07/22/18 10:10 07/22/18 11:00 Temperature Pulse Rate 78 74 74 Respiratory Rate 27 H 23 12 Blood Pressure 143/87 H Pulse Oximetry 07/22/18 11:10 07/22/18 11:22 07/22/18 11:29 Temperature Pulse Rate 76 76 Respiratory Rate 23 24 Blood Pressure 137/85 155/86 H Pulse Oximetry 07/22/18 11:30 07/22/18 12:00 07/22/18 20:00 Temperature 98.8 F 98.6 F Pulse Rate 78 86 70 Respiratory Rate 19 18 16 Blood Pressure 127/76 148/89 H Pulse Oximetry 94 L 07/23/18 00:02 07/23/18 04:00 07/23/18 04:34 Temperature 98 F 98 F Pulse Rate 63 105 H 108 H Respiratory Rate 16 20 17 Blood Pressure 148/90 H 143/88 H 143/93 H Pulse Oximetry 95 93 L 07/23/18 08:00 Temperature 98.9 F Pulse Rate Respiratory Rate Blood Pressure Pulse Oximetry Intake & Output 07/22/18 07/23/18 07/23/18 18:59 06:59 18:59 Intake Total 1777.5 / 1777.5 1930 / 1930 Output Total 600 / 600 2900 / 2900 Balance 1177.5 / 1177.5 -970 / -970 Weight 69.4 kg Intake: IV 1317.5 / 1317.5 1210 / 1210 NS Inj 1,000 ML @ 84 mls/hr IV. 1000 / 1000 1000 / 1000 CONT .[id number] [facility] Rx#: [id number] Vimpat Inj 50 MG In NS Inj 100 105 / 105 105 / 105 ML @ 105 mls/hr IV.SIG Q12H [facility] Rx#:[id number] Depacon Inj 750 MG In NS Inj 107.5 / 107.5 100 ML @ 105 mls/hr IV.SIG Q8H [facility] Rx#:[id number] Keppra Inj 500 MG In NS Inj 100 105 / 105 105 / 105 ML @ 400 mls/hr IV.SIG Q12H [facility] Rx#:[id number] Oral 460 / 460 720 / 720 Output: Urine 600 / 600 2900 / 2900 Other: Date of Last Bowel Movement 07/22/18 07/22/18 07/22/18 # Bowel Movements 1 1 Narrative: GENERAL: NAD, A&Ox3 HEAD: Normocephalic. NECK: Supple, trachea midline. No lymphadenopathy. EYES: No scleral icterus. No injection or drainage. CARDIOVASCULAR: Irregularly irregular rhythm with tachycardia without murmurs, gallops, or rubs. RESPIRATORY: Breath sounds equal bilaterally. No accessory muscle use. GASTROINTESTINAL: Abdomen soft, non-tender, nondistended. MUSCULOSKELETAL: No cyanosis, or edema. SKIN: Warm and dry. NEURO: No focal neurological deficits. - Urinary Catheter Management Straight Cath placed during this visit: yes, but has since been removed by the nurse Reason for continuing: Not indwelling catheter Insertion date: 07/20/18 Insertion time: 21:00 Removal date: 07/20/18 Removal time: 21:01 Results - Labs CBC & Chem 7: 07/23/18 04:45 07/23/18 04:45 Laboratory Results - last 24 hr 07/22/18 07/23/18 07/23/18 10:36 04:45 04:45 CBC w Diff Auto diff final WBC 4.7 RBC 5.36 H Hgb 15.9 H Hct 49.1 H MCV 91.6 MCH 29.7 MCHC 32.4 RDW 12.6 Plt Count 141 L MPV 8.3 Neut % (Auto) 61.5 Lymph % (Auto) 29.5 [place] % (Auto) 6.3 Eos % (Auto) 0.2 Baso % (Auto) 2.5 H Neut # (Auto) 2.9 Lymph # (Auto) 1.4 [place] # (Auto) 0.3 Eos # (Auto) 0.0 Baso # (Auto) 0.1 WBC Differential . Differential Comment . Sodium 144 Potassium 2.9 L* Chloride 111 H Carbon Dioxide 22.5 Anion Gap 11 BUN 7 Creatinine 0.58 Estimated GFR Greater than 89 Random Glucose 86 Calcium 8.5 Magnesium Total Bilirubin 0.7 AST 11 L ALT 14 Alkaline Phosphatase 90 Total Protein 6.7 D Albumin 3.5 Valproic Acid 128 H* 09/28/18 04:45 CBC w Diff WBC RBC Hgb Hct MCV MCH MCHC RDW Plt Count MPV Neut % (Auto) Lymph % (Auto) [place] % (Auto) Eos % (Auto) Baso % (Auto) Neut # (Auto) Lymph # (Auto) [place] # (Auto) Eos # (Auto) Baso # (Auto) WBC Differential Differential Comment Sodium Potassium Chloride Carbon Dioxide Anion Gap BUN Creatinine Estimated GFR Random Glucose Calcium Magnesium 2.2 Total Bilirubin AST ALT Alkaline Phosphatase Total Protein Albumin Valproic Acid Microbiology 07/20/18 23:30 Blood - Peripheral Aerobic Blood Culture - Preliminary No growth in 2 days 07/20/18 23:30 Blood - Peripheral Anaerobic Blood Culture - Preliminary No growth in 2 days 07/20/18 23:15 Blood - Peripheral Aerobic Blood Culture - Preliminary No growth in 2 days 07/20/18 23:15 Blood - Peripheral Anaerobic Blood Culture - Preliminary No growth in 2 days Assessment and Plan - Assessment (1) Status epilepticus Code(s): G40.901 - Epilepsy, unspecified, not intractable, with status epilepticus Status: Acute (2) Generalized seizure Code(s): R56.9 - Unspecified convulsions Status: Acute (3) Seizure disorder Code(s): G40.909 - Epilepsy, unspecified, not intractable, without status epilepticus Status: Acute - Plan 88-year-old female admitted secondary to breakthrough seizures and status epilepticus A. fib RVR History of A. fib Diltiazem bolus P.o. diltiazem initiated Monitor on telemetry Recurrent seizures Status epilepticus History of seizure disorder Neurology following Continue Ativan as needed for seizures Continue Keppra Continue Depakote Positive EEG Nonspecified psychiatric illness Depression Noncompliance to medication Continue baseline treatments Compliance encouraged Lactic acidosis History of atrial fibrillation LA related to seizure Follow on telemetry Hypokalemia Monitor and replace as needed DVT prophylaxis Lovenox Discharge planning Possible discharge tomorrow if no further seizure activity is present
[2018-07-23] MEDS: dilTIAZem 30 MG Tablet PO SCH ×4 (09:35→21:16)
[2018-07-23] MEDS: Lacosamide Inj 50 MG in Sodium Chlor 0.9% Inj 100 ML IV.SIG SCH ×2 (10:31→23:24)
[2018-07-23 10:43] LABS: Valproic Acid 109 mcg/mL (50-100)
--- NOTE | 2018-07-23 10:48 | MG ---
cc: Vito Anderson MD EEG NUMBER: [id number] INDICATIONS: Breakthrough seizures; found on floor after seizure. MEDICATIONS: Vimpat, Keppra, Topamax, Depakote, Lumonol. DESCRIPTION: Diffuse beta rhythms are seen; some diffuse beta rhythms are noted. Some bifrontal delta rhythms are seen. Recording overall is synchronous and symmetric. I do not see any hemisphere asymmetries. No epileptiform or seizure activity is noted. Hyperventilation is not performed. Diffuse alpha waves are also noted. Photic stimulation is performed without significant posterior driving. IMPRESSION: Diffuse rhythms are noted both fast and slow, consistent with a moderate diffuse encephalopathy, but no focal abnormalities noted. No seizure activity is seen. Some medication effect is likely also. Vito Anderson MD DJM/ld , 10:39 AM , 10:43 AM
--- NOTE | 2018-07-23 15:44 | ECG ---
Date Performed: 07/23/2018 Time Performed: 04:44:49 PTAGE: 68 years EKG: ATRIAL FIBRILLATION WITH RAPID VENTRICULAR RESPONSE PROBABLE INFERIOR MYOCARDIAL INFARCTION ABNORMAL ECG PREVIOUS TRACING : 07/20/2018 20.24 Compared to previous tracing, the patient has developed atr ial fibrillation With rapid ventricular response. There has been some slight variation in the Nonspec ific ST-T wave changes. Clinical correlation is recommended DOCTOR: Tessa Tinajero Interpretating Date/Time 07/23/2018 15:42:34
[2018-07-23] MEDS: Enoxaparin Inj 40 MG/0.4 ML Syringe SQ SCH (23:29)
[2018-07-24] MEDS: Chlorhexidine Gluconate 2% 1 Pack (2 Cloths) TOPICAL SCH (06:42)
[2018-07-24] MEDS: dilTIAZem CD 120 MG Capsule PO SCH (09:26)
[2018-07-24] MEDS: Divalproex 500 MG DR Tablet PO SCH ×2 (09:26→20:14)
[2018-07-24] MEDS: Famotidine PF Inj 20 MG/2 ML Vial IV.PUSH SCH ×2 (09:26→20:13)
[2018-07-24] MEDS: Senna/Docusate Sodium 8.6/50 MG Tablet PO SCH ×2 (09:27→20:14)
--- NOTE | 2018-07-24 09:40 | P.PNIM ---
Subjective Interval history: Rate control is now present with diltiazem. Patient has some confusion this morning. Intermittent sundowning may be present and is likely previously present which would correlate with poor compliance with her seizure treatments. Physical Exam Vital signs: Vital Signs 07/23/18 11:29 07/23/18 12:00 07/23/18 12:29 Temperature 98.7 F 97.7 F Pulse Rate 94 H 108 H Respiratory Rate 21 20 Blood Pressure 110/88 140/76 Pulse Oximetry 95 07/23/18 12:59 07/23/18 13:29 07/23/18 13:59 Temperature Pulse Rate 106 H 106 H 106 H Respiratory Rate 20 28 H 19 Blood Pressure 137/88 149/89 H 123/77 Pulse Oximetry 07/23/18 16:00 07/23/18 18:25 07/23/18 20:00 Temperature 98.1 F Pulse Rate 96 H 72 82 Respiratory Rate 25 H 24 24 Blood Pressure 126/80 136/74 Pulse Oximetry 95 07/24/18 00:00 07/24/18 02:00 07/24/18 04:28 Temperature 97.5 F L 97.8 F Pulse Rate 64 68 56 L Respiratory Rate 16 22 15 Blood Pressure 129/81 148/83 H 119/70 Pulse Oximetry 95 07/24/18 06:00 07/24/18 08:00 Temperature 98.8 F Pulse Rate 70 Respiratory Rate 16 Blood Pressure Pulse Oximetry Intake & Output 07/23/18 07/24/18 07/24/18 18:59 06:59 18:59 Intake Total 1685 / 1685 1405 / 1405 1470 / 1470 Output Total 402 / 402 800 / 800 Balance 1283 / 1283 1405 / 1405 670 / 670 Weight 69.7 kg Intake: IV 1205 / 1205 1105 / 1105 1110 / 1110 NS Inj 1,000 ML @ 84 mls/hr IV. 1000 / 1000 1000 / 1000 900 / 900 CONT .[id number] [facility] Rx#: [id number] Vimpat Inj 50 MG In NS Inj 100 105 / 105 105 / 105 ML @ 105 mls/hr IV.SIG Q12H [facility] Rx#:[id number] KCl 20 mEq Premix Inj 20 meq In 100 / 100 100 ml @ 50 mls/hr IV.SIG ONCE ONE Rx#:[id number] Keppra Inj 500 MG In NS Inj 100 105 / 105 105 / 105 ML @ 400 mls/hr IV.SIG Q12H [facility] Rx#:[id number] Oral 480 / 480 300 / 300 360 / 360 Output: Urine 400 / 400 600 / 600 Stool 2 / 2 200 / 200 Other: # Voids 5 Date of Last Bowel Movement 07/23/18 07/24/18 07/24/18 # Bowel Movements 3 Narrative: GENERAL: NAD, A&Ox2 HEAD: Normocephalic. NECK: Supple, trachea midline. No lymphadenopathy. EYES: No scleral icterus. No injection or drainage. CARDIOVASCULAR: Irregularly irregular rhythm with tachycardia without murmurs, gallops, or rubs. RESPIRATORY: Breath sounds equal bilaterally. No accessory muscle use. GASTROINTESTINAL: Abdomen soft, non-tender, nondistended. MUSCULOSKELETAL: No cyanosis, or edema. SKIN: Warm and dry. NEURO: No focal neurological deficits. - Urinary Catheter Management Straight Cath placed during this visit: yes, but has since been removed by the nurse Reason for continuing: Not indwelling catheter Insertion date: 07/20/18 Insertion time: 21:00 Removal date: 07/20/18 Removal time: 21:01 Results - Labs CBC & Chem 7: 07/23/18 04:45 07/23/18 11:15 Laboratory Results - last 24 hr 07/23/18 07/23/18 04:45 11:15 Potassium 4.0 D Valproic Acid 109 H* Microbiology 07/20/18 23:30 Blood - Peripheral Aerobic Blood Culture - Preliminary No growth in 3 days 07/20/18 23:30 Blood - Peripheral Anaerobic Blood Culture - Preliminary No growth in 3 days 07/20/18 23:15 Blood - Peripheral Aerobic Blood Culture - Preliminary No growth in 3 days 07/20/18 23:15 Blood - Peripheral Anaerobic Blood Culture - Preliminary No growth in 3 days Assessment and Plan - Assessment (1) Status epilepticus Code(s): G40.901 - Epilepsy, unspecified, not intractable, with status epilepticus Status: Acute (2) Generalized seizure Code(s): R56.9 - Unspecified convulsions Status: Acute (3) Seizure disorder Code(s): G40.909 - Epilepsy, unspecified, not intractable, without status epilepticus Status: Acute - Plan 88-year-old female admitted secondary to breakthrough seizures and status epilepticus Monitor for resolution of confusion. Continue working with physical therapy till improvement in functioning is present. Transition from every 6 hours diltiazem to 120 mg Cardizem CD daily. A. fib RVR History of A. fib RVR resolved P.o. diltiazem Monitor on telemetry Recurrent seizures Status epilepticus History of seizure disorder Neurology following Continue Ativan as needed for seizures Continue Keppra Continue Depakote Positive EEG Nonspecified psychiatric illness Depression Noncompliance to medication Continue baseline treatments Compliance encouraged Lactic acidosis History of atrial fibrillation LA related to seizure Follow on telemetry Hypokalemia Monitor and replace as needed DVT prophylaxis Lovenox Discharge planning Possible discharge tomorrow if no further seizure activity is present
[2018-07-24] MEDS: Lacosamide Inj 50 MG in Sodium Chlor 0.9% Inj 100 ML IV.SIG SCH ×2 (11:53→22:46)
[2018-07-24] MEDS: Enoxaparin Inj 40 MG/0.4 ML Syringe SQ SCH (22:56)
[2018-07-25] MEDS: Chlorhexidine Gluconate 2% 1 Pack (2 Cloths) TOPICAL SCH (03:21)
[2018-07-25] MEDS: dilTIAZem CD 120 MG Capsule PO SCH (09:07)
[2018-07-25] MEDS: Famotidine PF Inj 20 MG/2 ML Vial IV.PUSH SCH ×3 (09:07→20:03)
[2018-07-25] MEDS: Senna/Docusate Sodium 8.6/50 MG Tablet PO SCH ×2 (09:08→19:59)
--- NOTE | 2018-07-25 11:00 | P.DCO ---
- Physical Therapy Order: Evaluate and treat, Improve ambulation, Strength and gait training - Home Health Nursing Order: Signs/symptoms of disease process, Nursing assessment with vital signs - Case Management Consult Yes - Certification I have seen patient Nette Bartholomew on 07/25/18. My clinical findings support the need for the requested home health care services because: Deconditioned with increased weakness, Medication compliance is questionable, Limited ability to care for self, Impaired cognition/judgement I certify that my clinical findings support that this patient is homebound because: Impaired cognitive ability/safety, Unsteady gait/balance, Unsafe to leave home unassisted, Need for psychosocial assistance, Unable to use public transportation
--- NOTE | 2018-07-25 11:03 | P.DS ---
Date of admission: 07/20/18 23:31 Primary care physician: Chidi Slater MD Brief History from admission: Patient is a 68-year-old female with known history of seizure disorder, history of recurrent seizures due to noncompliance, who was brought to the [place] emergency department by EMS after she was found unresponsive on the floor at her home. Patient had contusion to the forehead, CT of the head in the ED was negative for acute injury. Patient is supposed to be on Depakote for psychiatric illness, and Keppra for seizure disorder. Allergic to fosphenytoin. Clinical history was consistent with recurrent seizures and postictal state. EMS witnessed generalized tonic-clonic seizures at her home while picking her up, and she apparently had seizures in the ED which responded to IV Ativan. Patient received loading dose of Keppra IV in the ED I evaluated the patient in the ICU. Patient remains lethargic but wakes up easily. She is a very poor historian. She tells her her name but she is unable to answer questions regarding compliance. She had been restarted on Keppra and Depakote. Her lactic acid was initially 8.9 most likely from seizures. Patient is getting IV fluid hydration. DS: Diagnosis - Discharge Diagnosis (1) Status epilepticus Status: Acute (2) Generalized seizure Status: Acute (3) Seizure disorder Status: Acute DS: Medications - Discharge Medications Prescriptions: diltiazem HCl 120 mg PO DAILY #30 cap divalproex [Depakote] 500 mg PO BID #60 tab levetiracetam [Keppra] 500 mg PO BID #60 tab DS: Summary Hospital Course: Mrs. Bartholomew is a 68-year-old female. She came in secondary to breakthrough seizures with status epilepticus. This was treated over the first 24 hours. She was monitored for 24 hours further no seizure activity occurred after seizure control obtained. Seizure medications have been adjusted by neurology. She subsequently entered A. fib RVR. She has a past history of A. fib. Diltiazem was initiated as a treatment and as a preventative treatment. For the last 24 hours she has not had recurrence of A. fib RVR. Physical therapy has been ongoing during her stay here. She has progressed. She is at the point where she is safe for continuation with physical therapy at home. Patient requests discharge. Medically stable and cleared for discharge home today. - Time Spent with Patient Total time spent providing and/or coordinating discharge services: Less than 30 minutes - Quality: VTE Deep Vein Thrombosis/Pulmonary Embolism Present on Admission: No Exam Vital signs: Vital Signs 07/24/18 11:55 07/24/18 12:00 07/24/18 20:00 Temperature 99.0 F 98.7 F Pulse Rate 82 64 Respiratory Rate 22 18 Blood Pressure 157/93 H 143/90 H Pulse Oximetry 97 97 07/24/18 21:09 07/24/18 21:25 07/25/18 00:00 Temperature 96.9 F L 97.2 F L Pulse Rate 70 82 Respiratory Rate 20 20 Blood Pressure 193/108 H 181/95 H Pulse Oximetry 95 97 97 07/25/18 04:00 07/25/18 08:00 Temperature 96.1 F L 96.8 F L Pulse Rate 62 65 Respiratory Rate 20 18 Blood Pressure 136/83 138/80 Pulse Oximetry 95 95 Intake & Output 07/24/18 07/25/18 07/25/18 18:59 06:59 18:59 Intake Total 2655 / 2655 555 / 555 Output Total 1700 / 1700 Balance 955 / 955 555 / 555 Weight 69.5 kg Intake: IV 1215 / 1215 315 / 315 NS Inj 1,000 ML @ 84 mls/hr IV. 900 / 900 CONT .[id number] [facility] Rx#: [id number] Vimpat Inj 50 MG In NS Inj 100 210 / 210 105 / 105 ML @ 105 mls/hr IV.SIG Q12H [facility] Rx#:[id number] Keppra Inj 500 MG In NS Inj 100 105 / 105 210 / 210 ML @ 400 mls/hr IV.SIG Q12H [facility] Rx#:[id number] Oral 1440 / 1440 240 / 240 Output: Urine 1500 / 1500 Stool 200 / 200 Other: # Voids 1 Date of Last Bowel Movement 07/24/18 07/24/18 # Bowel Movements 1 Results Procedures completed during hospitalization: None - Impressions ITS Impressions Cervical Spine CT 07/20/18 20:12 CONCLUSION: 1. Grade 1 anterolisthesis at C3-4, stable from prior. 2. No acute findings. Face CT 07/20/18 20:12 CONCLUSION: 1. No facial bone fracture seen. 2. Left sphenoid sinus disease, stable from February 2018. New mild right maxillary sinus disease. Head CT 07/20/18 21:50 CONCLUSION: 1. No acute findings in the brain. . Discharge Plan - Discharge Disposition Patient Disposition: /[facility] - Discharge Condition Condition: Stable - Discharge Order Discharge Orders: Discharge Order (Routine); Ordered 07/25/18 Ordered By: Uziel Beebe - Discharge Details Anticipated Discharge Date: 07/23/18 - Physicians Team Primary Care Provider: Chidi Slater Attending Provider: Uziel Beebe Other Providers: Todd Duron MD ; Benita Joy
[2018-07-25] MEDS: Lacosamide Inj 50 MG in Sodium Chlor 0.9% Inj 100 ML IV.SIG SCH ×2 (11:09→23:11)
[2018-07-25] MEDS: Enoxaparin Inj 40 MG/0.4 ML Syringe SQ SCH (23:11)
[2018-07-26] MEDS: dilTIAZem CD 120 MG Capsule PO SCH (08:40)
[2018-07-26] MEDS: Famotidine PF Inj 20 MG/2 ML Vial IV.PUSH SCH ×2 (08:41→20:47)
[2018-07-26] MEDS: Senna/Docusate Sodium 8.6/50 MG Tablet PO SCH ×2 (08:41→20:36)
[2018-07-26] MEDS ORDERED: Lacosamide 50 MG Tablet PO ONE (10:00)
--- NOTE | 2018-07-26 10:48 | MR ---
EXAM DATE: 07/26/2018 9:25 AM EDT AGE/SEX: 68 years / Female INDICATIONS: Dizziness. CVA. CLINICAL DATA: This is the patient's subsequent encounter. Patient reports that signs and symptoms h ave been present for 2 days and indicates a pain score of 0/10. MEDICAL/SURGICAL HISTORY: Seizures. None. COMPARISON: No prior exams available for comparison. TECHNIQUE: Multiplanar, multisequence examination of the brain was performed without contrast. FINDINGS: Cerebrum: The ventricles are normal for age. No evidence of midline shift, mass lesion, hemorrhage or acute infarction. No extraaxial fluid collections are seen. The pituitary gland and suprasellar cistern are normal in configuration. White Matter: Minimal periventricular white matter changes. Posterior Fossa: The cerebellum and brainstem are intact. The 4th ventricle is midline. The cerebel lopontine angle is unremarkable. The cerebellar tonsils are normal in position. Diffusion Imaging: No focal areas of restricted diffusion are seen. No evidence of acute infarction . Extracranial: The visualized portions of the orbits and paranasal sinuses are unremarkable. CONCLUSION: 1. Minimal periventricular white matter changes, negative for an acute ischemic event. Electronically signed by: Tyler Berger MD 07/26/2018 10:47 AM EDT
--- NOTE | 2018-07-26 15:08 | P.PNIM ---
Subjective Interval history: Plan for discharge yesterday is foiled by the patient having worsened ambulation. She is not functional for home. She has no desire for SNF. Physical Exam Vital signs: Vital Signs 07/25/18 16:00 07/25/18 19:27 07/25/18 20:00 Temperature 98.0 F 98.2 F Pulse Rate 72 70 Respiratory Rate 18 20 Blood Pressure 161/81 H 148/91 H Pulse Oximetry 96 93 L 96 07/26/18 00:00 07/26/18 04:00 07/26/18 07:23 Temperature 97.5 F L 97.5 F L Pulse Rate 63 80 Respiratory Rate 20 20 Blood Pressure 142/93 H 121/81 Pulse Oximetry 99 96 95 07/26/18 08:00 07/26/18 12:00 Temperature 98.1 F 97.1 F L Pulse Rate 97 H 61 Respiratory Rate 21 20 Blood Pressure 119/88 Pulse Oximetry 95 95 Intake & Output 07/25/18 07/26/18 07/26/18 18:59 06:59 18:59 Intake Total 810 / 810 270 / 270 240 / 240 Balance 810 / 810 270 / 270 240 / 240 Weight 62.2 kg Intake: IV 210 / 210 210 / 210 Vimpat Inj 50 MG In NS Inj 100 105 / 105 105 / 105 ML @ 105 mls/hr IV.SIG Q12H [facility] Rx#:[id number] Keppra Inj 500 MG In NS Inj 100 105 / 105 105 / 105 ML @ 400 mls/hr IV.SIG Q12H [facility] Rx#:[id number] Oral 600 / 600 60 / 60 240 / 240 Other: # Voids 2 2 # Bowel Movements 0 2 Narrative: GENERAL: NAD, A&Ox2 HEAD: Normocephalic. NECK: Supple, trachea midline. No lymphadenopathy. EYES: No scleral icterus. No injection or drainage. CARDIOVASCULAR: Irregularly irregular rhythm with tachycardia without murmurs, gallops, or rubs. RESPIRATORY: Breath sounds equal bilaterally. No accessory muscle use. GASTROINTESTINAL: Abdomen soft, non-tender, nondistended. MUSCULOSKELETAL: No cyanosis, or edema. SKIN: Warm and dry. NEURO: No focal neurological deficits. - Urinary Catheter Management Straight Cath placed during this visit: yes, but has since been removed by the nurse Reason for continuing: Not indwelling catheter Insertion date: 07/20/18 Insertion time: 21:00 Removal date: 07/20/18 Removal time: 21:01 Results - Labs CBC & Chem 7: 07/23/18 04:45 07/23/18 11:15 - Imaging Impressions Head MRI 07/26/18 00:00 CONCLUSION: 1. Minimal periventricular white matter changes, negative for an acute ischemic event. - Procedures None Assessment and Plan - Assessment (1) Status epilepticus Code(s): G40.901 - Epilepsy, unspecified, not intractable, with status epilepticus Status: Acute (2) Generalized seizure Code(s): R56.9 - Unspecified convulsions Status: Acute (3) Seizure disorder Code(s): G40.909 - Epilepsy, unspecified, not intractable, without status epilepticus Status: Acute - Plan 88-year-old female admitted secondary to breakthrough seizures and status epilepticus Not ambulating at a functional status. Discharge held from yesterday. Discharge when ambulation improved. A. fib RVR History of A. fib RVR resolved P.o. diltiazem Monitor on telemetry Recurrent seizures Status epilepticus History of seizure disorder Neurology following Continue Ativan as needed for seizures Continue Keppra Continue Depakote Positive EEG Nonspecified psychiatric illness Depression Noncompliance to medication Continue baseline treatments Compliance encouraged Lactic acidosis History of atrial fibrillation LA related to seizure Follow on telemetry Hypokalemia Monitor and replace as needed DVT prophylaxis Lovenox Discharge planning Possible discharge tomorrow if no further seizure activity is present
[2018-07-26] MEDS: Divalproex 500 MG DR Tablet PO SCH (20:35)
[2018-07-26] MEDS: Lacosamide 50 MG Tablet PO SCH (20:36)
[2018-07-27] MEDS: Enoxaparin Inj 40 MG/0.4 ML Syringe SQ SCH (00:40)
[2018-07-27] MEDS: Divalproex 500 MG DR Tablet PO SCH (08:42)
[2018-07-27] MEDS: Famotidine PF Inj 20 MG/2 ML Vial IV.PUSH SCH (08:42)
[2018-07-27] MEDS: dilTIAZem CD 120 MG Capsule PO SCH (08:42)
[2018-07-27] MEDS: Lacosamide 50 MG Tablet PO SCH (08:48)
[2018-07-27] MEDS: Senna/Docusate Sodium 8.6/50 MG Tablet PO SCH (08:48)
[2018-07-27 09:04] VITALS: BP 140/78; PULSE 64; RESP 21; TEMP 97.1; O2SAT 95
--- NOTE | 2018-07-27 09:33 | P.DS ---
Date of admission: 07/20/18 23:31 Primary care physician: Chidi Slater MD Brief History from admission: Patient is a 68-year-old female with known history of seizure disorder, history of recurrent seizures due to noncompliance, who was brought to the [place] emergency department by EMS after she was found unresponsive on the floor at her home. Patient had contusion to the forehead, CT of the head in the ED was negative for acute injury. Patient is supposed to be on Depakote for psychiatric illness, and Keppra for seizure disorder. Allergic to fosphenytoin. Clinical history was consistent with recurrent seizures and postictal state. EMS witnessed generalized tonic-clonic seizures at her home while picking her up, and she apparently had seizures in the ED which responded to IV Ativan. Patient received loading dose of Keppra IV in the ED I evaluated the patient in the ICU. Patient remains lethargic but wakes up easily. She is a very poor historian. She tells her her name but she is unable to answer questions regarding compliance. She had been restarted on Keppra and Depakote. Her lactic acid was initially 8.9 most likely from seizures. Patient is getting IV fluid hydration. DS: Diagnosis - Discharge Diagnosis (1) Status epilepticus Status: Acute (2) Generalized seizure Status: Acute (3) Seizure disorder Status: Acute DS: Medications - Discharge Medications Prescriptions: diltiazem HCl 120 mg PO DAILY #30 cap divalproex [Depakote] 500 mg PO BID #60 tab lacosamide [Vimpat] 50 mg PO BID #60 tab levetiracetam [Keppra] 500 mg PO BID #60 tab DS: Summary Hospital Course: Mrs. Bartholomew is a 68-year-old female. She came in secondary to breakthrough seizures with status epilepticus. This was treated over the first 24 hours. She was monitored for 24 hours further no seizure activity occurred after seizure control obtained. Seizure medications have been adjusted by neurology. She subsequently entered A. fib RVR. She has a past history of A. fib. Diltiazem was initiated as a treatment and as a preventative treatment. For the last 72 hours she has not had recurrence of A. fib RVR. Physical therapy has been ongoing during her stay here. She has progressed. She is at the point where she is safe for continuation with physical therapy at home. Patient requests discharge. Now she is stable with ambulation, for DC home with home health PT. Medically stable and cleared for discharge home today. - Time Spent with Patient Total time spent providing and/or coordinating discharge services: Less than 30 minutes - Quality: VTE Deep Vein Thrombosis/Pulmonary Embolism Present on Admission: No Exam Vital signs: Vital Signs 07/26/18 12:00 07/26/18 16:00 07/26/18 19:58 Temperature 97.1 F L 98.1 F Pulse Rate 61 79 Respiratory Rate 20 20 Blood Pressure 141/87 H Pulse Oximetry 95 95 95 07/26/18 20:00 07/27/18 00:00 07/27/18 04:00 Temperature 99.1 F 97.9 F 97.4 F L Pulse Rate 60 66 63 Respiratory Rate 18 16 18 Blood Pressure 143/85 H 133/75 133/70 Pulse Oximetry 96 94 L 96 07/27/18 08:00 Temperature 97.1 F L Pulse Rate 64 Respiratory Rate 21 Blood Pressure 140/78 Pulse Oximetry 95 Intake & Output 07/26/18 07/27/18 07/27/18 18:59 06:59 18:59 Intake Total 645 / 645 600 / 600 345 / 345 Output Total 404 / 404 401 / 401 Balance 241 / 241 600 / 600 -56 / -56 Weight 69 kg Intake: IV 105 / 105 105 / 105 Keppra Inj 500 MG In NS Inj 100 105 / 105 105 / 105 ML @ 400 mls/hr IV.SIG Q12H [facility] Rx#:[id number] Oral 540 / 540 600 / 600 240 / 240 Output: Urine 400 / 400 400 / 400 Stool 4 / 4 Other: # Voids 1 Date of Last Bowel Movement 07/26/18 07/27/18 # Bowel Movements 1 Results Procedures completed during hospitalization: None - Impressions ITS Impressions Cervical Spine CT 07/20/18 20:12 CONCLUSION: 1. Grade 1 anterolisthesis at C3-4, stable from prior. 2. No acute findings. Face CT 07/20/18 20:12 CONCLUSION: 1. No facial bone fracture seen. 2. Left sphenoid sinus disease, stable from February 2018. New mild right maxillary sinus disease. Head CT 07/20/18 21:50 CONCLUSION: 1. No acute findings in the brain. . Head MRI 07/26/18 00:00 CONCLUSION: 1. Minimal periventricular white matter changes, negative for an acute ischemic event. Discharge Plan - Discharge Disposition Patient Disposition: /Home Health Service - Discharge Condition Condition: Stable - Discharge Order Discharge Orders: Discharge Order (Routine); Ordered 07/27/18 Ordered By: Uziel Beebe - Discharge Details Anticipated Discharge Date: 07/23/18 - Physicians Team Primary Care Provider: Chidi Slater Attending Provider: Uziel Beebe Other Providers: Todd Duron MD ; Benita Joy
== END 2018-07-27 14:35 | disposition home health service (06) ==
LOC: PHED 20:06 → PHEDA 23:31 → PHICU 07-21 00:30 → PH3 07-24 21:08
PROVIDERS: ADMIT Hospitalist; ATTEND Hospitalist